=== PATIENT | female | born 1960 | race Caucasian/White ===

== ENCOUNTER 2018-10-13 18:16 | Emergency (ER) | payer MEDICAID ==
--- NOTE | 2018-10-13 18:28 | EDM.PDOC ---
ED HPI GENERAL MEDICAL PROBLEM - General Stated Complaint: COUGH FOR 3 WKS Time Seen by Provider: 10/13/18 18:28 Source of Information: Reports: Patient History Limitations: Reports: No Limitations - History of Present Illness INITIAL COMMENTS - FREE TEXT/NARRATIVE: 58-year-old female who reports onset of cough about 3 weeks ago and it has been persisting all this time and seems to be worsening over the past week. She has had production of white clear phlegm. She also has bilateral chest soreness that is worse with cough and deep breathing. She rates that soreness is a 7/10 in there are sharp spikes to the pain. Over the past 2 days she has had cough to the point of emesis and she states that she has not been taking her medications because of this. She has been able to drink and even eat some but she coughs and then she has emesis of her stomach contents. The emesis has been nonbilious. She does feel somewhat short of breath. And any activity or movement seems to make the cough worse. She has had no fevers. She does have a history of asthma and she has been using her inhaler with some some effect but over the past few days it has not really been helping that much. No syncope or presyncope. She does feel fatigued as she feels that she has not been sleeping very well. She has some swelling in her right leg but that has been rather long- standing. Is a chronic foot drop in her left leg that she reports is due to a stroke. There are no other associated signs or symptoms. There are no other modifying factors. 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: Other Medication(s) (Albuterol inhaler) chest and rib Pain Score (Numeric/FACES): 6 - Related Data Allergies Allergy/AdvReac Type Severity Reaction Status Date / Time Sulfa (Sulfonamide Allergy Cannot Verified 10/13/18 19:11 Antibiotics) Remember Home Meds: Home Meds Estrogens, Conjugated [Premarin] 1.25 mg PO BID 09/24/13 [History] Ezetimibe/Simvastatin [Vytorin 10-40 mg Tablet] 1 tab PO DAILY 09/24/13 [History ] Insulin Aspart [NovoLOG] 32 units SQ TID 09/24/13 [History] Insulin Detemir [Levemir Flexpen] 30 units SQ BEDTIME 09/24/13 [History] Levothyroxine [Synthroid] 50 mcg PO DAILY 09/24/13 [History] Losartan [Cozaar] 100 mg PO DAILY 09/24/13 [History] Sertraline [Zoloft] 100 mg PO BID 09/24/13 [History] Pregabalin [Lyrica] 225 mg PO BID 10/13/18 [History] Past Medical History Cardiovascular History: Reports: High Cholesterol, Hypertension Respiratory History: Reports: Asthma Genitourinary History: Reports: Renal Calculus Neurological History: Reports: CVA (With left foot drop) Endocrine/Metabolic History: Reports: Diabetes, Type II, Obesity/BMI 30+ - Past Surgical History GI Surgical History: Reports: Cholecystectomy Female Surgical History: Reports: Hysterectomy, Nephrectomy (Right) Social & Family History - Tobacco Use Smoking Status *Q: Former Smoker (Quit smoking in 2011.) - Alcohol Use Alcohol Use History: No - Living Situation & Occupation Living situation: Reports: Occupation: Unemployed (She is her 's primary caregiver) ED ROS GENERAL - Review of Systems Review Of Systems: See Below Constitutional: Reports: Fatigue. Denies: Fever, Chills HEENT: Reports: Other (Chronic allergy type symptoms) Respiratory: Reports: Shortness of Breath, Cough Cardiovascular: Reports: Chest Pain GI/Abdominal: Reports: Vomiting (Posttussive emesis) : Reports: No Symptoms Musculoskeletal: Reports: Other (Chronic swelling in right lower extremity) Skin: Reports: No Symptoms Neurological: Reports: No Symptoms Hematologic/Lymphatic: Reports: No Symptoms Immunologic: Reports: No Symptoms ED EXAM, GENERAL - Physical Exam Exam: See Below Exam Limited By: No Limitations General Appearance: Alert, WD/WN, Mild Distress (Secondary to continual cough) Eye Exam: Bilateral Eye: EOMI, Normal Inspection, PERRL Ears: Normal External Exam, Hearing Grossly Normal Ear Exam: Bilateral Ear: Auricle Normal Nose: No Blood, Nasal Drainage, Clear Rhinorrhea Throat/Mouth: Normal Inspection, Normal Oropharynx, Normal Voice, No Airway Compromise Head: Atraumatic, Normocephalic Neck: Normal Inspection, Supple, Non-Tender, Full Range of Motion Respiratory/Chest: No Respiratory Distress, Lungs Clear, Normal Breath Sounds, No Accessory Muscle Use, Other (Chest somewhat tender to palpation bilaterally along the lateral aspects) Cardiovascular: Normal Peripheral Pulses, Regular Rate, Rhythm, No Murmur Peripheral Pulses: 2+: Radial (L), Radial (R), Dorsalis Pedis (L), Dorsalis Pedis (R) GI/Abdominal: Normal Bowel Sounds, Soft, Non-Tender, No Mass, Other (Protuberant ) Back Exam: Normal Inspection, Full Range of Motion Extremities: Normal Capillary Refill, Other (Edema in right lower leg, foot and ankle compared to the left.) Neurological: Alert, Oriented, CN II-XII Intact, Normal Cognition, No Motor/ Sensory Deficits Skin Exam: Warm, Dry, Intact, Normal Color, No Rash EKG INTERPRETATION EKG Date: 10/13/18 Time: 18:50 Rhythm: NSR Rate (Beats/Min): 79 [place]: LAD-Left [place] Deviation (Borderline) P-Wave: Present QRS: Normal ST-T: Other (Nonspecific ST-T changes) QT: Prolonged (Borderline prolonged QTC) Comparison: No Change (No change from EKG performed on 09/24/2013.) Course - Vital Signs Last Recorded V/S: Last Vital Signs Temp 36.8 C 10/13/18 18:16 Pulse 94 10/13/18 18:16 Resp 20 10/13/18 18:16 BP 180/93 H 10/13/18 18:16 Pulse Ox 97 10/13/18 18:16 - Orders/Labs/Meds Orders: Active Orders 24 hr Category Date Time Status EKG Documentation Completion [RC] ASDIRECTED Care 10/13/18 18:44 Active RT Aerosol Therapy [RC] ASDIRECTED Care 10/13/18 18:39 Active Chest 2V [CR] Stat Exams 10/13/18 18:38 Taken EKG 12 Lead [EK] Routine Ther 10/13/18 18:44 Ordered Labs: Laboratory Tests 10/13/18 10/13/18 10/13/18 Range/Units 18:55 18:55 18:55 WBC 9.1 (4.5-12.0) X10-3/uL RBC 4.14 (3.23-5.20) x10(6)uL Hgb 10.9 L (11.5-15.5) g/dL Hct 32.9 (30.0-51.3) % MCV 79.5 L (80-96) fL MCH 26.3 L (27.7-33.6) pg MCHC 33.1 (32.2-35.4) g/dL RDW 14.1 (11.5-15.5) % Plt Count 273 (125-369) X10(3)uL MPV 9.1 (7.4-10.4) fL Neut % (Auto) 67.8 (46-82) % Lymph % (Auto) 23.6 (13-37) % [place] % (Auto) 4.4 (4-12) % Eos % (Auto) 4 (1.0-5.0) % Baso % (Auto) 1 (0-2) % Neut # (Auto) 6.2 (1.6-8.3) # Lymph # (Auto) 2.1 (0.6-5.0) # [place] # (Auto) 0.4 (0.0-1.3) # Eos # (Auto) 0.3 (0.0-0.8) # Baso # (Auto) 0.0 (0.0-0.2) # D-Dimer, Quantitative (0.0-0.59) mg/LFEU Sodium 138 (135-145) mmol/L Potassium 4.1 (3.5-5.3) mmol/L Chloride 104 (100-110) mmol/L Carbon Dioxide 25 (21-32) mmol/L BUN 17 (7-18) mg/dL Creatinine 1.3 H (0.55-1.02) mg/dL Est Cr Clr Drug Dosing 47.00 mL/min Estimated GFR (MDRD) 42 L (>60) BUN/Creatinine Ratio 13.1 (9-20) Glucose 190 H (80-116) mg/dL Calcium 8.9 (8.6-10.2) mg/dL Troponin I < 0.017 L (<0.017-0.056) ng/mL NT-Pro-B Natriuret Pep 623 H (<=125) pg/mL 10/13/18 Range/Units 18:55 WBC (4.5-12.0) X10-3/uL RBC (3.23-5.20) x10(6)uL Hgb (11.5-15.5) g/dL Hct (30.0-51.3) % MCV (80-96) fL MCH (27.7-33.6) pg MCHC (32.2-35.4) g/dL RDW (11.5-15.5) % Plt Count (125-369) X10(3)uL MPV (7.4-10.4) fL Neut % (Auto) (46-82) % Lymph % (Auto) (13-37) % [place] % (Auto) (4-12) % Eos % (Auto) (1.0-5.0) % Baso % (Auto) (0-2) % Neut # (Auto) (1.6-8.3) # Lymph # (Auto) (0.6-5.0) # [place] # (Auto) (0.0-1.3) # Eos # (Auto) (0.0-0.8) # Baso # (Auto) (0.0-0.2) # D-Dimer, Quantitative 1.11 H (0.0-0.59) mg/LFEU Sodium (135-145) mmol/L Potassium (3.5-5.3) mmol/L Chloride (100-110) mmol/L Carbon Dioxide (21-32) mmol/L BUN (7-18) mg/dL Creatinine (0.55-1.02) mg/dL Est Cr Clr Drug Dosing mL/min Estimated GFR (MDRD) (>60) BUN/Creatinine Ratio (9-20) Glucose (80-116) mg/dL Calcium (8.6-10.2) mg/dL Troponin I (<0.017-0.056) ng/mL NT-Pro-B Natriuret Pep (<=125) pg/mL Meds: Medications Discontinued Medications Generic Name Dose Route Start Last Admin Trade Name Freq PRN Reason Stop Dose Admin Albuterol 2.5 mg 10/13/18 18:38 10/13/18 18:55 Proventil Neb Soln NEB 10/13/18 18:39 2.5 mg ONETIME ONE Administration Albuterol/Ipratropium 3 ml 10/13/18 18:38 10/13/18 18:55 Duoneb 3.0-0.5 Mg/3 Ml NEB 10/13/18 18:39 3 ml ONETIME ONE Administration Prednisone 60 mg 10/13/18 18:38 10/13/18 18:56 Prednisone PO 10/13/18 18:39 60 mg ONETIME ONE Administration - Re-Assessments/Exams Free Text/Narrative Re-Assessment/Exam: 10/13/18 19:30: Care to Dr. Rock. Departure - Departure Time of Disposition: 19:30 Disposition: Still A Patient 30 Condition: Fair Clinical Impression: Cough, Shortness of breath - Discharge Information Referrals: Veto Mata MD [Primary Care Provider] - - My Orders Last 24 Hours: My Active Orders 10/13/18 18:38 Chest 2V [CR] Stat 10/13/18 18:39 RT Aerosol Therapy [RC] ASDIRECTED 10/13/18 18:44 EKG Documentation Completion [RC] ASDIRECTED EKG 12 Lead [EK] Routine - Assessment/Plan Last 24 Hours: My Active Orders 10/13/18 18:38 Chest 2V [CR] Stat 10/13/18 18:39 RT Aerosol Therapy [RC] ASDIRECTED 10/13/18 18:44 EKG Documentation Completion [RC] ASDIRECTED EKG 12 Lead [EK] Routine
[2018-10-13] MEDS ORDERED: Albuterol 0.083% 2.5 MG/3 ML Neb Soln NEB ONE (18:38)
[2018-10-13] MEDS ORDERED: predniSONE 20 MG Tab PO ONE (18:38)
[2018-10-13] MEDS ORDERED: Albuterol/Ipratropium 3.0-0.5 MG/3 ML Neb Soln NEB ONE (18:38)
[2018-10-13] MEDS ORDERED: Iopamidol 755 MG/ML 150 ML Bottle IV ONE (19:52)
[2018-10-13] MEDS ORDERED: Iopamidol 755 Mg/ML 100 ML Bottle IV ONE (20:16)
[2018-10-13] MEDS ORDERED: Furosemide 20 MG Tab PO ONE (21:23)
--- NOTE | 2018-10-15 12:54 | CR ---
INDICATION: Cough times three weeks. CHEST: PA and lateral views of the chest, 10/13/18, were compared with and revealed little interval change with pulmonary markings slightly heavy, compatible with mild pulmonary fibrosis, as previously. No consolidating pneumonia or effusion was identified. The left ventricular contour is somewhat prominent, suggesting mild LVE. The aorta is tortuous. Bony structures appear to be intact. Evidence of exogenous obesity is noted, as previously. IMPRESSION: 1. No definite acute process - mild pulmonary fibrosis. No definite consolidating pneumonia. With the areas of slightly heavy markings, it remains difficult to entirely exclude minimal patchy bronchopneumonia. 2. Probable ASHD. 3. Exogenous obesity. MTDD
--- NOTE | 2018-10-16 07:36 | ER ---
DATE SEEN: 10/13/2018 ADDENDUM: I saw Melinda Rodrigues, [id number], as a followup after Dr. Bingham had seen her in the ER. He had ordered a number of tests, and the D-dimer came back positive and a CT of the chest was ordered as a result. She has had a complaint of shortness of breath and cough for about 3 weeks. The cough is productive of clear sputum. She has also had some soreness in the chest area that is sharp. PAST MEDICAL HISTORY: She endorsed a history of a stroke and type 2 diabetes. ALLERGIES: Sulfa drugs. PHYSICAL EXAMINATION: VITAL SIGNS: Initial blood pressure 180/93, pulse 94, and temperature 98.3. ENT: Negative. NECK: Supple. CARDIOVASCULAR: No murmurs. EXTREMITIES: No edema. LUNGS: Rales. LABORATORY DATA: CBC was normal. Creatinine 1.3. Troponin was negative. BNP is 623. CT of the chest was negative for PE, but positive for pulmonary edema. IMPRESSION: Mild congestive heart failure exacerbation. TREATMENT: 20 mg of Lasix x1 dose and discharged home on 20 mg daily and follow up with PCP next week, Dr. Mata. Return to the ED with any worsening symptoms. /[id number] ALEJANDRO/DARLENE
== END 2018-10-13 21:40 | disposition home or self-care (01) ==
LOC: FB.ED 18:16
DX: I11.0 Hypertensive heart disease with heart failure (principal); I50.9 Heart failure, unspecified; J45.909 Unspecified asthma, uncomplicated; E78.00 Pure hypercholesterolemia, unspecified; E11.9 Type 2 diabetes mellitus without complications; Z79.899 Other long term (current) drug therapy; Z86.73 Personal history of transient ischemic attack (TIA), and cerebral infarction without residual deficits; Z88.2 Allergy status to sulfonamides; Z79.4 Long term (current) use of insulin; Z87.891 Personal history of nicotine dependence
CPT/HCPCS: 36415; 71046; 71275; 80048; 83880; 84484; 85025; 85379; 93005; 94640; 99284; A9270; Q9967; J7620-GY

== ENCOUNTER 2019-01-13 11:23 | Emergency (ER) | payer MEDICAID ==
[2019-01-13] MEDS ORDERED: Pregabalin 100 MG Cap PO ONE (11:24)
[2019-01-13] MEDS ORDERED: Pregabalin 25 MG Cap PO ONE (11:24)
--- NOTE | 2019-01-13 11:41 | EDM.PDOC ---
ED HPI GENERAL MEDICAL PROBLEM - General Stated Complaint: LEFT FOOT HURTS Time Seen by Provider: 01/13/19 11:25 Source of Information: Reports: Patient History Limitations: Reports: No Limitations - History of Present Illness INITIAL COMMENTS - FREE TEXT/NARRATIVE: pt is here basically asking for refil on her lyrica, tells me she has Hx of chronic pain for years and neuropathy at her feet , has been out of her Lyrica since and cant get an earlier refill from pharmacy and has been able to sleep because of pain, pt decribe nurning sensation at her feet particularly on left foot , pt denies any recent injures , or any associated swelling, fever chill, etc or any other medical concerns. - Related Data Allergies Allergy/AdvReac Type Severity Reaction Status Date / Time Sulfa (Sulfonamide Allergy Cannot Verified 10/13/18 19:11 Antibiotics) Remember Home Meds: Home Meds Estrogens, Conjugated [Premarin] 1.25 mg PO BID 09/24/13 [History] Ezetimibe/Simvastatin [Vytorin 10-40 mg Tablet] 1 tab PO DAILY 09/24/13 [History ] Insulin Aspart [NovoLOG] 32 units SQ TID 09/24/13 [History] Insulin Detemir [Levemir Flexpen] 30 units SQ BEDTIME 09/24/13 [History] Levothyroxine [Synthroid] 50 mcg PO DAILY 09/24/13 [History] Losartan [Cozaar] 100 mg PO DAILY 09/24/13 [History] Sertraline [Zoloft] 100 mg PO BID 09/24/13 [History] Furosemide [Lasix] 20 mg PO ONETIME #30 tab 10/13/18 [Rx] Pregabalin [Lyrica] 225 mg PO BID 10/13/18 [History] Past Medical History Cardiovascular History: Reports: High Cholesterol, Hypertension Other Cardiovascular History: stroke in 2013 Respiratory History: Reports: Asthma Genitourinary History: Reports: Renal Calculus Neurological History: Reports: CVA (With left foot drop) Endocrine/Metabolic History: Reports: Diabetes, Type II, Obesity/BMI 30+ - Past Surgical History GI Surgical History: Reports: Cholecystectomy Female Surgical History: Reports: Hysterectomy, Nephrectomy (Right) Social & Family History - Living Situation & Occupation Living situation: Reports: Occupation: Unemployed (She is her 's primary caregiver) ED ROS GENERAL - Review of Systems Review Of Systems: See Below Constitutional: Reports: No Symptoms Respiratory: Reports: No Symptoms Cardiovascular: Reports: No Symptoms GI/Abdominal: Reports: No Symptoms Musculoskeletal: Reports: No Symptoms Skin: Reports: No Symptoms ED EXAM, GENERAL - Physical Exam Exam: See Below Exam Limited By: No Limitations General Appearance: Alert, No Apparent Distress Eye Exam: Bilateral Eye: Normal Inspection Respiratory/Chest: No Respiratory Distress, Lungs Clear Cardiovascular: Normal Peripheral Pulses, Regular Rate, Rhythm, No Edema Extremities: Normal Inspection, Normal Range of Motion, Non-Tender Neurological: Alert, CN II-XII Intact, No Motor/Sensory Deficits Course - Vital Signs Text/Narrative:: pt has chronic pain at lower extremities secondary to neuropathy , she was given 4 tablets on lyrica to cover her over the weekend , pt was advised to contact her PCP early this week to discuss ongoing mng of chronic pain and future refills on her medications. Departure - Departure Time of Disposition: 11:42 Disposition: Home, Self-Care 01 Clinical Impression: Neuropathy - Discharge Information Referrals: Veto Mata MD [Primary Care Provider] -
[2019-01-13] MEDS ORDERED: Pregabalin 25 MG Cap ONE ×3 (11:47→11:58)
[2019-01-13] MEDS ORDERED: Pregabalin 100 MG Cap ONE ×2 (11:56→11:59)
[2019-01-13] MEDS ORDERED: Pregabalin 25 MG Cap PO SCH (21:00)
== END 2019-01-13 12:09 | disposition home or self-care (01) ==
LOC: FB.ED 11:23
DX: E11.40 Type 2 diabetes mellitus with diabetic neuropathy, unspecified (principal); I10 Essential (primary) hypertension; E78.00 Pure hypercholesterolemia, unspecified; J45.909 Unspecified asthma, uncomplicated; E66.9 Obesity, unspecified; I69.398 Other sequelae of cerebral infarction; M21.371 Foot drop, right foot; Z79.4 Long term (current) use of insulin; Z79.899 Other long term (current) drug therapy; Z88.2 Allergy status to sulfonamides
CPT/HCPCS: 99283; A9270

== ENCOUNTER 2019-10-09 18:41 | Emergency (ER) | payer MEDICAID ==
--- NOTE | 2019-10-09 21:01 | EDM.PDOC ---
ED HPI GENERAL MEDICAL PROBLEM - General Chief Complaint: Lower Extremity Injury/Pain Time Seen by Provider: 10/09/19 18:50 Source of Information: Reports: Patient History Limitations: Reports: No Limitations - History of Present Illness INITIAL COMMENTS - FREE TEXT/NARRATIVE: Patient presented to the ED because she fell in her bathroom 3 days ago and now c/o headache,,Left hip pain, and facial pain. There is no LOC after the fall. Left Hip Pain Score (Numeric/FACES): 8 - Related Data Allergies Allergy/AdvReac Type Severity Reaction Status Date / Time Sulfa (Sulfonamide Allergy Cannot Verified 01/13/19 11:40 Antibiotics) Remember Home Meds: Home Meds Estrogens, Conjugated [Premarin] 1.25 mg PO BID 09/24/13 [History] Ezetimibe/Simvastatin [Vytorin 10-40 mg Tablet] 1 tab PO DAILY 09/24/13 [History] Insulin Aspart [NovoLOG] 32 units SQ TID 09/24/13 [History] Insulin Detemir [Levemir Flexpen] 30 units SQ BEDTIME 09/24/13 [History] Levothyroxine [Synthroid] 50 mcg PO DAILY 09/24/13 [History] Losartan [Cozaar] 100 mg PO DAILY 09/24/13 [History] Sertraline [Zoloft] 100 mg PO BID 09/24/13 [History] Furosemide [Lasix] 20 mg PO ONETIME #30 tab 10/13/18 [Rx] Pregabalin [Lyrica] 225 mg PO BID 10/13/18 [History] Cyclobenzaprine [Flexeril] 10 mg PO Q8H PRN #15 tab 10/09/19 [Rx] traMADol [Ultram] 100 mg PO Q8H PRN #15 tab 10/09/19 [Rx] Past Medical History Cardiovascular History: Reports: High Cholesterol, Hypertension Other Cardiovascular History: stroke in 2013 Respiratory History: Reports: Asthma Genitourinary History: Reports: Renal Calculus Neurological History: Reports: CVA Endocrine/Metabolic History: Reports: Diabetes, Type II, Obesity/BMI 30+ - Past Surgical History GI Surgical History: Reports: Cholecystectomy Female Surgical History: Reports: Hysterectomy, Nephrectomy Social & Family History - Tobacco Use Smoking Status *Q: Unknown Ever Smoked - Living Situation & Occupation Living situation: Reports: Occupation: Unemployed (She is her 's primary caregiver) Review of Systems - Review of Systems Review Of Systems: See Below Constitutional: Reports: No Symptoms Ears: Reports: No Symptoms Nose: Reports: No Symptoms Mouth/Throat: Reports: No Symptoms Respiratory: Reports: No Symptoms Cardiovascular: Reports: No Symptoms GI/Abdominal: Reports: No Symptoms Genitourinary: Reports: No Symptoms Musculoskeletal: Reports: No Symptoms Skin: Reports: No Symptoms ED EXAM, GENERAL - Physical Exam Exam: See Below Exam Limited By: No Limitations General Appearance: Alert, No Apparent Distress Ears: Normal External Exam, Normal [place] Nose: Normal Inspection, Normal Mucosa Throat/Mouth: Normal Inspection, Normal Lips Head: Atraumatic, Normocephalic Neck: Normal Inspection, Supple, Non-Tender Respiratory/Chest: No Respiratory Distress, Lungs Clear, Normal Breath Sounds Cardiovascular: Normal Peripheral Pulses, Regular Rate, Rhythm, No Edema, No Gallop GI/Abdominal: Normal Bowel Sounds, Soft, Non-Tender, No Organomegaly Back Exam: Normal Inspection, Full Range of Motion Extremities: Normal Inspection, Normal Range of Motion, Other (tenderness left hip) Neurological: Alert, Oriented, CN II-XII Intact, Normal Cognition Course - Vital Signs Text/Narrative:: Labs/Head CT, xray left pelvis was discussed with patient Tramadol 100 mg wand tylenol 1000 mg po x1 Flexeril 10 mg po x1 Last Recorded V/S: Last Vital Signs Temp 36.6 C 10/09/19 21:07 Pulse 71 10/09/19 21:07 Resp 16 10/09/19 21:07 BP 177/81 H 10/09/19 21:07 Pulse Ox 99 10/09/19 21:07 - Orders/Labs/Meds Orders: Active Orders 24 hr Category Date Time Status Chest 1V Frontal [CR] Stat Exams 10/09/19 18:58 Taken Head wo Cont [CT] Stat Exams 10/09/19 18:58 Taken Hip Min 2V or 3V w Pelvis Rt [CR] Stat Exams 10/09/19 18:58 Taken Nasal Bone Min 3V [CR] Stat Exams 10/09/19 18:58 Taken Labs: Laboratory Tests 10/09/19 10/09/19 10/09/19 Range/Units 19:15 19:15 19:15 WBC 8.3 (4.5-12.0) X10-3/uL RBC 4.09 (3.23-5.20) x10(6)uL Hgb 10.6 L (11.5-15.5) g/dL Hct 33.8 (30.0-51.3) % MCV 82.5 (80-96) fL MCH 26.0 L (27.7-33.6) pg MCHC 31.5 L (32.2-35.4) g/dL RDW 14.1 (11.5-15.5) % Plt Count 251 (125-369) X10(3)uL MPV 9.0 (7.4-10.4) fL Neut % (Auto) 60.5 (46-82) % Lymph % (Auto) 28.7 (13-37) % [place] % (Auto) 5.9 (4-12) % Eos % (Auto) 4 (1.0-5.0) % Baso % (Auto) 1 (0-2) % Neut # (Auto) 5.0 (1.6-8.3) # Lymph # (Auto) 2.4 (0.6-5.0) # [place] # (Auto) 0.5 (0.0-1.3) # Eos # (Auto) 0.3 (0.0-0.8) # Baso # (Auto) 0.1 (0.0-0.2) # Sodium 138 (135-145) mmol/L Potassium 3.9 (3.5-5.3) mmol/L Chloride 104 (100-110) mmol/L Carbon Dioxide 27 (21-32) mmol/L BUN 20 H (7-18) mg/dL Creatinine 1.3 H (0.55-1.02) mg/dL Est Cr Clr Drug Dosing TNP Estimated GFR (MDRD) 42 L (>60) BUN/Creatinine Ratio 15.4 (9-20) Glucose 191 H (80-116) mg/dL Calcium 8.7 (8.6-10.2) mg/dL Total Bilirubin 0.4 (0.1-1.3) mg/dL AST 15 (5-25) IU/L ALT 13 (12-36) U/L Alkaline Phosphatase 126 H (56-112) IU/L Creatine Kinase 139 (60-160) IU/L Troponin I 4.6 (4.0-60.3) pg/mL Total Protein 7.5 (6.0-8.0) g/dL Albumin 2.8 L (3.2-4.6) g/dL Globulin 4.7 g/dL Albumin/Globulin Ratio 0.6 Meds: Medications Discontinued Medications Generic Name Dose Route Start Last Admin Trade Name Freq PRN Reason Stop Dose Admin Acetaminophen 1,000 mg 10/09/19 21:06 10/09/19 21:13 Tylenol Extra Strength PO 10/09/19 21:07 1,000 mg ONETIME ONE Administration Cyclobenzaprine HCl 10 mg 10/09/19 21:06 10/09/19 21:13 Flexeril PO 10/09/19 21:07 10 mg ONETIME ONE Administration Tramadol HCl 100 mg 10/09/19 21:06 10/09/19 21:13 Ultram PO 10/09/19 21:07 100 mg ONETIME ONE Administration Departure - Departure Time of Disposition: 21:00 Disposition: Home, Self-Care 01 Condition: Good Clinical Impression: Musculoskeletal pain, Contusion - Discharge Information Prescriptions: Cyclobenzaprine [Flexeril] 10 mg PO Q8H PRN #15 tab PRN Reason: Spasms traMADol [Ultram] 100 mg PO Q8H PRN #15 tab PRN Reason: Pain Instructions: Muscle Strain, [id number], Musculoskeletal Pain Referrals: PCP,None [Primary Care Provider] - Forms: ED Department Discharge Additional Instructions: Please read discharge instructions on muscle strain, contusion Apply ice Take flexeril 10 mg every 8 hours as needed for muscle spasm Tramadol 100 mg with tylenol 1000 mg every 8 hours as needed for pain Follow up as needed Sepsis Event Note (ED) - Evaluation Sepsis Screening Result: No Definite Risk - My Orders Last 24 Hours: My Active Orders 10/09/19 18:58 Chest 1V Frontal [CR] Stat Head wo Cont [CT] Stat Hip Min 2V or 3V w Pelvis Rt [CR] Stat Nasal Bone Min 3V [CR] Stat - Assessment/Plan Last 24 Hours: My Active Orders 10/09/19 18:58 Chest 1V Frontal [CR] Stat Head wo Cont [CT] Stat Hip Min 2V or 3V w Pelvis Rt [CR] Stat Nasal Bone Min 3V [CR] Stat
[2019-10-09] MEDS ORDERED: Acetaminophen 500 MG Tab PO ONE (21:06)
[2019-10-09] MEDS ORDERED: Cyclobenzaprine 10 MG Tab PO ONE (21:06)
[2019-10-09] MEDS ORDERED: traMADol 50 MG Tab PO ONE (21:06)
--- NOTE | 2019-10-10 12:44 | CR ---
INDICATION: Cough x1 week. CHEST, 1 VIEW: PA view of the chest was obtained 10/09/2019 and compared with 10/13/2018. Apparel with metallic densities noted overlying the chest. Heart did not appear enlarged. The aorta is tortuous. A definite active infiltrate or effusion was not identified. Evidence of exogenous obesity is noted. IMPRESSION: No acute process - findings as noted above. MTDD
--- NOTE | 2019-10-10 12:48 | CR ---
INDICATION: Fall. RIGHT HIP WITH PELVIS: AP view of the pelvis with 2 AP views of the right hip and a lateral view of the right hip were compared with CT of the pelvis dated 09/24/13. An acute fracture, dislocation or other acute bone or joint abnormality was not identified. Sacroiliac joints appear to be overall intact with some minimal hypertrophic degenerative changes. Hip joints appear normal with normal joint space without evidence of fracture or dislocation. There are some phleboliths in the pelvis. IMPRESSION: No acute fracture or dislocation. MTDD
--- NOTE | 2019-10-10 12:49 | CR ---
INDICATION: Fall, epistaxis. NASAL BONES: Frontal and lateral views of the nasal bones revealed no evidence of an acute fracture or other definite bony abnormality. Paranasal sinuses appear to be fairly well aerated. IMPRESSION: No fracture site identified. MTDD
== END 2019-10-09 21:23 | disposition home or self-care (01) ==
LOC: FB.ED 18:41
DX: S70.02XA Contusion of left hip, initial encounter (principal); S00.83XA Contusion of other part of head, initial encounter; I10 Essential (primary) hypertension; R51 Headache; J45.909 Unspecified asthma, uncomplicated; E11.9 Type 2 diabetes mellitus without complications; E66.9 Obesity, unspecified; Z88.2 Allergy status to sulfonamides; Z79.4 Long term (current) use of insulin; Z79.899 Other long term (current) drug therapy; Z86.73 Personal history of transient ischemic attack (TIA), and cerebral infarction without residual deficits; W19.XXXA Unspecified fall, initial encounter
CPT/HCPCS: 36415; 70160; 70450; 71045; 73502; 80053; 82550; 84484; 85025; 99284; A9270

== ENCOUNTER 2020-10-31 16:53 | Emergency (ER) | payer MEDICAID ==
[2020-10-31] MEDS ORDERED: Ketorolac 30 MG/ML SDV IM ONE (17:32)
--- NOTE | 2020-10-31 17:38 | EDM.PDOC ---
ED HPI GENERAL MEDICAL PROBLEM - General Chief Complaint: General Stated Complaint: fall Time Seen by Provider: 10/31/20 17:20 Source of Information: Reports: Patient History Limitations: Reports: No Limitations - History of Present Illness INITIAL COMMENTS - FREE TEXT/NARRATIVE: c/o fall walks with cane, has had CVA and a drop foot on L fell on curb walking into her apartment yesterday, not feeling ill, says she sometimes has trouble controlling her L foot and loses her balance awake during night d/t pain at ribs under R breast, localized also small abrasion of R knee, some soreness with wt bearing has had swelling RLE after fall Treatments [employer]: Reports: Acetaminophen Right Pain Score (Numeric/FACES): 9 - Related Data Allergies Allergy/AdvReac Type Severity Reaction Status Date / Time Sulfa (Sulfonamide Allergy Cannot Verified 01/13/19 11:40 Antibiotics) Remember Home Meds: Home Meds Estrogens, Conjugated [Premarin] 1.25 mg PO BID 09/24/13 [History] Ezetimibe/Simvastatin [Vytorin 10-40 mg Tablet] 1 tab PO DAILY 09/24/13 [ History] Insulin Aspart [NovoLOG] 32 units SQ TID 09/24/13 [History] Insulin Detemir [Levemir Flexpen] 30 units SQ BEDTIME 09/24/13 [History] Levothyroxine [Synthroid] 50 mcg PO DAILY 09/24/13 [History] Losartan [Cozaar] 100 mg PO DAILY 09/24/13 [History] Sertraline [Zoloft] 100 mg PO BID 09/24/13 [History] Furosemide [Lasix] 20 mg PO ONETIME #30 tab 10/13/18 [Rx] Pregabalin [Lyrica] 225 mg PO BID 10/13/18 [History] Cyclobenzaprine [Flexeril] 10 mg PO Q8H PRN #15 tab 10/09/19 [Rx] traMADol [Ultram] 100 mg PO Q8H PRN #15 tab 10/09/19 [Rx] traMADol HCl [Tramadol HCl] 100 mg PO Q6H PRN #12 tablet 10/31/20 [Rx] Past Medical History Cardiovascular History: Reports: High Cholesterol, Hypertension Other Cardiovascular History: stroke in 2013 Respiratory History: Reports: Asthma Genitourinary History: Reports: Renal Calculus Neurological History: Reports: CVA Endocrine/Metabolic History: Reports: Diabetes, Type II, Obesity/BMI 30+ - Past Surgical History GI Surgical History: Reports: Cholecystectomy Female Surgical History: Reports: Hysterectomy, Nephrectomy Social & Family History - Family History Family Medical History: No Pertinent Family History - Tobacco Use Tobacco Use Status *Q: Never Tobacco User - Caffeine Use Caffeine Use: Reports: Coffee - Recreational Drug Use Recreational Drug Use: No - Living Situation & Occupation Living situation: Reports: Occupation: Unemployed (She is her 's primary caregiver) ED ROS GENERAL - Review of Systems Review Of Systems: See Below Constitutional: Reports: No Symptoms HEENT: Reports: No Symptoms Respiratory: Reports: No Symptoms Cardiovascular: Reports: Other (rib pain) Endocrine: Reports: No Symptoms GI/Abdominal: Reports: No Symptoms : Reports: No Symptoms Musculoskeletal: Reports: No Symptoms Skin: Reports: No Symptoms Neurological: Reports: No Symptoms Psychiatric: Reports: No Symptoms Hematologic/Lymphatic: Reports: No Symptoms Immunologic: Reports: No Symptoms ED EXAM, GENERAL - Physical Exam Exam: See Below Exam Limited By: No Limitations General Appearance: Alert, WD/WN, No Apparent Distress Ears: Hearing Grossly Normal Nose: Normal Inspection Throat/Mouth: Normal Inspection, Normal Voice, No Airway Compromise Head: Atraumatic, Normocephalic Neck: Normal Inspection, Supple, Non-Tender, Full Range of Motion Respiratory/Chest: No Respiratory Distress, Lungs Clear, Normal Breath Sounds, Other (R rib tender localized MCL under R breast, nontender lateral and poste rior, nontender at R costochondral margin, no abrasion/ecchymosis/swell of skin at site of tenderness) Cardiovascular: Regular Rate, Rhythm, No Murmur GI/Abdominal: Soft, Non-Tender Extremities: Other (2+ edema of RLE which pt reports as knee, no cords/Homans, superficial abrasion of R knee of 2 x 2 cm above and below joint line anteriorly, no point tender) Course - Vital Signs Last Recorded V/S: Last Vital Signs Temp 36.3 C 10/31/20 17:03 Pulse 69 10/31/20 17:03 Resp 18 10/31/20 17:03 BP 187/106 H 10/31/20 17:03 Pulse Ox 99 10/31/20 17:03 - Orders/Labs/Meds Orders: Active Orders 24 hr Category Date Time Status Ribs 3V wo Chest Rt [CR] Stat Exams 10/31/20 17:31 Ordered Ketorolac [Toradol] Med 10/31/20 17:32 Once 30 mg IM ONETIME ONE - Re-Assessments/Exams Free Text/Narrative Re-Assessment/Exam: 10/31/20 18:26 XR R ribs neg per prelim ED read XR R knee shows spurring, advanced DJD of patella, mod DJD of tib-fib, no definite fx tx plan discussed, pt agrees Departure - Departure Time of Disposition: 18:18 Disposition: Home, Self-Care 01 Condition: Good Clinical Impression: Contusion of rib on right side, Contusion of right knee, Osteoarthritis of right patellofemoral joint, Osteoarthritis of right knee - Discharge Information *PRESCRIPTION DRUG MONITORING PROGRAM REVIEWED*: Not Applicable *COPY OF PRESCRIPTION DRUG MONITORING REPORT IN PATIENT ELIS: Not Applicable Prescriptions: traMADol HCl [Tramadol HCl] 100 mg PO Q6H PRN #12 tablet PRN Reason: Pain Instructions: Rib Contusion, Osteoarthritis Referrals: Veto Mata MD [Primary Care Provider] - Additional Instructions: For pain, continue acetaminophen 500 mg 2 tabs 4 times a day for 5 days, longer if needed. For pain, continue pregabalin as prescribed. For pain, take tramadol 100 mg 1 tab every 6 hours as needed. No alcohol. For pain, use ice for 10 minutes every 2 hours as needed. See your doctor in 2-3 days to recheck your blood pressure and for further evaluation of your injuries. Sepsis Event Note (ED) - Evaluation Sepsis Screening Result: No Definite Risk - Focused Exam Vital Signs: Vital Signs Temp Pulse Resp BP Pulse Ox 10/31/20 17:03 36.3 C 69 18 187/106 H 99 - My Orders Last 24 Hours: My Active Orders 10/31/20 17:31 Ribs 3V wo Chest Rt [CR] Stat 10/31/20 17:32 Ketorolac [Toradol] 30 mg IM ONETIME ONE - Assessment/Plan Last 24 Hours: My Active Orders 10/31/20 17:31 Ribs 3V wo Chest Rt [CR] Stat 10/31/20 17:32 Ketorolac [Toradol] 30 mg IM ONETIME ONE
[2020-10-31] MEDS ORDERED: traMADol 50 MG Tab PO ONE (18:21)
--- NOTE | 2020-11-02 12:08 | CR ---
INDICATION: Fall, pain anteriorly. RIGHT KNEE: AP lateral and patellar sunrise views of the right knee were obtained 10/31/20 - no comparisons. Hypertrophic degenerative changes are noted at the intercondylar notch and spines and laterally off the femur and tibia, as well as at the patellofemoral joint. At the patellofemoral joint, there is narrowing of the lateral patellofemoral joint space with sclerosis and subchondral cystic change, as well as hypertrophic spurring. There does appear to be some mild narrowing of the medial femorotibial joint space. An acute fracture or dislocation was not identified. IMPRESSION: 1. No acute fracture or dislocation. 2. Osteoarthritis. MTDD
--- NOTE | 2020-11-02 12:39 | CR ---
INDICATION: Fell [address] Pain right ribs. on the breast. RIGHT RIBS: Two PA views of the chest were obtained with three views additionally of the right ribs 10/31/20 and compared with PA chest from 10/09/19. The heart remains normal in size and shape. The aorta is tortuous. There are some heavy markings at the left lung base, mostly interstitial and to a lesser extent on the right, likely fibrotic in nature, but perhaps progressive compared with the previous examination. Some linear atelectatic change may also be present, especially on the left. However, no gross consolidating pneumonia, contusion, effusion or pneumothorax was identified. Three views of the right ribs revealed no displaced rib fracture site or other definite bony abnormality. IMPRESSION: 1. No definite acute process. If symptoms persist - if occult fracture site is suspected clinically, reexamination in 10 to 14 days with more advanced imaging may be helpful. 2. Exogenous obesity. 3. Suggestion of mild progression of pulmonary fibrosis of mild degree with possible linear atelectasis at the left lower lung field. MTDD
== END 2020-10-31 18:42 | disposition home or self-care (01) ==
LOC: FB.ED 16:53
DX: S80.01XA Contusion of right knee, initial encounter (principal); S20.211A Contusion of right front wall of thorax, initial encounter; M17.11 Unilateral primary osteoarthritis, right knee; E78.00 Pure hypercholesterolemia, unspecified; I10 Essential (primary) hypertension; E11.9 Type 2 diabetes mellitus without complications; E66.9 Obesity, unspecified; Z68.30 Body mass index [BMI] 30.0-30.9, adult; Z88.2 Allergy status to sulfonamides; Z86.73 Personal history of transient ischemic attack (TIA), and cerebral infarction without residual deficits; Z79.4 Long term (current) use of insulin; Z79.899 Other long term (current) drug therapy; W18.39XA Other fall on same level, initial encounter
CPT/HCPCS: 71101; 73562; 96372; 99283; A9270; J1885

== ENCOUNTER 2021-10-26 13:21 | Emergency (ER) | payer MEDICAID ==
[2021-10-26] MEDS ORDERED: Sodium Chloride 0.9% 10 ML Syringe FLUSH PRN (13:59)
[2021-10-26] MEDS ORDERED: Pantoprazole 40 MG Vial IVPUSH STA (14:01)
[2021-10-26] MEDS ORDERED: Morphine 2 MG/ML SYRINGE IVPUSH ONE (14:12)
[2021-10-26] MEDS ORDERED: Prochlorperazine 10 MG/2 ML SDV IVPUSH ONE (14:13)
[2021-10-26 14:29] LABS: ESTIMATED GFR 43 mL/min (>60)
[2021-10-26] MEDS ORDERED: Midazolam 1 MG/ML 2 ML SDV IVPUSH STA (14:38)
[2021-10-26] MEDS ORDERED: Sodium Chloride 0.9% 1,000 ML IV SCH (15:45)
[2021-10-26] MEDS: Midazolam 1 MG/ML 2 ML SDV IVPUSH ONE ×2 (15:56→19:03)
[2021-10-26] MEDS ORDERED: Iopamidol 755 Mg/ML 100 ML Bottle IV ONE (16:03)
[2021-10-26] MEDS ORDERED: Iopamidol 755 MG/ML 150 ML Bottle IV ONE (16:10)
== END 2021-10-26 18:51 | disposition home or self-care (01) ==
LOC: FB.ED 13:21
DX: K29.70 Gastritis, unspecified, without bleeding (principal); K92.1 Melena; E78.00 Pure hypercholesterolemia, unspecified; I10 Essential (primary) hypertension; E11.9 Type 2 diabetes mellitus without complications; E66.9 Obesity, unspecified; Z68.27 Body mass index [BMI] 27.0-27.9, adult; Z86.73 Personal history of transient ischemic attack (TIA), and cerebral infarction without residual deficits; Z88.2 Allergy status to sulfonamides; Z79.4 Long term (current) use of insulin; Z79.899 Other long term (current) drug therapy
CPT/HCPCS: 36415; 71045; 74177; 80053; 82150; 83605; 83690; 85025; 86140; 96361; 96374; 96375; 99284; C9113; J0780; J2270; J7030; Q9967; J2250

== ENCOUNTER 2022-02-18 16:34 | Inpatient (IN) | payer MEDICAID ==
[2022-02-18 17:28] LABS: ESTIMATED GFR 34 mL/min (>60)
[2022-02-18] MEDS ORDERED: Insulin Regular, Human 100 Units/ML 3 ML Vial IV ONE (17:50)
[2022-02-18] MEDS ORDERED: Calcium Gluconate 10% 1 GM/10 ML SDV IVPUSH ONE (17:50)
[2022-02-18] MEDS ORDERED: 50% Dextrose in Water 50 ML Syringe IVPUSH PRN ×2 (17:50→21:53)
[2022-02-18] MEDS ORDERED: Glucagon,Human Recombinant 1 MG Vial IM PRN ×2 (17:50→21:53)
[2022-02-18] MEDS ORDERED: Sodium Bicarbonate 8.4% 50 MEQ/50 ML Syringe IVPUSH ONE (17:50)
[2022-02-18] MEDS ORDERED: Sodium Chloride 0.9% 1,000 ML IV SCH (18:00)
[2022-02-18] MEDS ORDERED: Albuterol 0.083% 2.5 MG/3 ML Neb Soln NEB ONE (18:46)
[2022-02-18 19:42] LABS: ESTIMATED GFR 39 mL/min (>60)
[2022-02-18] MEDS ORDERED: Sodium Polystyrene Sulfonate 15 GM/60 ML Susp 60 ML Bot PO ONE (19:59)
[2022-02-18] MEDS: Enoxaparin 40 MG/0.4 ML Syringe SUBCUT SCH (22:37)
[2022-02-18 23:02] LABS: CORONAVIRUS COVID-19 NAA NEGATIVE (NEGATIVE)
[2022-02-18] MEDS ORDERED: MIRTAZAPINE 15 MG PO ONE (23:15)
[2022-02-18] MEDS ORDERED: LOSARTAN 100 MG PO ONE (23:15)
[2022-02-18] MEDS ORDERED: PREGABALIN 75 MG PO ONE (23:15)
[2022-02-18] MEDS ORDERED: Simvastatin 40 MG Tab***OWN MED PO ONE (23:15)
[2022-02-18] MEDS ORDERED: VENLAFAXINE 150 MG PO ONE (23:15)
[2022-02-19] MEDS: traMADol 50 MG Tab PO PRN ×2 (04:47→21:41)
[2022-02-19] MEDS: Levothyroxine 75 MCG Tab***OWN MED PO SCH (05:37)
[2022-02-19 06:25] LABS: ESTIMATED GFR 46 mL/min (>60)
[2022-02-19] MEDS ORDERED: Sodium Polystyrene Sulfonate 15 GM/60 ML Susp 60 ML Bot PO ONE ×3 (06:47→09:00)
[2022-02-19] MEDS ORDERED: Calcium Gluconate 10% 1 GM/10 ML SDV IVPUSH ONE (06:49)
[2022-02-19] MEDS ORDERED: SPIRONOLACTONE 25 MG PO SCH (08:00)
[2022-02-19] MEDS: ESTROGENS CONJUGATED 1.25 MG PO SCH (08:59)
[2022-02-19] MEDS: FUROSEMIDE 20 MG PO SCH (08:59)
[2022-02-19] MEDS: Insulin Lispro 100 Unit/ML 3 ML KwikPen SUBCUT SCH ×3 (09:01→18:08)
[2022-02-19] MEDS: PREGABALIN 75 MG PO SCH ×2 (09:04→21:26)
[2022-02-19] MEDS: ACETAMINOPHEN 500 MG PO SCH ×3 (09:05→21:27)
[2022-02-19] MEDS: CHOLECALCIFEROL 25 MCG PO SCH (09:06)
[2022-02-19] MEDS: EZETIMIBE 10 MG PO SCH (09:07)
[2022-02-19] MEDS ORDERED: Dextrose 5% in Water 1,000 ML IV SCH (09:15)
[2022-02-19] MEDS: Hydrocortisone 2.5% Crm 30 GM Tube TOP SCH ×2 (12:17→21:00)
[2022-02-19] MEDS: Bacitracin Oint 28.35 GM Tube TOP SCH ×2 (13:56→21:19)
[2022-02-19] MEDS: Sodium Polystyrene Sulfonate 15 GM/60 ML Susp 60 ML Bot PO SCH ×2 (15:09→20:55)
[2022-02-19] MEDS ORDERED: LOSARTAN 100 MG PO SCH (21:00)
[2022-02-19] MEDS ORDERED: Simvastatin 40 MG Tab***OWN MED PO SCH (21:00)
[2022-02-19] MEDS: Insulin Glargine,Human Rec. Analog 100 Units/ML 3 ML Pen SUBCUT SCH (21:22)
[2022-02-19] MEDS: VENLAFAXINE 150 MG PO SCH (21:26)
[2022-02-19] MEDS: MIRTAZAPINE 15 MG PO SCH (21:27)
[2022-02-20] MEDS: Enoxaparin 40 MG/0.4 ML Syringe SUBCUT SCH ×2 (00:34→21:23)
[2022-02-20] MEDS: Levothyroxine 75 MCG Tab***OWN MED PO SCH (06:24)
[2022-02-20 06:51] LABS: ESTIMATED GFR 46 mL/min (>60)
[2022-02-20] MEDS ORDERED: SPIRONOLACTONE 25 MG PO SCH (08:00)
[2022-02-20] MEDS: ESTROGENS CONJUGATED 1.25 MG PO SCH (08:49)
[2022-02-20] MEDS: FUROSEMIDE 20 MG PO SCH (08:50)
[2022-02-20] MEDS: Insulin Lispro 100 Unit/ML 3 ML KwikPen SUBCUT SCH ×3 (08:50→18:33)
[2022-02-20] MEDS: Hydrocortisone 2.5% Crm 30 GM Tube TOP SCH ×2 (08:51→21:25)
[2022-02-20] MEDS: Bacitracin Oint 28.35 GM Tube TOP SCH ×3 (08:51→21:24)
[2022-02-20] MEDS: PREGABALIN 75 MG PO SCH ×2 (08:52→21:30)
[2022-02-20] MEDS: ACETAMINOPHEN 500 MG PO SCH ×3 (08:52→21:31)
[2022-02-20] MEDS: EZETIMIBE 10 MG PO SCH (08:54)
[2022-02-20] MEDS: CHOLECALCIFEROL 25 MCG PO SCH (08:54)
[2022-02-20] MEDS ORDERED: Furosemide 20 MG Tab PO ONE (09:16)
[2022-02-20] MEDS ORDERED: amLODIPine 2.5 MG Tab PO SCH (09:30)
[2022-02-20] MEDS: traMADol 50 MG Tab PO PRN (10:44)
[2022-02-20] MEDS ORDERED: Furosemide 40 MG/4 ML VIAL IVPUSH ONE (14:55)
[2022-02-20] MEDS: Sodium Polystyrene Sulfonate 15 GM/60 ML Susp 60 ML Bot PO SCH ×2 (17:08→21:34)
[2022-02-20] MEDS ORDERED: Simvastatin 20 MG Tab PO SCH (21:00)
[2022-02-20] MEDS ORDERED: Simvastatin 40 MG Tab***OWN MED PO SCH (21:00)
[2022-02-20] MEDS: Insulin Glargine,Human Rec. Analog 100 Units/ML 3 ML Pen SUBCUT SCH (21:17)
[2022-02-20] MEDS: VENLAFAXINE 150 MG PO SCH (21:29)
[2022-02-20] MEDS: MIRTAZAPINE 15 MG PO SCH (21:30)
[2022-02-21] MEDS: Sodium Polystyrene Sulfonate 15 GM/60 ML Susp 60 ML Bot PO SCH ×2 (04:00→09:00)
[2022-02-21] MEDS: Levothyroxine 75 MCG Tab***OWN MED PO SCH (05:23)
[2022-02-21 06:34] LABS: ESTIMATED GFR 46 mL/min (>60)
[2022-02-21] MEDS: Insulin Lispro 100 Unit/ML 3 ML KwikPen SUBCUT SCH ×3 (08:15→17:49)
[2022-02-21] MEDS: Furosemide 20 MG Tab PO SCH (08:57)
[2022-02-21] MEDS: Ezetimibe 10 MG Tab PO SCH (08:57)
[2022-02-21] MEDS: Cholecalciferol (Vitamin D3) 25 MCG Tab PO SCH (08:58)
[2022-02-21] MEDS: Acetaminophen 500 MG Tab PO SCH ×3 (08:59→21:17)
[2022-02-21] MEDS ORDERED: amLODIPine 5 MG Tab PO SCH (09:00)
[2022-02-21] MEDS: Hydrocortisone 2.5% Crm 30 GM Tube TOP SCH ×2 (09:02→21:18)
[2022-02-21] MEDS: Bacitracin Oint 28.35 GM Tube TOP SCH ×3 (09:03→21:17)
[2022-02-21] MEDS: Pregabalin 75 MG Cap PO SCH ×2 (09:06→21:17)
[2022-02-21] MEDS: Losartan 50 MG Tab PO SCH (09:58)
[2022-02-21] MEDS ORDERED: Insulin Glargine,Human Rec. Analog 100 Units/ML 3 ML Pen SUBCUT SCH (21:00)
[2022-02-21] MEDS ORDERED: Simvastatin 20 MG Tab PO SCH (21:00)
[2022-02-21] MEDS: Venlafaxine 150 MG Cap.ER PO SCH (21:16)
[2022-02-21] MEDS: Mirtazapine 15 MG Tab PO SCH (21:16)
[2022-02-21] MEDS: Enoxaparin 40 MG/0.4 ML Syringe SUBCUT SCH (21:19)
[2022-02-22] MEDS: traMADol 50 MG Tab PO PRN (00:35)
[2022-02-22 06:49] LABS: ESTIMATED GFR 57 mL/min (>60)
[2022-02-22] MEDS: Insulin Lispro 100 Unit/ML 3 ML KwikPen SUBCUT SCH ×3 (08:26→18:08)
[2022-02-22] MEDS: Furosemide 20 MG Tab PO SCH (08:28)
[2022-02-22] MEDS: Bacitracin Oint 28.35 GM Tube TOP SCH ×3 (08:30→21:08)
[2022-02-22] MEDS: Losartan 50 MG Tab PO SCH (08:31)
[2022-02-22] MEDS: Hydrocortisone 2.5% Crm 30 GM Tube TOP SCH ×2 (08:31→21:12)
[2022-02-22] MEDS: Cholecalciferol (Vitamin D3) 25 MCG Tab PO SCH (08:32)
[2022-02-22] MEDS: Acetaminophen 500 MG Tab PO SCH ×3 (08:34→21:09)
[2022-02-22] MEDS: Ezetimibe 10 MG Tab PO SCH (08:36)
[2022-02-22] MEDS: Pregabalin 75 MG Cap PO SCH ×2 (08:46→21:17)
[2022-02-22] MEDS ORDERED: Simvastatin 40 MG Tab PO SCH (21:00)
[2022-02-22] MEDS ORDERED: Insulin Glargine,Human Rec. Analog 100 Units/ML 3 ML Pen SUBCUT SCH (21:00)
[2022-02-22] MEDS: Mirtazapine 15 MG Tab PO SCH (21:11)
[2022-02-22] MEDS: Venlafaxine 150 MG Cap.ER PO SCH (21:13)
[2022-02-22] MEDS: Enoxaparin 40 MG/0.4 ML Syringe SUBCUT SCH (21:18)
[2022-02-23 06:59] LABS: ESTIMATED GFR 46 mL/min (>60)
[2022-02-23] MEDS: Insulin Lispro 100 Unit/ML 3 ML KwikPen SUBCUT SCH (08:23)
[2022-02-23] MEDS: Furosemide 20 MG Tab PO SCH (08:25)
[2022-02-23] MEDS: Bacitracin Oint 28.35 GM Tube TOP SCH (08:32)
[2022-02-23] MEDS: Losartan 50 MG Tab PO SCH (08:33)
[2022-02-23] MEDS: Pregabalin 75 MG Cap PO SCH (08:34)
[2022-02-23] MEDS: Hydrocortisone 2.5% Crm 30 GM Tube TOP SCH (08:34)
[2022-02-23] MEDS: Acetaminophen 500 MG Tab PO SCH (08:34)
[2022-02-23] MEDS: Ezetimibe 10 MG Tab PO SCH (08:36)
[2022-02-23] MEDS: Cholecalciferol (Vitamin D3) 25 MCG Tab PO SCH (08:36)
[2022-02-23] MEDS ORDERED: Insulin Glargine,Human Rec. Analog 100 Units/ML 3 ML Pen SUBCUT ONE (11:04)
[2022-02-23] MEDS ORDERED: Insulin Lispro 100 Unit/ML 3 ML KwikPen SUBCUT ONE (11:04)
[2022-02-23] MEDS ORDERED: Insulin Glargine,Human Rec. Analog 100 Units/ML 3 ML Pen SUBCUT SCH (21:00)
== END 2022-02-23 11:05 | disposition home health service (06) | DRG 565 ==
LOC: FB.ED 16:34 → FB.MS 20:30 → OBSVTOIN 02-20 09:23
PROVIDERS: ADMIT Student in an Organized Health Care Education/Training Program; ATTEND Family Medicine
DX: T79.6XXA Traumatic ischemia of muscle, initial encounter (principal); E87.1 Hypo-osmolality and hyponatremia; N17.9 Acute kidney failure, unspecified; Z51.5 Encounter for palliative care; E86.0 Dehydration; E87.5 Hyperkalemia; I10 Essential (primary) hypertension; E11.9 Type 2 diabetes mellitus without complications; F17.210 Nicotine dependence, cigarettes, uncomplicated; E11.42 Type 2 diabetes mellitus with diabetic polyneuropathy; R29.6 Repeated falls; S09.90XA Unspecified injury of head, initial encounter; Z20.822 Contact with and (suspected) exposure to COVID-19; E78.00 Pure hypercholesterolemia, unspecified; W19.XXXA Unspecified fall, initial encounter; E66.9 Obesity, unspecified; Z90.49 Acquired absence of other specified parts of digestive tract; Z90.710 Acquired absence of both cervix and uterus; Z79.4 Long term (current) use of insulin; Z86.73 Personal history of transient ischemic attack (TIA), and cerebral infarction without residual deficits; Z79.890 Hormone replacement therapy; Z79.899 Other long term (current) drug therapy; Z88.8 Allergy status to other drugs, medicaments and biological substances; Z88.2 Allergy status to sulfonamides; Z87.442 Personal history of urinary calculi; Z98.890 Other specified postprocedural states; Z68.39 Body mass index [BMI] 39.0-39.9, adult
CPT/HCPCS: 0240U; 36415; 70450; 71045; 72100; 72220; 73030-RT; 80048; 80053; 80069; 82550; 82947; 83880; 84132; 84484; 85025; 85610; 85730; 93005; 93010; 94640; 96361; 96372; 96374; 96375; 96376; 97161-GP; 97165-GO; 99222; 99232; 99238; 99285; 99285-25; A9270-GY; G0378; J0610; J1650; J1815; J1815-GY; J7030; U0002

== ENCOUNTER 2022-04-07 08:13 | Day surgery (SDC) | payer MEDICAID ==
[2022-04-07] MEDS ORDERED: Propofol 200 MG/20 ML SDV IV ONE (08:14)
[2022-04-07] MEDS ORDERED: Lidocaine 2% 5 ML SDV IV ONE (08:14)
[2022-04-07] MEDS ORDERED: Lactated Ringers 1,000 ML IV SCH (09:00)
[2022-04-07] MEDS ORDERED: Sodium Chloride 0.9% 10 ML Syringe FLUSH PRN (09:00)
== END 2022-04-07 12:28 | disposition home or self-care (01) ==
LOC: FB.SDS 08:13
PROVIDERS: ATTEND Surgery
DX: Z12.11 Encounter for screening for malignant neoplasm of colon (principal); K63.89 Other specified diseases of intestine; Q43.8 Other specified congenital malformations of intestine; J45.909 Unspecified asthma, uncomplicated; F32.A Depression, unspecified; E11.9 Type 2 diabetes mellitus without complications; E07.9 Disorder of thyroid, unspecified; I10 Essential (primary) hypertension; E66.01 Morbid (severe) obesity due to excess calories; Z87.891 Personal history of nicotine dependence; Z79.899 Other long term (current) drug therapy; Z90.49 Acquired absence of other specified parts of digestive tract; Z88.1 Allergy status to other antibiotic agents; Z88.2 Allergy status to sulfonamides; Z79.890 Hormone replacement therapy
CPT/HCPCS: 00812; 82947; J2704; J7120

== ENCOUNTER 2022-06-16 17:55 | Inpatient (IN) | payer MEDICAID ==
[2022-06-16] MEDS ORDERED: Ondansetron 4 MG Tab.DIS PO STA (18:26)
[2022-06-16] MEDS ORDERED: Acetaminophen 500 MG Tab PO ONE (18:26)
[2022-06-16] MEDS ORDERED: traMADol 50 MG Tab PO ONE (18:26)
[2022-06-16 19:02] LABS: BASOPHILS ABSOLUTE AUTO 0.1 x10-3/uL (0.0-0.1); BASOPHILS PERCENT AUTO 0.7 % (0.2-1.5); BLOOD UREA NITROGEN,BUN 40 mg/dL (7-18); BUN/CREATININE RATIO 22.2 (9-20); CALCIUM 8.8 mg/dL (8.6-10.2); CARBON DIOXIDE,CO2 24 mmol/L (21-32); CHLORIDE,CL 106 mmol/L (100-110); CREATININE 1.8 mg/dL (0.55-1.02); EOSINOPHILS ABSOLUTE AUTO 0.1 x10-3/uL (0.0-0.8); EOSINOPHILS PERCENT AUTO 1.4 % (0.6-8.1); EST CRCL DRUG DOSING (CG) 36.92 mL/min; ESTIMATED GFR 31 mL/min (>60); GLUCOSE RANDOM 188 mg/dL (80-116); HEMATOCRIT 28.9 % (34.2-48.2); HEMOGLOBIN 9.7 g/dL (11.4-15.5); LYMPHOCYTES ABSOLUTE AUTO 1.8 x10-3/uL (1.0-4.4); LYMPHOCYTES PERCENT AUTO 21.2 % (18.4-52.1); MEAN CORPUSCULAR HEMOGLOBIN 28.8 pg (23.9-33.9); MEAN CORPUSCULAR HGB CONC 33.7 g/dL (31.9-34.8); MEAN CORPUSCULAR VOLUME 85.5 fL (76.7-100.5); MONOCYTES ABSOLUTE AUTO 0.5 x10-3/uL (0.3-1.0); MONOCYTES PERCENT AUTO 5.8 % (4.4-15.7); NEUTROPHILS PERCENT AUTO 70.9 % (30.8-76.2); PLATELET COUNT,PLT 233 x10(3)uL (151-488); POTASSIUM,K 3.9 mmol/L (3.5-5.3); RED BLOOD CELL COUNT 3.38 x10(6)uL (3.60-5.20); RED CELL DISTRIBUTION WIDTH 13.3 % (12.3-16.5); SODIUM,NA 141 mmol/L (135-145); WHITE BLOOD CELL COUNT,WBC 8.5 x10-3/uL (3.0-10.3)
[2022-06-16 19:08] LABS: INR 0.96 (1.00-1.24); PROTHROMBIN TIME 9.9 sec (9.0-11.1); PTT,PARTIAL THROMBOPLSTIN TIME 26.4 SECONDS (24.4-33.2)
[2022-06-16 19:18] LABS: A/G RATIO 0.5; ALANINE AMINOTRANSFERASE,ALT 26 U/L (12-36); ALBUMIN 2.3 g/dL (3.2-4.6); ALKALINE PHOSPHATASE 108 IU/L (56-112); ASPARTATE AMNIOTRANSFERASE,AST 26 IU/L (5-25); BILIRUBIN TOTAL 0.2 mg/dL (0.1-1.3); PROTEIN TOTAL,TP 6.7 g/dL (6.0-8.0)
[2022-06-16 19:22] LABS: CREATINE KINASE,CK 348 IU/L (60-160)
[2022-06-16] MEDS ORDERED: Acetaminophen 325 MG Tab PO PRN (20:32)
[2022-06-16] MEDS ORDERED: oxyCODONE 5 MG Tab PO PRN (20:32)
[2022-06-16] MEDS ORDERED: 50% Dextrose in Water 50 ML Syringe IVPUSH PRN (20:35)
[2022-06-16] MEDS ORDERED: Glucagon,Human Recombinant 1 MG Vial IM PRN (20:35)
[2022-06-16] MEDS: Enoxaparin 30 MG/0.3 ML Syringe SUBCUT SCH (21:23)
[2022-06-16] MEDS: Sodium Chloride 0.9% 1,000 ML IV SCH (21:26)
[2022-06-17 06:46] LABS: BASOPHILS ABSOLUTE AUTO 0.1 x10-3/uL (0.0-0.1); BASOPHILS PERCENT AUTO 1.1 % (0.2-1.5); EOSINOPHILS ABSOLUTE AUTO 0.3 x10-3/uL (0.0-0.8); EOSINOPHILS PERCENT AUTO 4.3 % (0.6-8.1); HEMATOCRIT 29.9 % (34.2-48.2); HEMOGLOBIN 9.7 g/dL (11.4-15.5); LYMPHOCYTES ABSOLUTE AUTO 2.1 x10-3/uL (1.0-4.4); LYMPHOCYTES PERCENT AUTO 32.3 % (18.4-52.1); MEAN CORPUSCULAR HEMOGLOBIN 28.2 pg (23.9-33.9); MEAN CORPUSCULAR HGB CONC 32.4 g/dL (31.9-34.8); MEAN CORPUSCULAR VOLUME 87.1 fL (76.7-100.5); MEAN PLATELET VOLUME 8.7 fL (7.1-12.4); MONOCYTES ABSOLUTE AUTO 0.5 x10-3/uL (0.3-1.0); MONOCYTES PERCENT AUTO 7.1 % (4.4-15.7); NEUTROPHILS ABSOLUTE AUTO 3.5 x10-3/uL (1.5-6.3); NEUTROPHILS PERCENT AUTO 55.2 % (30.8-76.2); PLATELET COUNT,PLT 210 x10(3)uL (151-488); RED BLOOD CELL COUNT 3.43 x10(6)uL (3.60-5.20); RED CELL DISTRIBUTION WIDTH 13.3 % (12.3-16.5); WHITE BLOOD CELL COUNT,WBC 6.4 x10-3/uL (3.0-10.3)
[2022-06-17 06:59] LABS: A/G RATIO 0.5; ALANINE AMINOTRANSFERASE,ALT 35 U/L (12-36); ALBUMIN 2.1 g/dL (3.2-4.6); ALKALINE PHOSPHATASE 115 IU/L (56-112); ASPARTATE AMNIOTRANSFERASE,AST 47 IU/L (5-25); BILIRUBIN TOTAL 0.3 mg/dL (0.1-1.3); BLOOD UREA NITROGEN,BUN 35 mg/dL (7-18); CALCIUM 8.4 mg/dL (8.6-10.2); CARBON DIOXIDE,CO2 25 mmol/L (21-32); CHLORIDE,CL 109 mmol/L (100-110); CREATININE 1.4 mg/dL (0.55-1.02); EST CRCL DRUG DOSING (CG) 47.46 mL/min; ESTIMATED GFR 42 mL/min (>60); GLUCOSE RANDOM 144 mg/dL (80-116); POTASSIUM,K 4.1 mmol/L (3.5-5.3); PROTEIN TOTAL,TP 6.3 g/dL (6.0-8.0); SODIUM,NA 140 mmol/L (135-145)
[2022-06-17] MEDS: Sodium Chloride 0.9% 1,000 ML IV SCH ×2 (07:51→17:55)
[2022-06-17] MEDS: Insulin Lispro 100 Unit/ML 3 ML KwikPen SUBCUT SCH ×3 (08:09→17:52)
[2022-06-17] MEDS ORDERED: Carboxymethylcellulose Sodium 0.5% Ophth Soln 15 ML Bottle EYEBOTH PRN (08:21)
[2022-06-17] MEDS ORDERED: Acetaminophen 325 MG Tab PO SCH (08:30)
[2022-06-17] MEDS ORDERED: Albuterol 8 GM Inhaler INH PRN ×3 (08:36→10:29)
[2022-06-17] MEDS: Ezetimibe 10 MG Tab PO SCH (09:07)
[2022-06-17] MEDS: Losartan 50 MG Tab PO SCH (09:08)
[2022-06-17] MEDS: Acetaminophen 500 MG Tab PO SCH ×3 (09:08→20:05)
[2022-06-17] MEDS: Levothyroxine 75 MCG Tab PO SCH (09:08)
[2022-06-17] MEDS: Metoprolol Succinate 25 MG Tab.ER PO SCH (09:08)
[2022-06-17] MEDS: Loratadine 10 MG Tab PO SCH (10:58)
[2022-06-17] MEDS ORDERED: Albuterol 90 MCG/6.7 GM Inhaler INH ONE (19:51)
[2022-06-17] MEDS: Albuterol 90 MCG/6.7 GM Inhaler INH PRN (20:01)
[2022-06-17] MEDS: Enoxaparin 30 MG/0.3 ML Syringe SUBCUT SCH (20:03)
[2022-06-17] MEDS: Prazosin 1 MG Cap PO SCH (20:03)
[2022-06-17] MEDS: Venlafaxine 150 MG Cap.ER PO SCH (20:04)
[2022-06-17] MEDS: Pregabalin 75 MG Cap PO SCH (20:07)
[2022-06-17] MEDS ORDERED: Mirtazapine 15 MG Tab PO SCH ×2 (21:00)
[2022-06-18] MEDS: Sodium Chloride 0.9% 1,000 ML IV SCH (03:40)
[2022-06-18] MEDS: Levothyroxine 75 MCG Tab PO SCH (05:41)
[2022-06-18] MEDS: Acetaminophen 500 MG Tab PO SCH ×4 (06:17→21:24)
[2022-06-18 06:40] LABS: BASOPHILS ABSOLUTE AUTO 0.1 x10-3/uL (0.0-0.1); EOSINOPHILS ABSOLUTE AUTO 0.3 x10-3/uL (0.0-0.8); EOSINOPHILS PERCENT AUTO 4.8 % (0.6-8.1); HEMATOCRIT 30.8 % (34.2-48.2); LYMPHOCYTES ABSOLUTE AUTO 2.2 x10-3/uL (1.0-4.4); MEAN CORPUSCULAR HEMOGLOBIN 28.4 pg (23.9-33.9); MEAN CORPUSCULAR HGB CONC 32.5 g/dL (31.9-34.8); MEAN CORPUSCULAR VOLUME 87.5 fL (76.7-100.5); MEAN PLATELET VOLUME 8.9 fL (7.1-12.4); MONOCYTES ABSOLUTE AUTO 0.4 x10-3/uL (0.3-1.0); MONOCYTES PERCENT AUTO 5.9 % (4.4-15.7); NEUTROPHILS ABSOLUTE AUTO 3.2 x10-3/uL (1.5-6.3); NEUTROPHILS PERCENT AUTO 52.3 % (30.8-76.2); PLATELET COUNT,PLT 219 x10(3)uL (151-488); RED BLOOD CELL COUNT 3.52 x10(6)uL (3.60-5.20); RED CELL DISTRIBUTION WIDTH 13.1 % (12.3-16.5); WHITE BLOOD CELL COUNT,WBC 6.2 x10-3/uL (3.0-10.3)
[2022-06-18 06:51] LABS: A/G RATIO 0.5; ALANINE AMINOTRANSFERASE,ALT 26 U/L (12-36); ALBUMIN 2.1 g/dL (3.2-4.6); ALKALINE PHOSPHATASE 107 IU/L (56-112); ASPARTATE AMNIOTRANSFERASE,AST 24 IU/L (5-25); BILIRUBIN TOTAL 0.2 mg/dL (0.1-1.3); BLOOD UREA NITROGEN,BUN 25 mg/dL (7-18); BUN/CREATININE RATIO 22.7 (9-20); CARBON DIOXIDE,CO2 26 mmol/L (21-32); CHLORIDE,CL 108 mmol/L (100-110); CREATINE KINASE,CK 198 IU/L (60-160); CREATININE 1.1 mg/dL (0.55-1.02); EST CRCL DRUG DOSING (CG) 60.41 mL/min; ESTIMATED GFR 56 mL/min (>60); GLUCOSE RANDOM 121 mg/dL (80-116); POTASSIUM,K 4.6 mmol/L (3.5-5.3); PROTEIN TOTAL,TP 6.4 g/dL (6.0-8.0); SODIUM,NA 141 mmol/L (135-145)
[2022-06-18] MEDS: Insulin Lispro 100 Unit/ML 3 ML KwikPen SUBCUT SCH ×3 (08:24→18:30)
[2022-06-18] MEDS: Ezetimibe 10 MG Tab PO SCH (08:25)
[2022-06-18] MEDS: Loratadine 10 MG Tab PO SCH (08:25)
[2022-06-18] MEDS: Losartan 50 MG Tab PO SCH (08:25)
[2022-06-18] MEDS: Metoprolol Succinate 25 MG Tab.ER PO SCH (08:25)
[2022-06-18] MEDS ORDERED: Sodium Chloride 0.9% 10 ML Syringe FLUSH PRN (08:46)
[2022-06-18] MEDS ORDERED: Insulin Lispro 100 Unit/ML 3 ML KwikPen SUBCUT ONE (11:42)
[2022-06-18] MEDS: Albuterol 90 MCG/6.7 GM Inhaler INH PRN ×2 (16:39→21:43)
[2022-06-18] MEDS: Enoxaparin 30 MG/0.3 ML Syringe SUBCUT SCH (21:22)
[2022-06-18] MEDS: Venlafaxine 150 MG Cap.ER PO SCH (21:23)
[2022-06-18] MEDS: Mirtazapine 15 MG Tab PO SCH (21:27)
[2022-06-18] MEDS: Prazosin 1 MG Cap PO SCH (21:28)
[2022-06-18] MEDS: Pregabalin 75 MG Cap PO SCH (21:33)
[2022-06-19] MEDS: Albuterol 90 MCG/6.7 GM Inhaler INH PRN ×2 (06:00→21:34)
[2022-06-19] MEDS: Levothyroxine 75 MCG Tab PO SCH (06:00)
[2022-06-19 07:34] LABS: BLOOD UREA NITROGEN,BUN 22 mg/dL (7-18); BUN/CREATININE RATIO 18.3 (9-20); CALCIUM 8.2 mg/dL (8.6-10.2); CARBON DIOXIDE,CO2 25 mmol/L (21-32); CHLORIDE,CL 108 mmol/L (100-110); CREATINE KINASE,CK 220 IU/L (60-160); CREATININE 1.2 mg/dL (0.55-1.02); EST CRCL DRUG DOSING (CG) 55.37 mL/min; ESTIMATED GFR 51 mL/min (>60); GLUCOSE RANDOM 128 mg/dL (80-116); POTASSIUM,K 4.2 mmol/L (3.5-5.3); SODIUM,NA 140 mmol/L (135-145)
[2022-06-19] MEDS: Insulin Lispro 100 Unit/ML 3 ML KwikPen SUBCUT SCH ×3 (08:27→18:04)
[2022-06-19] MEDS: Metoprolol Succinate 25 MG Tab.ER PO SCH (08:28)
[2022-06-19] MEDS: Ezetimibe 10 MG Tab PO SCH (08:28)
[2022-06-19] MEDS: Losartan 50 MG Tab PO SCH (08:28)
[2022-06-19] MEDS: Acetaminophen 500 MG Tab PO SCH ×3 (08:28→21:32)
[2022-06-19] MEDS: Loratadine 10 MG Tab PO SCH (08:29)
[2022-06-19] MEDS: Furosemide 20 MG Tab PO SCH (08:35)
[2022-06-19] MEDS: Lactated Ringers 1,000 ML IV SCH ×2 (09:12→22:55)
[2022-06-19] MEDS: Enoxaparin 30 MG/0.3 ML Syringe SUBCUT SCH (21:19)
[2022-06-19] MEDS: Venlafaxine 150 MG Cap.ER PO SCH (21:20)
[2022-06-19] MEDS: Pregabalin 75 MG Cap PO SCH (21:31)
[2022-06-19] MEDS: Mirtazapine 15 MG Tab PO SCH (21:31)
[2022-06-19] MEDS: Prazosin 1 MG Cap PO SCH (21:33)
[2022-06-19] MEDS ORDERED: traMADol 50 MG Tab PO PRN (23:04)
[2022-06-20] MEDS: Levothyroxine 75 MCG Tab PO SCH (05:58)
[2022-06-20 07:09] LABS: BLOOD UREA NITROGEN,BUN 22 mg/dL (7-18); BUN/CREATININE RATIO 18.3 (9-20); CALCIUM 8.6 mg/dL (8.6-10.2); CARBON DIOXIDE,CO2 26 mmol/L (21-32); CHLORIDE,CL 106 mmol/L (100-110); CREATINE KINASE,CK 262 IU/L (60-160); CREATININE 1.2 mg/dL (0.55-1.02); EST CRCL DRUG DOSING (CG) 55.37 mL/min; ESTIMATED GFR 51 mL/min (>60); GLUCOSE RANDOM 115 mg/dL (80-116); POTASSIUM,K 4.3 mmol/L (3.5-5.3); SODIUM,NA 139 mmol/L (135-145)
[2022-06-20] MEDS: Insulin Lispro 100 Unit/ML 3 ML KwikPen SUBCUT SCH ×3 (09:03→17:19)
[2022-06-20] MEDS: Ezetimibe 10 MG Tab PO SCH (09:07)
[2022-06-20] MEDS: Acetaminophen 500 MG Tab PO SCH ×3 (09:07→20:43)
[2022-06-20] MEDS: Loratadine 10 MG Tab PO SCH (09:08)
[2022-06-20] MEDS: Furosemide 20 MG Tab PO SCH (09:09)
[2022-06-20] MEDS: Losartan 50 MG Tab PO SCH (09:09)
[2022-06-20] MEDS: Metoprolol Succinate 25 MG Tab.ER PO SCH (09:09)
[2022-06-20] MEDS: Sodium Chloride 0.9% 1,000 ML IV SCH ×2 (09:48→19:49)
[2022-06-20] MEDS: Enoxaparin 30 MG/0.3 ML Syringe SUBCUT SCH (20:17)
[2022-06-20] MEDS: Formoterol/Mometasone 100-5 MCG 8.8 GM Inhaler IH SCH (20:18)
[2022-06-20] MEDS: Venlafaxine 150 MG Cap.ER PO SCH (20:20)
[2022-06-20] MEDS: Pregabalin 75 MG Cap PO SCH (20:28)
[2022-06-20] MEDS: Prazosin 1 MG Cap PO SCH (20:41)
[2022-06-20] MEDS: QUEtiapine 25 MG Tab PO SCH (20:42)
[2022-06-21] MEDS: Sodium Chloride 0.9% 1,000 ML IV SCH ×2 (05:53→16:07)
[2022-06-21 06:26] LABS: BLOOD UREA NITROGEN,BUN 22 mg/dL (7-18); CARBON DIOXIDE,CO2 25 mmol/L (21-32); CHLORIDE,CL 109 mmol/L (100-110); CREATINE KINASE,CK 183 IU/L (60-160); CREATININE 1.1 mg/dL (0.55-1.02); EST CRCL DRUG DOSING (CG) 60.41 mL/min; ESTIMATED GFR 56 mL/min (>60); GLUCOSE RANDOM 121 mg/dL (80-116); POTASSIUM,K 4.2 mmol/L (3.5-5.3); SODIUM,NA 140 mmol/L (135-145)
[2022-06-21] MEDS: Levothyroxine 75 MCG Tab PO SCH (06:28)
[2022-06-21] MEDS: Pantoprazole 20 MG Tab, Delayed Release PO SCH (06:28)
[2022-06-21] MEDS: Formoterol/Mometasone 100-5 MCG 8.8 GM Inhaler IH SCH ×2 (06:29→20:06)
[2022-06-21] MEDS: Insulin Lispro 100 Unit/ML 3 ML KwikPen SUBCUT SCH ×3 (09:01→17:13)
[2022-06-21] MEDS: Acetaminophen 500 MG Tab PO SCH ×3 (09:01→20:08)
[2022-06-21] MEDS: Metoprolol Succinate 25 MG Tab.ER PO SCH (09:02)
[2022-06-21] MEDS: Ezetimibe 10 MG Tab PO SCH (09:02)
[2022-06-21] MEDS: Losartan 50 MG Tab PO SCH (09:02)
[2022-06-21] MEDS: Loratadine 10 MG Tab PO SCH (09:02)
[2022-06-21] MEDS: Furosemide 20 MG Tab PO SCH (09:03)
[2022-06-21] MEDS ORDERED: Menthol 10%/Methyl Salicylate 30% 85 GM Tube TOP PRN (09:46)
[2022-06-21] MEDS: Enoxaparin 30 MG/0.3 ML Syringe SUBCUT SCH (20:04)
[2022-06-21] MEDS: Venlafaxine 150 MG Cap.ER PO SCH (20:06)
[2022-06-21] MEDS: Prazosin 1 MG Cap PO SCH (20:07)
[2022-06-21] MEDS: Pregabalin 75 MG Cap PO SCH (20:52)
[2022-06-21] MEDS: QUEtiapine 25 MG Tab PO SCH (20:52)
[2022-06-22] MEDS: Sodium Chloride 0.9% 1,000 ML IV SCH (02:08)
[2022-06-22] MEDS: Pantoprazole 20 MG Tab, Delayed Release PO SCH (06:24)
[2022-06-22] MEDS: Levothyroxine 75 MCG Tab PO SCH (06:24)
[2022-06-22 06:57] LABS: BLOOD UREA NITROGEN,BUN 19 mg/dL (7-18); BUN/CREATININE RATIO 15.8 (9-20); CALCIUM 8.1 mg/dL (8.6-10.2); CARBON DIOXIDE,CO2 24 mmol/L (21-32); CHLORIDE,CL 110 mmol/L (100-110); CREATINE KINASE,CK 155 IU/L (60-160); CREATININE 1.2 mg/dL (0.55-1.02); EST CRCL DRUG DOSING (CG) 55.37 mL/min; ESTIMATED GFR 51 mL/min (>60); GLUCOSE RANDOM 115 mg/dL (80-116); SODIUM,NA 141 mmol/L (135-145)
[2022-06-22] MEDS: Insulin Lispro 100 Unit/ML 3 ML KwikPen SUBCUT SCH ×3 (08:11→17:45)
[2022-06-22] MEDS: Furosemide 20 MG Tab PO SCH (08:12)
[2022-06-22] MEDS: Ezetimibe 10 MG Tab PO SCH (08:12)
[2022-06-22] MEDS: Acetaminophen 500 MG Tab PO SCH ×3 (08:12→20:44)
[2022-06-22] MEDS: Loratadine 10 MG Tab PO SCH (08:13)
[2022-06-22] MEDS: Metoprolol Succinate 25 MG Tab.ER PO SCH (08:16)
[2022-06-22] MEDS: Losartan 50 MG Tab PO SCH (08:16)
[2022-06-22] MEDS: Menthol 10%/Methyl Salicylate 30% 85 GM Tube TOP SCH ×2 (09:30→20:41)
[2022-06-22] MEDS: Formoterol/Mometasone 100-5 MCG 8.8 GM Inhaler IH SCH ×2 (09:30→20:42)
[2022-06-22] MEDS: Prazosin 1 MG Cap PO SCH (20:42)
[2022-06-22] MEDS: Pregabalin 75 MG Cap PO SCH (20:42)
[2022-06-22] MEDS: Enoxaparin 30 MG/0.3 ML Syringe SUBCUT SCH (20:42)
[2022-06-22] MEDS: Venlafaxine 150 MG Cap.ER PO SCH (20:43)
[2022-06-22] MEDS: QUEtiapine 25 MG Tab PO SCH (20:44)
[2022-06-23] MEDS: Levothyroxine 75 MCG Tab PO SCH (05:39)
[2022-06-23] MEDS: Pantoprazole 20 MG Tab, Delayed Release PO SCH (05:39)
[2022-06-23] MEDS: Formoterol/Mometasone 100-5 MCG 8.8 GM Inhaler IH SCH ×2 (07:07→21:08)
[2022-06-23] MEDS: Insulin Lispro 100 Unit/ML 3 ML KwikPen SUBCUT SCH ×3 (08:14→17:53)
[2022-06-23] MEDS: Metoprolol Succinate 25 MG Tab.ER PO SCH (08:15)
[2022-06-23] MEDS: Losartan 50 MG Tab PO SCH (08:15)
[2022-06-23] MEDS: Acetaminophen 500 MG Tab PO SCH ×3 (08:16→21:07)
[2022-06-23] MEDS: Furosemide 20 MG Tab PO SCH ×2 (08:16→13:47)
[2022-06-23] MEDS: Loratadine 10 MG Tab PO SCH (08:17)
[2022-06-23] MEDS: Menthol 10%/Methyl Salicylate 30% 85 GM Tube TOP SCH ×2 (08:17→21:09)
[2022-06-23] MEDS: Ezetimibe 10 MG Tab PO SCH (08:18)
[2022-06-23] MEDS: Albuterol 90 MCG/6.7 GM Inhaler INH PRN (13:49)
[2022-06-23] MEDS: QUEtiapine 25 MG Tab PO SCH (21:08)
[2022-06-23] MEDS: Enoxaparin 30 MG/0.3 ML Syringe SUBCUT SCH (21:08)
[2022-06-23] MEDS: Venlafaxine 150 MG Cap.ER PO SCH (21:08)
[2022-06-23] MEDS: Pregabalin 75 MG Cap PO SCH (21:08)
[2022-06-23] MEDS: Prazosin 1 MG Cap PO SCH (21:08)
[2022-06-24] MEDS: Levothyroxine 75 MCG Tab PO SCH (05:15)
[2022-06-24] MEDS: Pantoprazole 20 MG Tab, Delayed Release PO SCH (05:16)
[2022-06-24] MEDS: Formoterol/Mometasone 100-5 MCG 8.8 GM Inhaler IH SCH ×2 (06:48→21:33)
[2022-06-24] MEDS: Loratadine 10 MG Tab PO SCH (08:34)
[2022-06-24] MEDS: Furosemide 20 MG Tab PO SCH ×2 (08:34→14:31)
[2022-06-24] MEDS: Metoprolol Succinate 25 MG Tab.ER PO SCH (08:34)
[2022-06-24] MEDS: Menthol 10%/Methyl Salicylate 30% 85 GM Tube TOP SCH ×2 (08:35→21:40)
[2022-06-24] MEDS: Acetaminophen 500 MG Tab PO SCH ×3 (08:35→21:41)
[2022-06-24] MEDS: Losartan 50 MG Tab PO SCH (08:36)
[2022-06-24] MEDS: Ezetimibe 10 MG Tab PO SCH (08:36)
[2022-06-24] MEDS: Insulin Lispro 100 Unit/ML 3 ML KwikPen SUBCUT SCH ×3 (08:37→17:47)
[2022-06-24] MEDS: Enoxaparin 30 MG/0.3 ML Syringe SUBCUT SCH (21:33)
[2022-06-24] MEDS: QUEtiapine 25 MG Tab PO SCH (21:36)
[2022-06-24] MEDS: Venlafaxine 150 MG Cap.ER PO SCH (21:36)
[2022-06-24] MEDS: Prazosin 1 MG Cap PO SCH (21:37)
[2022-06-24] MEDS: Pregabalin 75 MG Cap PO SCH (21:50)
[2022-06-25] MEDS: Formoterol/Mometasone 100-5 MCG 8.8 GM Inhaler IH SCH ×2 (06:12→20:55)
[2022-06-25] MEDS: Pantoprazole 20 MG Tab, Delayed Release PO SCH (06:12)
[2022-06-25] MEDS: Levothyroxine 75 MCG Tab PO SCH (06:12)
[2022-06-25] MEDS: Insulin Lispro 100 Unit/ML 3 ML KwikPen SUBCUT SCH ×3 (08:05→18:01)
[2022-06-25] MEDS: Furosemide 20 MG Tab PO SCH ×2 (08:40→13:57)
[2022-06-25] MEDS: Losartan 50 MG Tab PO SCH (08:40)
[2022-06-25] MEDS: Loratadine 10 MG Tab PO SCH (08:40)
[2022-06-25] MEDS: Acetaminophen 500 MG Tab PO SCH ×3 (08:41→21:01)
[2022-06-25] MEDS: Menthol 10%/Methyl Salicylate 30% 85 GM Tube TOP SCH ×2 (08:41→20:56)
[2022-06-25] MEDS: Metoprolol Succinate 25 MG Tab.ER PO SCH (08:41)
[2022-06-25] MEDS: Ezetimibe 10 MG Tab PO SCH (08:42)
[2022-06-25 10:05] LABS: BLOOD UREA NITROGEN,BUN 19 mg/dL (7-18); BUN/CREATININE RATIO 13.6 (9-20); CALCIUM 8.4 mg/dL (8.6-10.2); CARBON DIOXIDE,CO2 24 mmol/L (21-32); CHLORIDE,CL 107 mmol/L (100-110); CREATININE 1.4 mg/dL (0.55-1.02); EST CRCL DRUG DOSING (CG) 47.46 mL/min; ESTIMATED GFR 42 mL/min (>60); GLUCOSE RANDOM 240 mg/dL (80-116); MAGNESIUM 1.5 mg/dL (1.8-2.5); POTASSIUM,K 4.2 mmol/L (3.5-5.3); SODIUM,NA 139 mmol/L (135-145)
[2022-06-25] MEDS: Magnesium Chloride 64 MG Tab.ER PO SCH ×2 (11:07→21:22)
[2022-06-25] MEDS: Enoxaparin 30 MG/0.3 ML Syringe SUBCUT SCH (20:55)
[2022-06-25] MEDS: Venlafaxine 150 MG Cap.ER PO SCH (20:56)
[2022-06-25] MEDS: Prazosin 1 MG Cap PO SCH (21:00)
[2022-06-25] MEDS: QUEtiapine 25 MG Tab PO SCH (21:01)
[2022-06-25] MEDS: Pregabalin 75 MG Cap PO SCH (21:22)
[2022-06-26] MEDS: Levothyroxine 75 MCG Tab PO SCH (05:40)
[2022-06-26] MEDS: Pantoprazole 20 MG Tab, Delayed Release PO SCH (05:41)
[2022-06-26] MEDS: Formoterol/Mometasone 100-5 MCG 8.8 GM Inhaler IH SCH ×2 (06:05→20:47)
[2022-06-26] MEDS: Furosemide 20 MG Tab PO SCH ×2 (08:17→13:50)
[2022-06-26] MEDS: Losartan 50 MG Tab PO SCH (08:18)
[2022-06-26] MEDS: Menthol 10%/Methyl Salicylate 30% 85 GM Tube TOP SCH ×2 (08:18→20:39)
[2022-06-26] MEDS: Insulin Lispro 100 Unit/ML 3 ML KwikPen SUBCUT SCH ×3 (08:18→18:00)
[2022-06-26] MEDS: Loratadine 10 MG Tab PO SCH (08:18)
[2022-06-26] MEDS: Metoprolol Succinate 25 MG Tab.ER PO SCH (08:19)
[2022-06-26] MEDS: Ezetimibe 10 MG Tab PO SCH (08:20)
[2022-06-26] MEDS: Acetaminophen 500 MG Tab PO SCH ×3 (08:20→20:45)
[2022-06-26] MEDS: Magnesium Chloride 64 MG Tab.ER PO SCH ×2 (08:25→20:57)
[2022-06-26] MEDS: Enoxaparin 30 MG/0.3 ML Syringe SUBCUT SCH (20:38)
[2022-06-26] MEDS: Prazosin 1 MG Cap PO SCH (20:39)
[2022-06-26] MEDS: Venlafaxine 150 MG Cap.ER PO SCH (20:43)
[2022-06-26] MEDS: Pregabalin 75 MG Cap PO SCH (20:57)
[2022-06-27] MEDS: Pantoprazole 20 MG Tab, Delayed Release PO SCH (05:57)
[2022-06-27] MEDS: Levothyroxine 75 MCG Tab PO SCH (05:57)
[2022-06-27] MEDS: Formoterol/Mometasone 100-5 MCG 8.8 GM Inhaler IH SCH ×2 (06:03→20:44)
[2022-06-27] MEDS: Insulin Lispro 100 Unit/ML 3 ML KwikPen SUBCUT SCH ×3 (08:49→17:57)
[2022-06-27] MEDS: Furosemide 20 MG Tab PO SCH ×2 (08:51→13:28)
[2022-06-27] MEDS: Loratadine 10 MG Tab PO SCH (08:51)
[2022-06-27] MEDS: Losartan 50 MG Tab PO SCH (08:51)
[2022-06-27] MEDS: Acetaminophen 500 MG Tab PO SCH ×3 (08:52→20:45)
[2022-06-27] MEDS: Ezetimibe 10 MG Tab PO SCH (08:52)
[2022-06-27] MEDS: Menthol 10%/Methyl Salicylate 30% 85 GM Tube TOP SCH ×2 (08:52→20:45)
[2022-06-27] MEDS: Metoprolol Succinate 25 MG Tab.ER PO SCH (08:53)
[2022-06-27] MEDS: Venlafaxine 150 MG Cap.ER PO SCH (20:44)
[2022-06-27] MEDS: Prazosin 1 MG Cap PO SCH (20:44)
[2022-06-27] MEDS: Enoxaparin 30 MG/0.3 ML Syringe SUBCUT SCH (20:44)
[2022-06-27] MEDS: Magnesium Chloride 64 MG Tab.ER PO SCH (20:44)
[2022-06-27] MEDS: Pregabalin 75 MG Cap PO SCH (20:48)
[2022-06-28] MEDS: Levothyroxine 75 MCG Tab PO SCH (05:39)
[2022-06-28] MEDS: Pantoprazole 20 MG Tab, Delayed Release PO SCH (05:39)
[2022-06-28] MEDS: Formoterol/Mometasone 100-5 MCG 8.8 GM Inhaler IH SCH ×2 (06:35→21:06)
[2022-06-28] MEDS: Insulin Lispro 100 Unit/ML 3 ML KwikPen SUBCUT SCH ×3 (08:22→17:49)
[2022-06-28] MEDS: Furosemide 20 MG Tab PO SCH ×2 (08:23→14:51)
[2022-06-28] MEDS: Acetaminophen 500 MG Tab PO SCH ×3 (08:24→21:05)
[2022-06-28] MEDS: Metoprolol Succinate 25 MG Tab.ER PO SCH (08:24)
[2022-06-28] MEDS: Loratadine 10 MG Tab PO SCH (08:24)
[2022-06-28] MEDS: Ezetimibe 10 MG Tab PO SCH (08:24)
[2022-06-28] MEDS: Menthol 10%/Methyl Salicylate 30% 85 GM Tube TOP SCH ×2 (08:26→21:06)
[2022-06-28] MEDS: Losartan 50 MG Tab PO SCH (08:27)
[2022-06-28] MEDS: Magnesium Chloride 64 MG Tab.ER PO SCH (21:05)
[2022-06-28] MEDS: Enoxaparin 30 MG/0.3 ML Syringe SUBCUT SCH (21:05)
[2022-06-28] MEDS: Pregabalin 75 MG Cap PO SCH (21:06)
[2022-06-28] MEDS: Prazosin 1 MG Cap PO SCH (21:06)
[2022-06-29] MEDS: hydrOXYzine HCl 25 MG Tab PO PRN (00:22)
[2022-06-29] MEDS: Pantoprazole 20 MG Tab, Delayed Release PO SCH (06:46)
[2022-06-29] MEDS: Levothyroxine 75 MCG Tab PO SCH (06:46)
[2022-06-29] MEDS: Formoterol/Mometasone 100-5 MCG 8.8 GM Inhaler IH SCH ×2 (06:46→21:48)
[2022-06-29] MEDS: Metoprolol Succinate 25 MG Tab.ER PO SCH (08:09)
[2022-06-29] MEDS: Furosemide 20 MG Tab PO SCH ×2 (08:09→13:14)
[2022-06-29] MEDS: Loratadine 10 MG Tab PO SCH (08:09)
[2022-06-29] MEDS: Menthol 10%/Methyl Salicylate 30% 85 GM Tube TOP SCH ×2 (08:10→21:48)
[2022-06-29] MEDS: Acetaminophen 500 MG Tab PO SCH ×3 (08:10→21:53)
[2022-06-29] MEDS: Losartan 100 MG Tab PO SCH (08:10)
[2022-06-29] MEDS: Insulin Lispro 100 Unit/ML 3 ML KwikPen SUBCUT SCH ×3 (08:11→17:10)
[2022-06-29] MEDS: Ezetimibe 10 MG Tab PO SCH (08:11)
[2022-06-29] MEDS: Venlafaxine 150 MG Cap.ER PO SCH (08:11)
[2022-06-29] MEDS: Enoxaparin 30 MG/0.3 ML Syringe SUBCUT SCH (20:53)
[2022-06-29] MEDS: Magnesium Chloride 64 MG Tab.ER PO SCH (21:49)
[2022-06-29] MEDS: Prazosin 1 MG Cap PO SCH (21:51)
[2022-06-29] MEDS: QUEtiapine 25 MG Tab PO SCH (21:52)
[2022-06-29] MEDS: Pregabalin 75 MG Cap PO SCH (21:58)
[2022-06-30] MEDS: Pantoprazole 20 MG Tab, Delayed Release PO SCH (06:42)
[2022-06-30] MEDS: Levothyroxine 75 MCG Tab PO SCH (06:42)
[2022-06-30] MEDS: Formoterol/Mometasone 100-5 MCG 8.8 GM Inhaler IH SCH ×2 (06:43→21:03)
[2022-06-30] MEDS: Furosemide 20 MG Tab PO SCH ×2 (09:16→14:40)
[2022-06-30] MEDS: Insulin Lispro 100 Unit/ML 3 ML KwikPen SUBCUT SCH ×3 (09:16→17:01)
[2022-06-30] MEDS: Menthol 10%/Methyl Salicylate 30% 85 GM Tube TOP SCH ×2 (09:17→21:08)
[2022-06-30] MEDS: Loratadine 10 MG Tab PO SCH (09:18)
[2022-06-30] MEDS: Venlafaxine 150 MG Cap.ER PO SCH (09:19)
[2022-06-30] MEDS: Acetaminophen 500 MG Tab PO SCH ×3 (09:19→21:04)
[2022-06-30] MEDS: Metoprolol Succinate 25 MG Tab.ER PO SCH (09:20)
[2022-06-30] MEDS: Losartan 100 MG Tab PO SCH (09:21)
[2022-06-30] MEDS: Ezetimibe 10 MG Tab PO SCH (09:22)
[2022-06-30] MEDS: Magnesium Chloride 64 MG Tab.ER PO SCH (21:03)
[2022-06-30] MEDS: QUEtiapine 25 MG Tab PO SCH (21:03)
[2022-06-30] MEDS: Prazosin 1 MG Cap PO SCH (21:03)
[2022-06-30] MEDS: Pregabalin 75 MG Cap PO SCH (21:11)
[2022-06-30] MEDS: Enoxaparin 30 MG/0.3 ML Syringe SUBCUT SCH (21:12)
[2022-07-01] MEDS: Pantoprazole 20 MG Tab, Delayed Release PO SCH (06:14)
[2022-07-01] MEDS: Levothyroxine 75 MCG Tab PO SCH (06:14)
[2022-07-01] MEDS: Formoterol/Mometasone 100-5 MCG 8.8 GM Inhaler IH SCH ×2 (06:15→21:13)
[2022-07-01] MEDS: Furosemide 20 MG Tab PO SCH ×2 (08:19→13:24)
[2022-07-01] MEDS: Acetaminophen 500 MG Tab PO SCH ×3 (08:19→21:17)
[2022-07-01] MEDS: Insulin Lispro 100 Unit/ML 3 ML KwikPen SUBCUT SCH ×3 (08:19→17:27)
[2022-07-01] MEDS: Metoprolol Succinate 25 MG Tab.ER PO SCH (08:20)
[2022-07-01] MEDS: Menthol 10%/Methyl Salicylate 30% 85 GM Tube TOP SCH ×2 (08:20→22:16)
[2022-07-01] MEDS: Losartan 100 MG Tab PO SCH (08:21)
[2022-07-01] MEDS: Venlafaxine 150 MG Cap.ER PO SCH (08:21)
[2022-07-01] MEDS: Loratadine 10 MG Tab PO SCH (08:21)
[2022-07-01] MEDS: Ezetimibe 10 MG Tab PO SCH (08:21)
[2022-07-01] MEDS: Enoxaparin 30 MG/0.3 ML Syringe SUBCUT SCH (21:13)
[2022-07-01] MEDS: Pregabalin 75 MG Cap PO SCH (21:15)
[2022-07-01] MEDS: Magnesium Chloride 64 MG Tab.ER PO SCH (21:15)
[2022-07-01] MEDS: Prazosin 1 MG Cap PO SCH (21:16)
[2022-07-01] MEDS: QUEtiapine 25 MG Tab PO SCH (21:17)
[2022-07-02] MEDS: Pantoprazole 20 MG Tab, Delayed Release PO SCH (05:53)
[2022-07-02] MEDS: Levothyroxine 75 MCG Tab PO SCH (05:53)
[2022-07-02] MEDS: Formoterol/Mometasone 100-5 MCG 8.8 GM Inhaler IH SCH ×2 (05:59→20:51)
[2022-07-02] MEDS: Insulin Lispro 100 Unit/ML 3 ML KwikPen SUBCUT SCH ×3 (07:33→18:04)
[2022-07-02] MEDS: Furosemide 20 MG Tab PO SCH ×2 (07:35→14:16)
[2022-07-02] MEDS: Venlafaxine 150 MG Cap.ER PO SCH (09:28)
[2022-07-02] MEDS: Metoprolol Succinate 25 MG Tab.ER PO SCH (09:28)
[2022-07-02] MEDS: Menthol 10%/Methyl Salicylate 30% 85 GM Tube TOP SCH ×2 (09:30→20:51)
[2022-07-02] MEDS: Acetaminophen 500 MG Tab PO SCH ×3 (09:32→20:53)
[2022-07-02] MEDS: Losartan 100 MG Tab PO SCH (09:32)
[2022-07-02] MEDS: Loratadine 10 MG Tab PO SCH (09:32)
[2022-07-02] MEDS: Ezetimibe 10 MG Tab PO SCH (09:32)
[2022-07-02] MEDS: Enoxaparin 30 MG/0.3 ML Syringe SUBCUT SCH (20:51)
[2022-07-02] MEDS: Prazosin 1 MG Cap PO SCH (20:51)
[2022-07-02] MEDS: Pregabalin 75 MG Cap PO SCH (20:51)
[2022-07-02] MEDS: QUEtiapine 25 MG Tab PO SCH (20:52)
[2022-07-02] MEDS: Magnesium Chloride 64 MG Tab.ER PO SCH (20:52)
[2022-07-03] MEDS: Levothyroxine 75 MCG Tab PO SCH (05:02)
[2022-07-03] MEDS: Pantoprazole 20 MG Tab, Delayed Release PO SCH (05:03)
[2022-07-03] MEDS: Formoterol/Mometasone 100-5 MCG 8.8 GM Inhaler IH SCH ×2 (06:16→20:43)
[2022-07-03] MEDS: Insulin Lispro 100 Unit/ML 3 ML KwikPen SUBCUT SCH ×3 (07:36→17:58)
[2022-07-03] MEDS: Furosemide 20 MG Tab PO SCH ×2 (07:37→13:37)
[2022-07-03] MEDS: Loratadine 10 MG Tab PO SCH (08:04)
[2022-07-03] MEDS: Losartan 100 MG Tab PO SCH (08:05)
[2022-07-03] MEDS: Menthol 10%/Methyl Salicylate 30% 85 GM Tube TOP SCH ×2 (08:05→20:43)
[2022-07-03] MEDS: Metoprolol Succinate 25 MG Tab.ER PO SCH (08:05)
[2022-07-03] MEDS: Venlafaxine 150 MG Cap.ER PO SCH (08:05)
[2022-07-03] MEDS: Acetaminophen 500 MG Tab PO SCH ×3 (08:06→20:45)
[2022-07-03] MEDS: Ezetimibe 10 MG Tab PO SCH (08:06)
[2022-07-03] MEDS ORDERED: Metoprolol Succinate 50 MG Tab.ER PO SCH (09:15)
[2022-07-03] MEDS ORDERED: Metoprolol Succinate 25 MG Tab.ER PO ONE (09:30)
[2022-07-03] MEDS: Prazosin 1 MG Cap PO SCH (20:43)
[2022-07-03] MEDS: Enoxaparin 30 MG/0.3 ML Syringe SUBCUT SCH (20:43)
[2022-07-03] MEDS: QUEtiapine 25 MG Tab PO SCH (20:44)
[2022-07-03] MEDS: Magnesium Chloride 64 MG Tab.ER PO SCH (20:45)
[2022-07-03] MEDS: Pregabalin 75 MG Cap PO SCH (20:51)
[2022-07-04] MEDS: Pantoprazole 20 MG Tab, Delayed Release PO SCH (05:47)
[2022-07-04] MEDS: Levothyroxine 75 MCG Tab PO SCH (05:47)
[2022-07-04] MEDS: Formoterol/Mometasone 100-5 MCG 8.8 GM Inhaler IH SCH ×2 (05:59→20:11)
[2022-07-04] MEDS: Insulin Lispro 100 Unit/ML 3 ML KwikPen SUBCUT SCH ×3 (07:46→17:37)
[2022-07-04] MEDS: Losartan 100 MG Tab PO SCH (08:33)
[2022-07-04] MEDS: Acetaminophen 500 MG Tab PO SCH ×3 (08:34→20:18)
[2022-07-04] MEDS: Metoprolol Succinate 50 MG Tab.ER PO SCH (08:34)
[2022-07-04] MEDS: Ezetimibe 10 MG Tab PO SCH (08:35)
[2022-07-04] MEDS: Menthol 10%/Methyl Salicylate 30% 85 GM Tube TOP SCH ×2 (08:36→20:12)
[2022-07-04] MEDS: Venlafaxine 150 MG Cap.ER PO SCH (08:36)
[2022-07-04] MEDS: Furosemide 20 MG Tab PO SCH ×2 (08:36→13:29)
[2022-07-04] MEDS: Loratadine 10 MG Tab PO SCH (08:36)
[2022-07-04] MEDS: Enoxaparin 30 MG/0.3 ML Syringe SUBCUT SCH (20:12)
[2022-07-04] MEDS: Magnesium Chloride 64 MG Tab.ER PO SCH (20:13)
[2022-07-04] MEDS: Prazosin 1 MG Cap PO SCH (20:13)
[2022-07-04] MEDS: QUEtiapine 25 MG Tab PO SCH (20:18)
[2022-07-04] MEDS: Pregabalin 75 MG Cap PO SCH (20:29)
[2022-07-05] MEDS: Levothyroxine 75 MCG Tab PO SCH (06:04)
[2022-07-05] MEDS: Pantoprazole 20 MG Tab, Delayed Release PO SCH (06:05)
[2022-07-05] MEDS: Formoterol/Mometasone 100-5 MCG 8.8 GM Inhaler IH SCH ×2 (06:05→20:07)
[2022-07-05] MEDS: Insulin Lispro 100 Unit/ML 3 ML KwikPen SUBCUT SCH ×3 (07:29→18:03)
[2022-07-05] MEDS: Furosemide 20 MG Tab PO SCH ×2 (07:51→14:51)
[2022-07-05] MEDS: Losartan 100 MG Tab PO SCH (08:56)
[2022-07-05] MEDS: Loratadine 10 MG Tab PO SCH (08:56)
[2022-07-05] MEDS: Venlafaxine 150 MG Cap.ER PO SCH (08:57)
[2022-07-05] MEDS: Menthol 10%/Methyl Salicylate 30% 85 GM Tube TOP SCH ×2 (08:57→20:07)
[2022-07-05] MEDS: Acetaminophen 500 MG Tab PO SCH ×3 (08:58→20:11)
[2022-07-05] MEDS: Ezetimibe 10 MG Tab PO SCH (08:58)
[2022-07-05] MEDS: Metoprolol Succinate 50 MG Tab.ER PO SCH (10:34)
[2022-07-05] MEDS: Enoxaparin 30 MG/0.3 ML Syringe SUBCUT SCH (20:05)
[2022-07-05] MEDS: QUEtiapine 25 MG Tab PO SCH (20:11)
[2022-07-05] MEDS: Prazosin 1 MG Cap PO SCH (20:11)
[2022-07-05] MEDS: Magnesium Chloride 64 MG Tab.ER PO SCH (20:14)
[2022-07-05] MEDS: Pregabalin 75 MG Cap PO SCH (20:19)
[2022-07-05] MEDS: hydrOXYzine HCl 25 MG Tab PO PRN (20:19)
[2022-07-06] MEDS: Pantoprazole 20 MG Tab, Delayed Release PO SCH (06:17)
[2022-07-06] MEDS: Levothyroxine 75 MCG Tab PO SCH (06:17)
[2022-07-06] MEDS: Formoterol/Mometasone 100-5 MCG 8.8 GM Inhaler IH SCH ×2 (06:18→22:07)
[2022-07-06] MEDS: Insulin Lispro 100 Unit/ML 3 ML KwikPen SUBCUT SCH ×3 (07:47→17:01)
[2022-07-06] MEDS: Furosemide 20 MG Tab PO SCH ×2 (07:48→14:09)
[2022-07-06] MEDS: Menthol 10%/Methyl Salicylate 30% 85 GM Tube TOP SCH ×2 (09:08→22:08)
[2022-07-06] MEDS: Losartan 100 MG Tab PO SCH (09:08)
[2022-07-06] MEDS: Loratadine 10 MG Tab PO SCH (09:08)
[2022-07-06] MEDS: Venlafaxine 150 MG Cap.ER PO SCH (09:08)
[2022-07-06] MEDS: Ezetimibe 10 MG Tab PO SCH (09:09)
[2022-07-06] MEDS: Metoprolol Succinate 50 MG Tab.ER PO SCH (09:09)
[2022-07-06] MEDS: Acetaminophen 500 MG Tab PO SCH ×3 (09:09→22:10)
[2022-07-06] MEDS: Enoxaparin 30 MG/0.3 ML Syringe SUBCUT SCH (22:07)
[2022-07-06] MEDS: Magnesium Chloride 64 MG Tab.ER PO SCH (22:09)
[2022-07-06] MEDS: Prazosin 1 MG Cap PO SCH (22:09)
[2022-07-06] MEDS: QUEtiapine 25 MG Tab PO SCH (22:10)
[2022-07-06] MEDS: Pregabalin 75 MG Cap PO SCH (22:16)
[2022-07-07] MEDS: Formoterol/Mometasone 100-5 MCG 8.8 GM Inhaler IH SCH ×2 (06:04→20:50)
[2022-07-07] MEDS: Levothyroxine 75 MCG Tab PO SCH (06:04)
[2022-07-07] MEDS: Pantoprazole 20 MG Tab, Delayed Release PO SCH (06:04)
[2022-07-07] MEDS: Insulin Lispro 100 Unit/ML 3 ML KwikPen SUBCUT SCH ×3 (09:17→17:45)
[2022-07-07] MEDS: Losartan 100 MG Tab PO SCH (09:20)
[2022-07-07] MEDS: Furosemide 20 MG Tab PO SCH ×2 (09:20→14:13)
[2022-07-07] MEDS: Loratadine 10 MG Tab PO SCH (09:20)
[2022-07-07] MEDS: Venlafaxine 150 MG Cap.ER PO SCH (09:21)
[2022-07-07] MEDS: Menthol 10%/Methyl Salicylate 30% 85 GM Tube TOP SCH ×2 (09:21→20:50)
[2022-07-07] MEDS: Acetaminophen 500 MG Tab PO SCH ×3 (09:21→20:51)
[2022-07-07] MEDS: Metoprolol Succinate 50 MG Tab.ER PO SCH (09:21)
[2022-07-07] MEDS: Ezetimibe 10 MG Tab PO SCH (09:22)
[2022-07-07] MEDS: Enoxaparin 30 MG/0.3 ML Syringe SUBCUT SCH (20:50)
[2022-07-07] MEDS: Magnesium Chloride 64 MG Tab.ER PO SCH (20:50)
[2022-07-07] MEDS: QUEtiapine 25 MG Tab PO SCH (20:51)
[2022-07-07] MEDS: Prazosin 1 MG Cap PO SCH (20:51)
[2022-07-07] MEDS: Pregabalin 75 MG Cap PO SCH (20:53)
[2022-07-08] MEDS: Levothyroxine 75 MCG Tab PO SCH (06:19)
[2022-07-08] MEDS: Pantoprazole 20 MG Tab, Delayed Release PO SCH (06:19)
[2022-07-08] MEDS: Formoterol/Mometasone 100-5 MCG 8.8 GM Inhaler IH SCH ×2 (06:19→21:07)
[2022-07-08] MEDS: Insulin Lispro 100 Unit/ML 3 ML KwikPen SUBCUT SCH ×3 (07:56→17:13)
[2022-07-08] MEDS: Ezetimibe 10 MG Tab PO SCH (08:05)
[2022-07-08] MEDS: Loratadine 10 MG Tab PO SCH (08:05)
[2022-07-08] MEDS: Furosemide 20 MG Tab PO SCH ×2 (08:05→14:39)
[2022-07-08] MEDS: Acetaminophen 500 MG Tab PO SCH ×4 (08:06→21:10)
[2022-07-08] MEDS: Losartan 100 MG Tab PO SCH (08:06)
[2022-07-08] MEDS: Venlafaxine 150 MG Cap.ER PO SCH (08:06)
[2022-07-08] MEDS: Metoprolol Succinate 50 MG Tab.ER PO SCH (08:06)
[2022-07-08] MEDS: Menthol 10%/Methyl Salicylate 30% 85 GM Tube TOP SCH ×2 (08:09→21:07)
[2022-07-08] MEDS: Pregabalin 75 MG Cap PO SCH (21:06)
[2022-07-08] MEDS: Enoxaparin 30 MG/0.3 ML Syringe SUBCUT SCH (21:06)
[2022-07-08] MEDS: Magnesium Chloride 64 MG Tab.ER PO SCH (21:09)
[2022-07-08] MEDS: Prazosin 1 MG Cap PO SCH (21:09)
[2022-07-08] MEDS: QUEtiapine 25 MG Tab PO SCH (21:09)
[2022-07-09] MEDS: Formoterol/Mometasone 100-5 MCG 8.8 GM Inhaler IH SCH ×2 (06:05→20:46)
[2022-07-09] MEDS: Levothyroxine 75 MCG Tab PO SCH (06:06)
[2022-07-09] MEDS: Pantoprazole 20 MG Tab, Delayed Release PO SCH (06:06)
[2022-07-09] MEDS: Insulin Lispro 100 Unit/ML 3 ML KwikPen SUBCUT SCH ×3 (07:13→17:23)
[2022-07-09] MEDS: Furosemide 20 MG Tab PO SCH ×2 (07:15→13:34)
[2022-07-09] MEDS: Losartan 100 MG Tab PO SCH (08:25)
[2022-07-09] MEDS: Loratadine 10 MG Tab PO SCH (08:25)
[2022-07-09] MEDS: Ezetimibe 10 MG Tab PO SCH (08:27)
[2022-07-09] MEDS: Menthol 10%/Methyl Salicylate 30% 85 GM Tube TOP SCH ×2 (08:27→20:46)
[2022-07-09] MEDS: Acetaminophen 500 MG Tab PO SCH ×3 (08:27→20:48)
[2022-07-09] MEDS: Venlafaxine 150 MG Cap.ER PO SCH (08:27)
[2022-07-09] MEDS: Metoprolol Succinate 50 MG Tab.ER PO SCH (08:29)
[2022-07-09] MEDS: amLODIPine 5 MG Tab PO SCH (10:28)
[2022-07-09] MEDS: Enoxaparin 30 MG/0.3 ML Syringe SUBCUT SCH (20:45)
[2022-07-09] MEDS: Magnesium Chloride 64 MG Tab.ER PO SCH (20:47)
[2022-07-09] MEDS: Pregabalin 75 MG Cap PO SCH (20:47)
[2022-07-09] MEDS: Prazosin 1 MG Cap PO SCH (20:47)
[2022-07-09] MEDS: QUEtiapine 25 MG Tab PO SCH (20:48)
[2022-07-10] MEDS: Levothyroxine 75 MCG Tab PO SCH (06:08)
[2022-07-10] MEDS: Pantoprazole 20 MG Tab, Delayed Release PO SCH (06:09)
[2022-07-10] MEDS: Formoterol/Mometasone 100-5 MCG 8.8 GM Inhaler IH SCH ×2 (06:10→20:55)
[2022-07-10] MEDS: Insulin Lispro 100 Unit/ML 3 ML KwikPen SUBCUT SCH ×3 (08:14→17:00)
[2022-07-10] MEDS: Furosemide 20 MG Tab PO SCH ×2 (08:23→13:56)
[2022-07-10] MEDS: Loratadine 10 MG Tab PO SCH (08:24)
[2022-07-10] MEDS: Losartan 100 MG Tab PO SCH (08:24)
[2022-07-10] MEDS: Venlafaxine 150 MG Cap.ER PO SCH (08:25)
[2022-07-10] MEDS: Metoprolol Succinate 50 MG Tab.ER PO SCH (08:25)
[2022-07-10] MEDS: Acetaminophen 500 MG Tab PO SCH ×3 (08:26→20:57)
[2022-07-10] MEDS: Ezetimibe 10 MG Tab PO SCH (08:27)
[2022-07-10] MEDS: Menthol 10%/Methyl Salicylate 30% 85 GM Tube TOP SCH ×2 (08:28→20:55)
[2022-07-10] MEDS: amLODIPine 5 MG Tab PO SCH (10:57)
[2022-07-10] MEDS: metFORMIN 500 MG Tab.ER PO SCH (10:57)
[2022-07-10] MEDS: Enoxaparin 30 MG/0.3 ML Syringe SUBCUT SCH (20:54)
[2022-07-10] MEDS: Prazosin 1 MG Cap PO SCH (20:56)
[2022-07-10] MEDS: Pregabalin 75 MG Cap PO SCH (20:56)
[2022-07-10] MEDS: Magnesium Chloride 64 MG Tab.ER PO SCH (20:56)
[2022-07-10] MEDS: QUEtiapine 25 MG Tab PO SCH (20:57)
[2022-07-11] MEDS: Levothyroxine 75 MCG Tab PO SCH (05:24)
[2022-07-11] MEDS: Pantoprazole 20 MG Tab, Delayed Release PO SCH (05:24)
[2022-07-11] MEDS: Formoterol/Mometasone 100-5 MCG 8.8 GM Inhaler IH SCH ×2 (06:12→20:36)
[2022-07-11] MEDS: Insulin Lispro 100 Unit/ML 3 ML KwikPen SUBCUT SCH ×3 (07:59→17:35)
[2022-07-11] MEDS: Loratadine 10 MG Tab PO SCH (08:18)
[2022-07-11] MEDS: Furosemide 20 MG Tab PO SCH ×2 (08:18→14:22)
[2022-07-11] MEDS: Losartan 100 MG Tab PO SCH (08:18)
[2022-07-11] MEDS: Metoprolol Succinate 50 MG Tab.ER PO SCH (08:19)
[2022-07-11] MEDS: Venlafaxine 150 MG Cap.ER PO SCH (08:19)
[2022-07-11] MEDS: Acetaminophen 500 MG Tab PO SCH ×3 (08:20→20:39)
[2022-07-11] MEDS: Ezetimibe 10 MG Tab PO SCH (08:21)
[2022-07-11] MEDS: Menthol 10%/Methyl Salicylate 30% 85 GM Tube TOP SCH ×2 (08:22→20:36)
[2022-07-11] MEDS: metFORMIN 500 MG Tab.ER PO SCH (09:24)
[2022-07-11] MEDS: amLODIPine 5 MG Tab PO SCH (09:24)
[2022-07-11 09:31] LABS: BLOOD UREA NITROGEN,BUN 43 mg/dL (7-18); BUN/CREATININE RATIO 22.6 (9-20); CALCIUM 8.3 mg/dL (8.6-10.2); CARBON DIOXIDE,CO2 23 mmol/L (21-32); CHLORIDE,CL 101 mmol/L (100-110); CREATININE 1.9 mg/dL (0.55-1.02); EST CRCL DRUG DOSING (CG) 33.87 mL/min; ESTIMATED GFR 29 mL/min (>60); GLUCOSE RANDOM 266 mg/dL (80-116); MAGNESIUM 1.8 mg/dL (1.8-2.5); POTASSIUM,K 4.3 mmol/L (3.5-5.3); SODIUM,NA 133 mmol/L (135-145)
[2022-07-11] MEDS: Enoxaparin 30 MG/0.3 ML Syringe SUBCUT SCH (20:36)
[2022-07-11] MEDS: Magnesium Chloride 64 MG Tab.ER PO SCH (20:37)
[2022-07-11] MEDS: Pregabalin 75 MG Cap PO SCH (20:37)
[2022-07-11] MEDS: Prazosin 1 MG Cap PO SCH (20:38)
[2022-07-11] MEDS: QUEtiapine 25 MG Tab PO SCH (20:38)
[2022-07-11] MEDS: Dicyclomine 10 MG Cap PO PRN (21:26)
[2022-07-12] MEDS: Pantoprazole 20 MG Tab, Delayed Release PO SCH (06:24)
[2022-07-12] MEDS: Formoterol/Mometasone 100-5 MCG 8.8 GM Inhaler IH SCH ×2 (06:24→21:12)
[2022-07-12] MEDS: Levothyroxine 75 MCG Tab PO SCH (06:24)
[2022-07-12] MEDS: Furosemide 20 MG Tab PO SCH ×2 (08:50→13:00)
[2022-07-12] MEDS: Loratadine 10 MG Tab PO SCH (08:50)
[2022-07-12] MEDS: Insulin Lispro 100 Unit/ML 3 ML KwikPen SUBCUT SCH ×3 (08:50→17:14)
[2022-07-12] MEDS: Acetaminophen 500 MG Tab PO SCH ×3 (08:51→21:11)
[2022-07-12] MEDS: Ezetimibe 10 MG Tab PO SCH (08:51)
[2022-07-12] MEDS: Menthol 10%/Methyl Salicylate 30% 85 GM Tube TOP SCH ×2 (08:52→21:12)
[2022-07-12] MEDS: amLODIPine 5 MG Tab PO SCH (08:52)
[2022-07-12] MEDS: Metoprolol Succinate 50 MG Tab.ER PO SCH (08:52)
[2022-07-12] MEDS: Venlafaxine 150 MG Cap.ER PO SCH (08:53)
[2022-07-12] MEDS: Losartan 100 MG Tab PO SCH (08:53)
[2022-07-12] MEDS: metFORMIN 500 MG Tab.ER PO SCH (08:54)
[2022-07-12] MEDS ORDERED: Loperamide 2 MG Cap PO PRN (11:04)
[2022-07-12] MEDS: Magnesium Chloride 64 MG Tab.ER PO SCH (21:11)
[2022-07-12] MEDS: QUEtiapine 25 MG Tab PO SCH (21:11)
[2022-07-12] MEDS: Pregabalin 75 MG Cap PO SCH (21:11)
[2022-07-12] MEDS: Prazosin 1 MG Cap PO SCH (21:12)
[2022-07-13] MEDS: Levothyroxine 75 MCG Tab PO SCH (06:28)
[2022-07-13] MEDS: Pantoprazole 20 MG Tab, Delayed Release PO SCH (06:28)
[2022-07-13] MEDS: Formoterol/Mometasone 100-5 MCG 8.8 GM Inhaler IH SCH ×2 (08:14→20:21)
[2022-07-13] MEDS: Ezetimibe 10 MG Tab PO SCH (08:15)
[2022-07-13] MEDS: Loratadine 10 MG Tab PO SCH (08:15)
[2022-07-13] MEDS: Furosemide 20 MG Tab PO SCH ×2 (08:15→14:00)
[2022-07-13] MEDS: Insulin Lispro 100 Unit/ML 3 ML KwikPen SUBCUT SCH ×3 (08:15→17:33)
[2022-07-13] MEDS: Menthol 10%/Methyl Salicylate 30% 85 GM Tube TOP SCH ×2 (08:16→20:21)
[2022-07-13] MEDS: Losartan 100 MG Tab PO SCH (08:16)
[2022-07-13] MEDS: amLODIPine 5 MG Tab PO SCH (08:16)
[2022-07-13] MEDS: Venlafaxine 150 MG Cap.ER PO SCH (08:16)
[2022-07-13] MEDS: Metoprolol Succinate 50 MG Tab.ER PO SCH (08:17)
[2022-07-13] MEDS: Acetaminophen 500 MG Tab PO SCH ×3 (08:17→20:22)
[2022-07-13] MEDS: Pregabalin 75 MG Cap PO SCH (20:21)
[2022-07-13] MEDS: QUEtiapine 25 MG Tab PO SCH (20:21)
[2022-07-13] MEDS: Magnesium Chloride 64 MG Tab.ER PO SCH (20:22)
[2022-07-13] MEDS: Prazosin 1 MG Cap PO SCH (20:22)
[2022-07-14] MEDS: Levothyroxine 75 MCG Tab PO SCH (06:20)
[2022-07-14] MEDS: Pantoprazole 20 MG Tab, Delayed Release PO SCH (06:20)
[2022-07-14] MEDS: Formoterol/Mometasone 100-5 MCG 8.8 GM Inhaler IH SCH ×2 (06:36→20:41)
[2022-07-14 06:52] LABS: BLOOD UREA NITROGEN,BUN 39 mg/dL (7-18); BUN/CREATININE RATIO 21.7 (9-20); CALCIUM 8.9 mg/dL (8.6-10.2); CARBON DIOXIDE,CO2 25 mmol/L (21-32); CHLORIDE,CL 103 mmol/L (100-110); CREATININE 1.8 mg/dL (0.55-1.02); EST CRCL DRUG DOSING (CG) 35.75 mL/min; ESTIMATED GFR 31 mL/min (>60); GLUCOSE RANDOM 154 mg/dL (80-116); POTASSIUM,K 4.6 mmol/L (3.5-5.3); SODIUM,NA 137 mmol/L (135-145)
[2022-07-14] MEDS: Insulin Lispro 100 Unit/ML 3 ML KwikPen SUBCUT SCH ×3 (08:13→17:43)
[2022-07-14] MEDS: Furosemide 20 MG Tab PO SCH ×2 (08:14→14:20)
[2022-07-14] MEDS: Loratadine 10 MG Tab PO SCH (08:14)
[2022-07-14] MEDS: Acetaminophen 500 MG Tab PO SCH ×3 (08:15→20:44)
[2022-07-14] MEDS: Metoprolol Succinate 50 MG Tab.ER PO SCH (08:15)
[2022-07-14] MEDS: Venlafaxine 150 MG Cap.ER PO SCH (08:15)
[2022-07-14] MEDS: Losartan 100 MG Tab PO SCH (08:16)
[2022-07-14] MEDS: amLODIPine 5 MG Tab PO SCH (08:16)
[2022-07-14] MEDS: Menthol 10%/Methyl Salicylate 30% 85 GM Tube TOP SCH ×2 (08:16→20:42)
[2022-07-14] MEDS: Ezetimibe 10 MG Tab PO SCH (08:17)
[2022-07-14] MEDS: Pregabalin 75 MG Cap PO SCH (20:43)
[2022-07-14] MEDS: Magnesium Chloride 64 MG Tab.ER PO SCH (20:43)
[2022-07-14] MEDS: Prazosin 1 MG Cap PO SCH (20:43)
[2022-07-14] MEDS: QUEtiapine 25 MG Tab PO SCH (20:44)
[2022-07-15] MEDS: Pantoprazole 20 MG Tab, Delayed Release PO SCH (06:14)
[2022-07-15] MEDS: Formoterol/Mometasone 100-5 MCG 8.8 GM Inhaler IH SCH ×2 (06:14→21:29)
[2022-07-15] MEDS: Levothyroxine 75 MCG Tab PO SCH (06:14)
[2022-07-15] MEDS: Insulin Lispro 100 Unit/ML 3 ML KwikPen SUBCUT SCH ×3 (08:09→17:42)
[2022-07-15] MEDS: Acetaminophen 500 MG Tab PO SCH ×3 (08:10→21:32)
[2022-07-15] MEDS: Venlafaxine 150 MG Cap.ER PO SCH (08:10)
[2022-07-15] MEDS: Furosemide 20 MG Tab PO SCH ×2 (08:10→13:53)
[2022-07-15] MEDS: Losartan 100 MG Tab PO SCH (08:11)
[2022-07-15] MEDS: Metoprolol Succinate 50 MG Tab.ER PO SCH (08:11)
[2022-07-15] MEDS: amLODIPine 5 MG Tab PO SCH (08:11)
[2022-07-15] MEDS: Menthol 10%/Methyl Salicylate 30% 85 GM Tube TOP SCH ×2 (08:12→21:30)
[2022-07-15] MEDS: Ezetimibe 10 MG Tab PO SCH (08:12)
[2022-07-15] MEDS: Loratadine 10 MG Tab PO SCH (08:12)
[2022-07-15] MEDS: Magnesium Chloride 64 MG Tab.ER PO SCH (21:30)
[2022-07-15] MEDS: Pregabalin 75 MG Cap PO SCH (21:30)
[2022-07-15] MEDS: Prazosin 1 MG Cap PO SCH (21:31)
[2022-07-15] MEDS: QUEtiapine 25 MG Tab PO SCH (21:32)
[2022-07-16] MEDS: Pantoprazole 20 MG Tab, Delayed Release PO SCH (07:07)
[2022-07-16] MEDS: Levothyroxine 75 MCG Tab PO SCH (07:07)
[2022-07-16] MEDS: Formoterol/Mometasone 100-5 MCG 8.8 GM Inhaler IH SCH ×2 (07:07→21:50)
[2022-07-16] MEDS: Acetaminophen 500 MG Tab PO SCH ×3 (07:59→21:53)
[2022-07-16] MEDS: Insulin Lispro 100 Unit/ML 3 ML KwikPen SUBCUT SCH ×3 (07:59→17:52)
[2022-07-16] MEDS: Furosemide 20 MG Tab PO SCH (08:00)
[2022-07-16] MEDS: amLODIPine 5 MG Tab PO SCH (08:00)
[2022-07-16] MEDS: Metoprolol Succinate 50 MG Tab.ER PO SCH (08:00)
[2022-07-16] MEDS: Venlafaxine 150 MG Cap.ER PO SCH (08:00)
[2022-07-16] MEDS: Losartan 100 MG Tab PO SCH (08:00)
[2022-07-16] MEDS: Loratadine 10 MG Tab PO SCH (08:01)
[2022-07-16] MEDS: Menthol 10%/Methyl Salicylate 30% 85 GM Tube TOP SCH ×2 (08:01→21:50)
[2022-07-16] MEDS: Ezetimibe 10 MG Tab PO SCH (08:01)
[2022-07-16] MEDS: Magnesium Chloride 64 MG Tab.ER PO SCH (21:51)
[2022-07-16] MEDS: Pregabalin 75 MG Cap PO SCH (21:51)
[2022-07-16] MEDS: QUEtiapine 25 MG Tab PO SCH (21:52)
[2022-07-16] MEDS: Prazosin 1 MG Cap PO SCH (21:52)
[2022-07-17] MEDS: Levothyroxine 75 MCG Tab PO SCH (05:53)
[2022-07-17] MEDS: Pantoprazole 20 MG Tab, Delayed Release PO SCH (05:53)
[2022-07-17] MEDS: Formoterol/Mometasone 100-5 MCG 8.8 GM Inhaler IH SCH ×2 (06:03→21:13)
[2022-07-17 06:49] LABS: BLOOD UREA NITROGEN,BUN 38 mg/dL (7-18); BUN/CREATININE RATIO 23.8 (9-20); CALCIUM 8.6 mg/dL (8.6-10.2); CARBON DIOXIDE,CO2 26 mmol/L (21-32); CHLORIDE,CL 106 mmol/L (100-110); CREATININE 1.6 mg/dL (0.55-1.02); EST CRCL DRUG DOSING (CG) 40.22 mL/min; ESTIMATED GFR 36 mL/min (>60); GLUCOSE RANDOM 144 mg/dL (80-116); POTASSIUM,K 4.7 mmol/L (3.5-5.3); SODIUM,NA 138 mmol/L (135-145)
[2022-07-17] MEDS: Ezetimibe 10 MG Tab PO SCH (08:47)
[2022-07-17] MEDS: Furosemide 20 MG Tab PO SCH (08:47)
[2022-07-17] MEDS: Insulin Lispro 100 Unit/ML 3 ML KwikPen SUBCUT SCH ×3 (08:47→17:39)
[2022-07-17] MEDS: Losartan 100 MG Tab PO SCH (08:47)
[2022-07-17] MEDS: Metoprolol Succinate 50 MG Tab.ER PO SCH (08:47)
[2022-07-17] MEDS: Loratadine 10 MG Tab PO SCH (08:47)
[2022-07-17] MEDS: Acetaminophen 500 MG Tab PO SCH ×3 (08:48→21:15)
[2022-07-17] MEDS: amLODIPine 5 MG Tab PO SCH (08:48)
[2022-07-17] MEDS: Menthol 10%/Methyl Salicylate 30% 85 GM Tube TOP SCH ×2 (08:48→21:13)
[2022-07-17] MEDS: Venlafaxine 150 MG Cap.ER PO SCH (08:48)
[2022-07-17] MEDS: Magnesium Chloride 64 MG Tab.ER PO SCH (21:14)
[2022-07-17] MEDS: Pregabalin 75 MG Cap PO SCH (21:14)
[2022-07-17] MEDS: QUEtiapine 25 MG Tab PO SCH (21:14)
[2022-07-17] MEDS: Prazosin 1 MG Cap PO SCH (21:14)
[2022-07-18] MEDS: Pantoprazole 20 MG Tab, Delayed Release PO SCH (05:40)
[2022-07-18] MEDS: Levothyroxine 75 MCG Tab PO SCH (05:40)
[2022-07-18] MEDS: Formoterol/Mometasone 100-5 MCG 8.8 GM Inhaler IH SCH ×2 (06:00→21:25)
[2022-07-18] MEDS: Insulin Lispro 100 Unit/ML 3 ML KwikPen SUBCUT SCH ×3 (08:50→17:41)
[2022-07-18] MEDS: Ezetimibe 10 MG Tab PO SCH (08:51)
[2022-07-18] MEDS: Loratadine 10 MG Tab PO SCH (08:51)
[2022-07-18] MEDS: Acetaminophen 500 MG Tab PO SCH ×3 (08:51→21:24)
[2022-07-18] MEDS: Losartan 100 MG Tab PO SCH (08:52)
[2022-07-18] MEDS: amLODIPine 5 MG Tab PO SCH (08:52)
[2022-07-18] MEDS: Furosemide 20 MG Tab PO SCH (08:53)
[2022-07-18] MEDS: Menthol 10%/Methyl Salicylate 30% 85 GM Tube TOP SCH ×2 (08:53→21:25)
[2022-07-18] MEDS: Metoprolol Succinate 50 MG Tab.ER PO SCH (08:54)
[2022-07-18] MEDS: Venlafaxine 150 MG Cap.ER PO SCH (08:54)
[2022-07-18] MEDS: Magnesium Chloride 64 MG Tab.ER PO SCH (21:23)
[2022-07-18] MEDS: Prazosin 1 MG Cap PO SCH (21:23)
[2022-07-18] MEDS: Pregabalin 75 MG Cap PO SCH (21:24)
[2022-07-18] MEDS: QUEtiapine 25 MG Tab PO SCH (21:25)
[2022-07-19] MEDS: Levothyroxine 75 MCG Tab PO SCH (06:06)
[2022-07-19] MEDS: Formoterol/Mometasone 100-5 MCG 8.8 GM Inhaler IH SCH ×2 (06:06→21:23)
[2022-07-19] MEDS: Pantoprazole 20 MG Tab, Delayed Release PO SCH (06:06)
[2022-07-19] MEDS: Insulin Lispro 100 Unit/ML 3 ML KwikPen SUBCUT SCH ×3 (08:21→17:16)
[2022-07-19] MEDS: Loratadine 10 MG Tab PO SCH (08:22)
[2022-07-19] MEDS: Ezetimibe 10 MG Tab PO SCH (08:22)
[2022-07-19] MEDS: amLODIPine 5 MG Tab PO SCH (08:23)
[2022-07-19] MEDS: Losartan 100 MG Tab PO SCH (08:23)
[2022-07-19] MEDS: Venlafaxine 150 MG Cap.ER PO SCH (08:23)
[2022-07-19] MEDS: Metoprolol Succinate 50 MG Tab.ER PO SCH (08:24)
[2022-07-19] MEDS: Furosemide 20 MG Tab PO SCH (08:24)
[2022-07-19] MEDS: Menthol 10%/Methyl Salicylate 30% 85 GM Tube TOP SCH ×2 (08:26→21:24)
[2022-07-19] MEDS: Acetaminophen 500 MG Tab PO SCH ×3 (08:34→21:23)
[2022-07-19] MEDS: Magnesium Chloride 64 MG Tab.ER PO SCH (21:23)
[2022-07-19] MEDS: Pregabalin 75 MG Cap PO SCH (21:23)
[2022-07-19] MEDS: QUEtiapine 25 MG Tab PO SCH (21:23)
[2022-07-19] MEDS: Prazosin 1 MG Cap PO SCH (21:26)
[2022-07-20 06:46] LABS: BLOOD UREA NITROGEN,BUN 30 mg/dL (7-18); BUN/CREATININE RATIO 23.1 (9-20); CALCIUM 8.7 mg/dL (8.6-10.2); CARBON DIOXIDE,CO2 25 mmol/L (21-32); CHLORIDE,CL 106 mmol/L (100-110); CREATININE 1.3 mg/dL (0.55-1.02); EST CRCL DRUG DOSING (CG) 49.51 mL/min; ESTIMATED GFR 46 mL/min (>60); GLUCOSE RANDOM 149 mg/dL (80-116); POTASSIUM,K 4.5 mmol/L (3.5-5.3); SODIUM,NA 137 mmol/L (135-145)
[2022-07-20] MEDS: Levothyroxine 75 MCG Tab PO SCH (07:46)
[2022-07-20] MEDS: Pantoprazole 20 MG Tab, Delayed Release PO SCH (07:46)
[2022-07-20] MEDS: Formoterol/Mometasone 100-5 MCG 8.8 GM Inhaler IH SCH ×2 (07:46→21:38)
[2022-07-20] MEDS: Insulin Lispro 100 Unit/ML 3 ML KwikPen SUBCUT SCH ×3 (07:47→17:51)
[2022-07-20] MEDS: Loratadine 10 MG Tab PO SCH (08:41)
[2022-07-20] MEDS: Losartan 100 MG Tab PO SCH (08:41)
[2022-07-20] MEDS: Furosemide 20 MG Tab PO SCH (08:42)
[2022-07-20] MEDS: amLODIPine 5 MG Tab PO SCH (08:42)
[2022-07-20] MEDS: Venlafaxine 150 MG Cap.ER PO SCH (08:42)
[2022-07-20] MEDS: Menthol 10%/Methyl Salicylate 30% 85 GM Tube TOP SCH ×2 (08:42→21:39)
[2022-07-20] MEDS: Ezetimibe 10 MG Tab PO SCH (08:43)
[2022-07-20] MEDS: Metoprolol Succinate 50 MG Tab.ER PO SCH (08:43)
[2022-07-20] MEDS: Acetaminophen 500 MG Tab PO SCH ×3 (08:43→21:41)
[2022-07-20] MEDS: Magnesium Chloride 64 MG Tab.ER PO SCH (21:39)
[2022-07-20] MEDS: Pregabalin 75 MG Cap PO SCH (21:39)
[2022-07-20] MEDS: Prazosin 1 MG Cap PO SCH (21:40)
[2022-07-20] MEDS: QUEtiapine 25 MG Tab PO SCH (21:41)
[2022-07-21] MEDS: Formoterol/Mometasone 100-5 MCG 8.8 GM Inhaler IH SCH ×2 (06:29→21:56)
[2022-07-21] MEDS: Pantoprazole 20 MG Tab, Delayed Release PO SCH (06:29)
[2022-07-21] MEDS: Levothyroxine 75 MCG Tab PO SCH (06:29)
[2022-07-21] MEDS: Insulin Lispro 100 Unit/ML 3 ML KwikPen SUBCUT SCH ×3 (07:43→17:45)
[2022-07-21] MEDS: Furosemide 20 MG Tab PO SCH (08:52)
[2022-07-21] MEDS: amLODIPine 5 MG Tab PO SCH (08:53)
[2022-07-21] MEDS: Venlafaxine 150 MG Cap.ER PO SCH (08:53)
[2022-07-21] MEDS: Losartan 100 MG Tab PO SCH (08:53)
[2022-07-21] MEDS: Acetaminophen 500 MG Tab PO SCH ×3 (08:53→21:58)
[2022-07-21] MEDS: Menthol 10%/Methyl Salicylate 30% 85 GM Tube TOP SCH ×2 (08:54→21:56)
[2022-07-21] MEDS: Metoprolol Succinate 50 MG Tab.ER PO SCH (08:54)
[2022-07-21] MEDS: Loratadine 10 MG Tab PO SCH (08:54)
[2022-07-21] MEDS: Ezetimibe 10 MG Tab PO SCH (08:54)
[2022-07-21] MEDS ORDERED: Insulin Lispro 100 Unit/ML 3 ML KwikPen SUBCUT ONE (11:30)
[2022-07-21] MEDS: Pregabalin 75 MG Cap PO SCH (21:56)
[2022-07-21] MEDS: Magnesium Chloride 64 MG Tab.ER PO SCH (21:57)
[2022-07-21] MEDS: Prazosin 1 MG Cap PO SCH (21:57)
[2022-07-21] MEDS: QUEtiapine 25 MG Tab PO SCH (21:58)
[2022-07-22] MEDS: Levothyroxine 75 MCG Tab PO SCH (05:35)
[2022-07-22] MEDS: Pantoprazole 20 MG Tab, Delayed Release PO SCH (05:35)
[2022-07-22] MEDS: Formoterol/Mometasone 100-5 MCG 8.8 GM Inhaler IH SCH ×2 (06:13→21:16)
[2022-07-22] MEDS: Insulin Lispro 100 Unit/ML 3 ML KwikPen SUBCUT SCH ×3 (08:46→17:50)
[2022-07-22] MEDS: Ezetimibe 10 MG Tab PO SCH (08:47)
[2022-07-22] MEDS: Venlafaxine 150 MG Cap.ER PO SCH (08:47)
[2022-07-22] MEDS: Loratadine 10 MG Tab PO SCH (08:47)
[2022-07-22] MEDS: Furosemide 20 MG Tab PO SCH (08:47)
[2022-07-22] MEDS: Metoprolol Succinate 50 MG Tab.ER PO SCH (08:49)
[2022-07-22] MEDS: Acetaminophen 500 MG Tab PO SCH ×3 (08:49→21:19)
[2022-07-22] MEDS: amLODIPine 5 MG Tab PO SCH (08:49)
[2022-07-22] MEDS: Losartan 100 MG Tab PO SCH (08:49)
[2022-07-22] MEDS: Menthol 10%/Methyl Salicylate 30% 85 GM Tube TOP SCH ×2 (08:50→21:16)
[2022-07-22] MEDS: Pregabalin 75 MG Cap PO SCH (21:17)
[2022-07-22] MEDS: Magnesium Chloride 64 MG Tab.ER PO SCH (21:17)
[2022-07-22] MEDS: Prazosin 1 MG Cap PO SCH (21:18)
[2022-07-22] MEDS: hydrOXYzine HCl 25 MG Tab PO PRN (22:36)
[2022-07-23] MEDS: Levothyroxine 75 MCG Tab PO SCH (05:55)
[2022-07-23] MEDS: Pantoprazole 20 MG Tab, Delayed Release PO SCH (05:55)
[2022-07-23] MEDS: Formoterol/Mometasone 100-5 MCG 8.8 GM Inhaler IH SCH ×2 (06:04→21:02)
[2022-07-23] MEDS: Insulin Lispro 100 Unit/ML 3 ML KwikPen SUBCUT SCH ×3 (08:45→17:45)
[2022-07-23] MEDS: Venlafaxine 150 MG Cap.ER PO SCH (08:47)
[2022-07-23] MEDS: Loratadine 10 MG Tab PO SCH (08:47)
[2022-07-23] MEDS: Losartan 100 MG Tab PO SCH (08:47)
[2022-07-23] MEDS: Menthol 10%/Methyl Salicylate 30% 85 GM Tube TOP SCH ×2 (08:48→21:03)
[2022-07-23] MEDS: Furosemide 20 MG Tab PO SCH (08:48)
[2022-07-23] MEDS: Metoprolol Succinate 50 MG Tab.ER PO SCH (08:49)
[2022-07-23] MEDS: amLODIPine 5 MG Tab PO SCH (08:49)
[2022-07-23] MEDS: QUEtiapine 25 MG Tab PO SCH (08:49)
[2022-07-23] MEDS: Acetaminophen 500 MG Tab PO SCH ×3 (08:50→21:05)
[2022-07-23] MEDS: Ezetimibe 10 MG Tab PO SCH (08:50)
[2022-07-23] MEDS: Pregabalin 75 MG Cap PO SCH (21:03)
[2022-07-23] MEDS: Prazosin 1 MG Cap PO SCH (21:04)
[2022-07-23] MEDS: Magnesium Chloride 64 MG Tab.ER PO SCH (21:04)
[2022-07-23] MEDS: hydrOXYzine HCl 25 MG Tab PO PRN (22:30)
[2022-07-24] MEDS: Pantoprazole 20 MG Tab, Delayed Release PO SCH (06:06)
[2022-07-24] MEDS: Levothyroxine 75 MCG Tab PO SCH (06:06)
[2022-07-24] MEDS: Formoterol/Mometasone 100-5 MCG 8.8 GM Inhaler IH SCH ×2 (06:06→21:19)
[2022-07-24 07:19] LABS: BLOOD UREA NITROGEN,BUN 36 mg/dL (7-18); CALCIUM 8.8 mg/dL (8.6-10.2); CARBON DIOXIDE,CO2 25 mmol/L (21-32); CHLORIDE,CL 103 mmol/L (100-110); CREATININE 1.8 mg/dL (0.55-1.02); EST CRCL DRUG DOSING (CG) 35.75 mL/min; ESTIMATED GFR 31 mL/min (>60); GLUCOSE RANDOM 128 mg/dL (80-116); POTASSIUM,K 4.5 mmol/L (3.5-5.3); SODIUM,NA 135 mmol/L (135-145)
[2022-07-24] MEDS: Insulin Lispro 100 Unit/ML 3 ML KwikPen SUBCUT SCH ×3 (07:55→17:38)
[2022-07-24] MEDS: Ezetimibe 10 MG Tab PO SCH (08:39)
[2022-07-24] MEDS: Acetaminophen 500 MG Tab PO SCH ×3 (08:39→21:14)
[2022-07-24] MEDS: Metoprolol Succinate 50 MG Tab.ER PO SCH (08:40)
[2022-07-24] MEDS: Furosemide 20 MG Tab PO SCH (08:40)
[2022-07-24] MEDS: QUEtiapine 25 MG Tab PO SCH (08:40)
[2022-07-24] MEDS: Venlafaxine 150 MG Cap.ER PO SCH (08:41)
[2022-07-24] MEDS: Losartan 100 MG Tab PO SCH (08:41)
[2022-07-24] MEDS: Loratadine 10 MG Tab PO SCH (08:41)
[2022-07-24] MEDS: Menthol 10%/Methyl Salicylate 30% 85 GM Tube TOP SCH ×2 (08:44→21:13)
[2022-07-24] MEDS: amLODIPine 5 MG Tab PO SCH (08:44)
[2022-07-24] MEDS: Pregabalin 75 MG Cap PO SCH (21:14)
[2022-07-24] MEDS: Prazosin 1 MG Cap PO SCH (21:17)
[2022-07-24] MEDS: Magnesium Chloride 64 MG Tab.ER PO SCH (21:17)
[2022-07-24] MEDS: hydrOXYzine HCl 25 MG Tab PO PRN (21:20)
[2022-07-25] MEDS: Pantoprazole 20 MG Tab, Delayed Release PO SCH (05:34)
[2022-07-25] MEDS: Levothyroxine 75 MCG Tab PO SCH (05:34)
[2022-07-25] MEDS: Insulin Lispro 100 Unit/ML 3 ML KwikPen SUBCUT SCH ×3 (07:57→17:55)
[2022-07-25] MEDS: Formoterol/Mometasone 100-5 MCG 8.8 GM Inhaler IH SCH ×2 (08:29→20:47)
[2022-07-25] MEDS: Losartan 100 MG Tab PO SCH (08:30)
[2022-07-25] MEDS: Menthol 10%/Methyl Salicylate 30% 85 GM Tube TOP SCH ×2 (08:30→20:47)
[2022-07-25] MEDS: Venlafaxine 150 MG Cap.ER PO SCH (08:30)
[2022-07-25] MEDS: Loratadine 10 MG Tab PO SCH (08:30)
[2022-07-25] MEDS: Furosemide 20 MG Tab PO SCH (08:31)
[2022-07-25] MEDS: Metoprolol Succinate 50 MG Tab.ER PO SCH (08:31)
[2022-07-25] MEDS: amLODIPine 5 MG Tab PO SCH (08:31)
[2022-07-25] MEDS: QUEtiapine 25 MG Tab PO SCH (08:31)
[2022-07-25] MEDS: Acetaminophen 500 MG Tab PO SCH ×3 (08:31→20:49)
[2022-07-25] MEDS: Ezetimibe 10 MG Tab PO SCH (08:32)
[2022-07-25] MEDS: Magnesium Chloride 64 MG Tab.ER PO SCH (20:47)
[2022-07-25] MEDS: Pregabalin 75 MG Cap PO SCH (20:47)
[2022-07-25] MEDS: Prazosin 1 MG Cap PO SCH (20:48)
[2022-07-25] MEDS: hydrOXYzine HCl 25 MG Tab PO PRN (22:52)
[2022-07-26] MEDS: Pantoprazole 20 MG Tab, Delayed Release PO SCH (05:51)
[2022-07-26] MEDS: Levothyroxine 75 MCG Tab PO SCH (05:51)
[2022-07-26] MEDS: Formoterol/Mometasone 100-5 MCG 8.8 GM Inhaler IH SCH ×2 (06:02→20:13)
[2022-07-26] MEDS: Insulin Lispro 100 Unit/ML 3 ML KwikPen SUBCUT SCH ×3 (08:21→18:15)
[2022-07-26] MEDS: Venlafaxine 150 MG Cap.ER PO SCH (08:24)
[2022-07-26] MEDS: Menthol 10%/Methyl Salicylate 30% 85 GM Tube TOP SCH ×2 (08:24→20:16)
[2022-07-26] MEDS: Losartan 100 MG Tab PO SCH (08:25)
[2022-07-26] MEDS: Dicyclomine 10 MG Cap PO PRN (08:26)
[2022-07-26] MEDS: Acetaminophen 500 MG Tab PO SCH ×3 (08:26→20:14)
[2022-07-26] MEDS: Furosemide 20 MG Tab PO SCH (08:27)
[2022-07-26] MEDS: Ezetimibe 10 MG Tab PO SCH (08:27)
[2022-07-26] MEDS: Metoprolol Succinate 50 MG Tab.ER PO SCH (08:27)
[2022-07-26] MEDS: amLODIPine 5 MG Tab PO SCH (08:28)
[2022-07-26] MEDS: Loratadine 10 MG Tab PO SCH (08:28)
[2022-07-26] MEDS: QUEtiapine 25 MG Tab PO SCH (10:24)
[2022-07-26] MEDS: Prazosin 1 MG Cap PO SCH (20:13)
[2022-07-26] MEDS: Magnesium Chloride 64 MG Tab.ER PO SCH (20:14)
[2022-07-26] MEDS: QUEtiapine 100 MG Tab PO SCH (21:06)
[2022-07-26] MEDS: Melatonin 3 MG Tab PO SCH (21:06)
[2022-07-26] MEDS: Pregabalin 75 MG Cap PO SCH (21:06)
[2022-07-27] MEDS: Pantoprazole 20 MG Tab, Delayed Release PO SCH (06:14)
[2022-07-27] MEDS: Formoterol/Mometasone 100-5 MCG 8.8 GM Inhaler IH SCH ×2 (06:14→20:19)
[2022-07-27] MEDS: Levothyroxine 75 MCG Tab PO SCH (06:14)
[2022-07-27 06:31] LABS: BLOOD UREA NITROGEN,BUN 33 mg/dL (7-18); BUN/CREATININE RATIO 19.4 (9-20); CALCIUM 8.3 mg/dL (8.6-10.2); CARBON DIOXIDE,CO2 24 mmol/L (21-32); CHLORIDE,CL 103 mmol/L (100-110); CREATININE 1.7 mg/dL (0.55-1.02); EST CRCL DRUG DOSING (CG) 37.86 mL/min; ESTIMATED GFR 33 mL/min (>60); GLUCOSE RANDOM 151 mg/dL (80-116); MAGNESIUM 2.1 mg/dL (1.8-2.5); POTASSIUM,K 5.2 mmol/L (3.5-5.3); SODIUM,NA 133 mmol/L (135-145)
[2022-07-27] MEDS: Insulin Lispro 100 Unit/ML 3 ML KwikPen SUBCUT SCH ×3 (07:36→18:03)
[2022-07-27] MEDS: Furosemide 20 MG Tab PO SCH (08:06)
[2022-07-27] MEDS: Metoprolol Succinate 50 MG Tab.ER PO SCH (08:07)
[2022-07-27] MEDS: amLODIPine 5 MG Tab PO SCH (08:07)
[2022-07-27] MEDS: Losartan 100 MG Tab PO SCH (08:07)
[2022-07-27] MEDS: Venlafaxine 150 MG Cap.ER PO SCH (08:08)
[2022-07-27] MEDS: Loratadine 10 MG Tab PO SCH (08:08)
[2022-07-27] MEDS: Ezetimibe 10 MG Tab PO SCH (08:08)
[2022-07-27] MEDS: Acetaminophen 500 MG Tab PO SCH ×3 (08:09→20:20)
[2022-07-27] MEDS: Menthol 10%/Methyl Salicylate 30% 85 GM Tube TOP SCH ×2 (08:09→20:19)
[2022-07-27] MEDS: Magnesium Chloride 64 MG Tab.ER PO SCH (20:21)
[2022-07-27] MEDS: Pregabalin 75 MG Cap PO SCH (21:16)
[2022-07-27] MEDS: Melatonin 3 MG Tab PO SCH (21:16)
[2022-07-27] MEDS: QUEtiapine 100 MG Tab PO SCH (21:16)
[2022-07-27] MEDS: Prazosin 1 MG Cap PO SCH (21:17)
[2022-07-28] MEDS: Pantoprazole 20 MG Tab, Delayed Release PO SCH (05:35)
[2022-07-28] MEDS: Levothyroxine 75 MCG Tab PO SCH (05:35)
[2022-07-28] MEDS: Formoterol/Mometasone 100-5 MCG 8.8 GM Inhaler IH SCH ×2 (07:24→21:05)
[2022-07-28] MEDS: Insulin Lispro 100 Unit/ML 3 ML KwikPen SUBCUT SCH ×3 (08:55→17:52)
[2022-07-28] MEDS: Loratadine 10 MG Tab PO SCH (08:57)
[2022-07-28] MEDS: Ezetimibe 10 MG Tab PO SCH (08:57)
[2022-07-28] MEDS: Acetaminophen 500 MG Tab PO SCH ×3 (08:57→21:06)
[2022-07-28] MEDS: Venlafaxine 150 MG Cap.ER PO SCH (08:58)
[2022-07-28] MEDS: amLODIPine 5 MG Tab PO SCH (09:05)
[2022-07-28] MEDS: Losartan 100 MG Tab PO SCH (09:06)
[2022-07-28] MEDS: Furosemide 20 MG Tab PO SCH (09:06)
[2022-07-28] MEDS: Metoprolol Succinate 50 MG Tab.ER PO SCH (09:07)
[2022-07-28] MEDS: Menthol 10%/Methyl Salicylate 30% 85 GM Tube TOP SCH ×2 (09:07→21:05)
[2022-07-28] MEDS: Pregabalin 75 MG Cap PO SCH (21:05)
[2022-07-28] MEDS: Magnesium Chloride 64 MG Tab.ER PO SCH (21:06)
[2022-07-28] MEDS: Prazosin 1 MG Cap PO SCH (21:07)
[2022-07-28] MEDS: Melatonin 3 MG Tab PO SCH (21:07)
[2022-07-28] MEDS: QUEtiapine 100 MG Tab PO SCH (21:08)
[2022-07-29] MEDS: Levothyroxine 75 MCG Tab PO SCH (06:31)
[2022-07-29] MEDS: Pantoprazole 20 MG Tab, Delayed Release PO SCH (06:31)
[2022-07-29] MEDS: Formoterol/Mometasone 100-5 MCG 8.8 GM Inhaler IH SCH ×2 (06:32→21:23)
[2022-07-29] MEDS: Insulin Lispro 100 Unit/ML 3 ML KwikPen SUBCUT SCH ×3 (08:21→18:01)
[2022-07-29] MEDS: Loratadine 10 MG Tab PO SCH (08:22)
[2022-07-29] MEDS: Losartan 100 MG Tab PO SCH (08:23)
[2022-07-29] MEDS: Venlafaxine 150 MG Cap.ER PO SCH (08:24)
[2022-07-29] MEDS: Menthol 10%/Methyl Salicylate 30% 85 GM Tube TOP SCH ×2 (08:24→21:23)
[2022-07-29] MEDS: amLODIPine 5 MG Tab PO SCH (08:25)
[2022-07-29] MEDS: Furosemide 20 MG Tab PO SCH (08:25)
[2022-07-29] MEDS: Metoprolol Succinate 50 MG Tab.ER PO SCH (08:26)
[2022-07-29] MEDS: Acetaminophen 500 MG Tab PO SCH ×3 (08:27→21:23)
[2022-07-29] MEDS: Ezetimibe 10 MG Tab PO SCH (08:28)
[2022-07-29] MEDS: QUEtiapine 100 MG Tab PO SCH (21:23)
[2022-07-29] MEDS: Pregabalin 75 MG Cap PO SCH (21:23)
[2022-07-29] MEDS: Prazosin 1 MG Cap PO SCH (21:24)
[2022-07-29] MEDS: Magnesium Chloride 64 MG Tab.ER PO SCH (21:24)
[2022-07-29] MEDS: Melatonin 3 MG Tab PO SCH (21:25)
[2022-07-30] MEDS: Pantoprazole 20 MG Tab, Delayed Release PO SCH (05:41)
[2022-07-30] MEDS: Levothyroxine 75 MCG Tab PO SCH (05:41)
[2022-07-30] MEDS: Formoterol/Mometasone 100-5 MCG 8.8 GM Inhaler IH SCH ×2 (06:00→20:18)
[2022-07-30] MEDS: Insulin Lispro 100 Unit/ML 3 ML KwikPen SUBCUT SCH ×3 (08:03→17:49)
[2022-07-30] MEDS: Ezetimibe 10 MG Tab PO SCH (08:59)
[2022-07-30] MEDS: Acetaminophen 500 MG Tab PO SCH ×3 (09:00→20:17)
[2022-07-30] MEDS: amLODIPine 5 MG Tab PO SCH (09:01)
[2022-07-30] MEDS: Metoprolol Succinate 50 MG Tab.ER PO SCH (09:01)
[2022-07-30] MEDS: Venlafaxine 150 MG Cap.ER PO SCH (09:02)
[2022-07-30] MEDS: Furosemide 20 MG Tab PO SCH (09:02)
[2022-07-30] MEDS: Losartan 100 MG Tab PO SCH (09:03)
[2022-07-30] MEDS: Loratadine 10 MG Tab PO SCH (09:03)
[2022-07-30] MEDS: Menthol 10%/Methyl Salicylate 30% 85 GM Tube TOP SCH ×2 (09:05→20:19)
[2022-07-30] MEDS: Magnesium Chloride 64 MG Tab.ER PO SCH (20:18)
[2022-07-30] MEDS: Pregabalin 75 MG Cap PO SCH (20:18)
[2022-07-30] MEDS: Melatonin 3 MG Tab PO SCH (20:18)
[2022-07-30] MEDS: Prazosin 1 MG Cap PO SCH (20:18)
[2022-07-30] MEDS: QUEtiapine 100 MG Tab PO SCH (20:18)
[2022-07-31] MEDS: Levothyroxine 75 MCG Tab PO SCH (05:52)
[2022-07-31] MEDS: Pantoprazole 20 MG Tab, Delayed Release PO SCH (05:52)
[2022-07-31] MEDS: Formoterol/Mometasone 100-5 MCG 8.8 GM Inhaler IH SCH ×2 (06:03→20:50)
[2022-07-31] MEDS: Insulin Lispro 100 Unit/ML 3 ML KwikPen SUBCUT SCH ×3 (08:00→18:29)
[2022-07-31] MEDS: Loratadine 10 MG Tab PO SCH (08:52)
[2022-07-31] MEDS: Venlafaxine 150 MG Cap.ER PO SCH (08:52)
[2022-07-31] MEDS: Losartan 100 MG Tab PO SCH (08:52)
[2022-07-31] MEDS: Menthol 10%/Methyl Salicylate 30% 85 GM Tube TOP SCH ×2 (08:53→20:50)
[2022-07-31] MEDS: amLODIPine 5 MG Tab PO SCH (08:53)
[2022-07-31] MEDS: Furosemide 20 MG Tab PO SCH (08:53)
[2022-07-31] MEDS: Acetaminophen 500 MG Tab PO SCH ×3 (08:54→20:49)
[2022-07-31] MEDS: Metoprolol Succinate 50 MG Tab.ER PO SCH (08:54)
[2022-07-31] MEDS: Ezetimibe 10 MG Tab PO SCH (08:54)
[2022-07-31] MEDS: QUEtiapine 100 MG Tab PO SCH (20:49)
[2022-07-31] MEDS: Pregabalin 75 MG Cap PO SCH (20:49)
[2022-07-31] MEDS: Melatonin 3 MG Tab PO SCH (20:49)
[2022-07-31] MEDS: Prazosin 1 MG Cap PO SCH (20:49)
[2022-07-31] MEDS: Magnesium Chloride 64 MG Tab.ER PO SCH (20:49)
[2022-08-01] MEDS: Pantoprazole 20 MG Tab, Delayed Release PO SCH (06:25)
[2022-08-01] MEDS: Levothyroxine 75 MCG Tab PO SCH (06:25)
[2022-08-01] MEDS: Formoterol/Mometasone 100-5 MCG 8.8 GM Inhaler IH SCH ×2 (06:25→20:45)
[2022-08-01] MEDS: Insulin Lispro 100 Unit/ML 3 ML KwikPen SUBCUT SCH ×3 (08:09→18:27)
[2022-08-01] MEDS: Losartan 100 MG Tab PO SCH (08:17)
[2022-08-01] MEDS: Metoprolol Succinate 50 MG Tab.ER PO SCH (08:20)
[2022-08-01] MEDS: Ezetimibe 10 MG Tab PO SCH (08:20)
[2022-08-01] MEDS: Venlafaxine 150 MG Cap.ER PO SCH (08:20)
[2022-08-01] MEDS: Loratadine 10 MG Tab PO SCH (08:20)
[2022-08-01] MEDS: amLODIPine 5 MG Tab PO SCH (08:20)
[2022-08-01] MEDS: Furosemide 20 MG Tab PO SCH (08:21)
[2022-08-01] MEDS: Menthol 10%/Methyl Salicylate 30% 85 GM Tube TOP SCH ×2 (08:21→20:45)
[2022-08-01] MEDS: Acetaminophen 500 MG Tab PO SCH ×3 (08:21→20:47)
[2022-08-01] MEDS: Melatonin 3 MG Tab PO SCH (20:45)
[2022-08-01] MEDS: Magnesium Chloride 64 MG Tab.ER PO SCH (20:45)
[2022-08-01] MEDS: Pregabalin 75 MG Cap PO SCH (20:45)
[2022-08-01] MEDS: Prazosin 1 MG Cap PO SCH (20:46)
[2022-08-01] MEDS: QUEtiapine 100 MG Tab PO SCH (20:46)
[2022-08-02] MEDS: Levothyroxine 75 MCG Tab PO SCH (06:06)
[2022-08-02] MEDS: Pantoprazole 20 MG Tab, Delayed Release PO SCH (06:06)
[2022-08-02] MEDS: Formoterol/Mometasone 100-5 MCG 8.8 GM Inhaler IH SCH ×2 (06:07→20:07)
[2022-08-02] MEDS: Insulin Lispro 100 Unit/ML 3 ML KwikPen SUBCUT SCH ×3 (08:08→17:35)
[2022-08-02] MEDS: Metoprolol Succinate 50 MG Tab.ER PO SCH (08:09)
[2022-08-02] MEDS: Ezetimibe 10 MG Tab PO SCH (08:09)
[2022-08-02] MEDS: Losartan 100 MG Tab PO SCH (08:09)
[2022-08-02] MEDS: Furosemide 20 MG Tab PO SCH (08:09)
[2022-08-02] MEDS: Loratadine 10 MG Tab PO SCH (08:09)
[2022-08-02] MEDS: Venlafaxine 150 MG Cap.ER PO SCH (08:09)
[2022-08-02] MEDS: Menthol 10%/Methyl Salicylate 30% 85 GM Tube TOP SCH ×2 (08:10→20:08)
[2022-08-02] MEDS: amLODIPine 5 MG Tab PO SCH (08:10)
[2022-08-02] MEDS: Acetaminophen 500 MG Tab PO SCH ×3 (08:10→20:11)
[2022-08-02] MEDS: Magnesium Chloride 64 MG Tab.ER PO SCH (20:10)
[2022-08-02] MEDS: Melatonin 3 MG Tab PO SCH (20:10)
[2022-08-02] MEDS: Prazosin 1 MG Cap PO SCH (20:10)
[2022-08-02] MEDS: QUEtiapine 100 MG Tab PO SCH (20:11)
[2022-08-02] MEDS: Pregabalin 75 MG Cap PO SCH (20:18)
[2022-08-03] MEDS: Formoterol/Mometasone 100-5 MCG 8.8 GM Inhaler IH SCH ×2 (06:19→20:22)
[2022-08-03] MEDS: Levothyroxine 75 MCG Tab PO SCH (06:19)
[2022-08-03] MEDS: Pantoprazole 20 MG Tab, Delayed Release PO SCH (06:19)
[2022-08-03] MEDS: Metoprolol Succinate 50 MG Tab.ER PO SCH (08:25)
[2022-08-03] MEDS: Furosemide 20 MG Tab PO SCH (08:25)
[2022-08-03] MEDS: Loratadine 10 MG Tab PO SCH (08:25)
[2022-08-03] MEDS: Ezetimibe 10 MG Tab PO SCH (08:25)
[2022-08-03] MEDS: Venlafaxine 150 MG Cap.ER PO SCH (08:26)
[2022-08-03] MEDS: Acetaminophen 500 MG Tab PO SCH ×3 (08:26→20:24)
[2022-08-03] MEDS: Losartan 100 MG Tab PO SCH (08:26)
[2022-08-03] MEDS: amLODIPine 5 MG Tab PO SCH (08:26)
[2022-08-03] MEDS: Menthol 10%/Methyl Salicylate 30% 85 GM Tube TOP SCH ×2 (08:28→20:25)
[2022-08-03] MEDS: Insulin Lispro 100 Unit/ML 3 ML KwikPen SUBCUT SCH ×3 (08:38→17:14)
[2022-08-03] MEDS: Prazosin 1 MG Cap PO SCH (20:22)
[2022-08-03] MEDS: Magnesium Chloride 64 MG Tab.ER PO SCH (20:24)
[2022-08-03] MEDS: QUEtiapine 100 MG Tab PO SCH (20:25)
[2022-08-03] MEDS: Melatonin 3 MG Tab PO SCH (20:26)
[2022-08-03] MEDS: Pregabalin 75 MG Cap PO SCH (20:26)
[2022-08-04] MEDS ORDERED: Acetaminophen 325 MG Tab PO ONE (04:06)
[2022-08-04] MEDS: Levothyroxine 75 MCG Tab PO SCH (06:19)
[2022-08-04] MEDS: Pantoprazole 20 MG Tab, Delayed Release PO SCH (06:19)
[2022-08-04] MEDS: Formoterol/Mometasone 100-5 MCG 8.8 GM Inhaler IH SCH ×2 (06:21→20:00)
[2022-08-04] MEDS: Insulin Lispro 100 Unit/ML 3 ML KwikPen SUBCUT SCH (07:57)
[2022-08-04] MEDS: Loratadine 10 MG Tab PO SCH (09:12)
[2022-08-04] MEDS: Acetaminophen 500 MG Tab PO SCH ×3 (09:12→20:00)
[2022-08-04] MEDS: Ezetimibe 10 MG Tab PO SCH (09:13)
[2022-08-04] MEDS: Furosemide 20 MG Tab PO SCH (09:14)
[2022-08-04] MEDS: Menthol 10%/Methyl Salicylate 30% 85 GM Tube TOP SCH ×2 (09:14→20:03)
[2022-08-04] MEDS: amLODIPine 5 MG Tab PO SCH (09:15)
[2022-08-04] MEDS: Metoprolol Succinate 50 MG Tab.ER PO SCH (09:15)
[2022-08-04] MEDS: Venlafaxine 150 MG Cap.ER PO SCH (09:15)
[2022-08-04] MEDS: Losartan 100 MG Tab PO SCH (09:15)
[2022-08-04] MEDS: Diclofenac Sodium 1% Gel 100 GM Tube TOP PRN (14:19)
[2022-08-04] MEDS: Prazosin 1 MG Cap PO SCH (20:01)
[2022-08-04] MEDS: Magnesium Chloride 64 MG Tab.ER PO SCH (20:01)
[2022-08-04] MEDS: QUEtiapine 100 MG Tab PO SCH (20:01)
[2022-08-04] MEDS: Melatonin 3 MG Tab PO SCH (20:02)
[2022-08-04] MEDS: Pregabalin 75 MG Cap PO SCH (21:02)
[2022-08-05] MEDS: Pantoprazole 20 MG Tab, Delayed Release PO SCH (05:42)
[2022-08-05] MEDS: Levothyroxine 75 MCG Tab PO SCH (05:42)
[2022-08-05] MEDS: Formoterol/Mometasone 100-5 MCG 8.8 GM Inhaler IH SCH ×2 (07:21→21:48)
[2022-08-05] MEDS: Losartan 100 MG Tab PO SCH (09:01)
[2022-08-05] MEDS: Menthol 10%/Methyl Salicylate 30% 85 GM Tube TOP SCH ×2 (09:01→21:44)
[2022-08-05] MEDS: Venlafaxine 150 MG Cap.ER PO SCH (09:01)
[2022-08-05] MEDS: Furosemide 20 MG Tab PO SCH (09:02)
[2022-08-05] MEDS: Metoprolol Succinate 50 MG Tab.ER PO SCH (09:02)
[2022-08-05] MEDS: amLODIPine 5 MG Tab PO SCH (09:02)
[2022-08-05] MEDS: Acetaminophen 500 MG Tab PO SCH ×3 (09:02→21:45)
[2022-08-05] MEDS: Ezetimibe 10 MG Tab PO SCH (09:03)
[2022-08-05] MEDS: Loratadine 10 MG Tab PO SCH (09:03)
[2022-08-05] MEDS: Diclofenac Sodium 1% Gel 100 GM Tube TOP PRN (10:14)
[2022-08-05] MEDS: Pregabalin 75 MG Cap PO SCH (21:41)
[2022-08-05] MEDS: Magnesium Chloride 64 MG Tab.ER PO SCH (21:44)
[2022-08-05] MEDS: Prazosin 1 MG Cap PO SCH (21:44)
[2022-08-05] MEDS: Melatonin 3 MG Tab PO SCH (21:44)
[2022-08-05] MEDS: QUEtiapine 100 MG Tab PO SCH (21:47)
[2022-08-06] MEDS: Pantoprazole 20 MG Tab, Delayed Release PO SCH (06:16)
[2022-08-06] MEDS: Levothyroxine 75 MCG Tab PO SCH (06:16)
[2022-08-06] MEDS: Formoterol/Mometasone 100-5 MCG 8.8 GM Inhaler IH SCH ×2 (06:38→20:15)
[2022-08-06] MEDS: Diclofenac Sodium 1% Gel 100 GM Tube TOP PRN (09:47)
[2022-08-06] MEDS: Ezetimibe 10 MG Tab PO SCH (09:50)
[2022-08-06] MEDS: Acetaminophen 500 MG Tab PO SCH ×3 (09:50→20:17)
[2022-08-06] MEDS: Losartan 100 MG Tab PO SCH (09:51)
[2022-08-06] MEDS: Venlafaxine 150 MG Cap.ER PO SCH (09:52)
[2022-08-06] MEDS: Furosemide 20 MG Tab PO SCH (09:52)
[2022-08-06] MEDS: amLODIPine 5 MG Tab PO SCH (09:53)
[2022-08-06] MEDS: Loratadine 10 MG Tab PO SCH (09:53)
[2022-08-06] MEDS: Menthol 10%/Methyl Salicylate 30% 85 GM Tube TOP SCH ×2 (09:54→20:15)
[2022-08-06] MEDS: Metoprolol Succinate 50 MG Tab.ER PO SCH (09:59)
[2022-08-06] MEDS: Pregabalin 75 MG Cap PO SCH (20:16)
[2022-08-06] MEDS: Prazosin 1 MG Cap PO SCH (20:16)
[2022-08-06] MEDS: Melatonin 3 MG Tab PO SCH (20:16)
[2022-08-06] MEDS: Magnesium Chloride 64 MG Tab.ER PO SCH (20:16)
[2022-08-06] MEDS: QUEtiapine 100 MG Tab PO SCH (20:17)
[2022-08-07] MEDS: Pantoprazole 20 MG Tab, Delayed Release PO SCH (05:47)
[2022-08-07] MEDS: Levothyroxine 75 MCG Tab PO SCH (05:47)
[2022-08-07] MEDS: Formoterol/Mometasone 100-5 MCG 8.8 GM Inhaler IH SCH ×2 (06:02→20:25)
[2022-08-07] MEDS: Menthol 10%/Methyl Salicylate 30% 85 GM Tube TOP SCH ×2 (09:19→20:26)
[2022-08-07] MEDS: Diclofenac Sodium 1% Gel 100 GM Tube TOP PRN (09:21)
[2022-08-07] MEDS: Acetaminophen 500 MG Tab PO SCH ×3 (09:23→20:30)
[2022-08-07] MEDS: Ezetimibe 10 MG Tab PO SCH (09:23)
[2022-08-07] MEDS: Venlafaxine 150 MG Cap.ER PO SCH (09:25)
[2022-08-07] MEDS: Losartan 100 MG Tab PO SCH (09:25)
[2022-08-07] MEDS: Loratadine 10 MG Tab PO SCH (09:26)
[2022-08-07] MEDS: amLODIPine 5 MG Tab PO SCH (09:26)
[2022-08-07] MEDS: Furosemide 20 MG Tab PO SCH (09:27)
[2022-08-07] MEDS: Metoprolol Succinate 50 MG Tab.ER PO SCH (09:28)
[2022-08-07] MEDS: Pregabalin 75 MG Cap PO SCH (20:26)
[2022-08-07] MEDS: Melatonin 3 MG Tab PO SCH (20:26)
[2022-08-07] MEDS: Magnesium Chloride 64 MG Tab.ER PO SCH (20:26)
[2022-08-07] MEDS: Prazosin 1 MG Cap PO SCH (20:27)
[2022-08-07] MEDS: QUEtiapine 100 MG Tab PO SCH (20:30)
[2022-08-08] MEDS: Levothyroxine 75 MCG Tab PO SCH (06:47)
[2022-08-08] MEDS: Pantoprazole 20 MG Tab, Delayed Release PO SCH (06:47)
[2022-08-08] MEDS: Formoterol/Mometasone 100-5 MCG 8.8 GM Inhaler IH SCH ×2 (06:48→20:51)
[2022-08-08] MEDS: Furosemide 20 MG Tab PO SCH (08:47)
[2022-08-08] MEDS: Metoprolol Succinate 50 MG Tab.ER PO SCH (08:47)
[2022-08-08] MEDS: amLODIPine 5 MG Tab PO SCH (08:48)
[2022-08-08] MEDS: Loratadine 10 MG Tab PO SCH (08:48)
[2022-08-08] MEDS: Acetaminophen 500 MG Tab PO SCH ×3 (08:49→20:53)
[2022-08-08] MEDS: Ezetimibe 10 MG Tab PO SCH (08:49)
[2022-08-08] MEDS: Losartan 100 MG Tab PO SCH (08:49)
[2022-08-08] MEDS: Venlafaxine 150 MG Cap.ER PO SCH (08:49)
[2022-08-08] MEDS: Menthol 10%/Methyl Salicylate 30% 85 GM Tube TOP SCH ×2 (08:56→20:52)
[2022-08-08] MEDS: Diclofenac Sodium 1% Gel 100 GM Tube TOP PRN (08:56)
[2022-08-08] MEDS: Melatonin 3 MG Tab PO SCH (20:52)
[2022-08-08] MEDS: Pregabalin 75 MG Cap PO SCH (20:52)
[2022-08-08] MEDS: Magnesium Chloride 64 MG Tab.ER PO SCH (20:52)
[2022-08-08] MEDS: Prazosin 1 MG Cap PO SCH (20:52)
[2022-08-08] MEDS: QUEtiapine 100 MG Tab PO SCH (20:53)
[2022-08-09] MEDS: Formoterol/Mometasone 100-5 MCG 8.8 GM Inhaler IH SCH ×2 (06:34→20:08)
[2022-08-09] MEDS: Levothyroxine 75 MCG Tab PO SCH (06:34)
[2022-08-09] MEDS: Pantoprazole 20 MG Tab, Delayed Release PO SCH (06:34)
[2022-08-09] MEDS: Metoprolol Succinate 50 MG Tab.ER PO SCH (08:33)
[2022-08-09] MEDS: amLODIPine 5 MG Tab PO SCH (08:33)
[2022-08-09] MEDS: Losartan 100 MG Tab PO SCH (08:33)
[2022-08-09] MEDS: Loratadine 10 MG Tab PO SCH (08:33)
[2022-08-09] MEDS: Acetaminophen 500 MG Tab PO SCH ×3 (08:33→20:10)
[2022-08-09] MEDS: Ezetimibe 10 MG Tab PO SCH (08:34)
[2022-08-09] MEDS: Venlafaxine 150 MG Cap.ER PO SCH (08:34)
[2022-08-09] MEDS: Furosemide 20 MG Tab PO SCH (08:34)
[2022-08-09] MEDS: Menthol 10%/Methyl Salicylate 30% 85 GM Tube TOP SCH ×2 (08:34→20:08)
[2022-08-09] MEDS: Diclofenac Sodium 1% Gel 100 GM Tube TOP PRN (11:40)
[2022-08-09] MEDS: Melatonin 3 MG Tab PO SCH (20:09)
[2022-08-09] MEDS: Magnesium Chloride 64 MG Tab.ER PO SCH (20:09)
[2022-08-09] MEDS: Prazosin 1 MG Cap PO SCH (20:09)
[2022-08-09] MEDS: Pregabalin 75 MG Cap PO SCH (20:09)
[2022-08-09] MEDS: QUEtiapine 100 MG Tab PO SCH (20:10)
[2022-08-10] MEDS: Pantoprazole 20 MG Tab, Delayed Release PO SCH (06:21)
[2022-08-10] MEDS: Levothyroxine 75 MCG Tab PO SCH (06:21)
[2022-08-10] MEDS: Formoterol/Mometasone 100-5 MCG 8.8 GM Inhaler IH SCH ×2 (06:22→21:09)
[2022-08-10] MEDS: Loratadine 10 MG Tab PO SCH (08:37)
[2022-08-10] MEDS: Losartan 100 MG Tab PO SCH (08:38)
[2022-08-10] MEDS: Menthol 10%/Methyl Salicylate 30% 85 GM Tube TOP SCH ×2 (08:39→21:10)
[2022-08-10] MEDS: Furosemide 20 MG Tab PO SCH (08:40)
[2022-08-10] MEDS: Venlafaxine 150 MG Cap.ER PO SCH (08:40)
[2022-08-10] MEDS: amLODIPine 5 MG Tab PO SCH (08:41)
[2022-08-10] MEDS: Ezetimibe 10 MG Tab PO SCH (08:41)
[2022-08-10] MEDS: Acetaminophen 500 MG Tab PO SCH ×3 (08:42→21:15)
[2022-08-10] MEDS: Metoprolol Succinate 50 MG Tab.ER PO SCH (08:43)
[2022-08-10] MEDS: Diclofenac Sodium 1% Gel 100 GM Tube TOP PRN (14:19)
[2022-08-10] MEDS: Magnesium Chloride 64 MG Tab.ER PO SCH (21:13)
[2022-08-10] MEDS: Melatonin 3 MG Tab PO SCH (21:13)
[2022-08-10] MEDS: Prazosin 1 MG Cap PO SCH (21:14)
[2022-08-10] MEDS: QUEtiapine 100 MG Tab PO SCH (21:15)
[2022-08-10] MEDS: Pregabalin 75 MG Cap PO SCH (21:17)
[2022-08-11] MEDS: Levothyroxine 75 MCG Tab PO SCH (08:16)
[2022-08-11] MEDS: Acetaminophen 500 MG Tab PO SCH ×3 (08:16→21:11)
[2022-08-11] MEDS: Pantoprazole 20 MG Tab, Delayed Release PO SCH (08:16)
[2022-08-11] MEDS: Metoprolol Succinate 50 MG Tab.ER PO SCH (08:17)
[2022-08-11] MEDS: amLODIPine 5 MG Tab PO SCH (08:17)
[2022-08-11] MEDS: Formoterol/Mometasone 100-5 MCG 8.8 GM Inhaler IH SCH ×2 (08:17→21:11)
[2022-08-11] MEDS: Venlafaxine 150 MG Cap.ER PO SCH (08:17)
[2022-08-11] MEDS: Furosemide 20 MG Tab PO SCH (08:17)
[2022-08-11] MEDS: Ezetimibe 10 MG Tab PO SCH (08:17)
[2022-08-11] MEDS: Loratadine 10 MG Tab PO SCH (08:17)
[2022-08-11] MEDS: Losartan 100 MG Tab PO SCH (08:17)
[2022-08-11] MEDS: Menthol 10%/Methyl Salicylate 30% 85 GM Tube TOP SCH ×2 (08:18→21:11)
[2022-08-11] MEDS: QUEtiapine 100 MG Tab PO SCH (21:12)
[2022-08-11] MEDS: Prazosin 1 MG Cap PO SCH (21:12)
[2022-08-11] MEDS: Pregabalin 75 MG Cap PO SCH (21:12)
[2022-08-11] MEDS: Magnesium Chloride 64 MG Tab.ER PO SCH (21:12)
[2022-08-11] MEDS: Melatonin 3 MG Tab PO SCH (21:12)
[2022-08-12] MEDS: Pantoprazole 20 MG Tab, Delayed Release PO SCH (06:27)
[2022-08-12] MEDS: Levothyroxine 75 MCG Tab PO SCH (06:27)
[2022-08-12] MEDS: Formoterol/Mometasone 100-5 MCG 8.8 GM Inhaler IH SCH ×2 (06:27→20:16)
[2022-08-12] MEDS: Loratadine 10 MG Tab PO SCH (08:45)
[2022-08-12] MEDS: Venlafaxine 150 MG Cap.ER PO SCH (08:46)
[2022-08-12] MEDS: Losartan 100 MG Tab PO SCH (08:46)
[2022-08-12] MEDS: Menthol 10%/Methyl Salicylate 30% 85 GM Tube TOP SCH ×2 (08:46→20:17)
[2022-08-12] MEDS: Ezetimibe 10 MG Tab PO SCH (08:47)
[2022-08-12] MEDS: amLODIPine 5 MG Tab PO SCH (08:47)
[2022-08-12] MEDS: Acetaminophen 500 MG Tab PO SCH ×3 (08:47→20:17)
[2022-08-12] MEDS: Metoprolol Succinate 50 MG Tab.ER PO SCH (08:47)
[2022-08-12] MEDS: Furosemide 20 MG Tab PO SCH (08:47)
[2022-08-12] MEDS: Prazosin 1 MG Cap PO SCH (20:16)
[2022-08-12] MEDS: Pregabalin 75 MG Cap PO SCH (20:16)
[2022-08-12] MEDS: Magnesium Chloride 64 MG Tab.ER PO SCH (20:17)
[2022-08-12] MEDS: QUEtiapine 100 MG Tab PO SCH (20:18)
[2022-08-12] MEDS: Melatonin 3 MG Tab PO SCH (20:19)
[2022-08-13] MEDS: Levothyroxine 75 MCG Tab PO SCH (05:58)
[2022-08-13] MEDS: Pantoprazole 20 MG Tab, Delayed Release PO SCH (05:58)
[2022-08-13] MEDS: Formoterol/Mometasone 100-5 MCG 8.8 GM Inhaler IH SCH ×2 (05:59→21:11)
[2022-08-13] MEDS: Menthol 10%/Methyl Salicylate 30% 85 GM Tube TOP SCH ×2 (08:18→21:05)
[2022-08-13] MEDS: Ezetimibe 10 MG Tab PO SCH (08:19)
[2022-08-13] MEDS: amLODIPine 5 MG Tab PO SCH (08:19)
[2022-08-13] MEDS: Acetaminophen 500 MG Tab PO SCH ×3 (08:20→21:04)
[2022-08-13] MEDS: Metoprolol Succinate 50 MG Tab.ER PO SCH (08:20)
[2022-08-13] MEDS: Losartan 100 MG Tab PO SCH (08:20)
[2022-08-13] MEDS: Loratadine 10 MG Tab PO SCH (08:20)
[2022-08-13] MEDS: Furosemide 20 MG Tab PO SCH (08:21)
[2022-08-13] MEDS: Venlafaxine 150 MG Cap.ER PO SCH (08:21)
[2022-08-13] MEDS: Magnesium Chloride 64 MG Tab.ER PO SCH (21:05)
[2022-08-13] MEDS: Pregabalin 75 MG Cap PO SCH (21:05)
[2022-08-13] MEDS: Melatonin 3 MG Tab PO SCH (21:06)
[2022-08-13] MEDS: QUEtiapine 100 MG Tab PO SCH (21:06)
[2022-08-13] MEDS: Prazosin 1 MG Cap PO SCH (21:09)
[2022-08-14] MEDS: Pantoprazole 20 MG Tab, Delayed Release PO SCH (06:04)
[2022-08-14] MEDS: Levothyroxine 75 MCG Tab PO SCH (06:04)
[2022-08-14] MEDS: Formoterol/Mometasone 100-5 MCG 8.8 GM Inhaler IH SCH ×2 (06:04→20:08)
[2022-08-14] MEDS: Loratadine 10 MG Tab PO SCH (08:24)
[2022-08-14] MEDS: Ezetimibe 10 MG Tab PO SCH (08:24)
[2022-08-14] MEDS: Menthol 10%/Methyl Salicylate 30% 85 GM Tube TOP SCH ×2 (08:24→20:09)
[2022-08-14] MEDS: Losartan 100 MG Tab PO SCH (08:24)
[2022-08-14] MEDS: Furosemide 20 MG Tab PO SCH (08:25)
[2022-08-14] MEDS: amLODIPine 5 MG Tab PO SCH (08:25)
[2022-08-14] MEDS: Acetaminophen 500 MG Tab PO SCH ×3 (08:26→20:08)
[2022-08-14] MEDS: Venlafaxine 150 MG Cap.ER PO SCH (08:26)
[2022-08-14] MEDS: Metoprolol Succinate 50 MG Tab.ER PO SCH (08:26)
[2022-08-14] MEDS: Magnesium Chloride 64 MG Tab.ER PO SCH (20:08)
[2022-08-14] MEDS: Pregabalin 75 MG Cap PO SCH (20:08)
[2022-08-14] MEDS: Prazosin 1 MG Cap PO SCH (20:08)
[2022-08-14] MEDS: Melatonin 3 MG Tab PO SCH (20:09)
[2022-08-14] MEDS: QUEtiapine 100 MG Tab PO SCH (20:09)
[2022-08-15] MEDS: Pantoprazole 20 MG Tab, Delayed Release PO SCH (06:18)
[2022-08-15] MEDS: Formoterol/Mometasone 100-5 MCG 8.8 GM Inhaler IH SCH ×2 (06:18→20:52)
[2022-08-15] MEDS: Levothyroxine 75 MCG Tab PO SCH (06:18)
[2022-08-15] MEDS: Metoprolol Succinate 50 MG Tab.ER PO SCH (08:56)
[2022-08-15] MEDS: amLODIPine 5 MG Tab PO SCH (08:57)
[2022-08-15] MEDS: Ezetimibe 10 MG Tab PO SCH (08:57)
[2022-08-15] MEDS: Venlafaxine 150 MG Cap.ER PO SCH (08:57)
[2022-08-15] MEDS: Acetaminophen 500 MG Tab PO SCH ×3 (08:57→20:52)
[2022-08-15] MEDS: Loratadine 10 MG Tab PO SCH (08:58)
[2022-08-15] MEDS: Losartan 100 MG Tab PO SCH (08:58)
[2022-08-15] MEDS: Furosemide 20 MG Tab PO SCH (08:58)
[2022-08-15] MEDS: Menthol 10%/Methyl Salicylate 30% 85 GM Tube TOP SCH ×2 (08:59→20:52)
[2022-08-15] MEDS: Magnesium Chloride 64 MG Tab.ER PO SCH (20:53)
[2022-08-15] MEDS: Melatonin 3 MG Tab PO SCH (20:54)
[2022-08-15] MEDS: QUEtiapine 100 MG Tab PO SCH (20:54)
[2022-08-15] MEDS: Prazosin 1 MG Cap PO SCH (20:55)
[2022-08-15] MEDS: Pregabalin 75 MG Cap PO SCH (21:01)
[2022-08-16] MEDS: Levothyroxine 75 MCG Tab PO SCH (05:58)
[2022-08-16] MEDS: Pantoprazole 20 MG Tab, Delayed Release PO SCH (05:58)
[2022-08-16] MEDS: Formoterol/Mometasone 100-5 MCG 8.8 GM Inhaler IH SCH ×2 (05:59→20:56)
[2022-08-16] MEDS: Acetaminophen 500 MG Tab PO SCH ×3 (08:41→20:57)
[2022-08-16] MEDS: Loratadine 10 MG Tab PO SCH (08:41)
[2022-08-16] MEDS: Losartan 100 MG Tab PO SCH (08:41)
[2022-08-16] MEDS: Furosemide 20 MG Tab PO SCH (08:42)
[2022-08-16] MEDS: Venlafaxine 150 MG Cap.ER PO SCH (08:42)
[2022-08-16] MEDS: Ezetimibe 10 MG Tab PO SCH (08:42)
[2022-08-16] MEDS: amLODIPine 5 MG Tab PO SCH (08:43)
[2022-08-16] MEDS: Metoprolol Succinate 50 MG Tab.ER PO SCH (08:43)
[2022-08-16] MEDS: Menthol 10%/Methyl Salicylate 30% 85 GM Tube TOP SCH ×2 (08:44→20:58)
[2022-08-16] MEDS: Magnesium Chloride 64 MG Tab.ER PO SCH (20:57)
[2022-08-16] MEDS: QUEtiapine 100 MG Tab PO SCH (20:57)
[2022-08-16] MEDS: Prazosin 1 MG Cap PO SCH (20:57)
[2022-08-16] MEDS: Melatonin 3 MG Tab PO SCH (20:57)
[2022-08-16] MEDS: Pregabalin 75 MG Cap PO SCH (20:57)
[2022-08-17] MEDS: Levothyroxine 75 MCG Tab PO SCH (06:28)
[2022-08-17] MEDS: Formoterol/Mometasone 100-5 MCG 8.8 GM Inhaler IH SCH ×2 (06:28→20:54)
[2022-08-17] MEDS: Pantoprazole 20 MG Tab, Delayed Release PO SCH (06:28)
[2022-08-17] MEDS: Loratadine 10 MG Tab PO SCH (08:30)
[2022-08-17] MEDS: Furosemide 20 MG Tab PO SCH (08:32)
[2022-08-17] MEDS: Venlafaxine 150 MG Cap.ER PO SCH (08:32)
[2022-08-17] MEDS: Ezetimibe 10 MG Tab PO SCH (08:33)
[2022-08-17] MEDS: Acetaminophen 500 MG Tab PO SCH ×3 (08:34→20:56)
[2022-08-17] MEDS: Losartan 100 MG Tab PO SCH (08:41)
[2022-08-17] MEDS: amLODIPine 5 MG Tab PO SCH (08:41)
[2022-08-17] MEDS: Metoprolol Succinate 50 MG Tab.ER PO SCH (08:42)
[2022-08-17] MEDS: Menthol 10%/Methyl Salicylate 30% 85 GM Tube TOP SCH ×2 (08:43→20:54)
[2022-08-17] MEDS: QUEtiapine 100 MG Tab PO SCH (20:54)
[2022-08-17] MEDS: Pregabalin 75 MG Cap PO SCH (20:54)
[2022-08-17] MEDS: Melatonin 3 MG Tab PO SCH (20:54)
[2022-08-17] MEDS: Magnesium Chloride 64 MG Tab.ER PO SCH (20:54)
[2022-08-17] MEDS: Prazosin 1 MG Cap PO SCH (21:08)
[2022-08-18] MEDS: Levothyroxine 75 MCG Tab PO SCH (05:23)
[2022-08-18] MEDS: Pantoprazole 20 MG Tab, Delayed Release PO SCH (05:23)
[2022-08-18] MEDS: Formoterol/Mometasone 100-5 MCG 8.8 GM Inhaler IH SCH ×2 (06:11→20:09)
[2022-08-18] MEDS: Diclofenac Sodium 1% Gel 100 GM Tube TOP PRN (08:18)
[2022-08-18] MEDS: Menthol 10%/Methyl Salicylate 30% 85 GM Tube TOP SCH ×2 (08:18→20:09)
[2022-08-18] MEDS: Acetaminophen 500 MG Tab PO SCH ×3 (08:19→20:12)
[2022-08-18] MEDS: Furosemide 20 MG Tab PO SCH (08:20)
[2022-08-18] MEDS: Venlafaxine 150 MG Cap.ER PO SCH (08:20)
[2022-08-18] MEDS: amLODIPine 5 MG Tab PO SCH (08:20)
[2022-08-18] MEDS: Loratadine 10 MG Tab PO SCH (08:21)
[2022-08-18] MEDS: Ezetimibe 10 MG Tab PO SCH (08:21)
[2022-08-18] MEDS: Losartan 100 MG Tab PO SCH (08:23)
[2022-08-18] MEDS: Metoprolol Succinate 50 MG Tab.ER PO SCH (08:24)
[2022-08-18] MEDS: Magnesium Chloride 64 MG Tab.ER PO SCH (20:10)
[2022-08-18] MEDS: Pregabalin 75 MG Cap PO SCH (20:10)
[2022-08-18] MEDS: Melatonin 3 MG Tab PO SCH (20:11)
[2022-08-18] MEDS: Prazosin 1 MG Cap PO SCH (20:11)
[2022-08-18] MEDS: QUEtiapine 100 MG Tab PO SCH (20:11)
[2022-08-19] MEDS: Pantoprazole 20 MG Tab, Delayed Release PO SCH (07:06)
[2022-08-19] MEDS: Levothyroxine 75 MCG Tab PO SCH (07:07)
[2022-08-19] MEDS: Formoterol/Mometasone 100-5 MCG 8.8 GM Inhaler IH SCH ×2 (07:07→21:01)
[2022-08-19] MEDS: Venlafaxine 150 MG Cap.ER PO SCH (08:48)
[2022-08-19] MEDS: Losartan 100 MG Tab PO SCH (08:48)
[2022-08-19] MEDS: Loratadine 10 MG Tab PO SCH (08:48)
[2022-08-19] MEDS: Menthol 10%/Methyl Salicylate 30% 85 GM Tube TOP SCH ×2 (08:49→21:01)
[2022-08-19] MEDS: Furosemide 20 MG Tab PO SCH (08:49)
[2022-08-19] MEDS: amLODIPine 5 MG Tab PO SCH (08:49)
[2022-08-19] MEDS: Acetaminophen 500 MG Tab PO SCH ×3 (08:50→21:08)
[2022-08-19] MEDS: Metoprolol Succinate 50 MG Tab.ER PO SCH (08:50)
[2022-08-19] MEDS: Ezetimibe 10 MG Tab PO SCH (08:51)
[2022-08-19] MEDS: Pregabalin 75 MG Cap PO SCH (21:01)
[2022-08-19] MEDS: QUEtiapine 100 MG Tab PO SCH (21:02)
[2022-08-19] MEDS: Prazosin 1 MG Cap PO SCH (21:02)
[2022-08-19] MEDS: Magnesium Chloride 64 MG Tab.ER PO SCH (21:02)
[2022-08-19] MEDS: Melatonin 3 MG Tab PO SCH (21:14)
[2022-08-20] MEDS: Levothyroxine 75 MCG Tab PO SCH (05:10)
[2022-08-20] MEDS: Pantoprazole 20 MG Tab, Delayed Release PO SCH (05:10)
[2022-08-20] MEDS: Formoterol/Mometasone 100-5 MCG 8.8 GM Inhaler IH SCH ×2 (06:04→21:11)
[2022-08-20] MEDS: Acetaminophen 500 MG Tab PO SCH ×3 (09:19→21:07)
[2022-08-20] MEDS: Ezetimibe 10 MG Tab PO SCH (09:22)
[2022-08-20] MEDS: Losartan 100 MG Tab PO SCH (09:22)
[2022-08-20] MEDS: Venlafaxine 150 MG Cap.ER PO SCH (09:22)
[2022-08-20] MEDS: amLODIPine 5 MG Tab PO SCH (09:22)
[2022-08-20] MEDS: Furosemide 20 MG Tab PO SCH (09:22)
[2022-08-20] MEDS: Loratadine 10 MG Tab PO SCH (09:23)
[2022-08-20] MEDS: Menthol 10%/Methyl Salicylate 30% 85 GM Tube TOP SCH ×2 (09:24→21:02)
[2022-08-20] MEDS: Metoprolol Succinate 50 MG Tab.ER PO SCH (09:28)
[2022-08-20] MEDS: Pregabalin 75 MG Cap PO SCH (21:02)
[2022-08-20] MEDS: Prazosin 1 MG Cap PO SCH (21:09)
[2022-08-20] MEDS: QUEtiapine 100 MG Tab PO SCH (21:09)
[2022-08-20] MEDS: Magnesium Chloride 64 MG Tab.ER PO SCH (21:10)
[2022-08-20] MEDS: Melatonin 3 MG Tab PO SCH (21:10)
[2022-08-21] MEDS: Pantoprazole 20 MG Tab, Delayed Release PO SCH (06:23)
[2022-08-21] MEDS: Levothyroxine 75 MCG Tab PO SCH (06:24)
[2022-08-21] MEDS: Formoterol/Mometasone 100-5 MCG 8.8 GM Inhaler IH SCH ×2 (06:24→20:05)
[2022-08-21] MEDS: Acetaminophen 500 MG Tab PO SCH ×3 (09:24→20:06)
[2022-08-21] MEDS: Losartan 100 MG Tab PO SCH (09:25)
[2022-08-21] MEDS: Venlafaxine 150 MG Cap.ER PO SCH (09:26)
[2022-08-21] MEDS: amLODIPine 5 MG Tab PO SCH (09:26)
[2022-08-21] MEDS: Ezetimibe 10 MG Tab PO SCH (09:30)
[2022-08-21] MEDS: Loratadine 10 MG Tab PO SCH (09:31)
[2022-08-21] MEDS: Furosemide 20 MG Tab PO SCH (09:32)
[2022-08-21] MEDS: Metoprolol Succinate 50 MG Tab.ER PO SCH (09:34)
[2022-08-21] MEDS: Menthol 10%/Methyl Salicylate 30% 85 GM Tube TOP SCH ×2 (09:35→20:04)
[2022-08-21] MEDS: Pregabalin 75 MG Cap PO SCH (20:04)
[2022-08-21] MEDS: Prazosin 1 MG Cap PO SCH (20:08)
[2022-08-21] MEDS: Magnesium Chloride 64 MG Tab.ER PO SCH (20:08)
[2022-08-21] MEDS: Melatonin 3 MG Tab PO SCH (20:08)
[2022-08-21] MEDS: QUEtiapine 100 MG Tab PO SCH (20:09)
[2022-08-22] MEDS: Pantoprazole 20 MG Tab, Delayed Release PO SCH (06:35)
[2022-08-22] MEDS: Levothyroxine 75 MCG Tab PO SCH (06:35)
[2022-08-22] MEDS: Formoterol/Mometasone 100-5 MCG 8.8 GM Inhaler IH SCH ×2 (06:36→21:13)
[2022-08-22] MEDS: Menthol 10%/Methyl Salicylate 30% 85 GM Tube TOP SCH ×2 (09:52→21:14)
[2022-08-22] MEDS: amLODIPine 5 MG Tab PO SCH (09:56)
[2022-08-22] MEDS: Ezetimibe 10 MG Tab PO SCH (09:56)
[2022-08-22] MEDS: Acetaminophen 500 MG Tab PO SCH ×3 (09:57→21:21)
[2022-08-22] MEDS: Metoprolol Succinate 50 MG Tab.ER PO SCH (09:57)
[2022-08-22] MEDS: Loratadine 10 MG Tab PO SCH (09:58)
[2022-08-22] MEDS: Venlafaxine 150 MG Cap.ER PO SCH (09:58)
[2022-08-22] MEDS: Furosemide 20 MG Tab PO SCH (09:58)
[2022-08-22] MEDS: Losartan 100 MG Tab PO SCH (09:58)
[2022-08-22] MEDS: Magnesium Chloride 64 MG Tab.ER PO SCH (21:15)
[2022-08-22] MEDS: Prazosin 1 MG Cap PO SCH (21:17)
[2022-08-22] MEDS: QUEtiapine 100 MG Tab PO SCH (21:21)
[2022-08-22] MEDS: Melatonin 3 MG Tab PO SCH (21:22)
[2022-08-22] MEDS: Pregabalin 75 MG Cap PO SCH (21:28)
[2022-08-23] MEDS: Levothyroxine 75 MCG Tab PO SCH (06:22)
[2022-08-23] MEDS: Pantoprazole 20 MG Tab, Delayed Release PO SCH (06:22)
[2022-08-23] MEDS: Formoterol/Mometasone 100-5 MCG 8.8 GM Inhaler IH SCH ×2 (06:31→21:11)
[2022-08-23] MEDS: Loratadine 10 MG Tab PO SCH (09:51)
[2022-08-23] MEDS: Losartan 100 MG Tab PO SCH (09:52)
[2022-08-23] MEDS: Menthol 10%/Methyl Salicylate 30% 85 GM Tube TOP SCH ×2 (09:52→21:11)
[2022-08-23] MEDS: Venlafaxine 150 MG Cap.ER PO SCH (09:52)
[2022-08-23] MEDS: amLODIPine 5 MG Tab PO SCH (09:54)
[2022-08-23] MEDS: Furosemide 20 MG Tab PO SCH (09:54)
[2022-08-23] MEDS: Acetaminophen 500 MG Tab PO SCH ×3 (09:55→21:11)
[2022-08-23] MEDS: Metoprolol Succinate 50 MG Tab.ER PO SCH (09:55)
[2022-08-23] MEDS: Ezetimibe 10 MG Tab PO SCH (09:56)
[2022-08-23] MEDS: Pregabalin 75 MG Cap PO SCH (21:11)
[2022-08-23] MEDS: QUEtiapine 100 MG Tab PO SCH (21:12)
[2022-08-23] MEDS: Magnesium Chloride 64 MG Tab.ER PO SCH (21:12)
[2022-08-23] MEDS: Prazosin 1 MG Cap PO SCH (21:12)
[2022-08-23] MEDS: Melatonin 3 MG Tab PO SCH (21:13)
[2022-08-24] MEDS: Levothyroxine 75 MCG Tab PO SCH (05:10)
[2022-08-24] MEDS: Pantoprazole 20 MG Tab, Delayed Release PO SCH (05:10)
[2022-08-24] MEDS: Formoterol/Mometasone 100-5 MCG 8.8 GM Inhaler IH SCH ×2 (06:04→20:14)
[2022-08-24] MEDS: Menthol 10%/Methyl Salicylate 30% 85 GM Tube TOP SCH ×2 (08:17→20:15)
[2022-08-24] MEDS: Acetaminophen 500 MG Tab PO SCH ×3 (08:19→20:14)
[2022-08-24] MEDS: Ezetimibe 10 MG Tab PO SCH (08:20)
[2022-08-24] MEDS: amLODIPine 5 MG Tab PO SCH (08:20)
[2022-08-24] MEDS: Loratadine 10 MG Tab PO SCH (08:20)
[2022-08-24] MEDS: Venlafaxine 150 MG Cap.ER PO SCH (08:20)
[2022-08-24] MEDS: Losartan 100 MG Tab PO SCH (08:20)
[2022-08-24] MEDS: Furosemide 20 MG Tab PO SCH (08:20)
[2022-08-24] MEDS: Metoprolol Succinate 50 MG Tab.ER PO SCH (13:18)
[2022-08-24] MEDS: Diclofenac Sodium 1% Gel 100 GM Tube TOP PRN (13:18)
[2022-08-24] MEDS: Prazosin 1 MG Cap PO SCH (20:13)
[2022-08-24] MEDS: Pregabalin 75 MG Cap PO SCH (20:14)
[2022-08-24] MEDS: QUEtiapine 100 MG Tab PO SCH (20:14)
[2022-08-24] MEDS: Melatonin 3 MG Tab PO SCH (20:14)
[2022-08-24] MEDS: Magnesium Chloride 64 MG Tab.ER PO SCH (20:14)
[2022-08-25] MEDS: Formoterol/Mometasone 100-5 MCG 8.8 GM Inhaler IH SCH ×2 (06:18→20:28)
[2022-08-25] MEDS: Levothyroxine 75 MCG Tab PO SCH (06:18)
[2022-08-25] MEDS: Pantoprazole 20 MG Tab, Delayed Release PO SCH (06:18)
[2022-08-25] MEDS: Menthol 10%/Methyl Salicylate 30% 85 GM Tube TOP SCH ×2 (08:17→20:28)
[2022-08-25] MEDS: Acetaminophen 500 MG Tab PO SCH ×3 (08:18→20:29)
[2022-08-25] MEDS: Venlafaxine 150 MG Cap.ER PO SCH (08:19)
[2022-08-25] MEDS: Ezetimibe 10 MG Tab PO SCH (08:19)
[2022-08-25] MEDS: amLODIPine 5 MG Tab PO SCH (08:20)
[2022-08-25] MEDS: Metoprolol Succinate 50 MG Tab.ER PO SCH (08:21)
[2022-08-25] MEDS: Furosemide 20 MG Tab PO SCH (08:22)
[2022-08-25] MEDS: Loratadine 10 MG Tab PO SCH (08:22)
[2022-08-25] MEDS: Losartan 100 MG Tab PO SCH (08:23)
[2022-08-25] MEDS: Pregabalin 75 MG Cap PO SCH (20:28)
[2022-08-25] MEDS: Magnesium Chloride 64 MG Tab.ER PO SCH (20:28)
[2022-08-25] MEDS: Melatonin 3 MG Tab PO SCH (20:29)
[2022-08-25] MEDS: Prazosin 1 MG Cap PO SCH (20:29)
[2022-08-25] MEDS: QUEtiapine 100 MG Tab PO SCH (20:29)
[2022-08-26] MEDS: Pantoprazole 20 MG Tab, Delayed Release PO SCH (06:17)
[2022-08-26] MEDS: Levothyroxine 75 MCG Tab PO SCH (06:17)
[2022-08-26] MEDS: Formoterol/Mometasone 100-5 MCG 8.8 GM Inhaler IH SCH ×2 (06:17→20:10)
[2022-08-26] MEDS: Menthol 10%/Methyl Salicylate 30% 85 GM Tube TOP SCH ×2 (08:07→20:10)
[2022-08-26] MEDS: Acetaminophen 500 MG Tab PO SCH ×3 (08:08→20:12)
[2022-08-26] MEDS: Ezetimibe 10 MG Tab PO SCH (08:09)
[2022-08-26] MEDS: Furosemide 20 MG Tab PO SCH (08:09)
[2022-08-26] MEDS: Metoprolol Succinate 50 MG Tab.ER PO SCH (08:10)
[2022-08-26] MEDS: Losartan 100 MG Tab PO SCH (08:11)
[2022-08-26] MEDS: Venlafaxine 150 MG Cap.ER PO SCH (08:12)
[2022-08-26] MEDS: amLODIPine 5 MG Tab PO SCH (08:13)
[2022-08-26] MEDS: Loratadine 10 MG Tab PO SCH (08:13)
[2022-08-26] MEDS: Pregabalin 75 MG Cap PO SCH (20:10)
[2022-08-26] MEDS: Melatonin 3 MG Tab PO SCH (20:11)
[2022-08-26] MEDS: Magnesium Chloride 64 MG Tab.ER PO SCH (20:11)
[2022-08-26] MEDS: Prazosin 1 MG Cap PO SCH (20:11)
[2022-08-26] MEDS: QUEtiapine 100 MG Tab PO SCH (20:12)
[2022-08-27] MEDS: Levothyroxine 75 MCG Tab PO SCH (06:14)
[2022-08-27] MEDS: Pantoprazole 20 MG Tab, Delayed Release PO SCH (06:14)
[2022-08-27] MEDS: Formoterol/Mometasone 100-5 MCG 8.8 GM Inhaler IH SCH ×2 (06:15→20:17)
[2022-08-27] MEDS: Acetaminophen 500 MG Tab PO SCH ×3 (08:33→20:18)
[2022-08-27] MEDS: Ezetimibe 10 MG Tab PO SCH (08:33)
[2022-08-27] MEDS: Metoprolol Succinate 50 MG Tab.ER PO SCH (08:34)
[2022-08-27] MEDS: amLODIPine 5 MG Tab PO SCH (08:38)
[2022-08-27] MEDS: Furosemide 20 MG Tab PO SCH (08:39)
[2022-08-27] MEDS: Menthol 10%/Methyl Salicylate 30% 85 GM Tube TOP SCH ×2 (08:39→20:17)
[2022-08-27] MEDS: Venlafaxine 150 MG Cap.ER PO SCH (08:40)
[2022-08-27] MEDS: Losartan 100 MG Tab PO SCH (08:41)
[2022-08-27] MEDS: Loratadine 10 MG Tab PO SCH (08:41)
[2022-08-27] MEDS: Pregabalin 75 MG Cap PO SCH (20:17)
[2022-08-27] MEDS: Magnesium Chloride 64 MG Tab.ER PO SCH (20:17)
[2022-08-27] MEDS: Melatonin 3 MG Tab PO SCH (20:17)
[2022-08-27] MEDS: Prazosin 1 MG Cap PO SCH (20:17)
[2022-08-27] MEDS: QUEtiapine 100 MG Tab PO SCH (20:18)
[2022-08-28] MEDS: Formoterol/Mometasone 100-5 MCG 8.8 GM Inhaler IH SCH ×2 (06:07→20:03)
[2022-08-28] MEDS: Pantoprazole 20 MG Tab, Delayed Release PO SCH (06:07)
[2022-08-28] MEDS: Levothyroxine 75 MCG Tab PO SCH (06:07)
[2022-08-28] MEDS: Ezetimibe 10 MG Tab PO SCH (08:41)
[2022-08-28] MEDS: Acetaminophen 500 MG Tab PO SCH ×3 (08:41→20:05)
[2022-08-28] MEDS: Venlafaxine 150 MG Cap.ER PO SCH (08:42)
[2022-08-28] MEDS: Losartan 100 MG Tab PO SCH (08:42)
[2022-08-28] MEDS: Loratadine 10 MG Tab PO SCH (08:42)
[2022-08-28] MEDS: Metoprolol Succinate 50 MG Tab.ER PO SCH (08:43)
[2022-08-28] MEDS: amLODIPine 5 MG Tab PO SCH (08:43)
[2022-08-28] MEDS: Menthol 10%/Methyl Salicylate 30% 85 GM Tube TOP SCH ×2 (08:43→20:04)
[2022-08-28] MEDS: Furosemide 20 MG Tab PO SCH (08:43)
[2022-08-28] MEDS: Prazosin 1 MG Cap PO SCH (20:04)
[2022-08-28] MEDS: Pregabalin 75 MG Cap PO SCH (20:04)
[2022-08-28] MEDS: Melatonin 3 MG Tab PO SCH (20:04)
[2022-08-28] MEDS: Magnesium Chloride 64 MG Tab.ER PO SCH (20:04)
[2022-08-28] MEDS: QUEtiapine 100 MG Tab PO SCH (20:05)
[2022-08-29] MEDS: Pantoprazole 20 MG Tab, Delayed Release PO SCH (06:10)
[2022-08-29] MEDS: Formoterol/Mometasone 100-5 MCG 8.8 GM Inhaler IH SCH ×2 (06:10→20:30)
[2022-08-29] MEDS: Levothyroxine 75 MCG Tab PO SCH (06:11)
[2022-08-29] MEDS: Loratadine 10 MG Tab PO SCH (08:37)
[2022-08-29] MEDS: Menthol 10%/Methyl Salicylate 30% 85 GM Tube TOP SCH ×2 (08:38→20:29)
[2022-08-29] MEDS: Venlafaxine 150 MG Cap.ER PO SCH (08:38)
[2022-08-29] MEDS: Losartan 100 MG Tab PO SCH (08:38)
[2022-08-29] MEDS: Furosemide 20 MG Tab PO SCH (08:39)
[2022-08-29] MEDS: amLODIPine 5 MG Tab PO SCH (08:39)
[2022-08-29] MEDS: Metoprolol Succinate 50 MG Tab.ER PO SCH (08:39)
[2022-08-29] MEDS: Ezetimibe 10 MG Tab PO SCH (08:40)
[2022-08-29] MEDS: Acetaminophen 500 MG Tab PO SCH ×3 (09:02→20:30)
[2022-08-29] MEDS: QUEtiapine 100 MG Tab PO SCH (20:32)
[2022-08-29] MEDS: Melatonin 3 MG Tab PO SCH (20:32)
[2022-08-29] MEDS: Magnesium Chloride 64 MG Tab.ER PO SCH (20:33)
[2022-08-29] MEDS: Prazosin 1 MG Cap PO SCH (20:33)
[2022-08-29] MEDS: Pregabalin 75 MG Cap PO SCH (20:39)
[2022-08-30] MEDS: Levothyroxine 75 MCG Tab PO SCH (06:25)
[2022-08-30] MEDS: Formoterol/Mometasone 100-5 MCG 8.8 GM Inhaler IH SCH ×2 (06:26→20:59)
[2022-08-30] MEDS: Pantoprazole 20 MG Tab, Delayed Release PO SCH (06:26)
[2022-08-30] MEDS: Acetaminophen 500 MG Tab PO SCH ×3 (08:01→21:00)
[2022-08-30] MEDS: amLODIPine 5 MG Tab PO SCH (08:01)
[2022-08-30] MEDS: Ezetimibe 10 MG Tab PO SCH (08:02)
[2022-08-30] MEDS: Loratadine 10 MG Tab PO SCH (08:02)
[2022-08-30] MEDS: Furosemide 20 MG Tab PO SCH (08:02)
[2022-08-30] MEDS: Losartan 100 MG Tab PO SCH (08:03)
[2022-08-30] MEDS: Metoprolol Succinate 50 MG Tab.ER PO SCH (08:03)
[2022-08-30] MEDS: Venlafaxine 150 MG Cap.ER PO SCH (08:05)
[2022-08-30] MEDS: Menthol 10%/Methyl Salicylate 30% 85 GM Tube TOP SCH ×2 (08:05→20:59)
[2022-08-30] MEDS: Melatonin 3 MG Tab PO SCH (21:00)
[2022-08-30] MEDS: Pregabalin 75 MG Cap PO SCH (21:00)
[2022-08-30] MEDS: Magnesium Chloride 64 MG Tab.ER PO SCH (21:00)
[2022-08-30] MEDS: Prazosin 1 MG Cap PO SCH (21:01)
[2022-08-30] MEDS: QUEtiapine 100 MG Tab PO SCH (21:02)
[2022-08-31] MEDS: Pantoprazole 20 MG Tab, Delayed Release PO SCH (05:30)
[2022-08-31] MEDS: Levothyroxine 75 MCG Tab PO SCH (05:30)
[2022-08-31] MEDS: Formoterol/Mometasone 100-5 MCG 8.8 GM Inhaler IH SCH ×2 (06:22→20:15)
[2022-08-31] MEDS: Loratadine 10 MG Tab PO SCH (08:20)
[2022-08-31] MEDS: Losartan 100 MG Tab PO SCH (08:20)
[2022-08-31] MEDS: Furosemide 20 MG Tab PO SCH (08:21)
[2022-08-31] MEDS: Venlafaxine 150 MG Cap.ER PO SCH (08:21)
[2022-08-31] MEDS: amLODIPine 5 MG Tab PO SCH (08:21)
[2022-08-31] MEDS: Metoprolol Succinate 50 MG Tab.ER PO SCH (08:21)
[2022-08-31] MEDS: Acetaminophen 500 MG Tab PO SCH ×3 (08:22→20:20)
[2022-08-31] MEDS: Ezetimibe 10 MG Tab PO SCH (08:22)
[2022-08-31] MEDS: Menthol 10%/Methyl Salicylate 30% 85 GM Tube TOP SCH ×2 (08:23→20:22)
[2022-08-31] MEDS: Pregabalin 75 MG Cap PO SCH (20:18)
[2022-08-31] MEDS: Magnesium Chloride 64 MG Tab.ER PO SCH (20:19)
[2022-08-31] MEDS: Prazosin 1 MG Cap PO SCH (20:19)
[2022-08-31] MEDS: QUEtiapine 100 MG Tab PO SCH (20:19)
[2022-08-31] MEDS: Melatonin 3 MG Tab PO SCH (20:19)
[2022-09-01] MEDS: Levothyroxine 75 MCG Tab PO SCH (06:38)
[2022-09-01] MEDS: Pantoprazole 20 MG Tab, Delayed Release PO SCH (06:39)
[2022-09-01] MEDS: Formoterol/Mometasone 100-5 MCG 8.8 GM Inhaler IH SCH ×2 (06:39→20:14)
[2022-09-01] MEDS: Furosemide 20 MG Tab PO SCH (08:06)
[2022-09-01] MEDS: Venlafaxine 150 MG Cap.ER PO SCH (08:08)
[2022-09-01] MEDS: Acetaminophen 500 MG Tab PO SCH ×3 (08:08→20:16)
[2022-09-01] MEDS: Ezetimibe 10 MG Tab PO SCH (08:08)
[2022-09-01] MEDS: Loratadine 10 MG Tab PO SCH (08:10)
[2022-09-01] MEDS: amLODIPine 5 MG Tab PO SCH (08:13)
[2022-09-01] MEDS: Losartan 100 MG Tab PO SCH (08:14)
[2022-09-01] MEDS: Metoprolol Succinate 50 MG Tab.ER PO SCH (08:14)
[2022-09-01] MEDS: Menthol 10%/Methyl Salicylate 30% 85 GM Tube TOP SCH ×2 (10:01→20:15)
[2022-09-01] MEDS: Pregabalin 75 MG Cap PO SCH (20:15)
[2022-09-01] MEDS: Magnesium Chloride 64 MG Tab.ER PO SCH (20:15)
[2022-09-01] MEDS: Melatonin 3 MG Tab PO SCH (20:15)
[2022-09-01] MEDS: Prazosin 1 MG Cap PO SCH (20:16)
[2022-09-01] MEDS: QUEtiapine 100 MG Tab PO SCH (20:16)
[2022-09-02] MEDS: Formoterol/Mometasone 100-5 MCG 8.8 GM Inhaler IH SCH ×2 (06:15→20:16)
[2022-09-02] MEDS: Pantoprazole 20 MG Tab, Delayed Release PO SCH (06:15)
[2022-09-02] MEDS: Levothyroxine 75 MCG Tab PO SCH (06:15)
[2022-09-02] MEDS: amLODIPine 5 MG Tab PO SCH (08:20)
[2022-09-02] MEDS: Venlafaxine 150 MG Cap.ER PO SCH (08:20)
[2022-09-02] MEDS: Ezetimibe 10 MG Tab PO SCH (08:20)
[2022-09-02] MEDS: Furosemide 20 MG Tab PO SCH (08:20)
[2022-09-02] MEDS: Loratadine 10 MG Tab PO SCH (08:20)
[2022-09-02] MEDS: Metoprolol Succinate 50 MG Tab.ER PO SCH (08:20)
[2022-09-02] MEDS: Acetaminophen 500 MG Tab PO SCH ×3 (08:20→20:22)
[2022-09-02] MEDS: Menthol 10%/Methyl Salicylate 30% 85 GM Tube TOP SCH ×2 (08:21→20:17)
[2022-09-02] MEDS: Losartan 100 MG Tab PO SCH (08:22)
[2022-09-02] MEDS: Pregabalin 75 MG Cap PO SCH (20:17)
[2022-09-02] MEDS: Magnesium Chloride 64 MG Tab.ER PO SCH (20:18)
[2022-09-02] MEDS: Melatonin 3 MG Tab PO SCH (20:19)
[2022-09-02] MEDS: Prazosin 1 MG Cap PO SCH (20:19)
[2022-09-02] MEDS: QUEtiapine 100 MG Tab PO SCH (20:22)
[2022-09-03] MEDS: Pantoprazole 20 MG Tab, Delayed Release PO SCH (06:20)
[2022-09-03] MEDS: Formoterol/Mometasone 100-5 MCG 8.8 GM Inhaler IH SCH ×2 (06:20→20:31)
[2022-09-03] MEDS: Levothyroxine 75 MCG Tab PO SCH (06:20)
[2022-09-03] MEDS: Ezetimibe 10 MG Tab PO SCH (08:03)
[2022-09-03] MEDS: Loratadine 10 MG Tab PO SCH (08:03)
[2022-09-03] MEDS: Losartan 100 MG Tab PO SCH (08:04)
[2022-09-03] MEDS: Acetaminophen 500 MG Tab PO SCH ×3 (08:04→20:34)
[2022-09-03] MEDS: amLODIPine 5 MG Tab PO SCH (08:04)
[2022-09-03] MEDS: Metoprolol Succinate 50 MG Tab.ER PO SCH (08:04)
[2022-09-03] MEDS: Furosemide 20 MG Tab PO SCH (08:04)
[2022-09-03] MEDS: Venlafaxine 150 MG Cap.ER PO SCH (08:04)
[2022-09-03] MEDS: Menthol 10%/Methyl Salicylate 30% 85 GM Tube TOP SCH ×2 (08:05→20:31)
[2022-09-03] MEDS: Pregabalin 75 MG Cap PO SCH (20:32)
[2022-09-03] MEDS: Magnesium Chloride 64 MG Tab.ER PO SCH (20:32)
[2022-09-03] MEDS: Melatonin 3 MG Tab PO SCH (20:33)
[2022-09-03] MEDS: QUEtiapine 100 MG Tab PO SCH (20:33)
[2022-09-03] MEDS: Prazosin 1 MG Cap PO SCH (20:33)
[2022-09-04] MEDS: Formoterol/Mometasone 100-5 MCG 8.8 GM Inhaler IH SCH ×2 (06:11→20:19)
[2022-09-04] MEDS: Levothyroxine 75 MCG Tab PO SCH (06:11)
[2022-09-04] MEDS: Pantoprazole 20 MG Tab, Delayed Release PO SCH (06:11)
[2022-09-04] MEDS: Loratadine 10 MG Tab PO SCH (08:08)
[2022-09-04] MEDS: Metoprolol Succinate 50 MG Tab.ER PO SCH (08:08)
[2022-09-04] MEDS: Venlafaxine 150 MG Cap.ER PO SCH (08:08)
[2022-09-04] MEDS: Losartan 100 MG Tab PO SCH (08:08)
[2022-09-04] MEDS: Furosemide 20 MG Tab PO SCH (08:08)
[2022-09-04] MEDS: Acetaminophen 500 MG Tab PO SCH ×3 (08:08→20:18)
[2022-09-04] MEDS: Ezetimibe 10 MG Tab PO SCH (08:08)
[2022-09-04] MEDS: amLODIPine 5 MG Tab PO SCH (08:08)
[2022-09-04] MEDS: Menthol 10%/Methyl Salicylate 30% 85 GM Tube TOP SCH ×2 (08:09→20:20)
[2022-09-04] MEDS: QUEtiapine 100 MG Tab PO SCH (20:18)
[2022-09-04] MEDS: Melatonin 3 MG Tab PO SCH (20:18)
[2022-09-04] MEDS: Magnesium Chloride 64 MG Tab.ER PO SCH (20:18)
[2022-09-04] MEDS: Pregabalin 75 MG Cap PO SCH (20:24)
[2022-09-04] MEDS: Prazosin 1 MG Cap PO SCH (20:26)
[2022-09-05] MEDS: Pantoprazole 20 MG Tab, Delayed Release PO SCH (06:40)
[2022-09-05] MEDS: Formoterol/Mometasone 100-5 MCG 8.8 GM Inhaler IH SCH ×2 (06:40→20:22)
[2022-09-05] MEDS: Levothyroxine 75 MCG Tab PO SCH (06:40)
[2022-09-05] MEDS: Metoprolol Succinate 50 MG Tab.ER PO SCH (09:21)
[2022-09-05] MEDS: Ezetimibe 10 MG Tab PO SCH (09:22)
[2022-09-05] MEDS: Acetaminophen 500 MG Tab PO SCH ×3 (09:22→20:23)
[2022-09-05] MEDS: Losartan 100 MG Tab PO SCH (09:23)
[2022-09-05] MEDS: Venlafaxine 150 MG Cap.ER PO SCH (09:23)
[2022-09-05] MEDS: Furosemide 20 MG Tab PO SCH (09:23)
[2022-09-05] MEDS: amLODIPine 5 MG Tab PO SCH (09:23)
[2022-09-05] MEDS: Loratadine 10 MG Tab PO SCH (09:24)
[2022-09-05] MEDS: Menthol 10%/Methyl Salicylate 30% 85 GM Tube TOP SCH ×2 (09:24→20:24)
[2022-09-05] MEDS: Melatonin 3 MG Tab PO SCH (20:22)
[2022-09-05] MEDS: QUEtiapine 100 MG Tab PO SCH (20:22)
[2022-09-05] MEDS: Magnesium Chloride 64 MG Tab.ER PO SCH (20:22)
[2022-09-05] MEDS: Prazosin 1 MG Cap PO SCH (20:24)
[2022-09-05] MEDS: Pregabalin 75 MG Cap PO SCH (20:28)
[2022-09-06] MEDS: Levothyroxine 75 MCG Tab PO SCH (05:35)
[2022-09-06] MEDS: Pantoprazole 20 MG Tab, Delayed Release PO SCH (05:35)
[2022-09-06] MEDS: Formoterol/Mometasone 100-5 MCG 8.8 GM Inhaler IH SCH ×2 (07:13→20:20)
[2022-09-06] MEDS: Acetaminophen 500 MG Tab PO SCH ×3 (08:04→20:19)
[2022-09-06] MEDS: Venlafaxine 150 MG Cap.ER PO SCH (08:05)
[2022-09-06] MEDS: amLODIPine 5 MG Tab PO SCH (08:06)
[2022-09-06] MEDS: Ezetimibe 10 MG Tab PO SCH (08:06)
[2022-09-06] MEDS: Metoprolol Succinate 50 MG Tab.ER PO SCH (08:06)
[2022-09-06] MEDS: Furosemide 20 MG Tab PO SCH (08:07)
[2022-09-06] MEDS: Losartan 100 MG Tab PO SCH (08:07)
[2022-09-06] MEDS: Loratadine 10 MG Tab PO SCH (08:08)
[2022-09-06] MEDS: Albuterol 90 MCG/6.7 GM Inhaler INH PRN (08:09)
[2022-09-06] MEDS: Diclofenac Sodium 1% Gel 100 GM Tube TOP PRN (08:10)
[2022-09-06] MEDS: Menthol 10%/Methyl Salicylate 30% 85 GM Tube TOP SCH ×2 (08:12→20:21)
[2022-09-06 09:30] LABS: BASOPHILS ABSOLUTE AUTO 0.1 x10-3/uL (0.0-0.1); BASOPHILS PERCENT AUTO 0.9 % (0.2-1.5); EOSINOPHILS ABSOLUTE AUTO 0.3 x10-3/uL (0.0-0.8); EOSINOPHILS PERCENT AUTO 3.7 % (0.6-8.1); HEMATOCRIT 28.9 % (34.2-48.2); HEMOGLOBIN 9.8 g/dL (11.4-15.5); LYMPHOCYTES ABSOLUTE AUTO 2.6 x10-3/uL (1.0-4.4); LYMPHOCYTES PERCENT AUTO 28.4 % (18.4-52.1); MEAN CORPUSCULAR HEMOGLOBIN 29.7 pg (23.9-33.9); MEAN CORPUSCULAR HGB CONC 33.8 g/dL (31.9-34.8); MEAN PLATELET VOLUME 9.1 fL (7.1-12.4); MONOCYTES ABSOLUTE AUTO 0.5 x10-3/uL (0.3-1.0); MONOCYTES PERCENT AUTO 5.6 % (4.4-15.7); NEUTROPHILS ABSOLUTE AUTO 5.6 x10-3/uL (1.5-6.3); NEUTROPHILS PERCENT AUTO 61.4 % (30.8-76.2); PLATELET COUNT,PLT 230 x10(3)uL (151-488); RED BLOOD CELL COUNT 3.29 x10(6)uL (3.60-5.20); RED CELL DISTRIBUTION WIDTH 13.9 % (12.3-16.5); WHITE BLOOD CELL COUNT,WBC 9.1 x10-3/uL (3.0-10.3)
[2022-09-06 09:37] LABS: A/G RATIO 0.5; ALANINE AMINOTRANSFERASE,ALT 30 U/L (12-36); ALBUMIN 2.3 g/dL (3.2-4.6); ALKALINE PHOSPHATASE 139 IU/L (56-112); ASPARTATE AMNIOTRANSFERASE,AST 24 IU/L (5-25); BILIRUBIN TOTAL 0.2 mg/dL (0.1-1.3); BLOOD UREA NITROGEN,BUN 41 mg/dL (7-18); BUN/CREATININE RATIO 24.1 (9-20); CALCIUM 8.1 mg/dL (8.6-10.2); CARBON DIOXIDE,CO2 25 mmol/L (21-32); CHLORIDE,CL 102 mmol/L (100-110); CREATININE 1.7 mg/dL (0.55-1.02); EST CRCL DRUG DOSING (CG) 37.86 mL/min; ESTIMATED GFR 33 mL/min (>60); GLUCOSE RANDOM 157 mg/dL (80-116); POTASSIUM,K 4.6 mmol/L (3.5-5.3); PROTEIN TOTAL,TP 6.8 g/dL (6.0-8.0); SODIUM,NA 136 mmol/L (135-145)
[2022-09-06 09:43] LABS: HEMOGLOBIN A1C 7.2 % (<5.7)
[2022-09-06] MEDS: Aluminum Hydroxide/Magnesium Hydroxide Susp 30 ML Cup PO PRN (17:26)
[2022-09-06] MEDS: Prazosin 1 MG Cap PO SCH (20:20)
[2022-09-06] MEDS: Melatonin 3 MG Tab PO SCH (20:20)
[2022-09-06] MEDS: QUEtiapine 100 MG Tab PO SCH (20:20)
[2022-09-06] MEDS: Pregabalin 75 MG Cap PO SCH (20:20)
[2022-09-06] MEDS: Magnesium Chloride 64 MG Tab.ER PO SCH (20:20)
[2022-09-07] MEDS: Pantoprazole 20 MG Tab, Delayed Release PO SCH (06:15)
[2022-09-07] MEDS: Formoterol/Mometasone 100-5 MCG 8.8 GM Inhaler IH SCH ×2 (06:15→20:16)
[2022-09-07] MEDS: Levothyroxine 75 MCG Tab PO SCH (06:15)
[2022-09-07] MEDS: Menthol 10%/Methyl Salicylate 30% 85 GM Tube TOP SCH ×2 (08:35→20:17)
[2022-09-07] MEDS: Losartan 100 MG Tab PO SCH (08:36)
[2022-09-07] MEDS: Ezetimibe 10 MG Tab PO SCH (08:36)
[2022-09-07] MEDS: Acetaminophen 500 MG Tab PO SCH ×3 (08:36→20:15)
[2022-09-07] MEDS: Furosemide 20 MG Tab PO SCH (08:36)
[2022-09-07] MEDS: Metoprolol Succinate 50 MG Tab.ER PO SCH (08:36)
[2022-09-07] MEDS: Loratadine 10 MG Tab PO SCH (08:37)
[2022-09-07] MEDS: amLODIPine 5 MG Tab PO SCH (08:37)
[2022-09-07] MEDS: Venlafaxine 150 MG Cap.ER PO SCH (08:38)
[2022-09-07] MEDS: Pregabalin 75 MG Cap PO SCH (20:15)
[2022-09-07] MEDS: Magnesium Chloride 64 MG Tab.ER PO SCH (20:15)
[2022-09-07] MEDS: Melatonin 3 MG Tab PO SCH (20:16)
[2022-09-07] MEDS: QUEtiapine 100 MG Tab PO SCH (20:16)
[2022-09-07] MEDS: Prazosin 1 MG Cap PO SCH (20:19)
[2022-09-08] MEDS: Levothyroxine 75 MCG Tab PO SCH (05:22)
[2022-09-08] MEDS: Pantoprazole 20 MG Tab, Delayed Release PO SCH (05:22)
[2022-09-08] MEDS: Formoterol/Mometasone 100-5 MCG 8.8 GM Inhaler IH SCH ×2 (06:25→20:57)
[2022-09-08] MEDS: Losartan 100 MG Tab PO SCH (07:59)
[2022-09-08] MEDS: Metoprolol Succinate 50 MG Tab.ER PO SCH (07:59)
[2022-09-08] MEDS: Loratadine 10 MG Tab PO SCH (07:59)
[2022-09-08] MEDS: amLODIPine 5 MG Tab PO SCH (07:59)
[2022-09-08] MEDS: Venlafaxine 150 MG Cap.ER PO SCH (08:00)
[2022-09-08] MEDS: Acetaminophen 500 MG Tab PO SCH ×3 (08:00→20:58)
[2022-09-08] MEDS: Furosemide 20 MG Tab PO SCH (08:00)
[2022-09-08] MEDS: Ezetimibe 10 MG Tab PO SCH (08:00)
[2022-09-08] MEDS: Menthol 10%/Methyl Salicylate 30% 85 GM Tube TOP SCH ×2 (08:00→20:57)
[2022-09-08] MEDS: Melatonin 3 MG Tab PO SCH (20:58)
[2022-09-08] MEDS: Pregabalin 75 MG Cap PO SCH (20:58)
[2022-09-08] MEDS: Magnesium Chloride 64 MG Tab.ER PO SCH (20:58)
[2022-09-08] MEDS: Prazosin 1 MG Cap PO SCH (20:58)
[2022-09-08] MEDS: QUEtiapine 100 MG Tab PO SCH (20:58)
[2022-09-09] MEDS: Pantoprazole 20 MG Tab, Delayed Release PO SCH (05:41)
[2022-09-09] MEDS: Levothyroxine 75 MCG Tab PO SCH (05:41)
[2022-09-09] MEDS: Formoterol/Mometasone 100-5 MCG 8.8 GM Inhaler IH SCH ×2 (06:01→20:32)
[2022-09-09] MEDS: Loratadine 10 MG Tab PO SCH (09:11)
[2022-09-09] MEDS: Losartan 100 MG Tab PO SCH (09:11)
[2022-09-09] MEDS: Ezetimibe 10 MG Tab PO SCH (09:12)
[2022-09-09] MEDS: Menthol 10%/Methyl Salicylate 30% 85 GM Tube TOP SCH ×2 (09:12→20:31)
[2022-09-09] MEDS: Venlafaxine 150 MG Cap.ER PO SCH (09:12)
[2022-09-09] MEDS: Furosemide 20 MG Tab PO SCH (09:13)
[2022-09-09] MEDS: Acetaminophen 500 MG Tab PO SCH ×3 (09:13→20:31)
[2022-09-09] MEDS: Metoprolol Succinate 50 MG Tab.ER PO SCH (09:13)
[2022-09-09] MEDS: amLODIPine 5 MG Tab PO SCH (09:13)
[2022-09-09] MEDS: Prazosin 1 MG Cap PO SCH (20:31)
[2022-09-09] MEDS: Pregabalin 75 MG Cap PO SCH (20:31)
[2022-09-09] MEDS: Melatonin 3 MG Tab PO SCH (20:31)
[2022-09-09] MEDS: Magnesium Chloride 64 MG Tab.ER PO SCH (20:31)
[2022-09-09] MEDS: QUEtiapine 100 MG Tab PO SCH (20:31)
[2022-09-10] MEDS: Formoterol/Mometasone 100-5 MCG 8.8 GM Inhaler IH SCH ×2 (06:29→20:32)
[2022-09-10] MEDS: Levothyroxine 75 MCG Tab PO SCH (06:29)
[2022-09-10] MEDS: Pantoprazole 20 MG Tab, Delayed Release PO SCH (06:29)
[2022-09-10] MEDS: Losartan 100 MG Tab PO SCH (08:30)
[2022-09-10] MEDS: Loratadine 10 MG Tab PO SCH (08:30)
[2022-09-10] MEDS: Menthol 10%/Methyl Salicylate 30% 85 GM Tube TOP SCH ×2 (08:31→20:32)
[2022-09-10] MEDS: Venlafaxine 150 MG Cap.ER PO SCH (08:31)
[2022-09-10] MEDS: amLODIPine 5 MG Tab PO SCH (08:33)
[2022-09-10] MEDS: Furosemide 20 MG Tab PO SCH (08:33)
[2022-09-10] MEDS: Metoprolol Succinate 50 MG Tab.ER PO SCH (08:34)
[2022-09-10] MEDS: Acetaminophen 500 MG Tab PO SCH ×3 (08:35→20:33)
[2022-09-10] MEDS: Ezetimibe 10 MG Tab PO SCH (08:35)
[2022-09-10] MEDS: QUEtiapine 100 MG Tab PO SCH (20:32)
[2022-09-10] MEDS: Magnesium Chloride 64 MG Tab.ER PO SCH (20:32)
[2022-09-10] MEDS: Melatonin 3 MG Tab PO SCH (20:32)
[2022-09-10] MEDS: Pregabalin 75 MG Cap PO SCH (20:32)
[2022-09-10] MEDS: Prazosin 1 MG Cap PO SCH (20:33)
[2022-09-11] MEDS: Formoterol/Mometasone 100-5 MCG 8.8 GM Inhaler IH SCH ×2 (06:25→20:10)
[2022-09-11] MEDS: Pantoprazole 20 MG Tab, Delayed Release PO SCH (06:25)
[2022-09-11] MEDS: Levothyroxine 75 MCG Tab PO SCH (06:25)
[2022-09-11] MEDS: Loratadine 10 MG Tab PO SCH (08:31)
[2022-09-11] MEDS: Venlafaxine 150 MG Cap.ER PO SCH (08:31)
[2022-09-11] MEDS: Menthol 10%/Methyl Salicylate 30% 85 GM Tube TOP SCH ×2 (08:31→20:10)
[2022-09-11] MEDS: Losartan 100 MG Tab PO SCH (08:31)
[2022-09-11] MEDS: amLODIPine 5 MG Tab PO SCH (08:32)
[2022-09-11] MEDS: Furosemide 20 MG Tab PO SCH (08:32)
[2022-09-11] MEDS: Acetaminophen 500 MG Tab PO SCH ×3 (08:33→20:10)
[2022-09-11] MEDS: Metoprolol Succinate 50 MG Tab.ER PO SCH (08:34)
[2022-09-11] MEDS: Ezetimibe 10 MG Tab PO SCH (08:34)
[2022-09-11] MEDS: Prazosin 1 MG Cap PO SCH (20:09)
[2022-09-11] MEDS: Pregabalin 75 MG Cap PO SCH (20:10)
[2022-09-11] MEDS: Melatonin 3 MG Tab PO SCH (20:10)
[2022-09-11] MEDS: QUEtiapine 100 MG Tab PO SCH (20:10)
[2022-09-11] MEDS: Magnesium Chloride 64 MG Tab.ER PO SCH (20:10)
[2022-09-12] MEDS: Formoterol/Mometasone 100-5 MCG 8.8 GM Inhaler IH SCH ×2 (06:10→20:10)
[2022-09-12] MEDS: Levothyroxine 75 MCG Tab PO SCH (06:11)
[2022-09-12] MEDS: Pantoprazole 20 MG Tab, Delayed Release PO SCH (06:11)
[2022-09-12] MEDS: Menthol 10%/Methyl Salicylate 30% 85 GM Tube TOP SCH ×2 (08:11→20:11)
[2022-09-12] MEDS: Metoprolol Succinate 50 MG Tab.ER PO SCH (08:12)
[2022-09-12] MEDS: Venlafaxine 150 MG Cap.ER PO SCH (08:12)
[2022-09-12] MEDS: Furosemide 20 MG Tab PO SCH (08:13)
[2022-09-12] MEDS: Acetaminophen 500 MG Tab PO SCH ×3 (08:13→20:12)
[2022-09-12] MEDS: Loratadine 10 MG Tab PO SCH (08:13)
[2022-09-12] MEDS: Losartan 100 MG Tab PO SCH (08:13)
[2022-09-12] MEDS: Ezetimibe 10 MG Tab PO SCH (08:13)
[2022-09-12] MEDS: amLODIPine 10 MG Tab PO SCH (08:19)
[2022-09-12] MEDS: Pregabalin 75 MG Cap PO SCH (20:11)
[2022-09-12] MEDS: Magnesium Chloride 64 MG Tab.ER PO SCH (20:11)
[2022-09-12] MEDS: Melatonin 3 MG Tab PO SCH (20:11)
[2022-09-12] MEDS: QUEtiapine 100 MG Tab PO SCH (20:12)
[2022-09-12] MEDS: Prazosin 1 MG Cap PO SCH (20:21)
[2022-09-13] MEDS: Levothyroxine 75 MCG Tab PO SCH (05:44)
[2022-09-13] MEDS: Pantoprazole 20 MG Tab, Delayed Release PO SCH (05:44)
[2022-09-13] MEDS: Formoterol/Mometasone 100-5 MCG 8.8 GM Inhaler IH SCH ×2 (06:21→20:24)
[2022-09-13] MEDS: Ezetimibe 10 MG Tab PO SCH (08:23)
[2022-09-13] MEDS: Menthol 10%/Methyl Salicylate 30% 85 GM Tube TOP SCH ×2 (08:25→20:32)
[2022-09-13] MEDS: Acetaminophen 500 MG Tab PO SCH ×3 (08:26→20:24)
[2022-09-13] MEDS: Loratadine 10 MG Tab PO SCH (08:26)
[2022-09-13] MEDS: amLODIPine 10 MG Tab PO SCH (08:27)
[2022-09-13] MEDS: Losartan 100 MG Tab PO SCH (08:28)
[2022-09-13] MEDS: Furosemide 20 MG Tab PO SCH (08:28)
[2022-09-13] MEDS: Venlafaxine 150 MG Cap.ER PO SCH (08:29)
[2022-09-13] MEDS: Metoprolol Succinate 50 MG Tab.ER PO SCH (08:29)
[2022-09-13 10:28] LABS: BILIRUBIN,URINE NEGATIVE (NEGATIVE); GLUCOSE,URINE NORMAL (NORMAL); KETONES,URINE NEGATIVE (NEGATIVE); LEUKOCYTE ESTERASE,URINE SMALL (NEGATIVE); NITRITE,URINE NEGATIVE (NEGATIVE); OCCULT BLOOD,URINE NEGATIVE (NEGATIVE); PROTEIN,URINE 100 mg/dL (NEGATIVE); UROBILINOGEN,URINE NORMAL (NEGATIVE)
[2022-09-13 10:29] LABS: APPEARANCE,URINE SLIGHTLY CLOUDY (CLEAR); COLOR,URINE YELLOW (YELLOW); RBC,URINE 0-5 (0-5)
[2022-09-13 10:30] LABS: BACTERIA,URINE MANY (NS); SQUAMOUS EPITHELIAL CELLS,UR FEW (NS,R,O); WBC,URINE 20-30 (0-5)
[2022-09-13] MEDS: Nitrofurantoin Monohydrate/Macrocrystalline 100 MG Cap PO SCH ×2 (15:55→20:25)
[2022-09-13] MEDS: Magnesium Chloride 64 MG Tab.ER PO SCH (20:24)
[2022-09-13] MEDS: Prazosin 1 MG Cap PO SCH (20:25)
[2022-09-13] MEDS: Melatonin 3 MG Tab PO SCH (20:25)
[2022-09-13] MEDS: QUEtiapine 100 MG Tab PO SCH (20:32)
[2022-09-13] MEDS: Pregabalin 75 MG Cap PO SCH (20:32)
[2022-09-14] MEDS: Pantoprazole 20 MG Tab, Delayed Release PO SCH (06:02)
[2022-09-14] MEDS: Levothyroxine 75 MCG Tab PO SCH (06:02)
[2022-09-14] MEDS: Formoterol/Mometasone 100-5 MCG 8.8 GM Inhaler IH SCH ×2 (06:03→20:25)
[2022-09-14] MEDS: Nitrofurantoin Monohydrate/Macrocrystalline 100 MG Cap PO SCH ×2 (08:09→20:26)
[2022-09-14] MEDS: Loratadine 10 MG Tab PO SCH (08:09)
[2022-09-14] MEDS: Ezetimibe 10 MG Tab PO SCH (08:10)
[2022-09-14] MEDS: Venlafaxine 150 MG Cap.ER PO SCH (08:10)
[2022-09-14] MEDS: amLODIPine 10 MG Tab PO SCH (08:10)
[2022-09-14] MEDS: Losartan 100 MG Tab PO SCH (08:18)
[2022-09-14] MEDS: Acetaminophen 500 MG Tab PO SCH ×3 (08:19→20:28)
[2022-09-14] MEDS: Furosemide 20 MG Tab PO SCH (08:19)
[2022-09-14] MEDS: Metoprolol Succinate 50 MG Tab.ER PO SCH (08:19)
[2022-09-14] MEDS: Menthol 10%/Methyl Salicylate 30% 85 GM Tube TOP SCH ×2 (08:20→20:25)
[2022-09-14] MEDS: Pregabalin 75 MG Cap PO SCH (20:26)
[2022-09-14] MEDS: Prazosin 1 MG Cap PO SCH (20:27)
[2022-09-14] MEDS: Magnesium Chloride 64 MG Tab.ER PO SCH (20:27)
[2022-09-14] MEDS: Melatonin 3 MG Tab PO SCH (20:27)
[2022-09-14] MEDS: QUEtiapine 100 MG Tab PO SCH (20:28)
[2022-09-15] MEDS: Pantoprazole 20 MG Tab, Delayed Release PO SCH (06:03)
[2022-09-15] MEDS: Levothyroxine 75 MCG Tab PO SCH (06:03)
[2022-09-15] MEDS: Formoterol/Mometasone 100-5 MCG 8.8 GM Inhaler IH SCH ×2 (06:03→20:01)
[2022-09-15] MEDS: Acetaminophen 500 MG Tab PO SCH ×3 (10:09→20:03)
[2022-09-15] MEDS: Losartan 100 MG Tab PO SCH (10:09)
[2022-09-15] MEDS: amLODIPine 10 MG Tab PO SCH (10:09)
[2022-09-15] MEDS: Furosemide 20 MG Tab PO SCH (10:10)
[2022-09-15] MEDS: Metoprolol Succinate 50 MG Tab.ER PO SCH (10:10)
[2022-09-15] MEDS: Venlafaxine 150 MG Cap.ER PO SCH (10:10)
[2022-09-15] MEDS: Nitrofurantoin Monohydrate/Macrocrystalline 100 MG Cap PO SCH ×2 (10:10→20:02)
[2022-09-15] MEDS: Ezetimibe 10 MG Tab PO SCH (10:11)
[2022-09-15] MEDS: Loratadine 10 MG Tab PO SCH (10:11)
[2022-09-15] MEDS: Menthol 10%/Methyl Salicylate 30% 85 GM Tube TOP SCH ×2 (10:11→20:01)
[2022-09-15] MEDS: Pregabalin 75 MG Cap PO SCH (20:02)
[2022-09-15] MEDS: Melatonin 3 MG Tab PO SCH (20:02)
[2022-09-15] MEDS: Magnesium Chloride 64 MG Tab.ER PO SCH (20:02)
[2022-09-15] MEDS: Prazosin 1 MG Cap PO SCH (20:02)
[2022-09-15] MEDS: QUEtiapine 100 MG Tab PO SCH (20:03)
[2022-09-16] MEDS: Pantoprazole 20 MG Tab, Delayed Release PO SCH (05:54)
[2022-09-16] MEDS: Levothyroxine 75 MCG Tab PO SCH (05:54)
[2022-09-16] MEDS: Formoterol/Mometasone 100-5 MCG 8.8 GM Inhaler IH SCH ×2 (05:59→20:57)
[2022-09-16] MEDS: Loratadine 10 MG Tab PO SCH (09:03)
[2022-09-16] MEDS: Venlafaxine 150 MG Cap.ER PO SCH (09:04)
[2022-09-16] MEDS: Losartan 100 MG Tab PO SCH (09:04)
[2022-09-16] MEDS: Menthol 10%/Methyl Salicylate 30% 85 GM Tube TOP SCH ×2 (09:04→20:57)
[2022-09-16] MEDS: Nitrofurantoin Monohydrate/Macrocrystalline 100 MG Cap PO SCH ×2 (09:04→20:58)
[2022-09-16] MEDS: Furosemide 20 MG Tab PO SCH (09:04)
[2022-09-16] MEDS: amLODIPine 10 MG Tab PO SCH (09:05)
[2022-09-16] MEDS: Acetaminophen 500 MG Tab PO SCH ×3 (09:05→20:58)
[2022-09-16] MEDS: Metoprolol Succinate 50 MG Tab.ER PO SCH (09:05)
[2022-09-16] MEDS: Ezetimibe 10 MG Tab PO SCH (09:05)
[2022-09-16] MEDS: Pregabalin 75 MG Cap PO SCH (20:57)
[2022-09-16] MEDS: Magnesium Chloride 64 MG Tab.ER PO SCH (20:58)
[2022-09-16] MEDS: Melatonin 3 MG Tab PO SCH (20:58)
[2022-09-16] MEDS: QUEtiapine 100 MG Tab PO SCH (20:58)
[2022-09-16] MEDS: Prazosin 1 MG Cap PO SCH (21:02)
[2022-09-17] MEDS: Levothyroxine 75 MCG Tab PO SCH (06:19)
[2022-09-17] MEDS: Formoterol/Mometasone 100-5 MCG 8.8 GM Inhaler IH SCH ×2 (06:19→21:49)
[2022-09-17] MEDS: Pantoprazole 20 MG Tab, Delayed Release PO SCH (06:19)
[2022-09-17] MEDS: amLODIPine 10 MG Tab PO SCH (09:49)
[2022-09-17] MEDS: Nitrofurantoin Monohydrate/Macrocrystalline 100 MG Cap PO SCH ×2 (09:50→21:50)
[2022-09-17] MEDS: Losartan 100 MG Tab PO SCH (09:50)
[2022-09-17] MEDS: Acetaminophen 500 MG Tab PO SCH ×3 (09:50→21:51)
[2022-09-17] MEDS: Ezetimibe 10 MG Tab PO SCH (09:50)
[2022-09-17] MEDS: Metoprolol Succinate 50 MG Tab.ER PO SCH (09:50)
[2022-09-17] MEDS: Loratadine 10 MG Tab PO SCH (09:50)
[2022-09-17] MEDS: Venlafaxine 150 MG Cap.ER PO SCH (09:50)
[2022-09-17] MEDS: Furosemide 20 MG Tab PO SCH (09:50)
[2022-09-17] MEDS: Menthol 10%/Methyl Salicylate 30% 85 GM Tube TOP SCH ×2 (10:12→21:49)
[2022-09-17] MEDS: Pregabalin 75 MG Cap PO SCH (21:50)
[2022-09-17] MEDS: Magnesium Chloride 64 MG Tab.ER PO SCH (21:51)
[2022-09-17] MEDS: Melatonin 3 MG Tab PO SCH (21:51)
[2022-09-17] MEDS: QUEtiapine 100 MG Tab PO SCH (21:51)
[2022-09-17] MEDS: Prazosin 1 MG Cap PO SCH (21:52)
[2022-09-18] MEDS: Pantoprazole 20 MG Tab, Delayed Release PO SCH (05:22)
[2022-09-18] MEDS: Levothyroxine 75 MCG Tab PO SCH (05:22)
[2022-09-18] MEDS: Formoterol/Mometasone 100-5 MCG 8.8 GM Inhaler IH SCH ×2 (06:59→21:30)
[2022-09-18] MEDS: Menthol 10%/Methyl Salicylate 30% 85 GM Tube TOP SCH ×2 (08:16→21:31)
[2022-09-18] MEDS: Ezetimibe 10 MG Tab PO SCH (08:19)
[2022-09-18] MEDS: Furosemide 20 MG Tab PO SCH (08:20)
[2022-09-18] MEDS: Venlafaxine 150 MG Cap.ER PO SCH (08:20)
[2022-09-18] MEDS: Loratadine 10 MG Tab PO SCH (08:21)
[2022-09-18] MEDS: Acetaminophen 500 MG Tab PO SCH ×3 (08:21→21:33)
[2022-09-18] MEDS: Metoprolol Succinate 50 MG Tab.ER PO SCH (08:22)
[2022-09-18] MEDS: Losartan 100 MG Tab PO SCH (08:22)
[2022-09-18] MEDS: amLODIPine 10 MG Tab PO SCH (08:22)
[2022-09-18] MEDS: Prazosin 1 MG Cap PO SCH (21:31)
[2022-09-18] MEDS: Pregabalin 75 MG Cap PO SCH (21:31)
[2022-09-18] MEDS: Melatonin 3 MG Tab PO SCH (21:31)
[2022-09-18] MEDS: Magnesium Chloride 64 MG Tab.ER PO SCH (21:31)
[2022-09-18] MEDS: QUEtiapine 100 MG Tab PO SCH (21:32)
[2022-09-19] MEDS: Levothyroxine 75 MCG Tab PO SCH (06:39)
[2022-09-19] MEDS: Formoterol/Mometasone 100-5 MCG 8.8 GM Inhaler IH SCH ×2 (06:41→21:23)
[2022-09-19] MEDS: Pantoprazole 20 MG Tab, Delayed Release PO SCH (06:42)
[2022-09-19] MEDS: Ezetimibe 10 MG Tab PO SCH (09:57)
[2022-09-19] MEDS: amLODIPine 10 MG Tab PO SCH (09:58)
[2022-09-19] MEDS: Furosemide 20 MG Tab PO SCH (09:58)
[2022-09-19] MEDS: Metoprolol Succinate 50 MG Tab.ER PO SCH (09:58)
[2022-09-19] MEDS: Loratadine 10 MG Tab PO SCH (09:58)
[2022-09-19] MEDS: Venlafaxine 150 MG Cap.ER PO SCH (09:59)
[2022-09-19] MEDS: Losartan 100 MG Tab PO SCH (09:59)
[2022-09-19] MEDS: Acetaminophen 500 MG Tab PO SCH ×3 (09:59→21:24)
[2022-09-19] MEDS: Menthol 10%/Methyl Salicylate 30% 85 GM Tube TOP SCH ×2 (10:11→21:23)
[2022-09-19] MEDS: Melatonin 3 MG Tab PO SCH (21:24)
[2022-09-19] MEDS: Magnesium Chloride 64 MG Tab.ER PO SCH (21:24)
[2022-09-19] MEDS: Pregabalin 75 MG Cap PO SCH (21:24)
[2022-09-19] MEDS: QUEtiapine 100 MG Tab PO SCH (21:24)
[2022-09-19] MEDS: Prazosin 1 MG Cap PO SCH (21:25)
[2022-09-20] MEDS: Levothyroxine 75 MCG Tab PO SCH (05:53)
[2022-09-20] MEDS: Pantoprazole 20 MG Tab, Delayed Release PO SCH (05:54)
[2022-09-20] MEDS: Formoterol/Mometasone 100-5 MCG 8.8 GM Inhaler IH SCH ×2 (06:06→20:41)
[2022-09-20 06:29] LABS: BLOOD UREA NITROGEN,BUN 42 mg/dL (7-18); BUN/CREATININE RATIO 26.3 (9-20); CARBON DIOXIDE,CO2 24 mmol/L (21-32); CHLORIDE,CL 107 mmol/L (100-110); CREATININE 1.6 mg/dL (0.55-1.02); EST CRCL DRUG DOSING (CG) 40.22 mL/min; ESTIMATED GFR 36 mL/min (>60); GLUCOSE RANDOM 105 mg/dL (80-116); SODIUM,NA 138 mmol/L (135-145)
[2022-09-20] MEDS: Menthol 10%/Methyl Salicylate 30% 85 GM Tube TOP SCH ×2 (09:03→20:41)
[2022-09-20] MEDS: Acetaminophen 500 MG Tab PO SCH ×3 (09:04→20:39)
[2022-09-20] MEDS: Loratadine 10 MG Tab PO SCH (09:05)
[2022-09-20] MEDS: Ezetimibe 10 MG Tab PO SCH (09:05)
[2022-09-20] MEDS: Metoprolol Succinate 50 MG Tab.ER PO SCH (09:06)
[2022-09-20] MEDS: Losartan 100 MG Tab PO SCH (09:07)
[2022-09-20] MEDS: amLODIPine 10 MG Tab PO SCH (09:08)
[2022-09-20] MEDS: Furosemide 20 MG Tab PO SCH (09:08)
[2022-09-20] MEDS: Venlafaxine 150 MG Cap.ER PO SCH (09:09)
[2022-09-20] MEDS: Magnesium Chloride 64 MG Tab.ER PO SCH (20:38)
[2022-09-20] MEDS: QUEtiapine 100 MG Tab PO SCH (20:38)
[2022-09-20] MEDS: Pregabalin 75 MG Cap PO SCH (20:39)
[2022-09-20] MEDS: Melatonin 3 MG Tab PO SCH (20:39)
[2022-09-20] MEDS: Prazosin 1 MG Cap PO SCH (20:41)
[2022-09-21] MEDS: Formoterol/Mometasone 100-5 MCG 8.8 GM Inhaler IH SCH ×2 (06:51→21:20)
[2022-09-21] MEDS: Levothyroxine 75 MCG Tab PO SCH (06:51)
[2022-09-21] MEDS: Pantoprazole 20 MG Tab, Delayed Release PO SCH (06:52)
[2022-09-21] MEDS: Menthol 10%/Methyl Salicylate 30% 85 GM Tube TOP SCH ×2 (08:41→21:20)
[2022-09-21] MEDS: Acetaminophen 500 MG Tab PO SCH ×3 (08:42→21:18)
[2022-09-21] MEDS: amLODIPine 10 MG Tab PO SCH (08:43)
[2022-09-21] MEDS: Ezetimibe 10 MG Tab PO SCH (08:43)
[2022-09-21] MEDS: Metoprolol Succinate 50 MG Tab.ER PO SCH (08:44)
[2022-09-21] MEDS: Losartan 100 MG Tab PO SCH (08:44)
[2022-09-21] MEDS: Loratadine 10 MG Tab PO SCH (08:44)
[2022-09-21] MEDS: Venlafaxine 150 MG Cap.ER PO SCH (08:44)
[2022-09-21] MEDS: Melatonin 3 MG Tab PO SCH (21:19)
[2022-09-21] MEDS: QUEtiapine 100 MG Tab PO SCH (21:19)
[2022-09-21] MEDS: Prazosin 1 MG Cap PO SCH (21:20)
[2022-09-21] MEDS: Magnesium Chloride 64 MG Tab.ER PO SCH (21:20)
[2022-09-21] MEDS: Pregabalin 75 MG Cap PO SCH (21:27)
[2022-09-22] MEDS: Levothyroxine 75 MCG Tab PO SCH (05:48)
[2022-09-22] MEDS: Pantoprazole 20 MG Tab, Delayed Release PO SCH (05:48)
[2022-09-22] MEDS: Formoterol/Mometasone 100-5 MCG 8.8 GM Inhaler IH SCH ×2 (06:46→20:37)
[2022-09-22] MEDS: Ezetimibe 10 MG Tab PO SCH (08:47)
[2022-09-22] MEDS: Acetaminophen 500 MG Tab PO SCH ×3 (08:47→20:38)
[2022-09-22] MEDS: Menthol 10%/Methyl Salicylate 30% 85 GM Tube TOP SCH ×2 (08:47→20:38)
[2022-09-22] MEDS: Venlafaxine 150 MG Cap.ER PO SCH (08:48)
[2022-09-22] MEDS: amLODIPine 10 MG Tab PO SCH (08:49)
[2022-09-22] MEDS: Losartan 100 MG Tab PO SCH (08:51)
[2022-09-22] MEDS: Metoprolol Succinate 50 MG Tab.ER PO SCH (08:51)
[2022-09-22] MEDS: Albuterol 90 MCG/6.7 GM Inhaler INH PRN (08:51)
[2022-09-22] MEDS: Loratadine 10 MG Tab PO SCH (08:52)
[2022-09-22] MEDS: Prazosin 1 MG Cap PO SCH (20:38)
[2022-09-22] MEDS: QUEtiapine 100 MG Tab PO SCH (20:38)
[2022-09-22] MEDS: Melatonin 3 MG Tab PO SCH (20:38)
[2022-09-22] MEDS: Magnesium Chloride 64 MG Tab.ER PO SCH (20:38)
[2022-09-22] MEDS: Pregabalin 75 MG Cap PO SCH (20:44)
[2022-09-23] MEDS: Pantoprazole 20 MG Tab, Delayed Release PO SCH (06:11)
[2022-09-23] MEDS: Levothyroxine 75 MCG Tab PO SCH (06:11)
[2022-09-23] MEDS: Formoterol/Mometasone 100-5 MCG 8.8 GM Inhaler IH SCH ×2 (06:11→20:57)
[2022-09-23] MEDS: Venlafaxine 150 MG Cap.ER PO SCH (08:34)
[2022-09-23] MEDS: Loratadine 10 MG Tab PO SCH (08:35)
[2022-09-23] MEDS: Acetaminophen 500 MG Tab PO SCH ×3 (08:35→20:58)
[2022-09-23] MEDS: amLODIPine 10 MG Tab PO SCH (08:37)
[2022-09-23] MEDS: Losartan 100 MG Tab PO SCH (08:37)
[2022-09-23] MEDS: Metoprolol Succinate 50 MG Tab.ER PO SCH (08:38)
[2022-09-23] MEDS: Menthol 10%/Methyl Salicylate 30% 85 GM Tube TOP SCH ×2 (08:40→20:57)
[2022-09-23] MEDS: Ezetimibe 10 MG Tab PO SCH (09:09)
[2022-09-23] MEDS: Magnesium Chloride 64 MG Tab.ER PO SCH (20:58)
[2022-09-23] MEDS: Melatonin 3 MG Tab PO SCH (20:58)
[2022-09-23] MEDS: QUEtiapine 100 MG Tab PO SCH (20:58)
[2022-09-23] MEDS: Pregabalin 75 MG Cap PO SCH (20:58)
[2022-09-23] MEDS: Prazosin 1 MG Cap PO SCH (21:00)
[2022-09-24] MEDS: Pantoprazole 20 MG Tab, Delayed Release PO SCH (05:41)
[2022-09-24] MEDS: Levothyroxine 75 MCG Tab PO SCH (05:41)
[2022-09-24] MEDS: Formoterol/Mometasone 100-5 MCG 8.8 GM Inhaler IH SCH ×2 (07:08→20:46)
[2022-09-24] MEDS: amLODIPine 10 MG Tab PO SCH (08:10)
[2022-09-24] MEDS: Losartan 100 MG Tab PO SCH (08:10)
[2022-09-24] MEDS: Acetaminophen 500 MG Tab PO SCH ×3 (08:10→20:49)
[2022-09-24] MEDS: Loratadine 10 MG Tab PO SCH (08:10)
[2022-09-24] MEDS: Venlafaxine 150 MG Cap.ER PO SCH (08:10)
[2022-09-24] MEDS: Menthol 10%/Methyl Salicylate 30% 85 GM Tube TOP SCH ×2 (08:11→20:46)
[2022-09-24] MEDS: Ezetimibe 10 MG Tab PO SCH (08:11)
[2022-09-24] MEDS: Metoprolol Succinate 50 MG Tab.ER PO SCH (08:14)
[2022-09-24] MEDS: Magnesium Chloride 64 MG Tab.ER PO SCH (20:48)
[2022-09-24] MEDS: Melatonin 3 MG Tab PO SCH (20:48)
[2022-09-24] MEDS: Prazosin 1 MG Cap PO SCH (20:49)
[2022-09-24] MEDS: QUEtiapine 100 MG Tab PO SCH (20:49)
[2022-09-24] MEDS: Pregabalin 75 MG Cap PO SCH (20:51)
[2022-09-25] MEDS: Levothyroxine 75 MCG Tab PO SCH (06:14)
[2022-09-25] MEDS: Formoterol/Mometasone 100-5 MCG 8.8 GM Inhaler IH SCH ×2 (06:15→20:32)
[2022-09-25] MEDS: Pantoprazole 20 MG Tab, Delayed Release PO SCH (06:16)
[2022-09-25] MEDS: Ezetimibe 10 MG Tab PO SCH (08:04)
[2022-09-25] MEDS: Metoprolol Succinate 50 MG Tab.ER PO SCH (08:04)
[2022-09-25] MEDS: amLODIPine 10 MG Tab PO SCH (08:04)
[2022-09-25] MEDS: Loratadine 10 MG Tab PO SCH (08:04)
[2022-09-25] MEDS: Losartan 100 MG Tab PO SCH (08:04)
[2022-09-25] MEDS: Venlafaxine 150 MG Cap.ER PO SCH (08:04)
[2022-09-25] MEDS: Menthol 10%/Methyl Salicylate 30% 85 GM Tube TOP SCH ×2 (08:05→20:32)
[2022-09-25] MEDS: Acetaminophen 500 MG Tab PO SCH ×3 (08:05→20:32)
[2022-09-25] MEDS: Magnesium Chloride 64 MG Tab.ER PO SCH (20:32)
[2022-09-25] MEDS: Pregabalin 75 MG Cap PO SCH (20:32)
[2022-09-25] MEDS: Melatonin 3 MG Tab PO SCH (20:32)
[2022-09-25] MEDS: Prazosin 1 MG Cap PO SCH (20:33)
[2022-09-25] MEDS: QUEtiapine 100 MG Tab PO SCH (20:33)
[2022-09-26] MEDS: Pantoprazole 20 MG Tab, Delayed Release PO SCH (06:23)
[2022-09-26] MEDS: Levothyroxine 75 MCG Tab PO SCH (06:24)
[2022-09-26] MEDS: Formoterol/Mometasone 100-5 MCG 8.8 GM Inhaler IH SCH ×2 (06:24→21:20)
[2022-09-26] MEDS: Loratadine 10 MG Tab PO SCH (08:04)
[2022-09-26] MEDS: Losartan 100 MG Tab PO SCH (08:04)
[2022-09-26] MEDS: Metoprolol Succinate 50 MG Tab.ER PO SCH (08:05)
[2022-09-26] MEDS: amLODIPine 10 MG Tab PO SCH (08:05)
[2022-09-26] MEDS: Ezetimibe 10 MG Tab PO SCH (08:05)
[2022-09-26] MEDS: Acetaminophen 500 MG Tab PO SCH ×3 (08:06→21:24)
[2022-09-26] MEDS: Venlafaxine 150 MG Cap.ER PO SCH (08:07)
[2022-09-26] MEDS: Diclofenac Sodium 1% Gel 100 GM Tube TOP PRN (10:23)
[2022-09-26] MEDS: Menthol 10%/Methyl Salicylate 30% 85 GM Tube TOP SCH ×2 (10:24→21:23)
[2022-09-26] MEDS: Pregabalin 75 MG Cap PO SCH (21:23)
[2022-09-26] MEDS: Magnesium Chloride 64 MG Tab.ER PO SCH (21:24)
[2022-09-26] MEDS: Melatonin 3 MG Tab PO SCH (21:24)
[2022-09-26] MEDS: QUEtiapine 100 MG Tab PO SCH (21:24)
[2022-09-26] MEDS: Prazosin 1 MG Cap PO SCH (21:29)
[2022-09-27] MEDS: Pantoprazole 20 MG Tab, Delayed Release PO SCH (06:54)
[2022-09-27] MEDS: Levothyroxine 75 MCG Tab PO SCH (06:54)
[2022-09-27] MEDS: Formoterol/Mometasone 100-5 MCG 8.8 GM Inhaler IH SCH ×2 (06:55→20:08)
[2022-09-27] MEDS: Menthol 10%/Methyl Salicylate 30% 85 GM Tube TOP SCH ×2 (08:56→20:09)
[2022-09-27] MEDS: Loratadine 10 MG Tab PO SCH (08:56)
[2022-09-27] MEDS: Diclofenac Sodium 1% Gel 100 GM Tube TOP PRN (08:57)
[2022-09-27] MEDS: Ezetimibe 10 MG Tab PO SCH (08:58)
[2022-09-27] MEDS: amLODIPine 10 MG Tab PO SCH (08:58)
[2022-09-27] MEDS: Venlafaxine 150 MG Cap.ER PO SCH (08:59)
[2022-09-27] MEDS: Losartan 100 MG Tab PO SCH (08:59)
[2022-09-27] MEDS: Metoprolol Succinate 50 MG Tab.ER PO SCH (08:59)
[2022-09-27] MEDS: Acetaminophen 500 MG Tab PO SCH ×3 (08:59→20:10)
[2022-09-27 13:03] LABS: A/G RATIO 0.6; ALANINE AMINOTRANSFERASE,ALT 28 U/L (12-36); ALBUMIN 2.2 g/dL (3.2-4.6); ALKALINE PHOSPHATASE 128 IU/L (56-112); ASPARTATE AMNIOTRANSFERASE,AST 22 IU/L (5-25); BILIRUBIN TOTAL 0.2 mg/dL (0.1-1.3); BLOOD UREA NITROGEN,BUN 35 mg/dL (7-18); BUN/CREATININE RATIO 23.3 (9-20); CALCIUM 8.2 mg/dL (8.6-10.2); CARBON DIOXIDE,CO2 25 mmol/L (21-32); CHLORIDE,CL 108 mmol/L (100-110); CREATININE 1.5 mg/dL (0.55-1.02); EST CRCL DRUG DOSING (CG) 42.91 mL/min; ESTIMATED GFR 39 mL/min (>60); GLUCOSE RANDOM 119 mg/dL (80-116); PROTEIN TOTAL,TP 6.2 g/dL (6.0-8.0); SODIUM,NA 137 mmol/L (135-145)
[2022-09-27] MEDS: Magnesium Chloride 64 MG Tab.ER PO SCH (20:09)
[2022-09-27] MEDS: Prazosin 1 MG Cap PO SCH (20:09)
[2022-09-27] MEDS: Melatonin 3 MG Tab PO SCH (20:09)
[2022-09-27] MEDS: Pregabalin 75 MG Cap PO SCH (20:09)
[2022-09-27] MEDS: QUEtiapine 100 MG Tab PO SCH (20:10)
[2022-09-28] MEDS: Pantoprazole 20 MG Tab, Delayed Release PO SCH (06:02)
[2022-09-28] MEDS: Formoterol/Mometasone 100-5 MCG 8.8 GM Inhaler IH SCH ×2 (06:02→20:36)
[2022-09-28] MEDS: Levothyroxine 75 MCG Tab PO SCH (06:03)
[2022-09-28] MEDS: Venlafaxine 150 MG Cap.ER PO SCH (09:59)
[2022-09-28] MEDS: Losartan 100 MG Tab PO SCH (09:59)
[2022-09-28] MEDS: Ezetimibe 10 MG Tab PO SCH (09:59)
[2022-09-28] MEDS: Acetaminophen 500 MG Tab PO SCH ×3 (10:00→20:38)
[2022-09-28] MEDS: Loratadine 10 MG Tab PO SCH (10:00)
[2022-09-28] MEDS: Metoprolol Succinate 50 MG Tab.ER PO SCH (10:00)
[2022-09-28] MEDS: amLODIPine 10 MG Tab PO SCH (10:00)
[2022-09-28] MEDS: Menthol 10%/Methyl Salicylate 30% 85 GM Tube TOP SCH ×2 (10:01→20:35)
[2022-09-28] MEDS: Prazosin 1 MG Cap PO SCH (20:37)
[2022-09-28] MEDS: Pregabalin 75 MG Cap PO SCH (20:37)
[2022-09-28] MEDS: Melatonin 3 MG Tab PO SCH (20:37)
[2022-09-28] MEDS: Magnesium Chloride 64 MG Tab.ER PO SCH (20:37)
[2022-09-28] MEDS: QUEtiapine 100 MG Tab PO SCH (20:38)
[2022-09-29] MEDS: Levothyroxine 75 MCG Tab PO SCH (06:09)
[2022-09-29] MEDS: Pantoprazole 20 MG Tab, Delayed Release PO SCH (06:09)
[2022-09-29] MEDS: Formoterol/Mometasone 100-5 MCG 8.8 GM Inhaler IH SCH ×2 (06:10→20:24)
[2022-09-29] MEDS: Menthol 10%/Methyl Salicylate 30% 85 GM Tube TOP SCH ×2 (08:38→20:24)
[2022-09-29] MEDS: Metoprolol Succinate 50 MG Tab.ER PO SCH (08:39)
[2022-09-29] MEDS: amLODIPine 10 MG Tab PO SCH (08:39)
[2022-09-29] MEDS: Ezetimibe 10 MG Tab PO SCH (08:39)
[2022-09-29] MEDS: Venlafaxine 150 MG Cap.ER PO SCH (08:39)
[2022-09-29] MEDS: Losartan 100 MG Tab PO SCH (08:39)
[2022-09-29] MEDS: Loratadine 10 MG Tab PO SCH (08:39)
[2022-09-29] MEDS: Acetaminophen 500 MG Tab PO SCH ×3 (08:39→20:23)
[2022-09-29] MEDS: Pregabalin 75 MG Cap PO SCH (20:24)
[2022-09-29] MEDS: Prazosin 1 MG Cap PO SCH (20:25)
[2022-09-29] MEDS: Melatonin 3 MG Tab PO SCH (20:26)
[2022-09-29] MEDS: QUEtiapine 100 MG Tab PO SCH (20:26)
[2022-09-30] MEDS: Pantoprazole 20 MG Tab, Delayed Release PO SCH (06:40)
[2022-09-30] MEDS: Levothyroxine 75 MCG Tab PO SCH (06:40)
[2022-09-30] MEDS: Formoterol/Mometasone 100-5 MCG 8.8 GM Inhaler IH SCH ×2 (06:40→20:13)
[2022-09-30] MEDS: Acetaminophen 500 MG Tab PO SCH ×3 (08:25→20:12)
[2022-09-30] MEDS: Losartan 100 MG Tab PO SCH (08:26)
[2022-09-30] MEDS: Loratadine 10 MG Tab PO SCH (08:26)
[2022-09-30] MEDS: Venlafaxine 150 MG Cap.ER PO SCH (08:26)
[2022-09-30] MEDS: Menthol 10%/Methyl Salicylate 30% 85 GM Tube TOP SCH ×2 (08:26→20:11)
[2022-09-30] MEDS: amLODIPine 10 MG Tab PO SCH (08:27)
[2022-09-30] MEDS: Metoprolol Succinate 50 MG Tab.ER PO SCH (08:27)
[2022-09-30] MEDS: Ezetimibe 10 MG Tab PO SCH (08:28)
[2022-09-30] MEDS: Prazosin 1 MG Cap PO SCH (20:12)
[2022-09-30] MEDS: Pregabalin 75 MG Cap PO SCH (20:12)
[2022-09-30] MEDS: QUEtiapine 100 MG Tab PO SCH (20:12)
[2022-09-30] MEDS: Melatonin 3 MG Tab PO SCH (20:12)
[2022-10-01] MEDS: Formoterol/Mometasone 100-5 MCG 8.8 GM Inhaler IH SCH ×2 (06:29→20:26)
[2022-10-01] MEDS: Levothyroxine 75 MCG Tab PO SCH (06:29)
[2022-10-01] MEDS: Pantoprazole 20 MG Tab, Delayed Release PO SCH (06:29)
[2022-10-01] MEDS: Acetaminophen 500 MG Tab PO SCH ×3 (08:07→20:27)
[2022-10-01] MEDS: Loratadine 10 MG Tab PO SCH (08:07)
[2022-10-01] MEDS: Ezetimibe 10 MG Tab PO SCH (08:07)
[2022-10-01] MEDS: Venlafaxine 150 MG Cap.ER PO SCH (08:07)
[2022-10-01] MEDS: Losartan 100 MG Tab PO SCH (08:08)
[2022-10-01] MEDS: amLODIPine 10 MG Tab PO SCH (08:09)
[2022-10-01] MEDS: Menthol 10%/Methyl Salicylate 30% 85 GM Tube TOP SCH ×2 (08:09→20:26)
[2022-10-01] MEDS: Metoprolol Succinate 50 MG Tab.ER PO SCH (08:10)
[2022-10-01] MEDS: Melatonin 3 MG Tab PO SCH (20:26)
[2022-10-01] MEDS: QUEtiapine 100 MG Tab PO SCH (20:26)
[2022-10-01] MEDS: Pregabalin 75 MG Cap PO SCH (20:26)
[2022-10-01] MEDS: Prazosin 1 MG Cap PO SCH (20:27)
[2022-10-02] MEDS: Formoterol/Mometasone 100-5 MCG 8.8 GM Inhaler IH SCH ×2 (06:17→20:07)
[2022-10-02] MEDS: Levothyroxine 75 MCG Tab PO SCH (06:17)
[2022-10-02] MEDS: Pantoprazole 20 MG Tab, Delayed Release PO SCH (06:17)
[2022-10-02] MEDS: Acetaminophen 500 MG Tab PO SCH ×3 (08:24→20:08)
[2022-10-02] MEDS: Ezetimibe 10 MG Tab PO SCH (08:25)
[2022-10-02] MEDS: Losartan 100 MG Tab PO SCH (08:25)
[2022-10-02] MEDS: amLODIPine 10 MG Tab PO SCH (08:26)
[2022-10-02] MEDS: Loratadine 10 MG Tab PO SCH (08:26)
[2022-10-02] MEDS: Metoprolol Succinate 50 MG Tab.ER PO SCH (08:26)
[2022-10-02] MEDS: Venlafaxine 150 MG Cap.ER PO SCH (08:26)
[2022-10-02] MEDS: Menthol 10%/Methyl Salicylate 30% 85 GM Tube TOP SCH ×2 (08:27→20:07)
[2022-10-02] MEDS: Pregabalin 75 MG Cap PO SCH (20:08)
[2022-10-02] MEDS: Melatonin 3 MG Tab PO SCH (20:08)
[2022-10-02] MEDS: QUEtiapine 100 MG Tab PO SCH (20:08)
[2022-10-02] MEDS: Prazosin 1 MG Cap PO SCH (20:09)
[2022-10-03] MEDS: Pantoprazole 20 MG Tab, Delayed Release PO SCH (06:17)
[2022-10-03] MEDS: Levothyroxine 75 MCG Tab PO SCH (06:17)
[2022-10-03] MEDS: Formoterol/Mometasone 100-5 MCG 8.8 GM Inhaler IH SCH ×2 (06:18→20:06)
[2022-10-03] MEDS: Acetaminophen 500 MG Tab PO SCH ×3 (08:38→20:06)
[2022-10-03] MEDS: Loratadine 10 MG Tab PO SCH (08:38)
[2022-10-03] MEDS: Ezetimibe 10 MG Tab PO SCH (08:38)
[2022-10-03] MEDS: Losartan 100 MG Tab PO SCH (08:39)
[2022-10-03] MEDS: Venlafaxine 150 MG Cap.ER PO SCH (08:39)
[2022-10-03] MEDS: amLODIPine 10 MG Tab PO SCH (08:39)
[2022-10-03] MEDS: Metoprolol Succinate 50 MG Tab.ER PO SCH (08:39)
[2022-10-03] MEDS: Menthol 10%/Methyl Salicylate 30% 85 GM Tube TOP SCH ×2 (08:39→20:08)
[2022-10-03] MEDS: Pregabalin 75 MG Cap PO SCH (20:07)
[2022-10-03] MEDS: QUEtiapine 100 MG Tab PO SCH (20:07)
[2022-10-03] MEDS: Prazosin 1 MG Cap PO SCH (20:07)
[2022-10-03] MEDS: Melatonin 3 MG Tab PO SCH (20:07)
[2022-10-04] MEDS: Levothyroxine 75 MCG Tab PO SCH (06:05)
[2022-10-04] MEDS: Formoterol/Mometasone 100-5 MCG 8.8 GM Inhaler IH SCH ×2 (06:06→20:32)
[2022-10-04] MEDS: Pantoprazole 20 MG Tab, Delayed Release PO SCH (06:06)
[2022-10-04] MEDS: Acetaminophen 500 MG Tab PO SCH ×3 (08:31→20:33)
[2022-10-04] MEDS: Ezetimibe 10 MG Tab PO SCH (08:31)
[2022-10-04] MEDS: Venlafaxine 150 MG Cap.ER PO SCH (08:32)
[2022-10-04] MEDS: Menthol 10%/Methyl Salicylate 30% 85 GM Tube TOP SCH ×2 (08:32→20:32)
[2022-10-04] MEDS: Loratadine 10 MG Tab PO SCH (08:33)
[2022-10-04] MEDS: Losartan 100 MG Tab PO SCH (08:33)
[2022-10-04] MEDS: Metoprolol Succinate 50 MG Tab.ER PO SCH (08:34)
[2022-10-04] MEDS: amLODIPine 10 MG Tab PO SCH (08:34)
[2022-10-04] MEDS: Pregabalin 75 MG Cap PO SCH (20:33)
[2022-10-04] MEDS: Melatonin 3 MG Tab PO SCH (20:34)
[2022-10-04] MEDS: Prazosin 1 MG Cap PO SCH (20:34)
[2022-10-04] MEDS: QUEtiapine 100 MG Tab PO SCH (20:34)
[2022-10-05] MEDS: Levothyroxine 75 MCG Tab PO SCH (06:19)
[2022-10-05] MEDS: Formoterol/Mometasone 100-5 MCG 8.8 GM Inhaler IH SCH ×2 (06:19→20:31)
[2022-10-05] MEDS: Pantoprazole 20 MG Tab, Delayed Release PO SCH (06:19)
[2022-10-05] MEDS: Loratadine 10 MG Tab PO SCH (09:13)
[2022-10-05] MEDS: Venlafaxine 150 MG Cap.ER PO SCH (09:14)
[2022-10-05] MEDS: Losartan 100 MG Tab PO SCH (09:14)
[2022-10-05] MEDS: Menthol 10%/Methyl Salicylate 30% 85 GM Tube TOP SCH ×2 (09:15→20:30)
[2022-10-05] MEDS: amLODIPine 10 MG Tab PO SCH (09:15)
[2022-10-05] MEDS: Metoprolol Succinate 50 MG Tab.ER PO SCH (09:15)
[2022-10-05] MEDS: Acetaminophen 500 MG Tab PO SCH ×3 (09:16→20:36)
[2022-10-05] MEDS: Ezetimibe 10 MG Tab PO SCH (09:17)
[2022-10-05] MEDS: Prazosin 1 MG Cap PO SCH (20:32)
[2022-10-05] MEDS: Melatonin 3 MG Tab PO SCH (20:32)
[2022-10-05] MEDS: Pregabalin 75 MG Cap PO SCH (20:32)
[2022-10-05] MEDS: QUEtiapine 100 MG Tab PO SCH (20:36)
[2022-10-06] MEDS: Pantoprazole 20 MG Tab, Delayed Release PO SCH (06:04)
[2022-10-06] MEDS: Formoterol/Mometasone 100-5 MCG 8.8 GM Inhaler IH SCH ×2 (06:04→20:18)
[2022-10-06] MEDS: Levothyroxine 75 MCG Tab PO SCH (06:04)
[2022-10-06] MEDS: Loratadine 10 MG Tab PO SCH (08:34)
[2022-10-06] MEDS: Acetaminophen 500 MG Tab PO SCH ×3 (08:34→20:19)
[2022-10-06] MEDS: Losartan 100 MG Tab PO SCH (08:35)
[2022-10-06] MEDS: Metoprolol Succinate 50 MG Tab.ER PO SCH (08:35)
[2022-10-06] MEDS: amLODIPine 10 MG Tab PO SCH (08:35)
[2022-10-06] MEDS: Venlafaxine 150 MG Cap.ER PO SCH (08:35)
[2022-10-06] MEDS: Ezetimibe 10 MG Tab PO SCH (08:35)
[2022-10-06] MEDS: Menthol 10%/Methyl Salicylate 30% 85 GM Tube TOP SCH ×2 (08:37→20:17)
[2022-10-06] MEDS: Diclofenac Sodium 1% Gel 100 GM Tube TOP PRN (10:20)
[2022-10-06] MEDS: Hydrocortisone Acetate 1% Crm 30 GM Tube TOP PRN (16:25)
[2022-10-06] MEDS: Pregabalin 75 MG Cap PO SCH (20:18)
[2022-10-06] MEDS: Melatonin 3 MG Tab PO SCH (20:18)
[2022-10-06] MEDS: Prazosin 1 MG Cap PO SCH (20:19)
[2022-10-06] MEDS: QUEtiapine 100 MG Tab PO SCH (20:19)
[2022-10-07] MEDS: Levothyroxine 75 MCG Tab PO SCH (06:17)
[2022-10-07] MEDS: Pantoprazole 20 MG Tab, Delayed Release PO SCH (06:17)
[2022-10-07] MEDS: Formoterol/Mometasone 100-5 MCG 8.8 GM Inhaler IH SCH ×2 (06:18→20:10)
[2022-10-07] MEDS: amLODIPine 10 MG Tab PO SCH (09:03)
[2022-10-07] MEDS: Venlafaxine 150 MG Cap.ER PO SCH (09:04)
[2022-10-07] MEDS: Ezetimibe 10 MG Tab PO SCH (09:04)
[2022-10-07] MEDS: Losartan 100 MG Tab PO SCH (09:04)
[2022-10-07] MEDS: Menthol 10%/Methyl Salicylate 30% 85 GM Tube TOP SCH ×2 (09:04→20:10)
[2022-10-07] MEDS: Metoprolol Succinate 50 MG Tab.ER PO SCH (09:05)
[2022-10-07] MEDS: Acetaminophen 500 MG Tab PO SCH ×3 (09:05→20:12)
[2022-10-07] MEDS: Hydrocortisone Acetate 1% Crm 30 GM Tube TOP PRN ×2 (09:06→20:18)
[2022-10-07] MEDS: Loratadine 10 MG Tab PO SCH (09:40)
[2022-10-07] MEDS: Diclofenac Sodium 1% Gel 100 GM Tube TOP PRN (13:41)
[2022-10-07] MEDS: QUEtiapine 100 MG Tab PO SCH (20:11)
[2022-10-07] MEDS: Prazosin 1 MG Cap PO SCH (20:11)
[2022-10-07] MEDS: Pregabalin 75 MG Cap PO SCH (20:11)
[2022-10-07] MEDS: Melatonin 3 MG Tab PO SCH (20:11)
[2022-10-08] MEDS: Levothyroxine 75 MCG Tab PO SCH (06:16)
[2022-10-08] MEDS: Pantoprazole 20 MG Tab, Delayed Release PO SCH (06:16)
[2022-10-08] MEDS: Formoterol/Mometasone 100-5 MCG 8.8 GM Inhaler IH SCH ×2 (06:16→20:28)
[2022-10-08] MEDS: Metoprolol Succinate 50 MG Tab.ER PO SCH (08:33)
[2022-10-08] MEDS: Losartan 100 MG Tab PO SCH (08:34)
[2022-10-08] MEDS: Acetaminophen 500 MG Tab PO SCH ×3 (08:35→20:29)
[2022-10-08] MEDS: amLODIPine 10 MG Tab PO SCH (08:35)
[2022-10-08] MEDS: Venlafaxine 150 MG Cap.ER PO SCH (08:37)
[2022-10-08] MEDS: Loratadine 10 MG Tab PO SCH (08:38)
[2022-10-08] MEDS: Menthol 10%/Methyl Salicylate 30% 85 GM Tube TOP SCH ×2 (08:39→20:28)
[2022-10-08] MEDS: Ezetimibe 10 MG Tab PO SCH (08:41)
[2022-10-08] MEDS: Pregabalin 75 MG Cap PO SCH (20:29)
[2022-10-08] MEDS: QUEtiapine 100 MG Tab PO SCH (20:29)
[2022-10-08] MEDS: Prazosin 1 MG Cap PO SCH (20:30)
[2022-10-08] MEDS: Melatonin 3 MG Tab PO SCH (20:30)
[2022-10-08] MEDS: Hydrocortisone Acetate 1% Crm 30 GM Tube TOP PRN (21:44)
[2022-10-09] MEDS: Levothyroxine 75 MCG Tab PO SCH (06:55)
[2022-10-09] MEDS: Pantoprazole 20 MG Tab, Delayed Release PO SCH (06:55)
[2022-10-09] MEDS: Formoterol/Mometasone 100-5 MCG 8.8 GM Inhaler IH SCH ×2 (06:55→20:46)
[2022-10-09] MEDS: Ezetimibe 10 MG Tab PO SCH (09:10)
[2022-10-09] MEDS: Acetaminophen 500 MG Tab PO SCH ×3 (09:10→20:45)
[2022-10-09] MEDS: Loratadine 10 MG Tab PO SCH (09:11)
[2022-10-09] MEDS: Losartan 100 MG Tab PO SCH (09:11)
[2022-10-09] MEDS: Metoprolol Succinate 50 MG Tab.ER PO SCH (09:11)
[2022-10-09] MEDS: amLODIPine 10 MG Tab PO SCH (09:11)
[2022-10-09] MEDS: Menthol 10%/Methyl Salicylate 30% 85 GM Tube TOP SCH ×2 (09:11→20:43)
[2022-10-09] MEDS: Venlafaxine 150 MG Cap.ER PO SCH (09:11)
[2022-10-09] MEDS: Pregabalin 75 MG Cap PO SCH (20:43)
[2022-10-09] MEDS: QUEtiapine 100 MG Tab PO SCH (20:44)
[2022-10-09] MEDS: Melatonin 3 MG Tab PO SCH (20:44)
[2022-10-09] MEDS: Prazosin 1 MG Cap PO SCH (20:44)
[2022-10-09] MEDS ORDERED: Mirtazapine 15 MG Tab PO SCH (21:00)
[2022-10-09] MEDS ORDERED: PREGABALIN 75 MG PO SCH (21:00)
[2022-10-09] MEDS ORDERED: Venlafaxine 150 MG Cap.ER PO SCH (21:00)
[2022-10-10] MEDS: Formoterol/Mometasone 100-5 MCG 8.8 GM Inhaler IH SCH ×2 (06:05→21:18)
[2022-10-10] MEDS: Levothyroxine 75 MCG Tab PO SCH (06:05)
[2022-10-10] MEDS: Pantoprazole 20 MG Tab, Delayed Release PO SCH (06:05)
[2022-10-10] MEDS: Menthol 10%/Methyl Salicylate 30% 85 GM Tube TOP SCH ×2 (07:59→21:20)
[2022-10-10] MEDS: Ezetimibe 10 MG Tab PO SCH (08:00)
[2022-10-10] MEDS: Losartan 100 MG Tab PO SCH (08:00)
[2022-10-10] MEDS: Acetaminophen 500 MG Tab PO SCH ×3 (08:00→21:22)
[2022-10-10] MEDS: atorvaSTATin 10 MG Tab PO SCH (08:00)
[2022-10-10] MEDS: Loratadine 10 MG Tab PO SCH (08:00)
[2022-10-10] MEDS: amLODIPine 10 MG Tab PO SCH (08:01)
[2022-10-10] MEDS: Metoprolol Succinate 50 MG Tab.ER PO SCH (08:01)
[2022-10-10] MEDS: Venlafaxine 150 MG Cap.ER PO SCH (08:01)
[2022-10-10] MEDS ORDERED: Levothyroxine 75 MCG Tab PO SCH (09:00)
[2022-10-10] MEDS: QUEtiapine 100 MG Tab PO SCH (21:21)
[2022-10-10] MEDS: Melatonin 3 MG Tab PO SCH (21:21)
[2022-10-10] MEDS: Prazosin 1 MG Cap PO SCH (21:21)
[2022-10-10] MEDS: Pregabalin 75 MG Cap PO SCH (21:26)
[2022-10-11] MEDS: Levothyroxine 75 MCG Tab PO SCH (06:10)
[2022-10-11] MEDS: Pantoprazole 20 MG Tab, Delayed Release PO SCH (06:10)
[2022-10-11] MEDS: Formoterol/Mometasone 100-5 MCG 8.8 GM Inhaler IH SCH ×2 (06:12→20:26)
[2022-10-11] MEDS: amLODIPine 10 MG Tab PO SCH (08:34)
[2022-10-11] MEDS: Acetaminophen 500 MG Tab PO SCH ×3 (08:35→20:28)
[2022-10-11] MEDS: Ezetimibe 10 MG Tab PO SCH (08:35)
[2022-10-11] MEDS: Metoprolol Succinate 50 MG Tab.ER PO SCH (08:36)
[2022-10-11] MEDS: Venlafaxine 150 MG Cap.ER PO SCH (08:36)
[2022-10-11] MEDS: Loratadine 10 MG Tab PO SCH (08:36)
[2022-10-11] MEDS: Losartan 100 MG Tab PO SCH (08:36)
[2022-10-11] MEDS: Menthol 10%/Methyl Salicylate 30% 85 GM Tube TOP SCH ×2 (08:37→20:26)
[2022-10-11] MEDS: atorvaSTATin 10 MG Tab PO SCH (08:38)
[2022-10-11] MEDS: Pregabalin 75 MG Cap PO SCH (20:27)
[2022-10-11] MEDS: Melatonin 3 MG Tab PO SCH (20:27)
[2022-10-11] MEDS: QUEtiapine 100 MG Tab PO SCH (20:28)
[2022-10-11] MEDS: Prazosin 1 MG Cap PO SCH (20:28)
[2022-10-11] MEDS: Hydrocortisone Acetate 1% Crm 30 GM Tube TOP PRN (20:31)
[2022-10-12] MEDS: Levothyroxine 75 MCG Tab PO SCH (06:19)
[2022-10-12] MEDS: Pantoprazole 20 MG Tab, Delayed Release PO SCH (06:19)
[2022-10-12] MEDS: Formoterol/Mometasone 100-5 MCG 8.8 GM Inhaler IH SCH ×2 (06:19→21:12)
[2022-10-12] MEDS: Loratadine 10 MG Tab PO SCH (09:19)
[2022-10-12] MEDS: Venlafaxine 150 MG Cap.ER PO SCH (09:21)
[2022-10-12] MEDS: Losartan 100 MG Tab PO SCH (09:21)
[2022-10-12] MEDS: Menthol 10%/Methyl Salicylate 30% 85 GM Tube TOP SCH ×2 (09:21→21:12)
[2022-10-12] MEDS: amLODIPine 10 MG Tab PO SCH (09:22)
[2022-10-12] MEDS: atorvaSTATin 10 MG Tab PO SCH (09:22)
[2022-10-12] MEDS: Metoprolol Succinate 50 MG Tab.ER PO SCH (09:22)
[2022-10-12] MEDS: Acetaminophen 500 MG Tab PO SCH ×3 (09:25→21:13)
[2022-10-12] MEDS: Ezetimibe 10 MG Tab PO SCH (09:27)
[2022-10-12] MEDS: Hydrocortisone Acetate 1% Crm 30 GM Tube TOP PRN ×2 (09:30→21:14)
[2022-10-12] MEDS: Non-Formulary Medication 1 Each (Liraglutide [Victoza] 18 MG/3 ML Pen) SUBCUT SCH ×2 (11:09→12:48)
[2022-10-12] MEDS: Diclofenac Sodium 1% Gel 100 GM Tube TOP PRN (13:55)
[2022-10-12] MEDS: Melatonin 3 MG Tab PO SCH (21:12)
[2022-10-12] MEDS: Prazosin 1 MG Cap PO SCH (21:12)
[2022-10-12] MEDS: Pregabalin 75 MG Cap PO SCH (21:12)
[2022-10-12] MEDS: QUEtiapine 100 MG Tab PO SCH (21:13)
[2022-10-13] MEDS: Formoterol/Mometasone 100-5 MCG 8.8 GM Inhaler IH SCH ×2 (06:06→20:18)
[2022-10-13] MEDS: Pantoprazole 20 MG Tab, Delayed Release PO SCH (06:06)
[2022-10-13] MEDS: Levothyroxine 75 MCG Tab PO SCH (06:06)
[2022-10-13] MEDS: Menthol 10%/Methyl Salicylate 30% 85 GM Tube TOP SCH ×2 (08:26→20:18)
[2022-10-13] MEDS: Losartan 100 MG Tab PO SCH (08:27)
[2022-10-13] MEDS: Venlafaxine 150 MG Cap.ER PO SCH (08:27)
[2022-10-13] MEDS: Loratadine 10 MG Tab PO SCH (08:27)
[2022-10-13] MEDS: Acetaminophen 500 MG Tab PO SCH ×3 (08:28→20:19)
[2022-10-13] MEDS: atorvaSTATin 10 MG Tab PO SCH (08:28)
[2022-10-13] MEDS: amLODIPine 10 MG Tab PO SCH (08:28)
[2022-10-13] MEDS: Metoprolol Succinate 50 MG Tab.ER PO SCH (08:29)
[2022-10-13] MEDS: Ezetimibe 10 MG Tab PO SCH (08:29)
[2022-10-13] MEDS: Hydrocortisone Acetate 1% Crm 30 GM Tube TOP PRN ×2 (13:53→21:59)
[2022-10-13] MEDS: QUEtiapine 100 MG Tab PO SCH (20:19)
[2022-10-13] MEDS: Pregabalin 75 MG Cap PO SCH (20:19)
[2022-10-13] MEDS: Melatonin 3 MG Tab PO SCH (20:19)
[2022-10-13] MEDS: Prazosin 1 MG Cap PO SCH (20:20)
[2022-10-14] MEDS: Levothyroxine 75 MCG Tab PO SCH (06:26)
[2022-10-14] MEDS: Pantoprazole 20 MG Tab, Delayed Release PO SCH (06:26)
[2022-10-14] MEDS: Formoterol/Mometasone 100-5 MCG 8.8 GM Inhaler IH SCH ×2 (06:27→20:43)
[2022-10-14] MEDS: Loratadine 10 MG Tab PO SCH (09:26)
[2022-10-14] MEDS: Losartan 100 MG Tab PO SCH (09:26)
[2022-10-14] MEDS: atorvaSTATin 10 MG Tab PO SCH (09:27)
[2022-10-14] MEDS: Venlafaxine 150 MG Cap.ER PO SCH (09:27)
[2022-10-14] MEDS: Menthol 10%/Methyl Salicylate 30% 85 GM Tube TOP SCH ×2 (09:27→20:43)
[2022-10-14] MEDS: amLODIPine 10 MG Tab PO SCH (09:27)
[2022-10-14] MEDS: Ezetimibe 10 MG Tab PO SCH (09:28)
[2022-10-14] MEDS: Metoprolol Succinate 50 MG Tab.ER PO SCH (09:28)
[2022-10-14] MEDS: Acetaminophen 500 MG Tab PO SCH ×3 (09:28→20:48)
[2022-10-14] MEDS ORDERED: Ondansetron 4 MG Tab.DIS PO PRN (14:04)
[2022-10-14] MEDS ORDERED: Ondansetron 4 MG Tab.DIS PO ONE (14:05)
[2022-10-14] MEDS: Prazosin 1 MG Cap PO SCH (20:44)
[2022-10-14] MEDS: QUEtiapine 100 MG Tab PO SCH (20:44)
[2022-10-14] MEDS: Pregabalin 75 MG Cap PO SCH (20:47)
[2022-10-14] MEDS: Melatonin 3 MG Tab PO SCH (20:48)
[2022-10-15] MEDS: Formoterol/Mometasone 100-5 MCG 8.8 GM Inhaler IH SCH ×3 (05:44→20:22)
[2022-10-15] MEDS: Pantoprazole 20 MG Tab, Delayed Release PO SCH (05:44)
[2022-10-15] MEDS: Levothyroxine 75 MCG Tab PO SCH (05:44)
[2022-10-15] MEDS: Loratadine 10 MG Tab PO SCH (08:12)
[2022-10-15] MEDS: amLODIPine 10 MG Tab PO SCH (08:12)
[2022-10-15] MEDS: Losartan 100 MG Tab PO SCH (08:12)
[2022-10-15] MEDS: Acetaminophen 500 MG Tab PO SCH ×3 (08:12→20:26)
[2022-10-15] MEDS: atorvaSTATin 10 MG Tab PO SCH (08:12)
[2022-10-15] MEDS: Metoprolol Succinate 50 MG Tab.ER PO SCH (08:12)
[2022-10-15] MEDS: Venlafaxine 150 MG Cap.ER PO SCH (08:12)
[2022-10-15] MEDS: Ezetimibe 10 MG Tab PO SCH (08:12)
[2022-10-15] MEDS: Menthol 10%/Methyl Salicylate 30% 85 GM Tube TOP SCH ×2 (08:13→20:23)
[2022-10-15] MEDS: Aluminum Hydroxide/Magnesium Hydroxide Susp 30 ML Cup PO PRN (15:05)
[2022-10-15] MEDS: Prazosin 1 MG Cap PO SCH (20:26)
[2022-10-15] MEDS: QUEtiapine 100 MG Tab PO SCH (20:26)
[2022-10-15] MEDS: Melatonin 3 MG Tab PO SCH (20:26)
[2022-10-15] MEDS: Pregabalin 75 MG Cap PO SCH (20:26)
[2022-10-16] MEDS: Levothyroxine 75 MCG Tab PO SCH (06:00)
[2022-10-16] MEDS: Pantoprazole 20 MG Tab, Delayed Release PO SCH (06:00)
[2022-10-16] MEDS: Formoterol/Mometasone 100-5 MCG 8.8 GM Inhaler IH SCH ×2 (06:00→20:31)
[2022-10-16] MEDS: Ezetimibe 10 MG Tab PO SCH (08:15)
[2022-10-16] MEDS: Acetaminophen 500 MG Tab PO SCH ×3 (08:15→20:31)
[2022-10-16] MEDS: Metoprolol Succinate 50 MG Tab.ER PO SCH (08:16)
[2022-10-16] MEDS: Loratadine 10 MG Tab PO SCH (08:16)
[2022-10-16] MEDS: Losartan 100 MG Tab PO SCH (08:16)
[2022-10-16] MEDS: atorvaSTATin 10 MG Tab PO SCH (08:17)
[2022-10-16] MEDS: Venlafaxine 150 MG Cap.ER PO SCH (08:18)
[2022-10-16] MEDS: amLODIPine 10 MG Tab PO SCH (08:18)
[2022-10-16] MEDS: Menthol 10%/Methyl Salicylate 30% 85 GM Tube TOP SCH ×2 (08:22→20:31)
[2022-10-16] MEDS: Melatonin 3 MG Tab PO SCH (20:31)
[2022-10-16] MEDS: Pregabalin 75 MG Cap PO SCH (20:31)
[2022-10-16] MEDS: QUEtiapine 100 MG Tab PO SCH (20:32)
[2022-10-16] MEDS: Prazosin 1 MG Cap PO SCH (20:32)
[2022-10-17] MEDS: Levothyroxine 75 MCG Tab PO SCH (06:04)
[2022-10-17] MEDS: Pantoprazole 20 MG Tab, Delayed Release PO SCH (06:04)
[2022-10-17] MEDS: Formoterol/Mometasone 100-5 MCG 8.8 GM Inhaler IH SCH ×2 (06:04→20:11)
[2022-10-17] MEDS: amLODIPine 10 MG Tab PO SCH (08:44)
[2022-10-17] MEDS: Acetaminophen 500 MG Tab PO SCH ×3 (08:44→20:12)
[2022-10-17] MEDS: atorvaSTATin 10 MG Tab PO SCH (08:44)
[2022-10-17] MEDS: Ezetimibe 10 MG Tab PO SCH (08:44)
[2022-10-17] MEDS: Loratadine 10 MG Tab PO SCH (08:45)
[2022-10-17] MEDS: Venlafaxine 150 MG Cap.ER PO SCH (08:45)
[2022-10-17] MEDS: Metoprolol Succinate 50 MG Tab.ER PO SCH (08:45)
[2022-10-17] MEDS: Losartan 100 MG Tab PO SCH (08:45)
[2022-10-17] MEDS: Menthol 10%/Methyl Salicylate 30% 85 GM Tube TOP SCH ×2 (08:45→20:10)
[2022-10-17] MEDS: Aluminum Hydroxide/Magnesium Hydroxide Susp 30 ML Cup PO PRN (13:14)
[2022-10-17] MEDS: Pregabalin 75 MG Cap PO SCH (20:12)
[2022-10-17] MEDS: Prazosin 1 MG Cap PO SCH (20:12)
[2022-10-17] MEDS: Melatonin 3 MG Tab PO SCH (20:12)
[2022-10-17] MEDS: QUEtiapine 100 MG Tab PO SCH (20:12)
[2022-10-17] MEDS: Hydrocortisone Acetate 1% Crm 30 GM Tube TOP PRN (20:14)
[2022-10-18] MEDS: Formoterol/Mometasone 100-5 MCG 8.8 GM Inhaler IH SCH ×2 (06:16→20:17)
[2022-10-18] MEDS: Pantoprazole 20 MG Tab, Delayed Release PO SCH (06:16)
[2022-10-18] MEDS: Levothyroxine 75 MCG Tab PO SCH (06:16)
[2022-10-18] MEDS: Loratadine 10 MG Tab PO SCH (08:39)
[2022-10-18] MEDS: Venlafaxine 150 MG Cap.ER PO SCH (08:39)
[2022-10-18] MEDS: Menthol 10%/Methyl Salicylate 30% 85 GM Tube TOP SCH ×2 (08:39→20:17)
[2022-10-18] MEDS: Losartan 100 MG Tab PO SCH (08:39)
[2022-10-18] MEDS: Metoprolol Succinate 50 MG Tab.ER PO SCH (08:40)
[2022-10-18] MEDS: atorvaSTATin 10 MG Tab PO SCH (08:40)
[2022-10-18] MEDS: amLODIPine 10 MG Tab PO SCH (08:40)
[2022-10-18] MEDS: Acetaminophen 500 MG Tab PO SCH ×3 (08:41→20:18)
[2022-10-18] MEDS: Ezetimibe 10 MG Tab PO SCH (08:41)
[2022-10-18] MEDS: Hydrocortisone Acetate 1% Crm 30 GM Tube TOP PRN ×2 (08:43→20:20)
[2022-10-18] MEDS: Diclofenac Sodium 1% Gel 100 GM Tube TOP PRN (08:45)
[2022-10-18] MEDS: Polyethylene Glycol 3350 Powder 17 GM Packet PO PRN (14:51)
[2022-10-18] MEDS: Pregabalin 75 MG Cap PO SCH (20:17)
[2022-10-18] MEDS: Melatonin 3 MG Tab PO SCH (20:18)
[2022-10-18] MEDS: Prazosin 1 MG Cap PO SCH (20:18)
[2022-10-18] MEDS: QUEtiapine 100 MG Tab PO SCH (20:18)
[2022-10-19] MEDS: Formoterol/Mometasone 100-5 MCG 8.8 GM Inhaler IH SCH ×2 (07:05→20:17)
[2022-10-19] MEDS: Pantoprazole 20 MG Tab, Delayed Release PO SCH (07:05)
[2022-10-19] MEDS: Levothyroxine 75 MCG Tab PO SCH (07:05)
[2022-10-19] MEDS: Loratadine 10 MG Tab PO SCH (09:16)
[2022-10-19] MEDS: atorvaSTATin 10 MG Tab PO SCH (09:17)
[2022-10-19] MEDS: Menthol 10%/Methyl Salicylate 30% 85 GM Tube TOP SCH ×2 (09:17→20:16)
[2022-10-19] MEDS: amLODIPine 10 MG Tab PO SCH (09:17)
[2022-10-19] MEDS: Losartan 100 MG Tab PO SCH (09:17)
[2022-10-19] MEDS: Venlafaxine 150 MG Cap.ER PO SCH (09:17)
[2022-10-19] MEDS: Acetaminophen 500 MG Tab PO SCH ×3 (09:18→20:17)
[2022-10-19] MEDS: Metoprolol Succinate 50 MG Tab.ER PO SCH (09:18)
[2022-10-19] MEDS: Ezetimibe 10 MG Tab PO SCH (09:19)
[2022-10-19] MEDS: Prazosin 1 MG Cap PO SCH (20:17)
[2022-10-19] MEDS: Melatonin 3 MG Tab PO SCH (20:17)
[2022-10-19] MEDS: Pregabalin 75 MG Cap PO SCH (20:17)
[2022-10-19] MEDS: QUEtiapine 100 MG Tab PO SCH (20:20)
[2022-10-19] MEDS: Hydrocortisone Acetate 1% Crm 30 GM Tube TOP PRN (20:22)
[2022-10-20] MEDS: Formoterol/Mometasone 100-5 MCG 8.8 GM Inhaler IH SCH ×2 (06:28→20:10)
[2022-10-20] MEDS: Levothyroxine 75 MCG Tab PO SCH (06:28)
[2022-10-20] MEDS: Pantoprazole 20 MG Tab, Delayed Release PO SCH (06:29)
[2022-10-20] MEDS: Losartan 100 MG Tab PO SCH (08:31)
[2022-10-20] MEDS: Venlafaxine 150 MG Cap.ER PO SCH (08:31)
[2022-10-20] MEDS: amLODIPine 10 MG Tab PO SCH (08:31)
[2022-10-20] MEDS: atorvaSTATin 10 MG Tab PO SCH (08:31)
[2022-10-20] MEDS: Loratadine 10 MG Tab PO SCH (08:31)
[2022-10-20] MEDS: Menthol 10%/Methyl Salicylate 30% 85 GM Tube TOP SCH ×2 (08:32→20:10)
[2022-10-20] MEDS: Ezetimibe 10 MG Tab PO SCH (08:33)
[2022-10-20] MEDS: Metoprolol Succinate 50 MG Tab.ER PO SCH (08:33)
[2022-10-20] MEDS: Acetaminophen 500 MG Tab PO SCH ×3 (08:33→20:09)
[2022-10-20] MEDS: QUEtiapine 100 MG Tab PO SCH (20:09)
[2022-10-20] MEDS: Melatonin 3 MG Tab PO SCH (20:09)
[2022-10-20] MEDS: Pregabalin 75 MG Cap PO SCH (20:09)
[2022-10-20] MEDS: Prazosin 1 MG Cap PO SCH (20:10)
[2022-10-21] MEDS: Formoterol/Mometasone 100-5 MCG 8.8 GM Inhaler IH SCH ×2 (06:33→20:29)
[2022-10-21] MEDS: Levothyroxine 75 MCG Tab PO SCH (06:33)
[2022-10-21] MEDS: Pantoprazole 20 MG Tab, Delayed Release PO SCH (06:33)
[2022-10-21] MEDS: Losartan 100 MG Tab PO SCH (08:29)
[2022-10-21] MEDS: Venlafaxine 150 MG Cap.ER PO SCH (08:29)
[2022-10-21] MEDS: Menthol 10%/Methyl Salicylate 30% 85 GM Tube TOP SCH ×2 (08:29→20:30)
[2022-10-21] MEDS: Loratadine 10 MG Tab PO SCH (08:29)
[2022-10-21] MEDS: Metoprolol Succinate 50 MG Tab.ER PO SCH (08:30)
[2022-10-21] MEDS: amLODIPine 10 MG Tab PO SCH (08:30)
[2022-10-21] MEDS: atorvaSTATin 10 MG Tab PO SCH (08:30)
[2022-10-21] MEDS: Acetaminophen 500 MG Tab PO SCH ×3 (08:31→20:30)
[2022-10-21] MEDS: Hydrocortisone Acetate 1% Crm 30 GM Tube TOP PRN (08:31)
[2022-10-21] MEDS: Ezetimibe 10 MG Tab PO SCH (08:31)
[2022-10-21] MEDS: Nicotine 14 MG/24 Hr Patch TRDERM SCH (10:47)
[2022-10-21] MEDS: Aluminum Hydroxide/Magnesium Hydroxide Susp 30 ML Cup PO PRN (12:55)
[2022-10-21] MEDS: Pregabalin 75 MG Cap PO SCH (20:29)
[2022-10-21] MEDS: QUEtiapine 100 MG Tab PO SCH (20:29)
[2022-10-21] MEDS: Melatonin 3 MG Tab PO SCH (20:29)
[2022-10-21] MEDS: Prazosin 1 MG Cap PO SCH (20:30)
[2022-10-22] MEDS: Levothyroxine 75 MCG Tab PO SCH (05:56)
[2022-10-22] MEDS: Pantoprazole 20 MG Tab, Delayed Release PO SCH (05:56)
[2022-10-22] MEDS: Formoterol/Mometasone 100-5 MCG 8.8 GM Inhaler IH SCH ×2 (06:05→20:44)
[2022-10-22] MEDS: Acetaminophen 500 MG Tab PO SCH ×3 (08:47→20:45)
[2022-10-22] MEDS: Loratadine 10 MG Tab PO SCH (08:49)
[2022-10-22] MEDS: Losartan 100 MG Tab PO SCH (08:49)
[2022-10-22] MEDS: Nicotine 14 MG/24 Hr Patch TRDERM SCH (08:52)
[2022-10-22] MEDS: Menthol 10%/Methyl Salicylate 30% 85 GM Tube TOP SCH ×2 (08:53→20:45)
[2022-10-22] MEDS: amLODIPine 10 MG Tab PO SCH (08:54)
[2022-10-22] MEDS: atorvaSTATin 10 MG Tab PO SCH (08:54)
[2022-10-22] MEDS: Ezetimibe 10 MG Tab PO SCH (08:58)
[2022-10-22] MEDS: Metoprolol Succinate 50 MG Tab.ER PO SCH (08:59)
[2022-10-22] MEDS: Venlafaxine 150 MG Cap.ER PO SCH (08:59)
[2022-10-22] MEDS: Aluminum Hydroxide/Magnesium Hydroxide Susp 30 ML Cup PO PRN (11:20)
[2022-10-22] MEDS: QUEtiapine 100 MG Tab PO SCH (20:45)
[2022-10-22] MEDS: Pregabalin 75 MG Cap PO SCH (20:45)
[2022-10-22] MEDS: Melatonin 3 MG Tab PO SCH (20:45)
[2022-10-22] MEDS: Prazosin 1 MG Cap PO SCH (20:46)
[2022-10-23] MEDS: Levothyroxine 75 MCG Tab PO SCH (06:50)
[2022-10-23] MEDS: Formoterol/Mometasone 100-5 MCG 8.8 GM Inhaler IH SCH ×2 (06:50→20:34)
[2022-10-23] MEDS: Pantoprazole 20 MG Tab, Delayed Release PO SCH (06:50)
[2022-10-23] MEDS: Losartan 100 MG Tab PO SCH (09:00)
[2022-10-23] MEDS: Loratadine 10 MG Tab PO SCH (09:00)
[2022-10-23] MEDS: Venlafaxine 150 MG Cap.ER PO SCH (09:01)
[2022-10-23] MEDS: Nicotine 14 MG/24 Hr Patch TRDERM SCH (09:01)
[2022-10-23] MEDS: Menthol 10%/Methyl Salicylate 30% 85 GM Tube TOP SCH ×2 (09:02→20:35)
[2022-10-23] MEDS: amLODIPine 10 MG Tab PO SCH (09:03)
[2022-10-23] MEDS: atorvaSTATin 10 MG Tab PO SCH (09:03)
[2022-10-23] MEDS: Metoprolol Succinate 50 MG Tab.ER PO SCH (09:04)
[2022-10-23] MEDS: Ezetimibe 10 MG Tab PO SCH (09:05)
[2022-10-23] MEDS: Acetaminophen 500 MG Tab PO SCH ×3 (09:05→20:34)
[2022-10-23] MEDS: Aluminum Hydroxide/Magnesium Hydroxide Susp 30 ML Cup PO PRN (17:40)
[2022-10-23] MEDS: QUEtiapine 100 MG Tab PO SCH (20:33)
[2022-10-23] MEDS: Pregabalin 75 MG Cap PO SCH (20:33)
[2022-10-23] MEDS: Melatonin 3 MG Tab PO SCH (20:33)
[2022-10-23] MEDS: Prazosin 1 MG Cap PO SCH (20:33)
[2022-10-23] MEDS: Hydrocortisone Acetate 1% Crm 30 GM Tube TOP PRN (20:35)
[2022-10-24] MEDS: Levothyroxine 75 MCG Tab PO SCH (06:14)
[2022-10-24] MEDS: Pantoprazole 20 MG Tab, Delayed Release PO SCH (06:14)
[2022-10-24] MEDS: Formoterol/Mometasone 100-5 MCG 8.8 GM Inhaler IH SCH ×2 (06:14→20:48)
[2022-10-24] MEDS: Acetaminophen 500 MG Tab PO SCH ×3 (08:43→21:00)
[2022-10-24] MEDS: Loratadine 10 MG Tab PO SCH (08:44)
[2022-10-24] MEDS: Metoprolol Succinate 50 MG Tab.ER PO SCH (08:44)
[2022-10-24] MEDS: Losartan 100 MG Tab PO SCH (08:44)
[2022-10-24] MEDS: Venlafaxine 150 MG Cap.ER PO SCH (08:44)
[2022-10-24] MEDS: Nicotine 14 MG/24 Hr Patch TRDERM SCH (08:45)
[2022-10-24] MEDS: Ezetimibe 10 MG Tab PO SCH (08:47)
[2022-10-24] MEDS: atorvaSTATin 10 MG Tab PO SCH (08:47)
[2022-10-24] MEDS: amLODIPine 10 MG Tab PO SCH (08:47)
[2022-10-24] MEDS: Menthol 10%/Methyl Salicylate 30% 85 GM Tube TOP SCH ×2 (10:20→20:54)
[2022-10-24] MEDS: Melatonin 3 MG Tab PO SCH (20:50)
[2022-10-24] MEDS: QUEtiapine 100 MG Tab PO SCH (20:59)
[2022-10-24] MEDS: Prazosin 1 MG Cap PO SCH (20:59)
[2022-10-24] MEDS: Pregabalin 75 MG Cap PO SCH (21:12)
[2022-10-25] MEDS: Pantoprazole 20 MG Tab, Delayed Release PO SCH (05:14)
[2022-10-25] MEDS: Levothyroxine 75 MCG Tab PO SCH (05:15)
[2022-10-25] MEDS: Formoterol/Mometasone 100-5 MCG 8.8 GM Inhaler IH SCH ×3 (05:15→20:32)
[2022-10-25] MEDS: Losartan 100 MG Tab PO SCH (08:23)
[2022-10-25] MEDS: Acetaminophen 500 MG Tab PO SCH ×3 (08:23→20:32)
[2022-10-25] MEDS: Ezetimibe 10 MG Tab PO SCH (08:24)
[2022-10-25] MEDS: Metoprolol Succinate 50 MG Tab.ER PO SCH (08:24)
[2022-10-25] MEDS: atorvaSTATin 10 MG Tab PO SCH (08:25)
[2022-10-25] MEDS: Venlafaxine 150 MG Cap.ER PO SCH (08:25)
[2022-10-25] MEDS: amLODIPine 10 MG Tab PO SCH (08:25)
[2022-10-25] MEDS: Menthol 10%/Methyl Salicylate 30% 85 GM Tube TOP SCH ×2 (08:26→20:31)
[2022-10-25] MEDS: Nicotine 14 MG/24 Hr Patch TRDERM SCH (08:26)
[2022-10-25] MEDS: Loratadine 10 MG Tab PO SCH (08:26)
[2022-10-25] MEDS: Pregabalin 75 MG Cap PO SCH (20:32)
[2022-10-25] MEDS: Melatonin 3 MG Tab PO SCH (20:32)
[2022-10-25] MEDS: QUEtiapine 100 MG Tab PO SCH (20:32)
[2022-10-25] MEDS: Prazosin 1 MG Cap PO SCH (20:33)
[2022-10-26] MEDS: Formoterol/Mometasone 100-5 MCG 8.8 GM Inhaler IH SCH ×2 (06:05→20:04)
[2022-10-26] MEDS: Levothyroxine 75 MCG Tab PO SCH (06:05)
[2022-10-26] MEDS: Pantoprazole 20 MG Tab, Delayed Release PO SCH (06:05)
[2022-10-26] MEDS: Losartan 100 MG Tab PO SCH (09:25)
[2022-10-26] MEDS: Loratadine 10 MG Tab PO SCH (09:25)
[2022-10-26] MEDS: Venlafaxine 150 MG Cap.ER PO SCH (09:26)
[2022-10-26] MEDS: Nicotine 14 MG/24 Hr Patch TRDERM SCH (09:26)
[2022-10-26] MEDS: Menthol 10%/Methyl Salicylate 30% 85 GM Tube TOP SCH ×2 (09:28→20:04)
[2022-10-26] MEDS: atorvaSTATin 10 MG Tab PO SCH (09:29)
[2022-10-26] MEDS: amLODIPine 10 MG Tab PO SCH (09:30)
[2022-10-26] MEDS: Acetaminophen 500 MG Tab PO SCH ×3 (09:31→20:05)
[2022-10-26] MEDS: Metoprolol Succinate 50 MG Tab.ER PO SCH (09:31)
[2022-10-26] MEDS: Ezetimibe 10 MG Tab PO SCH (09:32)
[2022-10-26] MEDS: Hydrocortisone Acetate 1% Crm 30 GM Tube TOP PRN (14:12)
[2022-10-26] MEDS: Diclofenac Sodium 1% Gel 100 GM Tube TOP PRN (14:13)
[2022-10-26] MEDS: QUEtiapine 100 MG Tab PO SCH (20:05)
[2022-10-26] MEDS: Prazosin 1 MG Cap PO SCH (20:05)
[2022-10-26] MEDS: Melatonin 3 MG Tab PO SCH (20:05)
[2022-10-26] MEDS: Pregabalin 75 MG Cap PO SCH (20:08)
[2022-10-27] MEDS: Pantoprazole 20 MG Tab, Delayed Release PO SCH (05:02)
[2022-10-27] MEDS: Aluminum Hydroxide/Magnesium Hydroxide Susp 30 ML Cup PO PRN (05:02)
[2022-10-27] MEDS: Levothyroxine 75 MCG Tab PO SCH (05:02)
[2022-10-27] MEDS: Formoterol/Mometasone 100-5 MCG 8.8 GM Inhaler IH SCH ×2 (07:16→20:36)
[2022-10-27] MEDS: Menthol 10%/Methyl Salicylate 30% 85 GM Tube TOP SCH ×2 (09:48→20:36)
[2022-10-27] MEDS: Acetaminophen 500 MG Tab PO SCH ×3 (09:49→20:37)
[2022-10-27] MEDS: Ezetimibe 10 MG Tab PO SCH (09:49)
[2022-10-27] MEDS: Losartan 100 MG Tab PO SCH (09:50)
[2022-10-27] MEDS: amLODIPine 10 MG Tab PO SCH (09:50)
[2022-10-27] MEDS: Metoprolol Succinate 50 MG Tab.ER PO SCH (09:50)
[2022-10-27] MEDS: Venlafaxine 150 MG Cap.ER PO SCH (09:50)
[2022-10-27] MEDS: Loratadine 10 MG Tab PO SCH (09:50)
[2022-10-27] MEDS: atorvaSTATin 10 MG Tab PO SCH (09:50)
[2022-10-27] MEDS: Nicotine 14 MG/24 Hr Patch TRDERM SCH (09:51)
[2022-10-27] MEDS: QUEtiapine 100 MG Tab PO SCH (20:37)
[2022-10-27] MEDS: Melatonin 3 MG Tab PO SCH (20:37)
[2022-10-27] MEDS: Prazosin 1 MG Cap PO SCH (20:37)
[2022-10-27] MEDS: Pregabalin 75 MG Cap PO SCH (20:37)
[2022-10-28] MEDS: Pantoprazole 20 MG Tab, Delayed Release PO SCH (06:26)
[2022-10-28] MEDS: Formoterol/Mometasone 100-5 MCG 8.8 GM Inhaler IH SCH ×2 (06:26→20:31)
[2022-10-28] MEDS: Levothyroxine 75 MCG Tab PO SCH (06:26)
[2022-10-28] MEDS: Acetaminophen 500 MG Tab PO SCH ×3 (08:38→20:33)
[2022-10-28] MEDS: Metoprolol Succinate 50 MG Tab.ER PO SCH (08:39)
[2022-10-28] MEDS: amLODIPine 10 MG Tab PO SCH (08:39)
[2022-10-28] MEDS: Losartan 100 MG Tab PO SCH (08:40)
[2022-10-28] MEDS: Hydrocortisone Acetate 1% Crm 30 GM Tube TOP PRN (08:40)
[2022-10-28] MEDS: atorvaSTATin 10 MG Tab PO SCH (08:40)
[2022-10-28] MEDS: Ezetimibe 10 MG Tab PO SCH (08:40)
[2022-10-28] MEDS: Loratadine 10 MG Tab PO SCH (08:40)
[2022-10-28] MEDS: Venlafaxine 150 MG Cap.ER PO SCH (08:40)
[2022-10-28] MEDS: Menthol 10%/Methyl Salicylate 30% 85 GM Tube TOP SCH ×2 (08:41→20:32)
[2022-10-28] MEDS: Nicotine 14 MG/24 Hr Patch TRDERM SCH (08:42)
[2022-10-28] MEDS: Diclofenac Sodium 1% Gel 100 GM Tube TOP PRN (14:23)
[2022-10-28] MEDS: Pregabalin 75 MG Cap PO SCH (20:33)
[2022-10-28] MEDS: Prazosin 1 MG Cap PO SCH (20:38)
[2022-10-28] MEDS: QUEtiapine 100 MG Tab PO SCH (20:39)
[2022-10-28] MEDS: Melatonin 3 MG Tab PO SCH (20:40)
[2022-10-29] MEDS: Pantoprazole 20 MG Tab, Delayed Release PO SCH (05:58)
[2022-10-29] MEDS: Levothyroxine 75 MCG Tab PO SCH (05:59)
[2022-10-29] MEDS: Formoterol/Mometasone 100-5 MCG 8.8 GM Inhaler IH SCH ×2 (06:00→20:22)
[2022-10-29] MEDS: amLODIPine 10 MG Tab PO SCH (08:13)
[2022-10-29] MEDS: Venlafaxine 150 MG Cap.ER PO SCH (08:13)
[2022-10-29] MEDS: Loratadine 10 MG Tab PO SCH (08:14)
[2022-10-29] MEDS: Ezetimibe 10 MG Tab PO SCH (08:14)
[2022-10-29] MEDS: atorvaSTATin 10 MG Tab PO SCH (08:15)
[2022-10-29] MEDS: Metoprolol Succinate 50 MG Tab.ER PO SCH (08:15)
[2022-10-29] MEDS: Losartan 100 MG Tab PO SCH (08:15)
[2022-10-29] MEDS: Hydrocortisone Acetate 1% Crm 30 GM Tube TOP PRN (08:16)
[2022-10-29] MEDS: Menthol 10%/Methyl Salicylate 30% 85 GM Tube TOP SCH ×2 (08:16→20:22)
[2022-10-29] MEDS: Diclofenac Sodium 1% Gel 100 GM Tube TOP PRN (08:17)
[2022-10-29] MEDS: Acetaminophen 500 MG Tab PO SCH ×3 (08:18→20:23)
[2022-10-29] MEDS: Nicotine 14 MG/24 Hr Patch TRDERM SCH (08:21)
[2022-10-29] MEDS: Pregabalin 75 MG Cap PO SCH (20:23)
[2022-10-29] MEDS: Melatonin 3 MG Tab PO SCH (20:26)
[2022-10-29] MEDS: Prazosin 1 MG Cap PO SCH (20:27)
[2022-10-29] MEDS: QUEtiapine 100 MG Tab PO SCH (20:27)
[2022-10-30] MEDS: Formoterol/Mometasone 100-5 MCG 8.8 GM Inhaler IH SCH ×2 (06:09→20:12)
[2022-10-30] MEDS: Pantoprazole 20 MG Tab, Delayed Release PO SCH (06:09)
[2022-10-30] MEDS: Levothyroxine 75 MCG Tab PO SCH (06:09)
[2022-10-30] MEDS: Venlafaxine 150 MG Cap.ER PO SCH (08:22)
[2022-10-30] MEDS: atorvaSTATin 10 MG Tab PO SCH (08:22)
[2022-10-30] MEDS: Metoprolol Succinate 50 MG Tab.ER PO SCH (08:23)
[2022-10-30] MEDS: amLODIPine 10 MG Tab PO SCH (08:23)
[2022-10-30] MEDS: Nicotine 14 MG/24 Hr Patch TRDERM SCH (08:24)
[2022-10-30] MEDS: Losartan 100 MG Tab PO SCH (08:26)
[2022-10-30] MEDS: Ezetimibe 10 MG Tab PO SCH (08:27)
[2022-10-30] MEDS: Acetaminophen 500 MG Tab PO SCH ×3 (08:28→20:14)
[2022-10-30] MEDS: Hydrocortisone Acetate 1% Crm 30 GM Tube TOP PRN (08:29)
[2022-10-30] MEDS: Diclofenac Sodium 1% Gel 100 GM Tube TOP PRN (08:30)
[2022-10-30] MEDS: Menthol 10%/Methyl Salicylate 30% 85 GM Tube TOP SCH ×2 (08:31→20:12)
[2022-10-30] MEDS: Loratadine 10 MG Tab PO SCH (08:40)
[2022-10-30] MEDS: Pregabalin 75 MG Cap PO SCH (20:12)
[2022-10-30] MEDS: Melatonin 3 MG Tab PO SCH (20:13)
[2022-10-30] MEDS: QUEtiapine 100 MG Tab PO SCH (20:13)
[2022-10-30] MEDS: Prazosin 1 MG Cap PO SCH (20:13)
[2022-10-31] MEDS: Levothyroxine 75 MCG Tab PO SCH (06:11)
[2022-10-31] MEDS: Pantoprazole 20 MG Tab, Delayed Release PO SCH (06:11)
[2022-10-31] MEDS: Formoterol/Mometasone 100-5 MCG 8.8 GM Inhaler IH SCH ×2 (06:11→21:33)
[2022-10-31] MEDS: Losartan 100 MG Tab PO SCH (08:01)
[2022-10-31] MEDS: Loratadine 10 MG Tab PO SCH (08:01)
[2022-10-31] MEDS: Venlafaxine 150 MG Cap.ER PO SCH (08:02)
[2022-10-31] MEDS: Nicotine 14 MG/24 Hr Patch TRDERM SCH (08:02)
[2022-10-31] MEDS: Menthol 10%/Methyl Salicylate 30% 85 GM Tube TOP SCH ×2 (08:03→21:33)
[2022-10-31] MEDS: atorvaSTATin 10 MG Tab PO SCH (08:04)
[2022-10-31] MEDS: amLODIPine 10 MG Tab PO SCH (08:04)
[2022-10-31] MEDS: Metoprolol Succinate 50 MG Tab.ER PO SCH (08:05)
[2022-10-31] MEDS: Acetaminophen 500 MG Tab PO SCH ×3 (08:06→21:35)
[2022-10-31] MEDS: Ezetimibe 10 MG Tab PO SCH (08:07)
[2022-10-31] MEDS: Pregabalin 75 MG Cap PO SCH (21:34)
[2022-10-31] MEDS: Melatonin 3 MG Tab PO SCH (21:34)
[2022-10-31] MEDS: QUEtiapine 100 MG Tab PO SCH (21:35)
[2022-10-31] MEDS: Hydrocortisone Acetate 1% Crm 30 GM Tube TOP PRN (21:37)
[2022-10-31] MEDS: Prazosin 1 MG Cap PO SCH (21:38)
[2022-11-01] MEDS: Pantoprazole 20 MG Tab, Delayed Release PO SCH (06:11)
[2022-11-01] MEDS: Formoterol/Mometasone 100-5 MCG 8.8 GM Inhaler IH SCH ×2 (06:11→21:31)
[2022-11-01] MEDS: Levothyroxine 75 MCG Tab PO SCH (06:11)
[2022-11-01] MEDS: Ezetimibe 10 MG Tab PO SCH (08:53)
[2022-11-01] MEDS: Acetaminophen 500 MG Tab PO SCH ×3 (08:53→21:35)
[2022-11-01] MEDS: Metoprolol Succinate 50 MG Tab.ER PO SCH (08:54)
[2022-11-01] MEDS: amLODIPine 10 MG Tab PO SCH (08:54)
[2022-11-01] MEDS: Menthol 10%/Methyl Salicylate 30% 85 GM Tube TOP SCH ×2 (08:54→21:32)
[2022-11-01] MEDS: atorvaSTATin 10 MG Tab PO SCH (08:54)
[2022-11-01] MEDS: Nicotine 14 MG/24 Hr Patch TRDERM SCH (08:55)
[2022-11-01] MEDS: Losartan 100 MG Tab PO SCH (08:56)
[2022-11-01] MEDS: Loratadine 10 MG Tab PO SCH (08:56)
[2022-11-01] MEDS: Venlafaxine 150 MG Cap.ER PO SCH (08:56)
[2022-11-01] MEDS: Hydrocortisone Acetate 1% Crm 30 GM Tube TOP PRN ×2 (09:02→21:37)
[2022-11-01] MEDS: Melatonin 3 MG Tab PO SCH (21:32)
[2022-11-01] MEDS: Prazosin 1 MG Cap PO SCH (21:33)
[2022-11-01] MEDS: QUEtiapine 100 MG Tab PO SCH (21:35)
[2022-11-01] MEDS: Pregabalin 75 MG Cap PO SCH (21:41)
[2022-11-02] MEDS: Levothyroxine 75 MCG Tab PO SCH (06:52)
[2022-11-02] MEDS: Pantoprazole 20 MG Tab, Delayed Release PO SCH (06:52)
[2022-11-02] MEDS: Formoterol/Mometasone 100-5 MCG 8.8 GM Inhaler IH SCH ×2 (06:52→20:21)
[2022-11-02] MEDS: Ezetimibe 10 MG Tab PO SCH (09:02)
[2022-11-02] MEDS: Acetaminophen 500 MG Tab PO SCH ×3 (09:02→20:19)
[2022-11-02] MEDS: Metoprolol Succinate 50 MG Tab.ER PO SCH (09:04)
[2022-11-02] MEDS: Menthol 10%/Methyl Salicylate 30% 85 GM Tube TOP SCH ×2 (09:06→20:20)
[2022-11-02] MEDS: atorvaSTATin 10 MG Tab PO SCH (09:06)
[2022-11-02] MEDS: amLODIPine 10 MG Tab PO SCH (09:06)
[2022-11-02] MEDS: Venlafaxine 150 MG Cap.ER PO SCH (09:07)
[2022-11-02] MEDS: Nicotine 14 MG/24 Hr Patch TRDERM SCH (09:07)
[2022-11-02] MEDS: Losartan 100 MG Tab PO SCH (09:07)
[2022-11-02] MEDS: Loratadine 10 MG Tab PO SCH (09:08)
[2022-11-02] MEDS: Hydrocortisone Acetate 1% Crm 30 GM Tube TOP PRN (09:22)
[2022-11-02] MEDS: Aluminum Hydroxide/Magnesium Hydroxide Susp 30 ML Cup PO PRN (13:09)
[2022-11-02] MEDS: Pregabalin 75 MG Cap PO SCH (20:20)
[2022-11-02] MEDS: Prazosin 1 MG Cap PO SCH (20:20)
[2022-11-02] MEDS: QUEtiapine 100 MG Tab PO SCH (20:21)
[2022-11-02] MEDS: Melatonin 3 MG Tab PO SCH (20:21)
[2022-11-03] MEDS: Levothyroxine 75 MCG Tab PO SCH (06:26)
[2022-11-03] MEDS: Formoterol/Mometasone 100-5 MCG 8.8 GM Inhaler IH SCH ×2 (06:26→20:01)
[2022-11-03] MEDS: Pantoprazole 20 MG Tab, Delayed Release PO SCH (06:26)
[2022-11-03] MEDS: Ezetimibe 10 MG Tab PO SCH (09:14)
[2022-11-03] MEDS: Acetaminophen 500 MG Tab PO SCH ×3 (09:14→20:02)
[2022-11-03] MEDS: Metoprolol Succinate 50 MG Tab.ER PO SCH (09:15)
[2022-11-03] MEDS: amLODIPine 10 MG Tab PO SCH (09:16)
[2022-11-03] MEDS: atorvaSTATin 10 MG Tab PO SCH (09:16)
[2022-11-03] MEDS: Menthol 10%/Methyl Salicylate 30% 85 GM Tube TOP SCH ×2 (09:17→20:01)
[2022-11-03] MEDS: Nicotine 14 MG/24 Hr Patch TRDERM SCH (09:17)
[2022-11-03] MEDS: Losartan 100 MG Tab PO SCH (09:17)
[2022-11-03] MEDS: Venlafaxine 150 MG Cap.ER PO SCH (09:17)
[2022-11-03] MEDS: Loratadine 10 MG Tab PO SCH (09:18)
[2022-11-03] MEDS: Pregabalin 75 MG Cap PO SCH (20:01)
[2022-11-03] MEDS: QUEtiapine 100 MG Tab PO SCH (20:02)
[2022-11-03] MEDS: Melatonin 3 MG Tab PO SCH (20:02)
[2022-11-03] MEDS: Prazosin 1 MG Cap PO SCH (20:03)
[2022-11-03] MEDS: Hydrocortisone Acetate 1% Crm 30 GM Tube TOP PRN (20:03)
[2022-11-04] MEDS: Formoterol/Mometasone 100-5 MCG 8.8 GM Inhaler IH SCH ×2 (06:36→20:07)
[2022-11-04] MEDS: Levothyroxine 75 MCG Tab PO SCH (06:36)
[2022-11-04] MEDS: Pantoprazole 20 MG Tab, Delayed Release PO SCH (06:36)
[2022-11-04] MEDS: Metoprolol Succinate 50 MG Tab.ER PO SCH (08:39)
[2022-11-04] MEDS: Venlafaxine 150 MG Cap.ER PO SCH (08:40)
[2022-11-04] MEDS: Losartan 100 MG Tab PO SCH (08:40)
[2022-11-04] MEDS: Nicotine 14 MG/24 Hr Patch TRDERM SCH (08:40)
[2022-11-04] MEDS: Loratadine 10 MG Tab PO SCH (08:40)
[2022-11-04] MEDS: atorvaSTATin 10 MG Tab PO SCH (08:40)
[2022-11-04] MEDS: amLODIPine 10 MG Tab PO SCH (08:40)
[2022-11-04] MEDS: Menthol 10%/Methyl Salicylate 30% 85 GM Tube TOP SCH ×2 (08:41→20:07)
[2022-11-04] MEDS: Acetaminophen 500 MG Tab PO SCH ×3 (08:42→20:08)
[2022-11-04] MEDS: Ezetimibe 10 MG Tab PO SCH (08:43)
[2022-11-04] MEDS: QUEtiapine 100 MG Tab PO SCH (20:08)
[2022-11-04] MEDS: Prazosin 1 MG Cap PO SCH (20:08)
[2022-11-04] MEDS: Melatonin 3 MG Tab PO SCH (20:09)
[2022-11-04] MEDS: Pregabalin 75 MG Cap PO SCH (20:12)
[2022-11-05] MEDS: Formoterol/Mometasone 100-5 MCG 8.8 GM Inhaler IH SCH ×2 (06:58→20:31)
[2022-11-05] MEDS: Levothyroxine 75 MCG Tab PO SCH (06:59)
[2022-11-05] MEDS: Pantoprazole 20 MG Tab, Delayed Release PO SCH (06:59)
[2022-11-05] MEDS: Losartan 100 MG Tab PO SCH (08:49)
[2022-11-05] MEDS: Loratadine 10 MG Tab PO SCH (08:49)
[2022-11-05] MEDS: Metoprolol Succinate 50 MG Tab.ER PO SCH (08:49)
[2022-11-05] MEDS: Venlafaxine 150 MG Cap.ER PO SCH (08:49)
[2022-11-05] MEDS: Ezetimibe 10 MG Tab PO SCH (08:51)
[2022-11-05] MEDS: Menthol 10%/Methyl Salicylate 30% 85 GM Tube TOP SCH ×2 (08:51→20:31)
[2022-11-05] MEDS: amLODIPine 10 MG Tab PO SCH (08:52)
[2022-11-05] MEDS: Acetaminophen 500 MG Tab PO SCH ×3 (08:52→20:42)
[2022-11-05] MEDS: atorvaSTATin 10 MG Tab PO SCH (08:52)
[2022-11-05] MEDS: Nicotine 7 MG/24 Hr Patch TRDERM SCH (08:53)
[2022-11-05] MEDS: Prazosin 1 MG Cap PO SCH (20:42)
[2022-11-05] MEDS: QUEtiapine 100 MG Tab PO SCH (20:42)
[2022-11-05] MEDS: Pregabalin 75 MG Cap PO SCH (20:42)
[2022-11-05] MEDS: Melatonin 3 MG Tab PO SCH (20:42)
[2022-11-06] MEDS: Pantoprazole 20 MG Tab, Delayed Release PO SCH (06:23)
[2022-11-06] MEDS: Levothyroxine 75 MCG Tab PO SCH (06:23)
[2022-11-06 09:08] LABS: BILIRUBIN,URINE NEGATIVE (NEGATIVE); GLUCOSE,URINE NORMAL (NORMAL); KETONES,URINE NEGATIVE (NEGATIVE); LEUKOCYTE ESTERASE,URINE NEGATIVE (NEGATIVE); NITRITE,URINE NEGATIVE (NEGATIVE); OCCULT BLOOD,URINE TRACE (NEGATIVE); PROTEIN,URINE 500 mg/dL (NEGATIVE); UROBILINOGEN,URINE NORMAL (NEGATIVE)
[2022-11-06 09:12] LABS: APPEARANCE,URINE CLEAR (CLEAR); BACTERIA,URINE FEW (NS); COLOR,URINE YELLOW (YELLOW); RBC,URINE 0-5 (0-5); SQUAMOUS EPITHELIAL CELLS,UR OCCASIONAL (NS,R,O); WBC,URINE 0-5 (0-5)
[2022-11-06] MEDS: Formoterol/Mometasone 100-5 MCG 8.8 GM Inhaler IH SCH ×2 (09:15→20:06)
[2022-11-06] MEDS: Loratadine 10 MG Tab PO SCH (09:16)
[2022-11-06] MEDS: Venlafaxine 150 MG Cap.ER PO SCH (09:17)
[2022-11-06] MEDS: Nicotine 7 MG/24 Hr Patch TRDERM SCH (09:17)
[2022-11-06] MEDS: Menthol 10%/Methyl Salicylate 30% 85 GM Tube TOP SCH ×2 (09:18→20:06)
[2022-11-06] MEDS: atorvaSTATin 10 MG Tab PO SCH (09:20)
[2022-11-06] MEDS: Acetaminophen 500 MG Tab PO SCH ×3 (09:22→20:05)
[2022-11-06] MEDS: amLODIPine 10 MG Tab PO SCH (09:23)
[2022-11-06] MEDS: Losartan 100 MG Tab PO SCH (09:23)
[2022-11-06] MEDS: Metoprolol Succinate 50 MG Tab.ER PO SCH (09:23)
[2022-11-06] MEDS: Ezetimibe 10 MG Tab PO SCH (09:25)
[2022-11-06] MEDS: Aluminum Hydroxide/Magnesium Hydroxide Susp 30 ML Cup PO PRN (14:38)
[2022-11-06] MEDS: Melatonin 3 MG Tab PO SCH (20:05)
[2022-11-06] MEDS: QUEtiapine 100 MG Tab PO SCH (20:05)
[2022-11-06] MEDS: Pregabalin 75 MG Cap PO SCH (20:06)
[2022-11-06] MEDS: Prazosin 1 MG Cap PO SCH (20:06)
[2022-11-07] MEDS: Formoterol/Mometasone 100-5 MCG 8.8 GM Inhaler IH SCH ×2 (06:08→21:48)
[2022-11-07] MEDS: Pantoprazole 20 MG Tab, Delayed Release PO SCH (06:08)
[2022-11-07] MEDS: Levothyroxine 75 MCG Tab PO SCH (06:08)
[2022-11-07] MEDS: Nicotine 7 MG/24 Hr Patch TRDERM SCH (09:02)
[2022-11-07] MEDS: Ezetimibe 10 MG Tab PO SCH (09:03)
[2022-11-07] MEDS: amLODIPine 10 MG Tab PO SCH (09:03)
[2022-11-07] MEDS: Losartan 100 MG Tab PO SCH (09:03)
[2022-11-07] MEDS: Loratadine 10 MG Tab PO SCH (09:04)
[2022-11-07] MEDS: atorvaSTATin 10 MG Tab PO SCH (09:04)
[2022-11-07] MEDS: Metoprolol Succinate 50 MG Tab.ER PO SCH (09:04)
[2022-11-07] MEDS: Venlafaxine 150 MG Cap.ER PO SCH (09:05)
[2022-11-07] MEDS: Acetaminophen 500 MG Tab PO SCH ×3 (09:05→21:49)
[2022-11-07] MEDS: Amoxicillin/Clavulanate K 500-125 MG Tab PO SCH ×3 (09:51→21:53)
[2022-11-07] MEDS: Diclofenac Sodium 1% Gel 100 GM Tube TOP SCH ×4 (09:52→21:49)
[2022-11-07] MEDS: Menthol 10%/Methyl Salicylate 30% 85 GM Tube TOP SCH ×2 (09:53→22:10)
[2022-11-07] MEDS: traMADol 50 MG Tab PO PRN (09:54)
[2022-11-07] MEDS ORDERED: FLU (Flulaval Quad) 2023-24(6MOS UP)/PF 60 MCG/0.5 ML Syringe IM ONE (10:45)
[2022-11-07] MEDS: Melatonin 3 MG Tab PO SCH (21:52)
[2022-11-07] MEDS: Prazosin 1 MG Cap PO SCH (21:53)
[2022-11-07] MEDS: QUEtiapine 100 MG Tab PO SCH (21:57)
[2022-11-07] MEDS: Pregabalin 75 MG Cap PO SCH (22:08)
[2022-11-08] MEDS: Formoterol/Mometasone 100-5 MCG 8.8 GM Inhaler IH SCH ×2 (06:03→21:38)
[2022-11-08] MEDS: Levothyroxine 75 MCG Tab PO SCH (06:03)
[2022-11-08] MEDS: Pantoprazole 20 MG Tab, Delayed Release PO SCH (06:03)
[2022-11-08] MEDS: Nicotine 7 MG/24 Hr Patch TRDERM SCH (09:21)
[2022-11-08] MEDS: atorvaSTATin 10 MG Tab PO SCH (09:22)
[2022-11-08] MEDS: traMADol 50 MG Tab PO PRN (09:22)
[2022-11-08] MEDS: Loratadine 10 MG Tab PO SCH (09:22)
[2022-11-08] MEDS: Ezetimibe 10 MG Tab PO SCH (09:22)
[2022-11-08] MEDS: Venlafaxine 150 MG Cap.ER PO SCH (09:23)
[2022-11-08] MEDS: Acetaminophen 500 MG Tab PO SCH ×3 (09:23→21:40)
[2022-11-08] MEDS: Metoprolol Succinate 50 MG Tab.ER PO SCH (09:25)
[2022-11-08] MEDS: Losartan 100 MG Tab PO SCH (09:25)
[2022-11-08] MEDS: Amoxicillin/Clavulanate K 500-125 MG Tab PO SCH ×3 (09:27→21:38)
[2022-11-08] MEDS: amLODIPine 10 MG Tab PO SCH (09:27)
[2022-11-08] MEDS: Diclofenac Sodium 1% Gel 100 GM Tube TOP SCH ×4 (09:28→21:40)
[2022-11-08] MEDS: Menthol 10%/Methyl Salicylate 30% 85 GM Tube TOP SCH ×2 (09:30→21:39)
[2022-11-08] MEDS: Hydrocortisone Acetate 1% Crm 30 GM Tube TOP PRN (09:31)
[2022-11-08] MEDS: Prazosin 1 MG Cap PO SCH (21:38)
[2022-11-08] MEDS: Melatonin 3 MG Tab PO SCH (21:39)
[2022-11-08] MEDS: QUEtiapine 100 MG Tab PO SCH (21:40)
[2022-11-08] MEDS: Pregabalin 75 MG Cap PO SCH (21:47)
[2022-11-09] MEDS: Levothyroxine 75 MCG Tab PO SCH (06:44)
[2022-11-09] MEDS: Pantoprazole 20 MG Tab, Delayed Release PO SCH (06:44)
[2022-11-09] MEDS: Formoterol/Mometasone 100-5 MCG 8.8 GM Inhaler IH SCH ×2 (06:44→20:27)
[2022-11-09] MEDS: Ezetimibe 10 MG Tab PO SCH (09:20)
[2022-11-09] MEDS: Diclofenac Sodium 1% Gel 100 GM Tube TOP SCH ×4 (09:20→20:28)
[2022-11-09] MEDS: Acetaminophen 500 MG Tab PO SCH ×3 (09:20→20:28)
[2022-11-09] MEDS: Metoprolol Succinate 50 MG Tab.ER PO SCH (09:24)
[2022-11-09] MEDS: atorvaSTATin 10 MG Tab PO SCH (09:25)
[2022-11-09] MEDS: amLODIPine 10 MG Tab PO SCH (09:25)
[2022-11-09] MEDS: Menthol 10%/Methyl Salicylate 30% 85 GM Tube TOP SCH ×2 (09:25→20:28)
[2022-11-09] MEDS: Nicotine 7 MG/24 Hr Patch TRDERM SCH (09:27)
[2022-11-09] MEDS: Hydrochlorothiazide 12.5 MG Cap PO SCH (09:27)
[2022-11-09] MEDS: Venlafaxine 150 MG Cap.ER PO SCH (09:28)
[2022-11-09] MEDS: Losartan 100 MG Tab PO SCH (09:28)
[2022-11-09] MEDS: Loratadine 10 MG Tab PO SCH (09:28)
[2022-11-09] MEDS: Ciprofloxacin 250 MG Tab PO SCH ×2 (09:29→20:30)
[2022-11-09] MEDS: Pregabalin 75 MG Cap PO SCH (20:27)
[2022-11-09] MEDS: Prazosin 1 MG Cap PO SCH (20:27)
[2022-11-09] MEDS: QUEtiapine 100 MG Tab PO SCH (20:29)
[2022-11-09] MEDS: Melatonin 3 MG Tab PO SCH (20:29)
[2022-11-10] MEDS: Levothyroxine 75 MCG Tab PO SCH (06:15)
[2022-11-10] MEDS: Pantoprazole 20 MG Tab, Delayed Release PO SCH (06:15)
[2022-11-10] MEDS: Formoterol/Mometasone 100-5 MCG 8.8 GM Inhaler IH SCH ×2 (06:16→20:18)
[2022-11-10] MEDS: Ciprofloxacin 250 MG Tab PO SCH ×2 (09:01→20:17)
[2022-11-10] MEDS: Ezetimibe 10 MG Tab PO SCH (09:01)
[2022-11-10] MEDS: Hydrochlorothiazide 12.5 MG Cap PO SCH (09:01)
[2022-11-10] MEDS: amLODIPine 10 MG Tab PO SCH (09:02)
[2022-11-10] MEDS: Venlafaxine 150 MG Cap.ER PO SCH (09:02)
[2022-11-10] MEDS: Losartan 100 MG Tab PO SCH (09:02)
[2022-11-10] MEDS: Loratadine 10 MG Tab PO SCH (09:02)
[2022-11-10] MEDS: Metoprolol Succinate 50 MG Tab.ER PO SCH (09:02)
[2022-11-10] MEDS: atorvaSTATin 10 MG Tab PO SCH (09:03)
[2022-11-10] MEDS: Nicotine 7 MG/24 Hr Patch TRDERM SCH (09:04)
[2022-11-10] MEDS: Acetaminophen 500 MG Tab PO SCH ×3 (09:05→20:20)
[2022-11-10] MEDS: Hydrocortisone Acetate 1% Crm 30 GM Tube TOP PRN (11:15)
[2022-11-10] MEDS: Menthol 10%/Methyl Salicylate 30% 85 GM Tube TOP SCH ×2 (11:20→20:18)
[2022-11-10] MEDS: Diclofenac Sodium 1% Gel 100 GM Tube TOP SCH ×4 (11:21→20:22)
[2022-11-10] MEDS: Polyethylene Glycol 3350 Powder 17 GM Packet PO PRN (13:40)
[2022-11-10] MEDS: Aluminum Hydroxide/Magnesium Hydroxide Susp 30 ML Cup PO PRN (13:40)
[2022-11-10] MEDS: Pregabalin 75 MG Cap PO SCH (20:16)
[2022-11-10] MEDS: Prazosin 1 MG Cap PO SCH (20:19)
[2022-11-10] MEDS: Melatonin 3 MG Tab PO SCH (20:19)
[2022-11-10] MEDS: QUEtiapine 100 MG Tab PO SCH (20:20)
[2022-11-11] MEDS: Pantoprazole 20 MG Tab, Delayed Release PO SCH (06:05)
[2022-11-11] MEDS: Levothyroxine 75 MCG Tab PO SCH (06:05)
[2022-11-11] MEDS: Formoterol/Mometasone 100-5 MCG 8.8 GM Inhaler IH SCH ×2 (06:06→20:18)
[2022-11-11] MEDS: Acetaminophen 500 MG Tab PO SCH ×3 (08:11→20:20)
[2022-11-11] MEDS: Ezetimibe 10 MG Tab PO SCH (08:11)
[2022-11-11] MEDS: Diclofenac Sodium 1% Gel 100 GM Tube TOP SCH ×4 (08:11→20:22)
[2022-11-11] MEDS: Metoprolol Succinate 50 MG Tab.ER PO SCH (08:12)
[2022-11-11] MEDS: atorvaSTATin 10 MG Tab PO SCH (08:13)
[2022-11-11] MEDS: Menthol 10%/Methyl Salicylate 30% 85 GM Tube TOP SCH ×2 (08:13→20:18)
[2022-11-11] MEDS: amLODIPine 10 MG Tab PO SCH (08:13)
[2022-11-11] MEDS: Losartan 100 MG Tab PO SCH (08:14)
[2022-11-11] MEDS: Hydrochlorothiazide 12.5 MG Cap PO SCH (08:14)
[2022-11-11] MEDS: Loratadine 10 MG Tab PO SCH (08:14)
[2022-11-11] MEDS: Ciprofloxacin 250 MG Tab PO SCH ×2 (08:14→20:18)
[2022-11-11] MEDS: Venlafaxine 150 MG Cap.ER PO SCH (08:14)
[2022-11-11] MEDS: Nicotine 7 MG/24 Hr Patch TRDERM SCH (08:14)
[2022-11-11] MEDS: Pregabalin 75 MG Cap PO SCH (20:19)
[2022-11-11] MEDS: Prazosin 1 MG Cap PO SCH (20:19)
[2022-11-11] MEDS: Melatonin 3 MG Tab PO SCH (20:19)
[2022-11-11] MEDS: QUEtiapine 100 MG Tab PO SCH (20:20)
[2022-11-12] MEDS: Formoterol/Mometasone 100-5 MCG 8.8 GM Inhaler IH SCH ×2 (06:13→20:23)
[2022-11-12] MEDS: Levothyroxine 75 MCG Tab PO SCH (06:13)
[2022-11-12] MEDS: Pantoprazole 20 MG Tab, Delayed Release PO SCH (06:13)
[2022-11-12] MEDS: Ciprofloxacin 250 MG Tab PO SCH ×2 (08:18→20:23)
[2022-11-12] MEDS: Venlafaxine 150 MG Cap.ER PO SCH (08:18)
[2022-11-12] MEDS: Loratadine 10 MG Tab PO SCH (08:18)
[2022-11-12] MEDS: Losartan 100 MG Tab PO SCH (08:18)
[2022-11-12] MEDS: Menthol 10%/Methyl Salicylate 30% 85 GM Tube TOP SCH ×2 (08:19→20:24)
[2022-11-12] MEDS: Nicotine 7 MG/24 Hr Patch TRDERM SCH (08:19)
[2022-11-12] MEDS: atorvaSTATin 10 MG Tab PO SCH (08:19)
[2022-11-12] MEDS: Hydrochlorothiazide 12.5 MG Cap PO SCH (08:19)
[2022-11-12] MEDS: Metoprolol Succinate 50 MG Tab.ER PO SCH (08:20)
[2022-11-12] MEDS: amLODIPine 10 MG Tab PO SCH (08:20)
[2022-11-12] MEDS: Acetaminophen 500 MG Tab PO SCH ×3 (08:20→20:23)
[2022-11-12] MEDS: Diclofenac Sodium 1% Gel 100 GM Tube TOP SCH ×4 (08:21→20:25)
[2022-11-12] MEDS: Ezetimibe 10 MG Tab PO SCH (08:22)
[2022-11-12] MEDS: Melatonin 3 MG Tab PO SCH (20:23)
[2022-11-12] MEDS: QUEtiapine 100 MG Tab PO SCH (20:23)
[2022-11-12] MEDS: Prazosin 1 MG Cap PO SCH (20:25)
[2022-11-12] MEDS: Pregabalin 75 MG Cap PO SCH (20:26)
[2022-11-13] MEDS: Levothyroxine 75 MCG Tab PO SCH (06:20)
[2022-11-13] MEDS: Pantoprazole 20 MG Tab, Delayed Release PO SCH (06:20)
[2022-11-13] MEDS: Formoterol/Mometasone 100-5 MCG 8.8 GM Inhaler IH SCH ×2 (06:21→20:15)
[2022-11-13] MEDS ORDERED: Calcium Carbonate 500 MG Tab.Chew PO PRN (09:01)
[2022-11-13] MEDS: Metoprolol Succinate 50 MG Tab.ER PO SCH (09:29)
[2022-11-13] MEDS: Acetaminophen 500 MG Tab PO SCH ×3 (09:29→20:17)
[2022-11-13] MEDS: Ezetimibe 10 MG Tab PO SCH (09:29)
[2022-11-13] MEDS: amLODIPine 10 MG Tab PO SCH (09:30)
[2022-11-13] MEDS: Venlafaxine 150 MG Cap.ER PO SCH (09:30)
[2022-11-13] MEDS: Hydrochlorothiazide 12.5 MG Cap PO SCH (09:30)
[2022-11-13] MEDS: Loratadine 10 MG Tab PO SCH (09:30)
[2022-11-13] MEDS: atorvaSTATin 10 MG Tab PO SCH (09:30)
[2022-11-13] MEDS: Losartan 100 MG Tab PO SCH (09:30)
[2022-11-13] MEDS: Menthol 10%/Methyl Salicylate 30% 85 GM Tube TOP SCH ×2 (09:31→20:15)
[2022-11-13] MEDS: Nicotine 7 MG/24 Hr Patch TRDERM SCH (09:31)
[2022-11-13] MEDS: Ciprofloxacin 250 MG Tab PO SCH ×2 (09:31→20:14)
[2022-11-13] MEDS: Diclofenac Sodium 1% Gel 100 GM Tube TOP SCH ×4 (09:32→20:18)
[2022-11-13] MEDS: Albuterol 90 MCG/6.7 GM Inhaler INH PRN (14:03)
[2022-11-13] MEDS: Pregabalin 75 MG Cap PO SCH (20:16)
[2022-11-13] MEDS: Prazosin 1 MG Cap PO SCH (20:16)
[2022-11-13] MEDS: Melatonin 3 MG Tab PO SCH (20:16)
[2022-11-13] MEDS: QUEtiapine 100 MG Tab PO SCH (20:17)
[2022-11-14] MEDS: Levothyroxine 75 MCG Tab PO SCH (06:06)
[2022-11-14] MEDS: Formoterol/Mometasone 100-5 MCG 8.8 GM Inhaler IH SCH ×2 (06:06→20:08)
[2022-11-14] MEDS: Pantoprazole 20 MG Tab, Delayed Release PO SCH (06:06)
[2022-11-14] MEDS: Acetaminophen 500 MG Tab PO SCH ×3 (09:50→20:08)
[2022-11-14] MEDS: Ciprofloxacin 250 MG Tab PO SCH ×2 (09:51→20:07)
[2022-11-14] MEDS: amLODIPine 10 MG Tab PO SCH (09:52)
[2022-11-14] MEDS: atorvaSTATin 10 MG Tab PO SCH (09:52)
[2022-11-14] MEDS: Metoprolol Succinate 50 MG Tab.ER PO SCH (09:52)
[2022-11-14] MEDS: Losartan 100 MG Tab PO SCH (09:52)
[2022-11-14] MEDS: Loratadine 10 MG Tab PO SCH (09:52)
[2022-11-14] MEDS: Venlafaxine 150 MG Cap.ER PO SCH (09:53)
[2022-11-14] MEDS: Hydrochlorothiazide 12.5 MG Cap PO SCH (09:53)
[2022-11-14] MEDS: Ezetimibe 10 MG Tab PO SCH (09:53)
[2022-11-14] MEDS: Nicotine 7 MG/24 Hr Patch TRDERM SCH (09:54)
[2022-11-14] MEDS: Diclofenac Sodium 1% Gel 100 GM Tube TOP SCH ×4 (09:55→20:09)
[2022-11-14] MEDS: Menthol 10%/Methyl Salicylate 30% 85 GM Tube TOP SCH ×2 (09:55→20:08)
[2022-11-14] MEDS: Albuterol 90 MCG/6.7 GM Inhaler INH PRN (13:03)
[2022-11-14] MEDS: QUEtiapine 100 MG Tab PO SCH (20:07)
[2022-11-14] MEDS: Melatonin 3 MG Tab PO SCH (20:07)
[2022-11-14] MEDS: Pregabalin 75 MG Cap PO SCH (20:07)
[2022-11-14] MEDS: Prazosin 1 MG Cap PO SCH (20:08)
[2022-11-15] MEDS: Formoterol/Mometasone 100-5 MCG 8.8 GM Inhaler IH SCH ×2 (06:11→21:33)
[2022-11-15] MEDS: Levothyroxine 75 MCG Tab PO SCH (06:11)
[2022-11-15] MEDS: Pantoprazole 20 MG Tab, Delayed Release PO SCH (06:11)
[2022-11-15] MEDS: Menthol 10%/Methyl Salicylate 30% 85 GM Tube TOP SCH ×2 (10:17→21:34)
[2022-11-15] MEDS: Ezetimibe 10 MG Tab PO SCH (10:17)
[2022-11-15] MEDS: Venlafaxine 150 MG Cap.ER PO SCH (10:17)
[2022-11-15] MEDS: Acetaminophen 500 MG Tab PO SCH ×3 (10:17→21:36)
[2022-11-15] MEDS: Ciprofloxacin 250 MG Tab PO SCH ×2 (10:18→21:33)
[2022-11-15] MEDS: Loratadine 10 MG Tab PO SCH (10:18)
[2022-11-15] MEDS: atorvaSTATin 10 MG Tab PO SCH (10:19)
[2022-11-15] MEDS: Hydrochlorothiazide 12.5 MG Cap PO SCH (10:20)
[2022-11-15] MEDS: Metoprolol Succinate 50 MG Tab.ER PO SCH (10:20)
[2022-11-15] MEDS: Losartan 100 MG Tab PO SCH (10:20)
[2022-11-15] MEDS: Diclofenac Sodium 1% Gel 100 GM Tube TOP SCH ×4 (10:21→21:37)
[2022-11-15] MEDS: amLODIPine 10 MG Tab PO SCH (10:21)
[2022-11-15] MEDS: Nicotine 7 MG/24 Hr Patch TRDERM SCH (10:22)
[2022-11-15] MEDS: Albuterol 90 MCG/6.7 GM Inhaler INH PRN (15:09)
[2022-11-15] MEDS: Prazosin 1 MG Cap PO SCH (21:26)
[2022-11-15] MEDS: QUEtiapine 100 MG Tab PO SCH (21:36)
[2022-11-15] MEDS: Melatonin 3 MG Tab PO SCH (21:36)
[2022-11-15] MEDS: Pregabalin 75 MG Cap PO SCH (21:36)
[2022-11-16] MEDS: Formoterol/Mometasone 100-5 MCG 8.8 GM Inhaler IH SCH ×2 (06:38→21:06)
[2022-11-16] MEDS: Levothyroxine 75 MCG Tab PO SCH (06:39)
[2022-11-16] MEDS: Pantoprazole 20 MG Tab, Delayed Release PO SCH (06:39)
[2022-11-16] MEDS: Venlafaxine 150 MG Cap.ER PO SCH (09:13)
[2022-11-16] MEDS: Loratadine 10 MG Tab PO SCH (09:13)
[2022-11-16] MEDS: Losartan 100 MG Tab PO SCH (09:13)
[2022-11-16] MEDS: Menthol 10%/Methyl Salicylate 30% 85 GM Tube TOP SCH ×2 (09:14→21:07)
[2022-11-16] MEDS: Nicotine 7 MG/24 Hr Patch TRDERM SCH (09:14)
[2022-11-16] MEDS: Hydrochlorothiazide 12.5 MG Cap PO SCH (09:14)
[2022-11-16] MEDS: amLODIPine 10 MG Tab PO SCH (09:15)
[2022-11-16] MEDS: atorvaSTATin 10 MG Tab PO SCH (09:15)
[2022-11-16] MEDS: Acetaminophen 500 MG Tab PO SCH ×3 (09:16→21:10)
[2022-11-16] MEDS: Metoprolol Succinate 50 MG Tab.ER PO SCH (09:16)
[2022-11-16] MEDS: Diclofenac Sodium 1% Gel 100 GM Tube TOP SCH ×4 (09:17→21:07)
[2022-11-16] MEDS: Ezetimibe 10 MG Tab PO SCH (09:18)
[2022-11-16 12:47] LABS: BILIRUBIN,URINE NEGATIVE (NEGATIVE); GLUCOSE,URINE NORMAL (NORMAL); KETONES,URINE NEGATIVE (NEGATIVE); LEUKOCYTE ESTERASE,URINE NEGATIVE (NEGATIVE); NITRITE,URINE NEGATIVE (NEGATIVE); OCCULT BLOOD,URINE NEGATIVE (NEGATIVE); PROTEIN,URINE 500 mg/dL (NEGATIVE); UROBILINOGEN,URINE NORMAL (NEGATIVE)
[2022-11-16 12:52] LABS: APPEARANCE,URINE CLEAR (CLEAR); BACTERIA,URINE OCCASIONAL (NS); COLOR,URINE YELLOW (YELLOW); RBC,URINE 0-5 (0-5); SQUAMOUS EPITHELIAL CELLS,UR FEW (NS,R,O); WBC,URINE 0-5 (0-5)
[2022-11-16] MEDS: Polyethylene Glycol 3350 Powder 17 GM Packet PO PRN (14:29)
[2022-11-16] MEDS: Albuterol 90 MCG/6.7 GM Inhaler INH PRN (15:08)
[2022-11-16] MEDS: Pregabalin 75 MG Cap PO SCH (21:07)
[2022-11-16] MEDS: Prazosin 1 MG Cap PO SCH (21:08)
[2022-11-16] MEDS: QUEtiapine 100 MG Tab PO SCH (21:11)
[2022-11-16] MEDS: Melatonin 3 MG Tab PO SCH (21:11)
[2022-11-17] MEDS: Pantoprazole 20 MG Tab, Delayed Release PO SCH (06:55)
[2022-11-17] MEDS: Levothyroxine 75 MCG Tab PO SCH (06:55)
[2022-11-17] MEDS: Formoterol/Mometasone 100-5 MCG 8.8 GM Inhaler IH SCH ×2 (06:55→20:39)
[2022-11-17] MEDS: Albuterol 90 MCG/6.7 GM Inhaler INH PRN (08:23)
[2022-11-17] MEDS: Menthol 10%/Methyl Salicylate 30% 85 GM Tube TOP SCH ×2 (08:23→20:40)
[2022-11-17] MEDS: Acetaminophen 500 MG Tab PO SCH ×3 (08:24→20:41)
[2022-11-17] MEDS: Diclofenac Sodium 1% Gel 100 GM Tube TOP SCH ×4 (08:24→20:42)
[2022-11-17] MEDS: Ezetimibe 10 MG Tab PO SCH (08:25)
[2022-11-17] MEDS: Loratadine 10 MG Tab PO SCH (08:26)
[2022-11-17] MEDS: Metoprolol Succinate 50 MG Tab.ER PO SCH (08:26)
[2022-11-17] MEDS: Venlafaxine 150 MG Cap.ER PO SCH (08:27)
[2022-11-17] MEDS: Losartan 100 MG Tab PO SCH (08:27)
[2022-11-17] MEDS: atorvaSTATin 10 MG Tab PO SCH (08:27)
[2022-11-17] MEDS: amLODIPine 10 MG Tab PO SCH (08:28)
[2022-11-17] MEDS: Nicotine 7 MG/24 Hr Patch TRDERM SCH (08:28)
[2022-11-17] MEDS: Hydrochlorothiazide 12.5 MG Cap PO SCH (08:29)
[2022-11-17] MEDS: Melatonin 3 MG Tab PO SCH (20:40)
[2022-11-17] MEDS: Prazosin 1 MG Cap PO SCH (20:40)
[2022-11-17] MEDS: Pregabalin 75 MG Cap PO SCH (20:40)
[2022-11-17] MEDS: QUEtiapine 100 MG Tab PO SCH (20:41)
[2022-11-17] MEDS: Hydrocortisone Acetate 1% Crm 30 GM Tube TOP PRN (20:43)
[2022-11-18] MEDS: Formoterol/Mometasone 100-5 MCG 8.8 GM Inhaler IH SCH ×2 (06:14→20:07)
[2022-11-18] MEDS: Pantoprazole 20 MG Tab, Delayed Release PO SCH (06:15)
[2022-11-18] MEDS: Levothyroxine 75 MCG Tab PO SCH (06:15)
[2022-11-18] MEDS: amLODIPine 10 MG Tab PO SCH (09:25)
[2022-11-18] MEDS: Metoprolol Succinate 50 MG Tab.ER PO SCH (09:26)
[2022-11-18] MEDS: Ezetimibe 10 MG Tab PO SCH (09:26)
[2022-11-18] MEDS: Hydrochlorothiazide 12.5 MG Cap PO SCH (09:26)
[2022-11-18] MEDS: atorvaSTATin 10 MG Tab PO SCH (09:26)
[2022-11-18] MEDS: Loratadine 10 MG Tab PO SCH (09:27)
[2022-11-18] MEDS: Acetaminophen 500 MG Tab PO SCH ×3 (09:28→20:08)
[2022-11-18] MEDS: Diclofenac Sodium 1% Gel 100 GM Tube TOP SCH ×4 (09:30→20:09)
[2022-11-18] MEDS: Menthol 10%/Methyl Salicylate 30% 85 GM Tube TOP SCH ×2 (09:30→20:07)
[2022-11-18] MEDS: Venlafaxine 150 MG Cap.ER PO SCH (09:32)
[2022-11-18] MEDS: Losartan 100 MG Tab PO SCH (09:32)
[2022-11-18] MEDS: Nicotine 7 MG/24 Hr Patch TRDERM SCH (09:34)
[2022-11-18] MEDS: Aluminum Hydroxide/Magnesium Hydroxide Susp 30 ML Cup PO PRN (13:40)
[2022-11-18] MEDS: Prazosin 1 MG Cap PO SCH (20:08)
[2022-11-18] MEDS: QUEtiapine 100 MG Tab PO SCH (20:08)
[2022-11-18] MEDS: Melatonin 3 MG Tab PO SCH (20:08)
[2022-11-18] MEDS: Pregabalin 75 MG Cap PO SCH (20:13)
[2022-11-19] MEDS: Pantoprazole 20 MG Tab, Delayed Release PO SCH (05:28)
[2022-11-19] MEDS: Levothyroxine 75 MCG Tab PO SCH (05:28)
[2022-11-19] MEDS: Formoterol/Mometasone 100-5 MCG 8.8 GM Inhaler IH SCH ×2 (06:08→20:17)
[2022-11-19] MEDS: Nicotine 7 MG/24 Hr Patch TRDERM SCH (08:45)
[2022-11-19] MEDS: Menthol 10%/Methyl Salicylate 30% 85 GM Tube TOP SCH ×2 (08:46→20:18)
[2022-11-19] MEDS: Diclofenac Sodium 1% Gel 100 GM Tube TOP SCH ×4 (08:46→20:21)
[2022-11-19] MEDS: Acetaminophen 500 MG Tab PO SCH ×3 (08:47→20:19)
[2022-11-19] MEDS: Metoprolol Succinate 50 MG Tab.ER PO SCH (08:48)
[2022-11-19] MEDS: Venlafaxine 150 MG Cap.ER PO SCH (08:48)
[2022-11-19] MEDS: Hydrochlorothiazide 12.5 MG Cap PO SCH (08:49)
[2022-11-19] MEDS: atorvaSTATin 10 MG Tab PO SCH (08:49)
[2022-11-19] MEDS: amLODIPine 10 MG Tab PO SCH (08:49)
[2022-11-19] MEDS: Losartan 100 MG Tab PO SCH (08:49)
[2022-11-19] MEDS: Loratadine 10 MG Tab PO SCH (08:49)
[2022-11-19] MEDS: Ezetimibe 10 MG Tab PO SCH (08:50)
[2022-11-19] MEDS: Polyethylene Glycol 3350 Powder 17 GM Packet PO PRN (13:48)
[2022-11-19] MEDS: QUEtiapine 100 MG Tab PO SCH (20:19)
[2022-11-19] MEDS: Prazosin 1 MG Cap PO SCH (20:19)
[2022-11-19] MEDS: Melatonin 3 MG Tab PO SCH (20:19)
[2022-11-19] MEDS: Pregabalin 75 MG Cap PO SCH (20:28)
[2022-11-20] MEDS: Formoterol/Mometasone 100-5 MCG 8.8 GM Inhaler IH SCH ×2 (06:19→20:17)
[2022-11-20] MEDS: Levothyroxine 75 MCG Tab PO SCH (06:20)
[2022-11-20] MEDS: Pantoprazole 20 MG Tab, Delayed Release PO SCH (06:23)
[2022-11-20] MEDS: Polyethylene Glycol 3350 Powder 17 GM Packet PO PRN (08:26)
[2022-11-20] MEDS: traMADol 50 MG Tab PO PRN (08:27)
[2022-11-20] MEDS: Aluminum Hydroxide/Magnesium Hydroxide Susp 30 ML Cup PO PRN (08:27)
[2022-11-20] MEDS: Losartan 100 MG Tab PO SCH (08:30)
[2022-11-20] MEDS: Nicotine 7 MG/24 Hr Patch TRDERM SCH (08:31)
[2022-11-20] MEDS: Ezetimibe 10 MG Tab PO SCH (08:35)
[2022-11-20] MEDS: Acetaminophen 500 MG Tab PO SCH ×3 (08:36→20:18)
[2022-11-20] MEDS: Metoprolol Succinate 50 MG Tab.ER PO SCH (08:37)
[2022-11-20] MEDS: Hydrochlorothiazide 12.5 MG Cap PO SCH (08:38)
[2022-11-20] MEDS: Venlafaxine 150 MG Cap.ER PO SCH (08:39)
[2022-11-20] MEDS: Loratadine 10 MG Tab PO SCH (08:39)
[2022-11-20] MEDS: amLODIPine 10 MG Tab PO SCH (08:39)
[2022-11-20] MEDS: Diclofenac Sodium 1% Gel 100 GM Tube TOP SCH ×4 (08:40→20:19)
[2022-11-20] MEDS: Menthol 10%/Methyl Salicylate 30% 85 GM Tube TOP SCH ×2 (08:40→20:17)
[2022-11-20] MEDS: Albuterol 90 MCG/6.7 GM Inhaler INH PRN (10:27)
[2022-11-20] MEDS: atorvaSTATin 10 MG Tab PO SCH (10:43)
[2022-11-20] MEDS: Prazosin 1 MG Cap PO SCH (20:17)
[2022-11-20] MEDS: Melatonin 3 MG Tab PO SCH (20:17)
[2022-11-20] MEDS: Pregabalin 75 MG Cap PO SCH (20:17)
[2022-11-20] MEDS: QUEtiapine 100 MG Tab PO SCH (20:19)
[2022-11-21] MEDS: Pantoprazole 20 MG Tab, Delayed Release PO SCH (06:07)
[2022-11-21] MEDS: Levothyroxine 75 MCG Tab PO SCH (06:07)
[2022-11-21] MEDS: Formoterol/Mometasone 100-5 MCG 8.8 GM Inhaler IH SCH ×2 (06:07→20:44)
[2022-11-21] MEDS: Polyethylene Glycol 3350 Powder 17 GM Packet PO PRN (08:04)
[2022-11-21] MEDS: Aluminum Hydroxide/Magnesium Hydroxide Susp 30 ML Cup PO PRN (08:04)
[2022-11-21] MEDS: Nicotine 7 MG/24 Hr Patch TRDERM SCH (08:05)
[2022-11-21] MEDS: traMADol 50 MG Tab PO PRN (08:06)
[2022-11-21] MEDS: Hydrochlorothiazide 12.5 MG Cap PO SCH (08:07)
[2022-11-21] MEDS: Ezetimibe 10 MG Tab PO SCH (08:07)
[2022-11-21] MEDS: Metoprolol Succinate 50 MG Tab.ER PO SCH (08:07)
[2022-11-21] MEDS: Losartan 100 MG Tab PO SCH (08:08)
[2022-11-21] MEDS: Loratadine 10 MG Tab PO SCH (08:08)
[2022-11-21] MEDS: atorvaSTATin 10 MG Tab PO SCH (08:08)
[2022-11-21] MEDS: Venlafaxine 150 MG Cap.ER PO SCH (08:08)
[2022-11-21] MEDS: amLODIPine 10 MG Tab PO SCH (08:08)
[2022-11-21] MEDS: Acetaminophen 500 MG Tab PO SCH ×3 (08:09→20:46)
[2022-11-21] MEDS: Diclofenac Sodium 1% Gel 100 GM Tube TOP SCH ×4 (09:15→20:46)
[2022-11-21] MEDS: Menthol 10%/Methyl Salicylate 30% 85 GM Tube TOP SCH ×2 (09:15→20:45)
[2022-11-21] MEDS: QUEtiapine 100 MG Tab PO SCH (20:45)
[2022-11-21] MEDS: Melatonin 3 MG Tab PO SCH (20:45)
[2022-11-21] MEDS: Prazosin 1 MG Cap PO SCH (20:45)
[2022-11-21] MEDS: Pregabalin 75 MG Cap PO SCH (20:46)
[2022-11-22] MEDS: Levothyroxine 75 MCG Tab PO SCH (06:04)
[2022-11-22] MEDS: Formoterol/Mometasone 100-5 MCG 8.8 GM Inhaler IH SCH ×2 (06:05→20:24)
[2022-11-22] MEDS: Pantoprazole 20 MG Tab, Delayed Release PO SCH (06:05)
[2022-11-22] MEDS: Acetaminophen 500 MG Tab PO SCH ×3 (09:53→20:26)
[2022-11-22] MEDS: Venlafaxine 150 MG Cap.ER PO SCH (09:54)
[2022-11-22] MEDS: amLODIPine 10 MG Tab PO SCH (09:54)
[2022-11-22] MEDS: Hydrochlorothiazide 12.5 MG Cap PO SCH (09:54)
[2022-11-22] MEDS: Losartan 100 MG Tab PO SCH (09:54)
[2022-11-22] MEDS: Loratadine 10 MG Tab PO SCH (09:54)
[2022-11-22] MEDS: Metoprolol Succinate 50 MG Tab.ER PO SCH (09:54)
[2022-11-22] MEDS: atorvaSTATin 10 MG Tab PO SCH (09:54)
[2022-11-22] MEDS: Nicotine 7 MG/24 Hr Patch TRDERM SCH (09:55)
[2022-11-22] MEDS: Ezetimibe 10 MG Tab PO SCH (09:55)
[2022-11-22] MEDS: Menthol 10%/Methyl Salicylate 30% 85 GM Tube TOP SCH ×2 (09:56→20:24)
[2022-11-22] MEDS: Albuterol 90 MCG/6.7 GM Inhaler INH PRN (11:38)
[2022-11-22] MEDS: Aluminum Hydroxide/Magnesium Hydroxide Susp 30 ML Cup PO PRN (17:18)
[2022-11-22] MEDS: QUEtiapine 100 MG Tab PO SCH (20:25)
[2022-11-22] MEDS: Prazosin 1 MG Cap PO SCH (20:25)
[2022-11-22] MEDS: Melatonin 3 MG Tab PO SCH (20:25)
[2022-11-22] MEDS: Pregabalin 75 MG Cap PO SCH (20:25)
[2022-11-23] MEDS: Levothyroxine 75 MCG Tab PO SCH (06:10)
[2022-11-23] MEDS: Formoterol/Mometasone 100-5 MCG 8.8 GM Inhaler IH SCH ×2 (06:10→20:39)
[2022-11-23] MEDS: Pantoprazole 20 MG Tab, Delayed Release PO SCH (06:10)
[2022-11-23] MEDS: Hydrochlorothiazide 12.5 MG Cap PO SCH (08:59)
[2022-11-23] MEDS: Ezetimibe 10 MG Tab PO SCH (08:59)
[2022-11-23] MEDS: atorvaSTATin 10 MG Tab PO SCH (08:59)
[2022-11-23] MEDS: Venlafaxine 150 MG Cap.ER PO SCH (08:59)
[2022-11-23] MEDS: Acetaminophen 500 MG Tab PO SCH ×3 (08:59→20:41)
[2022-11-23] MEDS: amLODIPine 10 MG Tab PO SCH (08:59)
[2022-11-23] MEDS: Loratadine 10 MG Tab PO SCH (08:59)
[2022-11-23] MEDS: Losartan 100 MG Tab PO SCH (08:59)
[2022-11-23] MEDS: Metoprolol Succinate 50 MG Tab.ER PO SCH (09:00)
[2022-11-23] MEDS: Nicotine 7 MG/24 Hr Patch TRDERM SCH (09:00)
[2022-11-23] MEDS: Menthol 10%/Methyl Salicylate 30% 85 GM Tube TOP SCH ×2 (09:00→20:39)
[2022-11-23] MEDS: Prazosin 1 MG Cap PO SCH (20:40)
[2022-11-23] MEDS: Melatonin 3 MG Tab PO SCH (20:40)
[2022-11-23] MEDS: Pregabalin 75 MG Cap PO SCH (20:40)
[2022-11-23] MEDS: QUEtiapine 100 MG Tab PO SCH (20:41)
[2022-11-24] MEDS: Pantoprazole 20 MG Tab, Delayed Release PO SCH (06:27)
[2022-11-24] MEDS: Levothyroxine 75 MCG Tab PO SCH (06:27)
[2022-11-24] MEDS: Formoterol/Mometasone 100-5 MCG 8.8 GM Inhaler IH SCH ×2 (06:27→20:06)
[2022-11-24] MEDS: Losartan 100 MG Tab PO SCH (08:31)
[2022-11-24] MEDS: Acetaminophen 500 MG Tab PO SCH ×3 (08:33→20:07)
[2022-11-24] MEDS: Metoprolol Succinate 50 MG Tab.ER PO SCH (08:33)
[2022-11-24] MEDS: atorvaSTATin 10 MG Tab PO SCH (08:34)
[2022-11-24] MEDS: amLODIPine 10 MG Tab PO SCH (08:34)
[2022-11-24] MEDS: Menthol 10%/Methyl Salicylate 30% 85 GM Tube TOP SCH ×2 (08:35→20:06)
[2022-11-24] MEDS: Hydrochlorothiazide 12.5 MG Cap PO SCH (08:37)
[2022-11-24] MEDS: Nicotine 7 MG/24 Hr Patch TRDERM SCH (08:37)
[2022-11-24] MEDS: Venlafaxine 150 MG Cap.ER PO SCH (08:37)
[2022-11-24] MEDS: Ezetimibe 10 MG Tab PO SCH (08:40)
[2022-11-24] MEDS: Loratadine 10 MG Tab PO SCH (08:40)
[2022-11-24] MEDS: Polyethylene Glycol 3350 Powder 17 GM Packet PO PRN (13:19)
[2022-11-24] MEDS: Pregabalin 75 MG Cap PO SCH (20:05)
[2022-11-24] MEDS: QUEtiapine 100 MG Tab PO SCH (20:06)
[2022-11-24] MEDS: Prazosin 1 MG Cap PO SCH (20:07)
[2022-11-24] MEDS: Melatonin 3 MG Tab PO SCH (20:07)
[2022-11-25] MEDS: Formoterol/Mometasone 100-5 MCG 8.8 GM Inhaler IH SCH ×2 (06:02→20:12)
[2022-11-25] MEDS: Pantoprazole 20 MG Tab, Delayed Release PO SCH (06:02)
[2022-11-25] MEDS: Levothyroxine 75 MCG Tab PO SCH (06:02)
[2022-11-25] MEDS: Menthol 10%/Methyl Salicylate 30% 85 GM Tube TOP SCH ×2 (09:28→20:12)
[2022-11-25] MEDS: Acetaminophen 500 MG Tab PO SCH ×3 (09:31→20:15)
[2022-11-25] MEDS: Loratadine 10 MG Tab PO SCH (09:32)
[2022-11-25] MEDS: Losartan 100 MG Tab PO SCH (09:33)
[2022-11-25] MEDS: Venlafaxine 150 MG Cap.ER PO SCH (09:33)
[2022-11-25] MEDS: amLODIPine 10 MG Tab PO SCH (09:34)
[2022-11-25] MEDS: Hydrochlorothiazide 12.5 MG Cap PO SCH (09:34)
[2022-11-25] MEDS: atorvaSTATin 10 MG Tab PO SCH (09:35)
[2022-11-25] MEDS: Metoprolol Succinate 50 MG Tab.ER PO SCH (09:35)
[2022-11-25] MEDS: Ezetimibe 10 MG Tab PO SCH (09:36)
[2022-11-25] MEDS: Nicotine 7 MG/24 Hr Patch TRDERM SCH (09:42)
[2022-11-25] MEDS: Prazosin 1 MG Cap PO SCH (20:13)
[2022-11-25] MEDS: Melatonin 3 MG Tab PO SCH (20:13)
[2022-11-25] MEDS: QUEtiapine 100 MG Tab PO SCH (20:15)
[2022-11-25] MEDS: Pregabalin 75 MG Cap PO SCH (20:15)
[2022-11-26] MEDS: Formoterol/Mometasone 100-5 MCG 8.8 GM Inhaler IH SCH ×2 (06:34→20:04)
[2022-11-26] MEDS: Pantoprazole 20 MG Tab, Delayed Release PO SCH (06:34)
[2022-11-26] MEDS: Levothyroxine 75 MCG Tab PO SCH (06:34)
[2022-11-26] MEDS: Menthol 10%/Methyl Salicylate 30% 85 GM Tube TOP SCH ×2 (08:40→20:04)
[2022-11-26] MEDS: Losartan 100 MG Tab PO SCH (08:42)
[2022-11-26] MEDS: amLODIPine 10 MG Tab PO SCH (08:43)
[2022-11-26] MEDS: Acetaminophen 500 MG Tab PO SCH ×3 (08:44→20:05)
[2022-11-26] MEDS: Metoprolol Succinate 50 MG Tab.ER PO SCH (08:45)
[2022-11-26] MEDS: Loratadine 10 MG Tab PO SCH (08:46)
[2022-11-26] MEDS: Venlafaxine 150 MG Cap.ER PO SCH (08:47)
[2022-11-26] MEDS: Ezetimibe 10 MG Tab PO SCH (08:47)
[2022-11-26] MEDS: atorvaSTATin 10 MG Tab PO SCH (08:48)
[2022-11-26] MEDS: Hydrochlorothiazide 12.5 MG Cap PO SCH (08:48)
[2022-11-26] MEDS: Nicotine 7 MG/24 Hr Patch TRDERM SCH (08:55)
[2022-11-26] MEDS: Prazosin 1 MG Cap PO SCH (20:04)
[2022-11-26] MEDS: traMADol 50 MG Tab PO PRN (20:04)
[2022-11-26] MEDS: QUEtiapine 100 MG Tab PO SCH (20:05)
[2022-11-26] MEDS: Melatonin 3 MG Tab PO SCH (20:05)
[2022-11-26] MEDS: Pregabalin 75 MG Cap PO SCH (20:06)
[2022-11-27] MEDS: Formoterol/Mometasone 100-5 MCG 8.8 GM Inhaler IH SCH ×2 (06:05→20:09)
[2022-11-27] MEDS: Pantoprazole 20 MG Tab, Delayed Release PO SCH (06:05)
[2022-11-27] MEDS: Levothyroxine 75 MCG Tab PO SCH (06:05)
[2022-11-27] MEDS: Ezetimibe 10 MG Tab PO SCH (08:25)
[2022-11-27] MEDS: Metoprolol Succinate 50 MG Tab.ER PO SCH (08:26)
[2022-11-27] MEDS: Loratadine 10 MG Tab PO SCH (08:26)
[2022-11-27] MEDS: Acetaminophen 500 MG Tab PO SCH ×3 (08:26→20:08)
[2022-11-27] MEDS: Venlafaxine 150 MG Cap.ER PO SCH (08:26)
[2022-11-27] MEDS: amLODIPine 10 MG Tab PO SCH (08:27)
[2022-11-27] MEDS: Hydrochlorothiazide 12.5 MG Cap PO SCH (08:27)
[2022-11-27] MEDS: atorvaSTATin 10 MG Tab PO SCH (08:27)
[2022-11-27] MEDS: Losartan 100 MG Tab PO SCH (08:28)
[2022-11-27] MEDS: Menthol 10%/Methyl Salicylate 30% 85 GM Tube TOP SCH ×2 (08:29→20:09)
[2022-11-27] MEDS: Nicotine 7 MG/24 Hr Patch TRDERM SCH (08:38)
[2022-11-27] MEDS: Aluminum Hydroxide/Magnesium Hydroxide Susp 30 ML Cup PO PRN (18:30)
[2022-11-27] MEDS: Pregabalin 75 MG Cap PO SCH (20:08)
[2022-11-27] MEDS: traMADol 50 MG Tab PO PRN (20:08)
[2022-11-27] MEDS: Melatonin 3 MG Tab PO SCH (20:09)
[2022-11-27] MEDS: Prazosin 1 MG Cap PO SCH (20:09)
[2022-11-27] MEDS: QUEtiapine 100 MG Tab PO SCH (20:10)
[2022-11-28] MEDS: Pantoprazole 20 MG Tab, Delayed Release PO SCH (06:22)
[2022-11-28] MEDS: Levothyroxine 75 MCG Tab PO SCH (06:22)
[2022-11-28] MEDS: Formoterol/Mometasone 100-5 MCG 8.8 GM Inhaler IH SCH ×2 (06:22→21:46)
[2022-11-28] MEDS: amLODIPine 10 MG Tab PO SCH (08:05)
[2022-11-28] MEDS: Hydrochlorothiazide 12.5 MG Cap PO SCH (08:06)
[2022-11-28] MEDS: Acetaminophen 500 MG Tab PO SCH ×3 (08:06→21:45)
[2022-11-28] MEDS: Loratadine 10 MG Tab PO SCH (08:07)
[2022-11-28] MEDS: atorvaSTATin 10 MG Tab PO SCH (08:07)
[2022-11-28] MEDS: Metoprolol Succinate 50 MG Tab.ER PO SCH (08:07)
[2022-11-28] MEDS: Losartan 100 MG Tab PO SCH (08:08)
[2022-11-28] MEDS: Ezetimibe 10 MG Tab PO SCH (08:08)
[2022-11-28] MEDS: Venlafaxine 150 MG Cap.ER PO SCH (08:08)
[2022-11-28] MEDS: Menthol 10%/Methyl Salicylate 30% 85 GM Tube TOP SCH ×2 (08:09→21:44)
[2022-11-28] MEDS: Nicotine 7 MG/24 Hr Patch TRDERM SCH (11:04)
[2022-11-28] MEDS: Aluminum Hydroxide/Magnesium Hydroxide Susp 30 ML Cup PO PRN (12:58)
[2022-11-28] MEDS: Pregabalin 75 MG Cap PO SCH (21:44)
[2022-11-28] MEDS: Melatonin 3 MG Tab PO SCH (21:46)
[2022-11-28] MEDS: QUEtiapine 100 MG Tab PO SCH (21:47)
[2022-11-28] MEDS: Prazosin 1 MG Cap PO SCH (21:47)
[2022-11-29] MEDS: Levothyroxine 75 MCG Tab PO SCH (06:09)
[2022-11-29] MEDS: Pantoprazole 20 MG Tab, Delayed Release PO SCH (06:09)
[2022-11-29] MEDS: Formoterol/Mometasone 100-5 MCG 8.8 GM Inhaler IH SCH ×2 (06:09→21:47)
[2022-11-29] MEDS: traMADol 50 MG Tab PO PRN (08:03)
[2022-11-29] MEDS: Nicotine 7 MG/24 Hr Patch TRDERM SCH (08:04)
[2022-11-29] MEDS: Acetaminophen 500 MG Tab PO SCH ×3 (08:06→21:47)
[2022-11-29] MEDS: Venlafaxine 150 MG Cap.ER PO SCH (08:07)
[2022-11-29] MEDS: Metoprolol Succinate 50 MG Tab.ER PO SCH (08:08)
[2022-11-29] MEDS: Losartan 100 MG Tab PO SCH (08:08)
[2022-11-29] MEDS: Ezetimibe 10 MG Tab PO SCH (08:08)
[2022-11-29] MEDS: atorvaSTATin 10 MG Tab PO SCH (08:08)
[2022-11-29] MEDS: Loratadine 10 MG Tab PO SCH (08:09)
[2022-11-29] MEDS: Diclofenac Sodium 1% Gel 100 GM Tube TOP PRN (08:10)
[2022-11-29] MEDS: Hydrocortisone Acetate 1% Crm 30 GM Tube TOP PRN (08:10)
[2022-11-29] MEDS: Menthol 10%/Methyl Salicylate 30% 85 GM Tube TOP SCH ×2 (08:11→21:47)
[2022-11-29] MEDS: Hydrochlorothiazide 12.5 MG Cap PO SCH (08:12)
[2022-11-29] MEDS: amLODIPine 10 MG Tab PO SCH (10:58)
[2022-11-29] MEDS: Aluminum Hydroxide/Magnesium Hydroxide Susp 30 ML Cup PO PRN (14:02)
[2022-11-29] MEDS: QUEtiapine 100 MG Tab PO SCH (21:46)
[2022-11-29] MEDS: Melatonin 3 MG Tab PO SCH (21:46)
[2022-11-29] MEDS: Pregabalin 75 MG Cap PO SCH (21:46)
[2022-11-29] MEDS: Prazosin 1 MG Cap PO SCH (21:46)
[2022-11-29] MEDS: Oxybutynin 5 MG Tab PO SCH (21:47)
[2022-11-30] MEDS: Formoterol/Mometasone 100-5 MCG 8.8 GM Inhaler IH SCH ×2 (06:21→22:23)
[2022-11-30] MEDS: Pantoprazole 20 MG Tab, Delayed Release PO SCH (06:22)
[2022-11-30] MEDS: Levothyroxine 75 MCG Tab PO SCH (06:22)
[2022-11-30 06:54] LABS: BLOOD UREA NITROGEN,BUN 36 mg/dL (7-18); BUN/CREATININE RATIO 22.5 (9-20); CALCIUM 8.3 mg/dL (8.6-10.2); CARBON DIOXIDE,CO2 24 mmol/L (21-32); CHLORIDE,CL 107 mmol/L (100-110); CREATININE 1.6 mg/dL (0.55-1.02); EST CRCL DRUG DOSING (CG) 40.22 mL/min; ESTIMATED GFR 36 mL/min (>60); GLUCOSE RANDOM 106 mg/dL (80-116); POTASSIUM,K 4.6 mmol/L (3.5-5.3); SODIUM,NA 137 mmol/L (135-145)
[2022-11-30] MEDS: Venlafaxine 150 MG Cap.ER PO SCH (09:03)
[2022-11-30] MEDS: Loratadine 10 MG Tab PO SCH (09:03)
[2022-11-30] MEDS: Losartan 100 MG Tab PO SCH (09:03)
[2022-11-30] MEDS: Hydrochlorothiazide 12.5 MG Cap PO SCH (09:04)
[2022-11-30] MEDS: Menthol 10%/Methyl Salicylate 30% 85 GM Tube TOP SCH ×2 (09:04→22:24)
[2022-11-30] MEDS: Nicotine 7 MG/24 Hr Patch TRDERM SCH (09:04)
[2022-11-30] MEDS: Oxybutynin 5 MG Tab PO SCH ×2 (09:05→22:25)
[2022-11-30] MEDS: amLODIPine 10 MG Tab PO SCH (09:05)
[2022-11-30] MEDS: atorvaSTATin 10 MG Tab PO SCH (09:05)
[2022-11-30] MEDS: Acetaminophen 500 MG Tab PO SCH ×3 (09:06→22:26)
[2022-11-30] MEDS: Metoprolol Succinate 50 MG Tab.ER PO SCH (09:06)
[2022-11-30] MEDS: Ezetimibe 10 MG Tab PO SCH (09:07)
[2022-11-30] MEDS: Pregabalin 75 MG Cap PO SCH (22:25)
[2022-11-30] MEDS: QUEtiapine 100 MG Tab PO SCH (22:25)
[2022-11-30] MEDS: Melatonin 3 MG Tab PO SCH (22:25)
[2022-11-30] MEDS: Prazosin 1 MG Cap PO SCH (22:26)
[2022-12-01] MEDS: Formoterol/Mometasone 100-5 MCG 8.8 GM Inhaler IH SCH ×2 (06:11→20:17)
[2022-12-01] MEDS: Levothyroxine 75 MCG Tab PO SCH (06:12)
[2022-12-01] MEDS: Pantoprazole 20 MG Tab, Delayed Release PO SCH (06:12)
[2022-12-01] MEDS: Losartan 100 MG Tab PO SCH (08:52)
[2022-12-01] MEDS: Loratadine 10 MG Tab PO SCH (08:52)
[2022-12-01] MEDS: Nicotine 7 MG/24 Hr Patch TRDERM SCH (08:53)
[2022-12-01] MEDS: Venlafaxine 150 MG Cap.ER PO SCH (08:53)
[2022-12-01] MEDS: Menthol 10%/Methyl Salicylate 30% 85 GM Tube TOP SCH ×2 (08:54→20:17)
[2022-12-01] MEDS: Hydrochlorothiazide 12.5 MG Cap PO SCH (08:54)
[2022-12-01] MEDS: amLODIPine 10 MG Tab PO SCH (08:56)
[2022-12-01] MEDS: Oxybutynin 5 MG Tab PO SCH (08:56)
[2022-12-01] MEDS: atorvaSTATin 10 MG Tab PO SCH (08:56)
[2022-12-01] MEDS: Acetaminophen 500 MG Tab PO SCH ×3 (08:58→20:17)
[2022-12-01] MEDS: Metoprolol Succinate 50 MG Tab.ER PO SCH (08:58)
[2022-12-01] MEDS: Ezetimibe 10 MG Tab PO SCH (08:59)
[2022-12-01] MEDS ORDERED: Sennosides/Docusate Sodium 50-8.6 MG Tab PO PRN (10:56)
[2022-12-01] MEDS: Melatonin 3 MG Tab PO SCH (20:16)
[2022-12-01] MEDS: Prazosin 1 MG Cap PO SCH (20:16)
[2022-12-01] MEDS: QUEtiapine 100 MG Tab PO SCH (20:18)
[2022-12-01] MEDS: traMADol 50 MG Tab PO PRN (20:20)
[2022-12-01] MEDS: Pregabalin 75 MG Cap PO SCH (20:20)
[2022-12-02] MEDS: Formoterol/Mometasone 100-5 MCG 8.8 GM Inhaler IH SCH ×2 (06:34→20:20)
[2022-12-02] MEDS: Pantoprazole 20 MG Tab, Delayed Release PO SCH (06:34)
[2022-12-02] MEDS: Levothyroxine 75 MCG Tab PO SCH (06:34)
[2022-12-02] MEDS: Acetaminophen 500 MG Tab PO SCH ×3 (09:21→20:21)
[2022-12-02] MEDS: Ezetimibe 10 MG Tab PO SCH (09:21)
[2022-12-02] MEDS: Hydrochlorothiazide 12.5 MG Cap PO SCH (09:23)
[2022-12-02] MEDS: Menthol 10%/Methyl Salicylate 30% 85 GM Tube TOP SCH ×2 (09:23→20:20)
[2022-12-02] MEDS: Nicotine 7 MG/24 Hr Patch TRDERM SCH (09:23)
[2022-12-02] MEDS: atorvaSTATin 10 MG Tab PO SCH (09:24)
[2022-12-02] MEDS: Venlafaxine 150 MG Cap.ER PO SCH (09:24)
[2022-12-02] MEDS: Losartan 100 MG Tab PO SCH (09:25)
[2022-12-02] MEDS: Loratadine 10 MG Tab PO SCH (09:25)
[2022-12-02] MEDS: Aluminum Hydroxide/Magnesium Hydroxide Susp 30 ML Cup PO PRN (09:34)
[2022-12-02] MEDS: amLODIPine 10 MG Tab PO SCH ×2 (11:01→20:22)
[2022-12-02] MEDS: Metoprolol Succinate 50 MG Tab.ER PO SCH ×2 (11:01→20:22)
[2022-12-02] MEDS: Prazosin 1 MG Cap PO SCH (20:19)
[2022-12-02] MEDS: Pregabalin 75 MG Cap PO SCH (20:19)
[2022-12-02] MEDS: Melatonin 3 MG Tab PO SCH (20:20)
[2022-12-02] MEDS: QUEtiapine 100 MG Tab PO SCH (20:20)
[2022-12-02] MEDS: Mirtazapine 15 MG Tab PO SCH (20:23)
[2022-12-03] MEDS: Formoterol/Mometasone 100-5 MCG 8.8 GM Inhaler IH SCH ×2 (06:04→20:52)
[2022-12-03] MEDS: Levothyroxine 75 MCG Tab PO SCH (06:04)
[2022-12-03] MEDS: Pantoprazole 20 MG Tab, Delayed Release PO SCH (06:04)
[2022-12-03] MEDS: Nicotine 7 MG/24 Hr Patch TRDERM SCH (10:00)
[2022-12-03] MEDS: Loratadine 10 MG Tab PO SCH (10:00)
[2022-12-03] MEDS: Acetaminophen 500 MG Tab PO SCH ×3 (10:00→20:53)
[2022-12-03] MEDS: Venlafaxine 150 MG Cap.ER PO SCH (10:00)
[2022-12-03] MEDS: Hydrochlorothiazide 12.5 MG Cap PO SCH (10:02)
[2022-12-03] MEDS: Menthol 10%/Methyl Salicylate 30% 85 GM Tube TOP SCH ×2 (10:04→20:52)
[2022-12-03] MEDS: atorvaSTATin 10 MG Tab PO SCH (10:05)
[2022-12-03] MEDS: Ezetimibe 10 MG Tab PO SCH (10:08)
[2022-12-03] MEDS: Losartan 100 MG Tab PO SCH (10:59)
[2022-12-03] MEDS: Albuterol 90 MCG/6.7 GM Inhaler INH PRN (14:08)
[2022-12-03] MEDS: Pregabalin 75 MG Cap PO SCH (20:52)
[2022-12-03] MEDS: Prazosin 1 MG Cap PO SCH (20:53)
[2022-12-03] MEDS: QUEtiapine 100 MG Tab PO SCH (20:53)
[2022-12-03] MEDS: Melatonin 3 MG Tab PO SCH (20:55)
[2022-12-03] MEDS: amLODIPine 10 MG Tab PO SCH (20:56)
[2022-12-03] MEDS: Metoprolol Succinate 50 MG Tab.ER PO SCH (20:58)
[2022-12-03] MEDS: Mirtazapine 15 MG Tab PO SCH (20:59)
[2022-12-03] MEDS ORDERED: Melatonin 3 MG Tab PO ONE (22:26)
[2022-12-04] MEDS: Pantoprazole 20 MG Tab, Delayed Release PO SCH (06:55)
[2022-12-04] MEDS: Levothyroxine 75 MCG Tab PO SCH (06:56)
[2022-12-04] MEDS: Formoterol/Mometasone 100-5 MCG 8.8 GM Inhaler IH SCH ×2 (06:56→21:24)
[2022-12-04] MEDS: Menthol 10%/Methyl Salicylate 30% 85 GM Tube TOP SCH ×2 (09:34→21:24)
[2022-12-04] MEDS: Acetaminophen 500 MG Tab PO SCH ×3 (09:34→21:23)
[2022-12-04] MEDS: atorvaSTATin 10 MG Tab PO SCH (09:35)
[2022-12-04] MEDS: Venlafaxine 150 MG Cap.ER PO SCH (09:36)
[2022-12-04] MEDS: Loratadine 10 MG Tab PO SCH (09:36)
[2022-12-04] MEDS: Losartan 100 MG Tab PO SCH (09:36)
[2022-12-04] MEDS: Nicotine 7 MG/24 Hr Patch TRDERM SCH (09:37)
[2022-12-04] MEDS: Hydrochlorothiazide 12.5 MG Cap PO SCH (09:37)
[2022-12-04] MEDS: Ezetimibe 10 MG Tab PO SCH (09:38)
[2022-12-04] MEDS ORDERED: Melatonin 3 MG Tab PO SCH (21:00)
[2022-12-04] MEDS: Pregabalin 75 MG Cap PO SCH (21:19)
[2022-12-04] MEDS: Melatonin 3 MG Tab PO SCH (21:20)
[2022-12-04] MEDS: QUEtiapine 100 MG Tab PO SCH (21:20)
[2022-12-04] MEDS: Mirtazapine 15 MG Tab PO SCH (21:20)
[2022-12-04] MEDS: Prazosin 1 MG Cap PO SCH (21:24)
[2022-12-04] MEDS: Metoprolol Succinate 50 MG Tab.ER PO SCH (21:24)
[2022-12-04] MEDS: amLODIPine 10 MG Tab PO SCH (21:25)
[2022-12-05] MEDS: Levothyroxine 75 MCG Tab PO SCH (06:24)
[2022-12-05] MEDS: Formoterol/Mometasone 100-5 MCG 8.8 GM Inhaler IH SCH ×2 (06:24→20:48)
[2022-12-05] MEDS: Pantoprazole 20 MG Tab, Delayed Release PO SCH (06:24)
[2022-12-05] MEDS: Acetaminophen 500 MG Tab PO SCH ×3 (08:53→20:57)
[2022-12-05] MEDS: Nicotine 7 MG/24 Hr Patch TRDERM SCH (08:54)
[2022-12-05] MEDS: Loratadine 10 MG Tab PO SCH (08:54)
[2022-12-05] MEDS: Venlafaxine 150 MG Cap.ER PO SCH (08:54)
[2022-12-05] MEDS: Losartan 100 MG Tab PO SCH (08:54)
[2022-12-05] MEDS: atorvaSTATin 10 MG Tab PO SCH (08:54)
[2022-12-05] MEDS: Ezetimibe 10 MG Tab PO SCH (08:54)
[2022-12-05] MEDS: Menthol 10%/Methyl Salicylate 30% 85 GM Tube TOP SCH ×2 (08:55→20:49)
[2022-12-05] MEDS: Hydrochlorothiazide 12.5 MG Cap PO SCH (08:55)
[2022-12-05] MEDS: Pregabalin 75 MG Cap PO SCH (20:52)
[2022-12-05] MEDS: Melatonin 3 MG Tab PO SCH (20:53)
[2022-12-05] MEDS: Prazosin 1 MG Cap PO SCH (20:53)
[2022-12-05] MEDS: amLODIPine 10 MG Tab PO SCH (20:55)
[2022-12-05] MEDS: Mirtazapine 15 MG Tab PO SCH (20:56)
[2022-12-05] MEDS: QUEtiapine 100 MG Tab PO SCH (20:56)
[2022-12-05] MEDS: Metoprolol Succinate 50 MG Tab.ER PO SCH (20:57)
[2022-12-06] MEDS: Pantoprazole 20 MG Tab, Delayed Release PO SCH (06:20)
[2022-12-06] MEDS: Formoterol/Mometasone 100-5 MCG 8.8 GM Inhaler IH SCH ×2 (06:20→21:05)
[2022-12-06] MEDS: Levothyroxine 75 MCG Tab PO SCH (06:20)
[2022-12-06] MEDS: Acetaminophen 500 MG Tab PO SCH ×4 (06:21→21:12)
[2022-12-06] MEDS: Ezetimibe 10 MG Tab PO SCH (09:21)
[2022-12-06] MEDS: Hydrochlorothiazide 12.5 MG Cap PO SCH (09:21)
[2022-12-06] MEDS: Venlafaxine 150 MG Cap.ER PO SCH (09:22)
[2022-12-06] MEDS: Losartan 100 MG Tab PO SCH (09:22)
[2022-12-06] MEDS: atorvaSTATin 10 MG Tab PO SCH (09:23)
[2022-12-06] MEDS: Loratadine 10 MG Tab PO SCH (09:23)
[2022-12-06] MEDS: Nicotine 7 MG/24 Hr Patch TRDERM SCH (09:23)
[2022-12-06] MEDS: Menthol 10%/Methyl Salicylate 30% 85 GM Tube TOP SCH ×2 (09:24→21:06)
[2022-12-06] MEDS: Aluminum Hydroxide/Magnesium Hydroxide Susp 30 ML Cup PO PRN (09:24)
[2022-12-06] MEDS: Pregabalin 75 MG Cap PO SCH (21:07)
[2022-12-06] MEDS: Melatonin 3 MG Tab PO SCH (21:08)
[2022-12-06] MEDS: Prazosin 1 MG Cap PO SCH (21:08)
[2022-12-06] MEDS: amLODIPine 10 MG Tab PO SCH (21:09)
[2022-12-06] MEDS: Mirtazapine 15 MG Tab PO SCH (21:10)
[2022-12-06] MEDS: Metoprolol Succinate 50 MG Tab.ER PO SCH (21:10)
[2022-12-06] MEDS: QUEtiapine 100 MG Tab PO SCH (21:12)
[2022-12-07] MEDS: Pantoprazole 20 MG Tab, Delayed Release PO SCH (06:33)
[2022-12-07] MEDS: Formoterol/Mometasone 100-5 MCG 8.8 GM Inhaler IH SCH ×2 (06:33→21:29)
[2022-12-07] MEDS: Levothyroxine 75 MCG Tab PO SCH (06:33)
[2022-12-07] MEDS: traMADol 50 MG Tab PO PRN (07:59)
[2022-12-07] MEDS: Ezetimibe 10 MG Tab PO SCH (08:00)
[2022-12-07] MEDS: Menthol 10%/Methyl Salicylate 30% 85 GM Tube TOP SCH ×2 (08:00→21:30)
[2022-12-07] MEDS: Venlafaxine 150 MG Cap.ER PO SCH (08:00)
[2022-12-07] MEDS: Acetaminophen 500 MG Tab PO SCH ×3 (08:00→21:31)
[2022-12-07] MEDS: Hydrochlorothiazide 12.5 MG Cap PO SCH (08:01)
[2022-12-07] MEDS: Nicotine 7 MG/24 Hr Patch TRDERM SCH (08:01)
[2022-12-07] MEDS: Losartan 100 MG Tab PO SCH (08:01)
[2022-12-07] MEDS: Loratadine 10 MG Tab PO SCH (08:01)
[2022-12-07] MEDS: atorvaSTATin 10 MG Tab PO SCH (08:02)
[2022-12-07] MEDS: Pregabalin 75 MG Cap PO SCH (21:30)
[2022-12-07] MEDS: Melatonin 3 MG Tab PO SCH (21:30)
[2022-12-07] MEDS: amLODIPine 10 MG Tab PO SCH (21:31)
[2022-12-07] MEDS: QUEtiapine 100 MG Tab PO SCH (21:31)
[2022-12-07] MEDS: Prazosin 1 MG Cap PO SCH (21:31)
[2022-12-07] MEDS: Metoprolol Succinate 50 MG Tab.ER PO SCH (21:33)
[2022-12-08] MEDS: Levothyroxine 75 MCG Tab PO SCH (07:05)
[2022-12-08] MEDS: Formoterol/Mometasone 100-5 MCG 8.8 GM Inhaler IH SCH ×2 (07:06→21:43)
[2022-12-08] MEDS: Loratadine 10 MG Tab PO SCH (10:16)
[2022-12-08] MEDS: Nicotine 7 MG/24 Hr Patch TRDERM SCH (10:16)
[2022-12-08] MEDS: Venlafaxine 150 MG Cap.ER PO SCH (10:16)
[2022-12-08] MEDS: Hydrochlorothiazide 12.5 MG Cap PO SCH (10:17)
[2022-12-08] MEDS: Acetaminophen 500 MG Tab PO SCH ×3 (10:18→21:50)
[2022-12-08] MEDS: atorvaSTATin 10 MG Tab PO SCH (10:18)
[2022-12-08] MEDS: Losartan 100 MG Tab PO SCH (10:21)
[2022-12-08] MEDS: Menthol 10%/Methyl Salicylate 30% 85 GM Tube TOP SCH ×2 (10:22→21:44)
[2022-12-08] MEDS: Aluminum Hydroxide/Magnesium Hydroxide Susp 30 ML Cup PO PRN (14:00)
[2022-12-08] MEDS: Melatonin 3 MG Tab PO SCH (21:45)
[2022-12-08] MEDS: amLODIPine 10 MG Tab PO SCH (21:47)
[2022-12-08] MEDS: QUEtiapine 100 MG Tab PO SCH (21:49)
[2022-12-08] MEDS: Metoprolol Succinate 50 MG Tab.ER PO SCH (21:52)
[2022-12-08] MEDS: Sennosides/Docusate Sodium 50-8.6 MG Tab PO SCH (21:53)
[2022-12-08] MEDS: Prazosin 1 MG Cap PO SCH (21:54)
[2022-12-08] MEDS: Pregabalin 75 MG Cap PO SCH (22:02)
[2022-12-09] MEDS: Levothyroxine 75 MCG Tab PO SCH (05:12)
[2022-12-09] MEDS: Formoterol/Mometasone 100-5 MCG 8.8 GM Inhaler IH SCH ×3 (05:12→20:15)
[2022-12-09] MEDS: Menthol 10%/Methyl Salicylate 30% 85 GM Tube TOP SCH ×2 (09:56→20:16)
[2022-12-09] MEDS: Losartan 100 MG Tab PO SCH (09:58)
[2022-12-09] MEDS: Loratadine 10 MG Tab PO SCH (10:01)
[2022-12-09] MEDS: Hydrochlorothiazide 12.5 MG Cap PO SCH (10:01)
[2022-12-09] MEDS: Nicotine 7 MG/24 Hr Patch TRDERM SCH (10:02)
[2022-12-09] MEDS: atorvaSTATin 10 MG Tab PO SCH (10:02)
[2022-12-09] MEDS: Acetaminophen 500 MG Tab PO SCH ×3 (10:03→20:14)
[2022-12-09] MEDS: Venlafaxine 150 MG Cap.ER PO SCH (10:25)
[2022-12-09] MEDS: Pregabalin 75 MG Cap PO SCH (20:16)
[2022-12-09] MEDS: Prazosin 1 MG Cap PO SCH (20:17)
[2022-12-09] MEDS: Melatonin 3 MG Tab PO SCH (20:17)
[2022-12-09] MEDS: QUEtiapine 100 MG Tab PO SCH (20:18)
[2022-12-09] MEDS: amLODIPine 10 MG Tab PO SCH (20:18)
[2022-12-09] MEDS: Metoprolol Succinate 50 MG Tab.ER PO SCH (20:20)
[2022-12-09] MEDS: Sennosides/Docusate Sodium 50-8.6 MG Tab PO SCH (20:21)
[2022-12-10] MEDS: Levothyroxine 75 MCG Tab PO SCH (06:46)
[2022-12-10] MEDS: Formoterol/Mometasone 100-5 MCG 8.8 GM Inhaler IH SCH ×2 (06:46→20:41)
[2022-12-10] MEDS: Nicotine 7 MG/24 Hr Patch TRDERM SCH (09:53)
[2022-12-10] MEDS: Acetaminophen 500 MG Tab PO SCH ×3 (09:53→20:41)
[2022-12-10] MEDS: atorvaSTATin 10 MG Tab PO SCH (09:54)
[2022-12-10] MEDS: Venlafaxine 150 MG Cap.ER PO SCH (09:54)
[2022-12-10] MEDS: Hydrochlorothiazide 12.5 MG Cap PO SCH (09:54)
[2022-12-10] MEDS: Loratadine 10 MG Tab PO SCH (09:54)
[2022-12-10] MEDS: Menthol 10%/Methyl Salicylate 30% 85 GM Tube TOP SCH ×2 (09:55→20:44)
[2022-12-10] MEDS: Losartan 100 MG Tab PO SCH (09:56)
[2022-12-10] MEDS: Pregabalin 75 MG Cap PO SCH (20:41)
[2022-12-10] MEDS: Prazosin 1 MG Cap PO SCH (20:45)
[2022-12-10] MEDS: Melatonin 3 MG Tab PO SCH (20:45)
[2022-12-10] MEDS: Metoprolol Succinate 50 MG Tab.ER PO SCH (20:46)
[2022-12-10] MEDS: QUEtiapine 100 MG Tab PO SCH (20:47)
[2022-12-10] MEDS: Sennosides/Docusate Sodium 50-8.6 MG Tab PO SCH (20:47)
[2022-12-10] MEDS: amLODIPine 10 MG Tab PO SCH (20:48)
[2022-12-11] MEDS: Formoterol/Mometasone 100-5 MCG 8.8 GM Inhaler IH SCH ×2 (06:19→20:17)
[2022-12-11] MEDS: Levothyroxine 75 MCG Tab PO SCH (06:20)
[2022-12-11] MEDS: Nicotine 7 MG/24 Hr Patch TRDERM SCH (08:31)
[2022-12-11] MEDS: Hydrocortisone Acetate 1% Crm 30 GM Tube TOP PRN (08:34)
[2022-12-11] MEDS: Venlafaxine 150 MG Cap.ER PO SCH (08:35)
[2022-12-11] MEDS: Loratadine 10 MG Tab PO SCH (08:35)
[2022-12-11] MEDS: Hydrochlorothiazide 12.5 MG Cap PO SCH (08:36)
[2022-12-11] MEDS: atorvaSTATin 10 MG Tab PO SCH (08:37)
[2022-12-11] MEDS: Acetaminophen 500 MG Tab PO SCH ×3 (08:37→20:22)
[2022-12-11] MEDS: Losartan 100 MG Tab PO SCH (08:37)
[2022-12-11] MEDS: Menthol 10%/Methyl Salicylate 30% 85 GM Tube TOP SCH ×2 (08:39→20:18)
[2022-12-11] MEDS: Cyclobenzaprine 10 MG Tab PO PRN (14:33)
[2022-12-11] MEDS: Pregabalin 75 MG Cap PO SCH (20:18)
[2022-12-11] MEDS: Metoprolol Succinate 50 MG Tab.ER PO SCH (20:20)
[2022-12-11] MEDS: amLODIPine 10 MG Tab PO SCH (20:20)
[2022-12-11] MEDS: Prazosin 1 MG Cap PO SCH (20:21)
[2022-12-11] MEDS: Melatonin 3 MG Tab PO SCH (20:21)
[2022-12-11] MEDS: Sennosides/Docusate Sodium 50-8.6 MG Tab PO SCH (20:21)
[2022-12-11] MEDS: QUEtiapine 100 MG Tab PO SCH (20:22)
[2022-12-12] MEDS: Formoterol/Mometasone 100-5 MCG 8.8 GM Inhaler IH SCH ×2 (06:10→20:59)
[2022-12-12] MEDS: Levothyroxine 75 MCG Tab PO SCH (06:10)
[2022-12-12] MEDS: Acetaminophen 500 MG Tab PO SCH ×3 (10:18→21:02)
[2022-12-12] MEDS: Loratadine 10 MG Tab PO SCH (10:18)
[2022-12-12] MEDS: Venlafaxine 150 MG Cap.ER PO SCH (10:19)
[2022-12-12] MEDS: Hydrochlorothiazide 12.5 MG Cap PO SCH (10:19)
[2022-12-12] MEDS: Menthol 10%/Methyl Salicylate 30% 85 GM Tube TOP SCH ×2 (10:20→20:59)
[2022-12-12] MEDS: Losartan 100 MG Tab PO SCH (10:21)
[2022-12-12] MEDS: atorvaSTATin 10 MG Tab PO SCH (10:22)
[2022-12-12] MEDS: Nicotine 7 MG/24 Hr Patch TRDERM SCH (10:22)
[2022-12-12] MEDS: Cyclobenzaprine 10 MG Tab PO PRN (10:34)
[2022-12-12] MEDS: Pregabalin 75 MG Cap PO SCH (20:59)
[2022-12-12] MEDS: Prazosin 1 MG Cap PO SCH (21:00)
[2022-12-12] MEDS: Melatonin 3 MG Tab PO SCH (21:01)
[2022-12-12] MEDS: amLODIPine 10 MG Tab PO SCH (21:01)
[2022-12-12] MEDS: Sennosides/Docusate Sodium 50-8.6 MG Tab PO SCH (21:01)
[2022-12-12] MEDS: Metoprolol Succinate 50 MG Tab.ER PO SCH (21:02)
[2022-12-12] MEDS: QUEtiapine 100 MG Tab PO SCH (21:02)
[2022-12-13] MEDS: Levothyroxine 75 MCG Tab PO SCH (06:38)
[2022-12-13] MEDS: Formoterol/Mometasone 100-5 MCG 8.8 GM Inhaler IH SCH ×2 (06:38→21:01)
[2022-12-13] MEDS: Loratadine 10 MG Tab PO SCH (09:17)
[2022-12-13] MEDS: Acetaminophen 500 MG Tab PO SCH ×3 (09:17→21:04)
[2022-12-13] MEDS: Losartan 100 MG Tab PO SCH (09:17)
[2022-12-13] MEDS: Venlafaxine 150 MG Cap.ER PO SCH (09:18)
[2022-12-13] MEDS: atorvaSTATin 10 MG Tab PO SCH (09:18)
[2022-12-13] MEDS: Hydrochlorothiazide 12.5 MG Cap PO SCH (09:19)
[2022-12-13] MEDS: Menthol 10%/Methyl Salicylate 30% 85 GM Tube TOP SCH ×2 (09:19→21:02)
[2022-12-13] MEDS: Aluminum Hydroxide/Magnesium Hydroxide Susp 30 ML Cup PO PRN (09:21)
[2022-12-13] MEDS: Nicotine 7 MG/24 Hr Patch TRDERM SCH (09:22)
[2022-12-13] MEDS: Pantoprazole 40 MG Tab.CR PO SCH (09:48)
[2022-12-13] MEDS: Prazosin 1 MG Cap PO SCH (21:03)
[2022-12-13] MEDS: Melatonin 3 MG Tab PO SCH (21:03)
[2022-12-13] MEDS: Pregabalin 75 MG Cap PO SCH (21:03)
[2022-12-13] MEDS: QUEtiapine 100 MG Tab PO SCH (21:04)
[2022-12-13] MEDS: Sennosides/Docusate Sodium 50-8.6 MG Tab PO SCH (21:04)
[2022-12-13] MEDS: Metoprolol Succinate 50 MG Tab.ER PO SCH (21:04)
[2022-12-13] MEDS: amLODIPine 10 MG Tab PO SCH (21:04)
[2022-12-14] MEDS: Pantoprazole 40 MG Tab.CR PO SCH (06:55)
[2022-12-14] MEDS: Levothyroxine 75 MCG Tab PO SCH (06:55)
[2022-12-14] MEDS: Formoterol/Mometasone 100-5 MCG 8.8 GM Inhaler IH SCH ×2 (07:00→21:27)
[2022-12-14] MEDS: Hydrocortisone Acetate 1% Crm 30 GM Tube TOP PRN (08:15)
[2022-12-14] MEDS: Menthol 10%/Methyl Salicylate 30% 85 GM Tube TOP SCH ×2 (08:15→21:28)
[2022-12-14] MEDS: Nicotine 7 MG/24 Hr Patch TRDERM SCH (08:16)
[2022-12-14] MEDS: Loratadine 10 MG Tab PO SCH (08:16)
[2022-12-14] MEDS: Losartan 100 MG Tab PO SCH (08:19)
[2022-12-14] MEDS: atorvaSTATin 10 MG Tab PO SCH (08:19)
[2022-12-14] MEDS: Venlafaxine 150 MG Cap.ER PO SCH (08:19)
[2022-12-14] MEDS: Hydrochlorothiazide 12.5 MG Cap PO SCH (08:19)
[2022-12-14] MEDS: Acetaminophen 500 MG Tab PO SCH ×3 (08:19→21:29)
[2022-12-14] MEDS: Lidocaine 4% 1 each Patch TOP PRN (10:35)
[2022-12-14] MEDS: Prazosin 1 MG Cap PO SCH (21:29)
[2022-12-14] MEDS: Pregabalin 75 MG Cap PO SCH (21:29)
[2022-12-14] MEDS: Sennosides/Docusate Sodium 50-8.6 MG Tab PO SCH (21:30)
[2022-12-14] MEDS: amLODIPine 10 MG Tab PO SCH (21:30)
[2022-12-14] MEDS: QUEtiapine 100 MG Tab PO SCH (21:31)
[2022-12-14] MEDS: Melatonin 3 MG Tab PO SCH (21:31)
[2022-12-14] MEDS: Metoprolol Succinate 50 MG Tab.ER PO SCH (21:31)
[2022-12-15] MEDS: Pantoprazole 40 MG Tab.CR PO SCH (06:33)
[2022-12-15] MEDS: Levothyroxine 75 MCG Tab PO SCH (06:33)
[2022-12-15] MEDS: Formoterol/Mometasone 100-5 MCG 8.8 GM Inhaler IH SCH ×2 (06:33→21:04)
[2022-12-15] MEDS: Losartan 100 MG Tab PO SCH (08:25)
[2022-12-15] MEDS: atorvaSTATin 10 MG Tab PO SCH (08:25)
[2022-12-15] MEDS: Venlafaxine 150 MG Cap.ER PO SCH (08:25)
[2022-12-15] MEDS: Loratadine 10 MG Tab PO SCH (08:27)
[2022-12-15] MEDS: Acetaminophen 500 MG Tab PO SCH ×3 (08:28→21:03)
[2022-12-15] MEDS: Hydrochlorothiazide 12.5 MG Cap PO SCH (08:28)
[2022-12-15] MEDS: Nicotine 7 MG/24 Hr Patch TRDERM SCH (08:29)
[2022-12-15] MEDS: Hydrocortisone Acetate 1% Crm 30 GM Tube TOP PRN (08:30)
[2022-12-15] MEDS: Menthol 10%/Methyl Salicylate 30% 85 GM Tube TOP SCH ×2 (08:31→21:04)
[2022-12-15] MEDS: Cyclobenzaprine 10 MG Tab PO PRN (08:37)
[2022-12-15] MEDS: Lidocaine 4% 1 each Patch TOP PRN (10:18)
[2022-12-15] MEDS: QUEtiapine 100 MG Tab PO SCH (21:02)
[2022-12-15] MEDS: Pregabalin 75 MG Cap PO SCH (21:02)
[2022-12-15] MEDS: Prazosin 1 MG Cap PO SCH (21:03)
[2022-12-15] MEDS: Sennosides/Docusate Sodium 50-8.6 MG Tab PO SCH (21:04)
[2022-12-15] MEDS: Melatonin 3 MG Tab PO SCH (21:04)
[2022-12-15] MEDS: amLODIPine 10 MG Tab PO SCH (21:05)
[2022-12-15] MEDS: Metoprolol Succinate 50 MG Tab.ER PO SCH (21:05)
[2022-12-16] MEDS: Cyclobenzaprine 10 MG Tab PO PRN (00:26)
[2022-12-16] MEDS: Pantoprazole 40 MG Tab.CR PO SCH (06:20)
[2022-12-16] MEDS: Levothyroxine 75 MCG Tab PO SCH (06:20)
[2022-12-16] MEDS: Formoterol/Mometasone 100-5 MCG 8.8 GM Inhaler IH SCH ×2 (06:20→20:32)
[2022-12-16] MEDS: Lidocaine 4% 1 each Patch TOP PRN (07:53)
[2022-12-16] MEDS: Nicotine 7 MG/24 Hr Patch TRDERM SCH ×2 (07:57→08:04)
[2022-12-16] MEDS: Loratadine 10 MG Tab PO SCH (07:59)
[2022-12-16] MEDS: Hydrochlorothiazide 12.5 MG Cap PO SCH (07:59)
[2022-12-16] MEDS: Losartan 100 MG Tab PO SCH (07:59)
[2022-12-16] MEDS: Menthol 10%/Methyl Salicylate 30% 85 GM Tube TOP SCH ×2 (08:00→20:32)
[2022-12-16] MEDS: Venlafaxine 150 MG Cap.ER PO SCH (08:00)
[2022-12-16] MEDS: atorvaSTATin 10 MG Tab PO SCH (08:01)
[2022-12-16] MEDS: Acetaminophen 500 MG Tab PO SCH ×3 (08:02→20:40)
[2022-12-16] MEDS: Aluminum Hydroxide/Magnesium Hydroxide Susp 30 ML Cup PO PRN (10:49)
[2022-12-16] MEDS: Pregabalin 75 MG Cap PO SCH (20:33)
[2022-12-16] MEDS: Melatonin 3 MG Tab PO SCH (20:33)
[2022-12-16] MEDS: Prazosin 1 MG Cap PO SCH (20:34)
[2022-12-16] MEDS: QUEtiapine 100 MG Tab PO SCH (20:38)
[2022-12-16] MEDS: Metoprolol Succinate 50 MG Tab.ER PO SCH (20:39)
[2022-12-16] MEDS: amLODIPine 10 MG Tab PO SCH (20:39)
[2022-12-16] MEDS: Sennosides/Docusate Sodium 50-8.6 MG Tab PO SCH (20:39)
[2022-12-17] MEDS: Formoterol/Mometasone 100-5 MCG 8.8 GM Inhaler IH SCH ×2 (06:20→20:20)
[2022-12-17] MEDS: Levothyroxine 75 MCG Tab PO SCH (06:20)
[2022-12-17] MEDS: Pantoprazole 40 MG Tab.CR PO SCH (06:20)
[2022-12-17] MEDS: atorvaSTATin 10 MG Tab PO SCH (09:20)
[2022-12-17] MEDS: Hydrochlorothiazide 12.5 MG Cap PO SCH (09:20)
[2022-12-17] MEDS: Venlafaxine 150 MG Cap.ER PO SCH (09:21)
[2022-12-17] MEDS: Nicotine 7 MG/24 Hr Patch TRDERM SCH (09:22)
[2022-12-17] MEDS: Losartan 100 MG Tab PO SCH (09:22)
[2022-12-17] MEDS: Loratadine 10 MG Tab PO SCH (09:22)
[2022-12-17] MEDS: Menthol 10%/Methyl Salicylate 30% 85 GM Tube TOP SCH ×2 (09:23→20:20)
[2022-12-17] MEDS: Acetaminophen 500 MG Tab PO SCH ×3 (09:24→20:25)
[2022-12-17] MEDS: Lidocaine 4% 1 each Patch TOP PRN (09:33)
[2022-12-17] MEDS: Aluminum Hydroxide/Magnesium Hydroxide Susp 30 ML Cup PO PRN (10:39)
[2022-12-17] MEDS: Pregabalin 75 MG Cap PO SCH (20:21)
[2022-12-17] MEDS: QUEtiapine 100 MG Tab PO SCH (20:24)
[2022-12-17] MEDS: Prazosin 1 MG Cap PO SCH (20:24)
[2022-12-17] MEDS: Melatonin 3 MG Tab PO SCH (20:24)
[2022-12-17] MEDS: amLODIPine 10 MG Tab PO SCH (20:24)
[2022-12-17] MEDS: Metoprolol Succinate 50 MG Tab.ER PO SCH (20:25)
[2022-12-17] MEDS: Sennosides/Docusate Sodium 50-8.6 MG Tab PO SCH (20:26)
[2022-12-18] MEDS: Pantoprazole 40 MG Tab.CR PO SCH (06:48)
[2022-12-18] MEDS: Levothyroxine 75 MCG Tab PO SCH (06:48)
[2022-12-18] MEDS: Formoterol/Mometasone 100-5 MCG 8.8 GM Inhaler IH SCH ×2 (06:49→19:59)
[2022-12-18] MEDS: atorvaSTATin 10 MG Tab PO SCH (08:12)
[2022-12-18] MEDS: Loratadine 10 MG Tab PO SCH (08:12)
[2022-12-18] MEDS: Acetaminophen 500 MG Tab PO SCH ×3 (08:12→20:01)
[2022-12-18] MEDS: Losartan 100 MG Tab PO SCH (08:13)
[2022-12-18] MEDS: Hydrochlorothiazide 12.5 MG Cap PO SCH (08:13)
[2022-12-18] MEDS: Menthol 10%/Methyl Salicylate 30% 85 GM Tube TOP SCH ×2 (08:13→20:00)
[2022-12-18] MEDS: Venlafaxine 150 MG Cap.ER PO SCH (08:14)
[2022-12-18] MEDS: Nicotine 7 MG/24 Hr Patch TRDERM SCH (08:16)
[2022-12-18] MEDS: Lidocaine 4% 1 each Patch TOP PRN (09:36)
[2022-12-18] MEDS: Aluminum Hydroxide/Magnesium Hydroxide Susp 30 ML Cup PO PRN ×2 (13:05→20:27)
[2022-12-18] MEDS: Metoprolol Succinate 50 MG Tab.ER PO SCH (20:00)
[2022-12-18] MEDS: Pregabalin 75 MG Cap PO SCH (20:00)
[2022-12-18] MEDS: Melatonin 3 MG Tab PO SCH (20:00)
[2022-12-18] MEDS: QUEtiapine 100 MG Tab PO SCH (20:01)
[2022-12-18] MEDS: Sennosides/Docusate Sodium 50-8.6 MG Tab PO SCH (20:01)
[2022-12-18] MEDS: Prazosin 1 MG Cap PO SCH (20:02)
[2022-12-18] MEDS: amLODIPine 10 MG Tab PO SCH (20:03)
[2022-12-19] MEDS: Formoterol/Mometasone 100-5 MCG 8.8 GM Inhaler IH SCH ×2 (06:09→21:28)
[2022-12-19] MEDS: Levothyroxine 75 MCG Tab PO SCH (06:09)
[2022-12-19] MEDS: Pantoprazole 40 MG Tab.CR PO SCH (06:09)
[2022-12-19] MEDS: Cyclobenzaprine 10 MG Tab PO PRN ×3 (08:13→22:46)
[2022-12-19] MEDS: Venlafaxine 150 MG Cap.ER PO SCH (08:14)
[2022-12-19] MEDS: Hydrochlorothiazide 12.5 MG Cap PO SCH (08:14)
[2022-12-19] MEDS: Losartan 100 MG Tab PO SCH (08:15)
[2022-12-19] MEDS: atorvaSTATin 10 MG Tab PO SCH (08:15)
[2022-12-19] MEDS: Loratadine 10 MG Tab PO SCH (08:15)
[2022-12-19] MEDS: Nicotine 7 MG/24 Hr Patch TRDERM SCH (08:16)
[2022-12-19] MEDS: Acetaminophen 500 MG Tab PO SCH ×3 (08:16→21:34)
[2022-12-19] MEDS ORDERED: Lidocaine 4% 1 each Patch TOP SCH (09:00)
[2022-12-19] MEDS: Hydrocortisone Acetate 1% Crm 30 GM Tube TOP PRN ×2 (10:34→21:48)
[2022-12-19] MEDS: Menthol 10%/Methyl Salicylate 30% 85 GM Tube TOP SCH ×2 (10:36→21:36)
[2022-12-19] MEDS: Lidocaine 4% 1 each Patch TOP SCH (10:40)
[2022-12-19] MEDS: Aluminum Hydroxide/Magnesium Hydroxide Susp 30 ML Cup PO PRN (13:44)
[2022-12-19] MEDS: Prazosin 1 MG Cap PO SCH (21:30)
[2022-12-19] MEDS: Melatonin 3 MG Tab PO SCH (21:30)
[2022-12-19] MEDS: amLODIPine 10 MG Tab PO SCH (21:32)
[2022-12-19] MEDS: Sennosides/Docusate Sodium 50-8.6 MG Tab PO SCH (21:33)
[2022-12-19] MEDS: Metoprolol Succinate 50 MG Tab.ER PO SCH (21:33)
[2022-12-19] MEDS: QUEtiapine 100 MG Tab PO SCH (21:34)
[2022-12-19] MEDS: Pregabalin 75 MG Cap PO SCH (21:44)
[2022-12-20] MEDS: Formoterol/Mometasone 100-5 MCG 8.8 GM Inhaler IH SCH ×2 (06:43→20:21)
[2022-12-20] MEDS: Levothyroxine 75 MCG Tab PO SCH (06:43)
[2022-12-20] MEDS: Pantoprazole 40 MG Tab.CR PO SCH (06:43)
[2022-12-20] MEDS: Nicotine 7 MG/24 Hr Patch TRDERM SCH (08:30)
[2022-12-20] MEDS: Loratadine 10 MG Tab PO SCH (08:34)
[2022-12-20] MEDS: atorvaSTATin 10 MG Tab PO SCH (08:35)
[2022-12-20] MEDS: Hydrochlorothiazide 12.5 MG Cap PO SCH (08:35)
[2022-12-20] MEDS: Cyclobenzaprine 10 MG Tab PO PRN (08:35)
[2022-12-20] MEDS: Losartan 100 MG Tab PO SCH (08:36)
[2022-12-20] MEDS: Venlafaxine 150 MG Cap.ER PO SCH (08:37)
[2022-12-20] MEDS: Acetaminophen 500 MG Tab PO SCH ×3 (08:37→20:29)
[2022-12-20] MEDS: Hydrocortisone Acetate 1% Crm 30 GM Tube TOP PRN (08:38)
[2022-12-20] MEDS: Menthol 10%/Methyl Salicylate 30% 85 GM Tube TOP SCH ×2 (08:39→20:21)
[2022-12-20] MEDS: Lidocaine 4% 1 each Patch TOP SCH (08:39)
[2022-12-20] MEDS: Aluminum Hydroxide/Magnesium Hydroxide Susp 30 ML Cup PO PRN (08:42)
[2022-12-20 09:49] LABS: BASOPHILS ABSOLUTE AUTO 0.1 x10-3/uL (0.0-0.1); BASOPHILS PERCENT AUTO 1.1 % (0.2-1.5); EOSINOPHILS ABSOLUTE AUTO 0.3 x10-3/uL (0.0-0.8); EOSINOPHILS PERCENT AUTO 4.4 % (0.6-8.1); HEMATOCRIT 26.8 % (34.2-48.2); HEMOGLOBIN 8.9 g/dL (11.4-15.5); LYMPHOCYTES ABSOLUTE AUTO 1.8 x10-3/uL (1.0-4.4); LYMPHOCYTES PERCENT AUTO 24.9 % (18.4-52.1); MEAN CORPUSCULAR HEMOGLOBIN 29.4 pg (23.9-33.9); MEAN CORPUSCULAR HGB CONC 33.1 g/dL (31.9-34.8); MEAN CORPUSCULAR VOLUME 88.8 fL (76.7-100.5); MEAN PLATELET VOLUME 9.1 fL (7.1-12.4); MONOCYTES ABSOLUTE AUTO 0.4 x10-3/uL (0.3-1.0); MONOCYTES PERCENT AUTO 5.7 % (4.4-15.7); NEUTROPHILS ABSOLUTE AUTO 4.6 x10-3/uL (1.5-6.3); NEUTROPHILS PERCENT AUTO 63.9 % (30.8-76.2); PLATELET COUNT,PLT 182 x10(3)uL (151-488); RED BLOOD CELL COUNT 3.01 x10(6)uL (3.60-5.20); RED CELL DISTRIBUTION WIDTH 12.8 % (12.3-16.5); WHITE BLOOD CELL COUNT,WBC 7.2 x10-3/uL (3.0-10.3)
[2022-12-20 09:52] LABS: BLOOD UREA NITROGEN,BUN 32 mg/dL (7-18); BUN/CREATININE RATIO 17.8 (9-20); CALCIUM 8.3 mg/dL (8.6-10.2); CARBON DIOXIDE,CO2 25 mmol/L (21-32); CHLORIDE,CL 103 mmol/L (100-110); CREATININE 1.8 mg/dL (0.55-1.02); EST CRCL DRUG DOSING (CG) 35.75 mL/min; ESTIMATED GFR 31 mL/min (>60); GLUCOSE RANDOM 201 mg/dL (80-116); POTASSIUM,K 4.3 mmol/L (3.5-5.3); SODIUM,NA 133 mmol/L (135-145)
[2022-12-20] MEDS: Melatonin 3 MG Tab PO SCH (20:23)
[2022-12-20] MEDS: Pregabalin 75 MG Cap PO SCH (20:23)
[2022-12-20] MEDS: Prazosin 1 MG Cap PO SCH (20:25)
[2022-12-20] MEDS: amLODIPine 10 MG Tab PO SCH (20:28)
[2022-12-20] MEDS: QUEtiapine 100 MG Tab PO SCH (20:28)
[2022-12-20] MEDS: Sennosides/Docusate Sodium 50-8.6 MG Tab PO SCH (20:28)
[2022-12-20] MEDS: Metoprolol Succinate 50 MG Tab.ER PO SCH (20:29)
[2022-12-21] MEDS: Levothyroxine 75 MCG Tab PO SCH (06:14)
[2022-12-21] MEDS: Pantoprazole 40 MG Tab.CR PO SCH (06:14)
[2022-12-21] MEDS: Formoterol/Mometasone 100-5 MCG 8.8 GM Inhaler IH SCH ×2 (06:15→21:03)
[2022-12-21] MEDS: Acetaminophen 500 MG Tab PO SCH ×3 (09:03→21:07)
[2022-12-21] MEDS: atorvaSTATin 10 MG Tab PO SCH (09:04)
[2022-12-21] MEDS: Menthol 10%/Methyl Salicylate 30% 85 GM Tube TOP SCH ×2 (09:05→21:03)
[2022-12-21] MEDS: Hydrochlorothiazide 12.5 MG Cap PO SCH (09:06)
[2022-12-21] MEDS: Nicotine 7 MG/24 Hr Patch TRDERM SCH (09:06)
[2022-12-21] MEDS: Venlafaxine 150 MG Cap.ER PO SCH (09:06)
[2022-12-21] MEDS: Losartan 100 MG Tab PO SCH (09:07)
[2022-12-21] MEDS: Lidocaine 4% 1 each Patch TOP SCH (09:07)
[2022-12-21] MEDS: Loratadine 10 MG Tab PO SCH (09:07)
[2022-12-21] MEDS: Aluminum Hydroxide/Magnesium Hydroxide Susp 30 ML Cup PO PRN (09:19)
[2022-12-21] MEDS: Melatonin 3 MG Tab PO SCH (21:04)
[2022-12-21] MEDS: Prazosin 1 MG Cap PO SCH (21:04)
[2022-12-21] MEDS: Pregabalin 75 MG Cap PO SCH (21:04)
[2022-12-21] MEDS: amLODIPine 10 MG Tab PO SCH (21:05)
[2022-12-21] MEDS: QUEtiapine 100 MG Tab PO SCH (21:06)
[2022-12-21] MEDS: Sennosides/Docusate Sodium 50-8.6 MG Tab PO SCH (21:06)
[2022-12-21] MEDS: Metoprolol Succinate 50 MG Tab.ER PO SCH (21:07)
[2022-12-21] MEDS: Hydrocortisone Acetate 1% Crm 30 GM Tube TOP PRN (21:18)
[2022-12-22] MEDS: Cyclobenzaprine 10 MG Tab PO PRN ×2 (00:25→08:25)
[2022-12-22] MEDS: Levothyroxine 75 MCG Tab PO SCH (05:40)
[2022-12-22] MEDS: Pantoprazole 40 MG Tab.CR PO SCH (05:40)
[2022-12-22] MEDS: Formoterol/Mometasone 100-5 MCG 8.8 GM Inhaler IH SCH ×2 (06:17→20:16)
[2022-12-22] MEDS: Loratadine 10 MG Tab PO SCH (08:08)
[2022-12-22] MEDS: Lidocaine 4% 1 each Patch TOP SCH (08:08)
[2022-12-22] MEDS: Venlafaxine 150 MG Cap.ER PO SCH (08:09)
[2022-12-22] MEDS: Losartan 100 MG Tab PO SCH (08:09)
[2022-12-22] MEDS: Nicotine 7 MG/24 Hr Patch TRDERM SCH (08:09)
[2022-12-22] MEDS: Menthol 10%/Methyl Salicylate 30% 85 GM Tube TOP SCH ×2 (08:12→20:17)
[2022-12-22] MEDS: Hydrochlorothiazide 12.5 MG Cap PO SCH (08:12)
[2022-12-22] MEDS: atorvaSTATin 10 MG Tab PO SCH (08:12)
[2022-12-22] MEDS: Acetaminophen 500 MG Tab PO SCH (08:13)
[2022-12-22] MEDS ORDERED: Acetaminophen/HYDROcodone 325-5 MG Tab PO PRN (08:29)
[2022-12-22] MEDS: Acetaminophen 325 MG Tab PO SCH ×2 (14:30→20:17)
[2022-12-22] MEDS: Aluminum Hydroxide/Magnesium Hydroxide Susp 30 ML Cup PO PRN (18:10)
[2022-12-22] MEDS: Pregabalin 75 MG Cap PO SCH (20:17)
[2022-12-22] MEDS: Prazosin 1 MG Cap PO SCH (20:17)
[2022-12-22] MEDS: QUEtiapine 100 MG Tab PO SCH (20:18)
[2022-12-22] MEDS: amLODIPine 10 MG Tab PO SCH (20:18)
[2022-12-22] MEDS: Melatonin 3 MG Tab PO SCH (20:18)
[2022-12-22] MEDS: Sennosides/Docusate Sodium 50-8.6 MG Tab PO SCH (20:18)
[2022-12-22] MEDS: Metoprolol Succinate 50 MG Tab.ER PO SCH (20:18)
[2022-12-23] MEDS: Formoterol/Mometasone 100-5 MCG 8.8 GM Inhaler IH SCH ×2 (06:33→20:06)
[2022-12-23] MEDS: Pantoprazole 40 MG Tab.CR PO SCH (06:33)
[2022-12-23] MEDS: Levothyroxine 75 MCG Tab PO SCH (06:33)
[2022-12-23] MEDS: Acetaminophen 325 MG Tab PO SCH ×3 (09:48→20:07)
[2022-12-23] MEDS: atorvaSTATin 10 MG Tab PO SCH (09:50)
[2022-12-23] MEDS: Menthol 10%/Methyl Salicylate 30% 85 GM Tube TOP SCH ×2 (09:50→20:05)
[2022-12-23] MEDS: Hydrochlorothiazide 12.5 MG Cap PO SCH (09:51)
[2022-12-23] MEDS: Nicotine 7 MG/24 Hr Patch TRDERM SCH (09:51)
[2022-12-23] MEDS: Loratadine 10 MG Tab PO SCH (09:52)
[2022-12-23] MEDS: Venlafaxine 150 MG Cap.ER PO SCH (09:52)
[2022-12-23] MEDS: Losartan 100 MG Tab PO SCH (09:52)
[2022-12-23] MEDS: Lidocaine 4% 1 each Patch TOP SCH (09:53)
[2022-12-23] MEDS: Aluminum Hydroxide/Magnesium Hydroxide Susp 30 ML Cup PO PRN (14:17)
[2022-12-23] MEDS: amLODIPine 10 MG Tab PO SCH (20:06)
[2022-12-23] MEDS: Pregabalin 75 MG Cap PO SCH (20:06)
[2022-12-23] MEDS: Melatonin 3 MG Tab PO SCH (20:06)
[2022-12-23] MEDS: Sennosides/Docusate Sodium 50-8.6 MG Tab PO SCH (20:06)
[2022-12-23] MEDS: Prazosin 1 MG Cap PO SCH (20:07)
[2022-12-23] MEDS: QUEtiapine 100 MG Tab PO SCH (20:08)
[2022-12-23] MEDS: Metoprolol Succinate 50 MG Tab.ER PO SCH (20:08)
[2022-12-24] MEDS: Levothyroxine 75 MCG Tab PO SCH (06:10)
[2022-12-24] MEDS: Formoterol/Mometasone 100-5 MCG 8.8 GM Inhaler IH SCH ×2 (06:10→20:12)
[2022-12-24] MEDS: Pantoprazole 40 MG Tab.CR PO SCH (06:10)
[2022-12-24] MEDS: Acetaminophen 325 MG Tab PO SCH ×3 (08:26→20:12)
[2022-12-24] MEDS: atorvaSTATin 10 MG Tab PO SCH (08:28)
[2022-12-24] MEDS: Nicotine 7 MG/24 Hr Patch TRDERM SCH (08:29)
[2022-12-24] MEDS: Menthol 10%/Methyl Salicylate 30% 85 GM Tube TOP SCH ×2 (08:29→20:11)
[2022-12-24] MEDS: Hydrochlorothiazide 12.5 MG Cap PO SCH (08:29)
[2022-12-24] MEDS: Venlafaxine 150 MG Cap.ER PO SCH (08:30)
[2022-12-24] MEDS: Loratadine 10 MG Tab PO SCH (08:30)
[2022-12-24] MEDS: Lidocaine 4% 1 each Patch TOP SCH (08:30)
[2022-12-24] MEDS: Losartan 100 MG Tab PO SCH (08:30)
[2022-12-24] MEDS: Aluminum Hydroxide/Magnesium Hydroxide Susp 30 ML Cup PO PRN (13:31)
[2022-12-24] MEDS: amLODIPine 10 MG Tab PO SCH (20:12)
[2022-12-24] MEDS: Pregabalin 75 MG Cap PO SCH (20:12)
[2022-12-24] MEDS: QUEtiapine 100 MG Tab PO SCH (20:12)
[2022-12-24] MEDS: Sennosides/Docusate Sodium 50-8.6 MG Tab PO SCH (20:13)
[2022-12-24] MEDS: Melatonin 3 MG Tab PO SCH (20:13)
[2022-12-24] MEDS: Prazosin 1 MG Cap PO SCH (20:13)
[2022-12-24] MEDS: Metoprolol Succinate 50 MG Tab.ER PO SCH (20:14)
[2022-12-25] MEDS: Pantoprazole 40 MG Tab.CR PO SCH (06:13)
[2022-12-25] MEDS: Formoterol/Mometasone 100-5 MCG 8.8 GM Inhaler IH SCH ×2 (06:13→20:04)
[2022-12-25] MEDS: Levothyroxine 75 MCG Tab PO SCH (06:13)
[2022-12-25] MEDS: atorvaSTATin 10 MG Tab PO SCH (09:42)
[2022-12-25] MEDS: Acetaminophen 325 MG Tab PO SCH ×3 (09:42→20:07)
[2022-12-25] MEDS: Venlafaxine 150 MG Cap.ER PO SCH (09:43)
[2022-12-25] MEDS: Loratadine 10 MG Tab PO SCH (09:43)
[2022-12-25] MEDS: Menthol 10%/Methyl Salicylate 30% 85 GM Tube TOP SCH ×2 (09:43→20:06)
[2022-12-25] MEDS: Lidocaine 4% 1 each Patch TOP SCH (09:43)
[2022-12-25] MEDS: Losartan 100 MG Tab PO SCH (09:43)
[2022-12-25] MEDS: Hydrochlorothiazide 12.5 MG Cap PO SCH (09:43)
[2022-12-25 09:51] LABS: HEMOGLOBIN A1C 6.3 % (<5.7)
[2022-12-25 09:53] LABS: A/G RATIO 0.5; ALANINE AMINOTRANSFERASE,ALT 27 U/L (12-36); ALKALINE PHOSPHATASE 125 IU/L (56-112); ASPARTATE AMNIOTRANSFERASE,AST 23 IU/L (5-25); BILIRUBIN TOTAL 0.2 mg/dL (0.1-1.3); BLOOD UREA NITROGEN,BUN 30 mg/dL (7-18); BUN/CREATININE RATIO 17.6 (9-20); CALCIUM 8.1 mg/dL (8.6-10.2); CARBON DIOXIDE,CO2 27 mmol/L (21-32); CHLORIDE,CL 105 mmol/L (100-110); CREATININE 1.7 mg/dL (0.55-1.02); EST CRCL DRUG DOSING (CG) 37.86 mL/min; ESTIMATED GFR 33 mL/min (>60); GLUCOSE RANDOM 216 mg/dL (80-116); POTASSIUM,K 4.6 mmol/L (3.5-5.3); PROTEIN TOTAL,TP 5.9 g/dL (6.0-8.0); SODIUM,NA 136 mmol/L (135-145)
[2022-12-25] MEDS: Pregabalin 75 MG Cap PO SCH ×2 (10:00→20:05)
[2022-12-25] MEDS: Nicotine 7 MG/24 Hr Patch TRDERM SCH (10:00)
[2022-12-25] MEDS: Aluminum Hydroxide/Magnesium Hydroxide Susp 30 ML Cup PO PRN ×2 (13:55→20:26)
[2022-12-25] MEDS: Sennosides/Docusate Sodium 50-8.6 MG Tab PO SCH (20:06)
[2022-12-25] MEDS: Prazosin 1 MG Cap PO SCH (20:06)
[2022-12-25] MEDS: QUEtiapine 100 MG Tab PO SCH (20:06)
[2022-12-25] MEDS: amLODIPine 10 MG Tab PO SCH (20:07)
[2022-12-25] MEDS: Melatonin 3 MG Tab PO SCH (20:07)
[2022-12-25] MEDS: Metoprolol Succinate 50 MG Tab.ER PO SCH (20:08)
[2022-12-26] MEDS: Levothyroxine 75 MCG Tab PO SCH (06:07)
[2022-12-26] MEDS: Formoterol/Mometasone 100-5 MCG 8.8 GM Inhaler IH SCH ×2 (06:07→21:05)
[2022-12-26] MEDS: Pantoprazole 40 MG Tab.CR PO SCH (06:07)
[2022-12-26] MEDS: Loratadine 10 MG Tab PO SCH (08:32)
[2022-12-26] MEDS: Lidocaine 4% 1 each Patch TOP SCH (08:32)
[2022-12-26] MEDS: atorvaSTATin 10 MG Tab PO SCH (08:33)
[2022-12-26] MEDS: Pregabalin 75 MG Cap PO SCH ×2 (08:33→21:05)
[2022-12-26] MEDS: Hydrochlorothiazide 12.5 MG Cap PO SCH (08:33)
[2022-12-26] MEDS: Venlafaxine 150 MG Cap.ER PO SCH (08:33)
[2022-12-26] MEDS: Acetaminophen 325 MG Tab PO SCH ×3 (08:33→21:09)
[2022-12-26] MEDS: Nicotine 7 MG/24 Hr Patch TRDERM SCH (08:34)
[2022-12-26] MEDS: Menthol 10%/Methyl Salicylate 30% 85 GM Tube TOP SCH ×2 (08:34→21:05)
[2022-12-26] MEDS: Losartan 100 MG Tab PO SCH (08:35)
[2022-12-26] MEDS: Aluminum Hydroxide/Magnesium Hydroxide Susp 30 ML Cup PO PRN (13:03)
[2022-12-26] MEDS: Hydrocortisone Acetate 1% Crm 30 GM Tube TOP PRN (15:02)
[2022-12-26] MEDS: amLODIPine 10 MG Tab PO SCH (21:07)
[2022-12-26] MEDS: Prazosin 1 MG Cap PO SCH (21:07)
[2022-12-26] MEDS: Melatonin 3 MG Tab PO SCH (21:07)
[2022-12-26] MEDS: Sennosides/Docusate Sodium 50-8.6 MG Tab PO SCH (21:08)
[2022-12-26] MEDS: Metoprolol Succinate 50 MG Tab.ER PO SCH (21:08)
[2022-12-26] MEDS: QUEtiapine 100 MG Tab PO SCH (21:11)
[2022-12-27] MEDS: Levothyroxine 75 MCG Tab PO SCH (06:04)
[2022-12-27] MEDS: Pantoprazole 40 MG Tab.CR PO SCH (06:04)
[2022-12-27] MEDS: Formoterol/Mometasone 100-5 MCG 8.8 GM Inhaler IH SCH ×2 (06:04→21:22)
[2022-12-27] MEDS: Hydrochlorothiazide 12.5 MG Cap PO SCH (08:05)
[2022-12-27] MEDS: Pregabalin 75 MG Cap PO SCH ×2 (08:05→21:23)
[2022-12-27] MEDS: Venlafaxine 150 MG Cap.ER PO SCH (08:05)
[2022-12-27] MEDS: Loratadine 10 MG Tab PO SCH (08:06)
[2022-12-27] MEDS: Losartan 100 MG Tab PO SCH (08:06)
[2022-12-27] MEDS: Acetaminophen 325 MG Tab PO SCH ×3 (08:06→21:27)
[2022-12-27] MEDS: atorvaSTATin 10 MG Tab PO SCH (08:06)
[2022-12-27] MEDS: Menthol 10%/Methyl Salicylate 30% 85 GM Tube TOP SCH ×2 (08:10→21:23)
[2022-12-27] MEDS: Lidocaine 4% 1 each Patch TOP SCH (08:11)
[2022-12-27] MEDS: Nicotine 7 MG/24 Hr Patch TRDERM SCH (08:11)
[2022-12-27] MEDS: Hydrocortisone Acetate 1% Crm 30 GM Tube TOP PRN (08:18)
[2022-12-27] MEDS: Aluminum Hydroxide/Magnesium Hydroxide Susp 30 ML Cup PO PRN (15:03)
[2022-12-27] MEDS: Prazosin 1 MG Cap PO SCH (21:24)
[2022-12-27] MEDS: QUEtiapine 100 MG Tab PO SCH (21:25)
[2022-12-27] MEDS: Metoprolol Succinate 50 MG Tab.ER PO SCH (21:26)
[2022-12-27] MEDS: Melatonin 3 MG Tab PO SCH (21:26)
[2022-12-27] MEDS: amLODIPine 10 MG Tab PO SCH (21:26)
[2022-12-27] MEDS: Sennosides/Docusate Sodium 50-8.6 MG Tab PO SCH (21:26)
[2022-12-28] MEDS: Formoterol/Mometasone 100-5 MCG 8.8 GM Inhaler IH SCH ×2 (06:11→20:37)
[2022-12-28] MEDS: Pantoprazole 40 MG Tab.CR PO SCH (06:11)
[2022-12-28] MEDS: Levothyroxine 75 MCG Tab PO SCH (06:12)
[2022-12-28] MEDS: Lidocaine 4% 1 each Patch TOP SCH (09:39)
[2022-12-28] MEDS: Loratadine 10 MG Tab PO SCH (09:39)
[2022-12-28] MEDS: Venlafaxine 150 MG Cap.ER PO SCH (09:40)
[2022-12-28] MEDS: Hydrochlorothiazide 12.5 MG Cap PO SCH (09:40)
[2022-12-28] MEDS: Losartan 100 MG Tab PO SCH (09:40)
[2022-12-28] MEDS: Pregabalin 75 MG Cap PO SCH ×2 (09:41→20:37)
[2022-12-28] MEDS: Menthol 10%/Methyl Salicylate 30% 85 GM Tube TOP SCH ×2 (09:41→20:37)
[2022-12-28] MEDS: atorvaSTATin 10 MG Tab PO SCH (09:41)
[2022-12-28] MEDS: Acetaminophen 325 MG Tab PO SCH ×3 (09:41→20:40)
[2022-12-28] MEDS: Aluminum Hydroxide/Magnesium Hydroxide Susp 30 ML Cup PO PRN (10:03)
[2022-12-28] MEDS: Melatonin 3 MG Tab PO SCH (20:37)
[2022-12-28] MEDS: Sennosides/Docusate Sodium 50-8.6 MG Tab PO SCH (20:38)
[2022-12-28] MEDS: amLODIPine 10 MG Tab PO SCH (20:38)
[2022-12-28] MEDS: Prazosin 1 MG Cap PO SCH (20:38)
[2022-12-28] MEDS: QUEtiapine 100 MG Tab PO SCH (20:39)
[2022-12-28] MEDS: Metoprolol Succinate 50 MG Tab.ER PO SCH (20:39)
[2022-12-28] MEDS: Hydrocortisone Acetate 1% Crm 30 GM Tube TOP PRN (20:54)
[2022-12-29] MEDS: Levothyroxine 75 MCG Tab PO SCH (06:37)
[2022-12-29] MEDS: Formoterol/Mometasone 100-5 MCG 8.8 GM Inhaler IH SCH ×2 (06:37→20:12)
[2022-12-29] MEDS: Pantoprazole 40 MG Tab.CR PO SCH (06:37)
[2022-12-29] MEDS: Acetaminophen 325 MG Tab PO SCH ×3 (08:19→20:13)
[2022-12-29] MEDS: Venlafaxine 150 MG Cap.ER PO SCH (08:20)
[2022-12-29] MEDS: Hydrochlorothiazide 12.5 MG Cap PO SCH (08:20)
[2022-12-29] MEDS: Losartan 100 MG Tab PO SCH (08:20)
[2022-12-29] MEDS: atorvaSTATin 10 MG Tab PO SCH (08:20)
[2022-12-29] MEDS: Lidocaine 4% 1 each Patch TOP SCH (08:21)
[2022-12-29] MEDS: Loratadine 10 MG Tab PO SCH (08:21)
[2022-12-29] MEDS: Menthol 10%/Methyl Salicylate 30% 85 GM Tube TOP SCH ×2 (08:21→20:13)
[2022-12-29] MEDS: Pregabalin 75 MG Cap PO SCH ×2 (08:22→20:13)
[2022-12-29] MEDS: Aluminum Hydroxide/Magnesium Hydroxide Susp 30 ML Cup PO PRN (19:40)
[2022-12-29] MEDS: Melatonin 3 MG Tab PO SCH (20:13)
[2022-12-29] MEDS: Prazosin 1 MG Cap PO SCH (20:14)
[2022-12-29] MEDS: QUEtiapine 100 MG Tab PO SCH (20:14)
[2022-12-29] MEDS: Sennosides/Docusate Sodium 50-8.6 MG Tab PO SCH (20:14)
[2022-12-29] MEDS: Metoprolol Succinate 50 MG Tab.ER PO SCH (20:15)
[2022-12-29] MEDS: amLODIPine 10 MG Tab PO SCH (20:15)
[2022-12-30] MEDS: Formoterol/Mometasone 100-5 MCG 8.8 GM Inhaler IH SCH ×2 (06:05→20:51)
[2022-12-30] MEDS: Levothyroxine 75 MCG Tab PO SCH (06:05)
[2022-12-30] MEDS: Pantoprazole 40 MG Tab.CR PO SCH (06:05)
[2022-12-30] MEDS: Acetaminophen 325 MG Tab PO SCH ×3 (08:13→20:55)
[2022-12-30] MEDS: Loratadine 10 MG Tab PO SCH (08:13)
[2022-12-30] MEDS: Losartan 100 MG Tab PO SCH (08:14)
[2022-12-30] MEDS: atorvaSTATin 10 MG Tab PO SCH (08:14)
[2022-12-30] MEDS: Lidocaine 4% 1 each Patch TOP SCH (08:15)
[2022-12-30] MEDS: Hydrochlorothiazide 12.5 MG Cap PO SCH (08:15)
[2022-12-30] MEDS: Venlafaxine 150 MG Cap.ER PO SCH (08:15)
[2022-12-30] MEDS: Pregabalin 75 MG Cap PO SCH ×2 (08:29→20:53)
[2022-12-30] MEDS: Menthol 10%/Methyl Salicylate 30% 85 GM Tube TOP SCH ×2 (08:33→20:52)
[2022-12-30] MEDS: Aluminum Hydroxide/Magnesium Hydroxide Susp 30 ML Cup PO PRN (14:00)
[2022-12-30 18:04] LABS: APPEARANCE,URINE CLOUDY (CLEAR); BACTERIA,URINE MANY (NS); BILIRUBIN,URINE NEGATIVE (NEGATIVE); COLOR,URINE YELLOW (YELLOW); GLUCOSE,URINE NORMAL (NORMAL); KETONES,URINE NEGATIVE (NEGATIVE); LEUKOCYTE ESTERASE,URINE LARGE (NEGATIVE); NITRITE,URINE POSITIVE (NEGATIVE); OCCULT BLOOD,URINE MODERATE (NEGATIVE); PH,URINE 6.5 (5.0-6.5); PROTEIN,URINE 500 mg/dL (NEGATIVE); SQUAMOUS EPITHELIAL CELLS,UR FEW (NS,R,O); UROBILINOGEN,URINE NORMAL (NEGATIVE); WBC,URINE 75-100 (0-5)
[2022-12-30] MEDS: Melatonin 3 MG Tab PO SCH (20:54)
[2022-12-30] MEDS: amLODIPine 10 MG Tab PO SCH (20:54)
[2022-12-30] MEDS: Sennosides/Docusate Sodium 50-8.6 MG Tab PO SCH (20:55)
[2022-12-30] MEDS: Metoprolol Succinate 50 MG Tab.ER PO SCH (20:56)
[2022-12-30] MEDS: QUEtiapine 100 MG Tab PO SCH (20:56)
[2022-12-30] MEDS: Prazosin 1 MG Cap PO SCH (20:57)
[2022-12-31] MEDS: Formoterol/Mometasone 100-5 MCG 8.8 GM Inhaler IH SCH ×2 (06:01→20:37)
[2022-12-31] MEDS: Pantoprazole 40 MG Tab.CR PO SCH (06:01)
[2022-12-31] MEDS: Levothyroxine 75 MCG Tab PO SCH (06:01)
[2022-12-31] MEDS: Lidocaine 4% 1 each Patch TOP SCH (08:24)
[2022-12-31] MEDS: Loratadine 10 MG Tab PO SCH (08:25)
[2022-12-31] MEDS: Losartan 100 MG Tab PO SCH (08:25)
[2022-12-31] MEDS: Hydrochlorothiazide 12.5 MG Cap PO SCH (08:26)
[2022-12-31] MEDS: Venlafaxine 150 MG Cap.ER PO SCH (08:26)
[2022-12-31] MEDS: Menthol 10%/Methyl Salicylate 30% 85 GM Tube TOP SCH ×2 (08:27→20:38)
[2022-12-31] MEDS: atorvaSTATin 10 MG Tab PO SCH (08:32)
[2022-12-31] MEDS: Pregabalin 75 MG Cap PO SCH ×2 (08:32→20:37)
[2022-12-31] MEDS: Acetaminophen 325 MG Tab PO SCH ×3 (08:33→20:31)
[2022-12-31] MEDS: Nitrofurantoin Monohydrate/Macrocrystalline 100 MG Cap PO SCH ×2 (10:28→20:36)
[2022-12-31] MEDS: Sucralfate 1 GM Tab PO SCH ×3 (10:29→20:37)
[2022-12-31] MEDS: Aluminum Hydroxide/Magnesium Hydroxide Susp 30 ML Cup PO PRN (13:10)
[2022-12-31] MEDS: Prazosin 1 MG Cap PO SCH (20:32)
[2022-12-31] MEDS: Sennosides/Docusate Sodium 50-8.6 MG Tab PO SCH (20:36)
[2022-12-31] MEDS: QUEtiapine 100 MG Tab PO SCH (20:36)
[2022-12-31] MEDS: amLODIPine 10 MG Tab PO SCH (20:36)
[2022-12-31] MEDS: Metoprolol Succinate 50 MG Tab.ER PO SCH (20:36)
[2022-12-31] MEDS: Melatonin 3 MG Tab PO SCH (20:36)
[2023-01-01] MEDS: Formoterol/Mometasone 100-5 MCG 8.8 GM Inhaler IH SCH ×2 (06:13→21:10)
[2023-01-01] MEDS: Sucralfate 1 GM Tab PO SCH ×5 (06:14→21:09)
[2023-01-01] MEDS: Pantoprazole 40 MG Tab.CR PO SCH (06:14)
[2023-01-01] MEDS: Levothyroxine 75 MCG Tab PO SCH (06:14)
[2023-01-01] MEDS: Losartan 100 MG Tab PO SCH (08:26)
[2023-01-01] MEDS: Hydrochlorothiazide 12.5 MG Cap PO SCH (08:26)
[2023-01-01] MEDS: Venlafaxine 150 MG Cap.ER PO SCH (08:26)
[2023-01-01] MEDS: Acetaminophen 325 MG Tab PO SCH ×3 (08:27→21:14)
[2023-01-01] MEDS: Loratadine 10 MG Tab PO SCH (08:28)
[2023-01-01] MEDS: Pregabalin 75 MG Cap PO SCH ×2 (08:28→21:10)
[2023-01-01] MEDS: Menthol 10%/Methyl Salicylate 30% 85 GM Tube TOP SCH ×2 (08:28→21:10)
[2023-01-01] MEDS: atorvaSTATin 10 MG Tab PO SCH (08:28)
[2023-01-01] MEDS: Lidocaine 4% 1 each Patch TOP SCH (08:29)
[2023-01-01] MEDS: Nitrofurantoin Monohydrate/Macrocrystalline 100 MG Cap PO SCH ×2 (08:31→21:11)
[2023-01-01] MEDS: Hydrocortisone Acetate 1% Crm 30 GM Tube TOP PRN (14:41)
[2023-01-01] MEDS: Melatonin 3 MG Tab PO SCH (21:12)
[2023-01-01] MEDS: amLODIPine 10 MG Tab PO SCH (21:12)
[2023-01-01] MEDS: Prazosin 1 MG Cap PO SCH (21:12)
[2023-01-01] MEDS: QUEtiapine 100 MG Tab PO SCH (21:13)
[2023-01-01] MEDS: Metoprolol Succinate 50 MG Tab.ER PO SCH (21:13)
[2023-01-01] MEDS: Sennosides/Docusate Sodium 50-8.6 MG Tab PO SCH (21:13)
[2023-01-02] MEDS: Pantoprazole 40 MG Tab.CR PO SCH (05:58)
[2023-01-02] MEDS: Formoterol/Mometasone 100-5 MCG 8.8 GM Inhaler IH SCH ×2 (05:59→21:11)
[2023-01-02] MEDS: Levothyroxine 75 MCG Tab PO SCH (05:59)
[2023-01-02] MEDS: Sucralfate 1 GM Tab PO SCH ×6 (06:11→21:11)
[2023-01-02] MEDS: Lidocaine 4% 1 each Patch TOP SCH ×2 (06:17→09:21)
[2023-01-02] MEDS: Nitrofurantoin Monohydrate/Macrocrystalline 100 MG Cap PO SCH ×2 (09:13→21:12)
[2023-01-02] MEDS: Pregabalin 75 MG Cap PO SCH ×2 (09:13→21:12)
[2023-01-02] MEDS: Acetaminophen 325 MG Tab PO SCH ×3 (09:14→21:13)
[2023-01-02] MEDS: atorvaSTATin 10 MG Tab PO SCH (09:15)
[2023-01-02] MEDS: Hydrochlorothiazide 12.5 MG Cap PO SCH (09:16)
[2023-01-02] MEDS: Venlafaxine 150 MG Cap.ER PO SCH (09:16)
[2023-01-02] MEDS: Loratadine 10 MG Tab PO SCH (09:16)
[2023-01-02] MEDS: Losartan 100 MG Tab PO SCH (09:16)
[2023-01-02] MEDS: Menthol 10%/Methyl Salicylate 30% 85 GM Tube TOP SCH ×2 (09:21→21:11)
[2023-01-02] MEDS: Hydrocortisone Acetate 1% Crm 30 GM Tube TOP PRN (18:27)
[2023-01-02] MEDS: Prazosin 1 MG Cap PO SCH (21:12)
[2023-01-02] MEDS: Melatonin 3 MG Tab PO SCH (21:12)
[2023-01-02] MEDS: Sennosides/Docusate Sodium 50-8.6 MG Tab PO SCH (21:13)
[2023-01-02] MEDS: amLODIPine 10 MG Tab PO SCH (21:13)
[2023-01-02] MEDS: QUEtiapine 100 MG Tab PO SCH (21:15)
[2023-01-02] MEDS: Metoprolol Succinate 50 MG Tab.ER PO SCH (21:15)
[2023-01-03] MEDS: Levothyroxine 75 MCG Tab PO SCH (06:18)
[2023-01-03] MEDS: Pantoprazole 40 MG Tab.CR PO SCH (06:18)
[2023-01-03] MEDS: Formoterol/Mometasone 100-5 MCG 8.8 GM Inhaler IH SCH ×2 (06:18→20:54)
[2023-01-03] MEDS: Sucralfate 1 GM Tab PO SCH ×4 (06:49→20:53)
[2023-01-03] MEDS: Nitrofurantoin Monohydrate/Macrocrystalline 100 MG Cap PO SCH ×2 (08:20→20:52)
[2023-01-03] MEDS: Acetaminophen 325 MG Tab PO SCH ×3 (08:20→20:53)
[2023-01-03] MEDS: Pregabalin 75 MG Cap PO SCH ×2 (08:20→20:53)
[2023-01-03] MEDS: Losartan 100 MG Tab PO SCH (08:21)
[2023-01-03] MEDS: Lidocaine 4% 1 each Patch TOP SCH (08:22)
[2023-01-03] MEDS: atorvaSTATin 10 MG Tab PO SCH (08:22)
[2023-01-03] MEDS: Loratadine 10 MG Tab PO SCH (08:22)
[2023-01-03] MEDS: Hydrochlorothiazide 12.5 MG Cap PO SCH (08:23)
[2023-01-03] MEDS: Menthol 10%/Methyl Salicylate 30% 85 GM Tube TOP SCH ×2 (08:23→20:55)
[2023-01-03] MEDS: Venlafaxine 150 MG Cap.ER PO SCH (08:23)
[2023-01-03] MEDS: Prazosin 1 MG Cap PO SCH (20:52)
[2023-01-03] MEDS: Melatonin 3 MG Tab PO SCH (20:53)
[2023-01-03] MEDS: amLODIPine 10 MG Tab PO SCH (20:53)
[2023-01-03] MEDS: Sennosides/Docusate Sodium 50-8.6 MG Tab PO SCH (20:54)
[2023-01-03] MEDS: Metoprolol Succinate 50 MG Tab.ER PO SCH (20:54)
[2023-01-03] MEDS: QUEtiapine 100 MG Tab PO SCH (20:54)
[2023-01-03] MEDS: Hydrocortisone Acetate 1% Crm 30 GM Tube TOP PRN (21:01)
[2023-01-04] MEDS: Pantoprazole 40 MG Tab.CR PO SCH (06:10)
[2023-01-04] MEDS: Formoterol/Mometasone 100-5 MCG 8.8 GM Inhaler IH SCH ×2 (06:10→21:05)
[2023-01-04] MEDS: Levothyroxine 75 MCG Tab PO SCH (06:10)
[2023-01-04] MEDS: Sucralfate 1 GM Tab PO SCH ×4 (06:36→21:05)
[2023-01-04] MEDS: Menthol 10%/Methyl Salicylate 30% 85 GM Tube TOP SCH ×2 (08:40→21:05)
[2023-01-04] MEDS: Loratadine 10 MG Tab PO SCH (08:40)
[2023-01-04] MEDS: Losartan 100 MG Tab PO SCH (08:40)
[2023-01-04] MEDS: Venlafaxine 150 MG Cap.ER PO SCH (08:42)
[2023-01-04] MEDS: atorvaSTATin 10 MG Tab PO SCH (08:42)
[2023-01-04] MEDS: Acetaminophen 325 MG Tab PO SCH ×3 (08:42→21:12)
[2023-01-04] MEDS: Nitrofurantoin Monohydrate/Macrocrystalline 100 MG Cap PO SCH ×2 (08:43→21:07)
[2023-01-04] MEDS: Hydrochlorothiazide 12.5 MG Cap PO SCH (08:43)
[2023-01-04] MEDS: Lidocaine 4% 1 each Patch TOP SCH (08:47)
[2023-01-04] MEDS: Pregabalin 75 MG Cap PO SCH ×2 (08:52→21:18)
[2023-01-04] MEDS: Melatonin 3 MG Tab PO SCH (21:07)
[2023-01-04] MEDS: QUEtiapine 100 MG Tab PO SCH (21:10)
[2023-01-04] MEDS: Sennosides/Docusate Sodium 50-8.6 MG Tab PO SCH (21:10)
[2023-01-04] MEDS: amLODIPine 10 MG Tab PO SCH (21:10)
[2023-01-04] MEDS: Metoprolol Succinate 50 MG Tab.ER PO SCH (21:11)
[2023-01-04] MEDS: Prazosin 1 MG Cap PO SCH (21:12)
[2023-01-05] MEDS: Levothyroxine 75 MCG Tab PO SCH (06:30)
[2023-01-05] MEDS: Sucralfate 1 GM Tab PO SCH ×4 (06:31→20:53)
[2023-01-05] MEDS: Pantoprazole 40 MG Tab.CR PO SCH (06:31)
[2023-01-05] MEDS: Formoterol/Mometasone 100-5 MCG 8.8 GM Inhaler IH SCH ×2 (06:31→20:51)
[2023-01-05] MEDS: Losartan 100 MG Tab PO SCH (08:43)
[2023-01-05] MEDS: Hydrochlorothiazide 12.5 MG Cap PO SCH (08:43)
[2023-01-05] MEDS: Loratadine 10 MG Tab PO SCH (08:43)
[2023-01-05] MEDS: Acetaminophen 325 MG Tab PO SCH ×3 (08:43→20:56)
[2023-01-05] MEDS: Venlafaxine 150 MG Cap.ER PO SCH (08:44)
[2023-01-05] MEDS: atorvaSTATin 10 MG Tab PO SCH (08:45)
[2023-01-05] MEDS: Lidocaine 4% 1 each Patch TOP SCH (08:46)
[2023-01-05] MEDS: Menthol 10%/Methyl Salicylate 30% 85 GM Tube TOP SCH ×2 (08:47→20:53)
[2023-01-05] MEDS: Pregabalin 75 MG Cap PO SCH ×2 (08:51→20:51)
[2023-01-05] MEDS: metFORMIN 500 MG Tab.ER PO SCH ×2 (08:51→17:00)
[2023-01-05] MEDS: QUEtiapine 100 MG Tab PO SCH (20:53)
[2023-01-05] MEDS: Melatonin 3 MG Tab PO SCH (20:54)
[2023-01-05] MEDS: Sennosides/Docusate Sodium 50-8.6 MG Tab PO SCH (20:55)
[2023-01-05] MEDS: Prazosin 1 MG Cap PO SCH (20:55)
[2023-01-05] MEDS: amLODIPine 10 MG Tab PO SCH (20:55)
[2023-01-05] MEDS: Metoprolol Succinate 50 MG Tab.ER PO SCH (20:56)
[2023-01-06] MEDS: Sucralfate 1 GM Tab PO SCH ×4 (06:38→20:51)
[2023-01-06] MEDS: Pantoprazole 40 MG Tab.CR PO SCH (06:38)
[2023-01-06] MEDS: Levothyroxine 75 MCG Tab PO SCH (06:38)
[2023-01-06] MEDS: Formoterol/Mometasone 100-5 MCG 8.8 GM Inhaler IH SCH ×2 (06:38→20:50)
[2023-01-06] MEDS: metFORMIN 500 MG Tab.ER PO SCH ×2 (08:03→17:35)
[2023-01-06] MEDS: Loratadine 10 MG Tab PO SCH (08:04)
[2023-01-06] MEDS: Menthol 10%/Methyl Salicylate 30% 85 GM Tube TOP SCH ×2 (08:04→20:51)
[2023-01-06] MEDS: Losartan 100 MG Tab PO SCH (08:04)
[2023-01-06] MEDS: Venlafaxine 150 MG Cap.ER PO SCH (08:05)
[2023-01-06] MEDS: atorvaSTATin 10 MG Tab PO SCH (08:05)
[2023-01-06] MEDS: Hydrochlorothiazide 12.5 MG Cap PO SCH (08:05)
[2023-01-06] MEDS: Acetaminophen 325 MG Tab PO SCH ×3 (08:06→20:54)
[2023-01-06] MEDS: Lidocaine 4% 1 each Patch TOP SCH (08:07)
[2023-01-06] MEDS: Pregabalin 75 MG Cap PO SCH ×2 (08:10→20:52)
[2023-01-06] MEDS: amLODIPine 10 MG Tab PO SCH (20:52)
[2023-01-06] MEDS: Prazosin 1 MG Cap PO SCH (20:52)
[2023-01-06] MEDS: QUEtiapine 100 MG Tab PO SCH (20:53)
[2023-01-06] MEDS: Metoprolol Succinate 50 MG Tab.ER PO SCH (20:53)
[2023-01-06] MEDS: Sennosides/Docusate Sodium 50-8.6 MG Tab PO SCH (20:53)
[2023-01-06] MEDS: Melatonin 3 MG Tab PO SCH (20:54)
[2023-01-07] MEDS: Pantoprazole 40 MG Tab.CR PO SCH (06:17)
[2023-01-07] MEDS: Formoterol/Mometasone 100-5 MCG 8.8 GM Inhaler IH SCH ×2 (06:17→20:17)
[2023-01-07] MEDS: Levothyroxine 75 MCG Tab PO SCH (06:18)
[2023-01-07] MEDS: Sucralfate 1 GM Tab PO SCH ×4 (06:54→20:17)
[2023-01-07] MEDS: metFORMIN 500 MG Tab.ER PO SCH ×2 (08:00→18:06)
[2023-01-07] MEDS: Losartan 100 MG Tab PO SCH (08:32)
[2023-01-07] MEDS: Loratadine 10 MG Tab PO SCH (08:32)
[2023-01-07] MEDS: Hydrochlorothiazide 12.5 MG Cap PO SCH (08:34)
[2023-01-07] MEDS: Venlafaxine 150 MG Cap.ER PO SCH (08:34)
[2023-01-07] MEDS: Acetaminophen 325 MG Tab PO SCH ×3 (08:34→20:17)
[2023-01-07] MEDS: atorvaSTATin 10 MG Tab PO SCH (08:34)
[2023-01-07] MEDS: Menthol 10%/Methyl Salicylate 30% 85 GM Tube TOP SCH ×2 (08:37→20:19)
[2023-01-07] MEDS: Pregabalin 75 MG Cap PO SCH ×2 (08:40→20:20)
[2023-01-07] MEDS: QUEtiapine 100 MG Tab PO SCH (20:17)
[2023-01-07] MEDS: Melatonin 3 MG Tab PO SCH (20:17)
[2023-01-07] MEDS: Prazosin 1 MG Cap PO SCH (20:18)
[2023-01-07] MEDS: amLODIPine 10 MG Tab PO SCH (20:18)
[2023-01-07] MEDS: Sennosides/Docusate Sodium 50-8.6 MG Tab PO SCH (20:19)
[2023-01-07] MEDS: Metoprolol Succinate 50 MG Tab.ER PO SCH (20:19)
[2023-01-08] MEDS: Levothyroxine 75 MCG Tab PO SCH (06:34)
[2023-01-08] MEDS: Pantoprazole 40 MG Tab.CR PO SCH (06:34)
[2023-01-08] MEDS: Formoterol/Mometasone 100-5 MCG 8.8 GM Inhaler IH SCH ×2 (06:34→20:15)
[2023-01-08] MEDS: Sucralfate 1 GM Tab PO SCH ×4 (06:35→20:18)
[2023-01-08 06:37] LABS: A/G RATIO 0.5; ALANINE AMINOTRANSFERASE,ALT 25 U/L (12-36); ALKALINE PHOSPHATASE 143 IU/L (56-112); ASPARTATE AMNIOTRANSFERASE,AST 20 IU/L (5-25); BILIRUBIN TOTAL 0.2 mg/dL (0.1-1.3); BLOOD UREA NITROGEN,BUN 33 mg/dL (7-18); BUN/CREATININE RATIO 19.4 (9-20); CALCIUM 8.2 mg/dL (8.6-10.2); CARBON DIOXIDE,CO2 27 mmol/L (21-32); CHLORIDE,CL 106 mmol/L (100-110); CREATININE 1.7 mg/dL (0.55-1.02); EST CRCL DRUG DOSING (CG) 37.86 mL/min; ESTIMATED GFR 33 mL/min (>60); GLUCOSE RANDOM 102 mg/dL (80-116); POTASSIUM,K 4.6 mmol/L (3.5-5.3); PROTEIN TOTAL,TP 6.3 g/dL (6.0-8.0); SODIUM,NA 138 mmol/L (135-145)
[2023-01-08] MEDS: metFORMIN 500 MG Tab.ER PO SCH ×2 (08:05→17:46)
[2023-01-08] MEDS: Menthol 10%/Methyl Salicylate 30% 85 GM Tube TOP SCH ×2 (08:39→20:15)
[2023-01-08] MEDS: Hydrochlorothiazide 12.5 MG Cap PO SCH (08:40)
[2023-01-08] MEDS: Venlafaxine 150 MG Cap.ER PO SCH (08:40)
[2023-01-08] MEDS: Losartan 100 MG Tab PO SCH (08:42)
[2023-01-08] MEDS: Loratadine 10 MG Tab PO SCH (08:42)
[2023-01-08] MEDS: atorvaSTATin 10 MG Tab PO SCH (08:43)
[2023-01-08] MEDS: Acetaminophen 325 MG Tab PO SCH ×3 (08:44→20:18)
[2023-01-08] MEDS: Pregabalin 75 MG Cap PO SCH ×2 (08:51→20:17)
[2023-01-08] MEDS: Prazosin 1 MG Cap PO SCH (20:16)
[2023-01-08] MEDS: Melatonin 3 MG Tab PO SCH (20:17)
[2023-01-08] MEDS: Metoprolol Succinate 50 MG Tab.ER PO SCH (20:17)
[2023-01-08] MEDS: amLODIPine 10 MG Tab PO SCH (20:18)
[2023-01-08] MEDS: QUEtiapine 100 MG Tab PO SCH (20:18)
[2023-01-08] MEDS: Sennosides/Docusate Sodium 50-8.6 MG Tab PO SCH (20:18)
[2023-01-09] MEDS: Pantoprazole 40 MG Tab.CR PO SCH (06:16)
[2023-01-09] MEDS: Levothyroxine 75 MCG Tab PO SCH (06:16)
[2023-01-09] MEDS: Formoterol/Mometasone 100-5 MCG 8.8 GM Inhaler IH SCH ×2 (06:17→20:49)
[2023-01-09] MEDS: Sucralfate 1 GM Tab PO SCH ×4 (06:58→20:49)
[2023-01-09] MEDS: Menthol 10%/Methyl Salicylate 30% 85 GM Tube TOP SCH ×2 (08:01→20:49)
[2023-01-09] MEDS: Venlafaxine 150 MG Cap.ER PO SCH (08:01)
[2023-01-09] MEDS: Pregabalin 75 MG Cap PO SCH ×2 (08:01→20:50)
[2023-01-09] MEDS: Loratadine 10 MG Tab PO SCH (08:02)
[2023-01-09] MEDS: Acetaminophen 325 MG Tab PO SCH ×3 (08:02→20:52)
[2023-01-09] MEDS: Losartan 100 MG Tab PO SCH (08:02)
[2023-01-09] MEDS: metFORMIN 500 MG Tab.ER PO SCH ×2 (08:02→17:03)
[2023-01-09] MEDS: atorvaSTATin 10 MG Tab PO SCH (08:03)
[2023-01-09] MEDS: Hydrochlorothiazide 25 MG Tab PO SCH (09:01)
[2023-01-09 11:10] LABS: BASOPHILS PERCENT AUTO 0.5 % (0.2-1.5); EOSINOPHILS ABSOLUTE AUTO 0.2 x10-3/uL (0.0-0.8); EOSINOPHILS PERCENT AUTO 3.1 % (0.6-8.1); HEMATOCRIT 26.2 % (34.2-48.2); HEMOGLOBIN 8.8 g/dL (11.4-15.5); LYMPHOCYTES ABSOLUTE AUTO 1.7 x10-3/uL (1.0-4.4); LYMPHOCYTES PERCENT AUTO 21.1 % (18.4-52.1); MEAN CORPUSCULAR HEMOGLOBIN 30.8 pg (23.9-33.9); MEAN CORPUSCULAR HGB CONC 33.5 g/dL (31.9-34.8); MEAN PLATELET VOLUME 9.2 fL (7.1-12.4); MONOCYTES ABSOLUTE AUTO 0.4 x10-3/uL (0.3-1.0); MONOCYTES PERCENT AUTO 5.6 % (4.4-15.7); NEUTROPHILS ABSOLUTE AUTO 5.5 x10-3/uL (1.5-6.3); NEUTROPHILS PERCENT AUTO 69.8 % (30.8-76.2); PLATELET COUNT,PLT 163 x10(3)uL (151-488); RED BLOOD CELL COUNT 2.85 x10(6)uL (3.60-5.20); RED CELL DISTRIBUTION WIDTH 13.1 % (12.3-16.5); WHITE BLOOD CELL COUNT,WBC 7.9 x10-3/uL (3.0-10.3)
[2023-01-09] MEDS: Prazosin 1 MG Cap PO SCH (20:50)
[2023-01-09] MEDS: Melatonin 3 MG Tab PO SCH (20:50)
[2023-01-09] MEDS: Sennosides/Docusate Sodium 50-8.6 MG Tab PO SCH (20:51)
[2023-01-09] MEDS: amLODIPine 10 MG Tab PO SCH (20:51)
[2023-01-09] MEDS: QUEtiapine 100 MG Tab PO SCH (20:51)
[2023-01-09] MEDS: Metoprolol Succinate 50 MG Tab.ER PO SCH (20:52)
[2023-01-10] MEDS: Pantoprazole 40 MG Tab.CR PO SCH (06:23)
[2023-01-10] MEDS: Levothyroxine 75 MCG Tab PO SCH (06:23)
[2023-01-10] MEDS: Formoterol/Mometasone 100-5 MCG 8.8 GM Inhaler IH SCH (06:24)
[2023-01-10] MEDS: Sucralfate 1 GM Tab PO SCH (06:49)
[2023-01-10] MEDS: atorvaSTATin 10 MG Tab PO SCH (07:59)
[2023-01-10] MEDS: Acetaminophen 325 MG Tab PO SCH (07:59)
[2023-01-10] MEDS: Loratadine 10 MG Tab PO SCH (07:59)
[2023-01-10] MEDS: Cyclobenzaprine 10 MG Tab PO PRN (07:59)
[2023-01-10] MEDS: Losartan 100 MG Tab PO SCH (07:59)
[2023-01-10] MEDS: Pregabalin 75 MG Cap PO SCH (08:00)
[2023-01-10] MEDS: metFORMIN 500 MG Tab.ER PO SCH (08:00)
[2023-01-10] MEDS: Hydrochlorothiazide 25 MG Tab PO SCH (08:00)
[2023-01-10] MEDS: Menthol 10%/Methyl Salicylate 30% 85 GM Tube TOP SCH (08:00)
[2023-01-10] MEDS: Venlafaxine 150 MG Cap.ER PO SCH (08:00)
== END 2023-01-10 09:05 | DRG 565 ==
LOC: FB.ED 17:55 → FB.MS 20:32
PROVIDERS: ADMIT Family Medicine; ATTEND Family Medicine
DX: S00.03XA Contusion of scalp, initial encounter (principal); M54.2 Cervicalgia; M25.511 Pain in right shoulder; M25.551 Pain in right hip; M25.552 Pain in left hip; T79.6XXA Traumatic ischemia of muscle, initial encounter; M25.562 Pain in left knee; M25.571 Pain in right ankle and joints of right foot; M25.572 Pain in left ankle and joints of left foot; F32.3 Major depressive disorder, single episode, severe with psychotic features; N17.9 Acute kidney failure, unspecified; F43.10 Post-traumatic stress disorder, unspecified; F43.20 Adjustment disorder, unspecified; I12.9 Hypertensive chronic kidney disease with stage 1 through stage 4 chronic kidney disease, or unspecified chronic kidney disease; N18.32 Chronic kidney disease, stage 3b; E11.9 Type 2 diabetes mellitus without complications; E03.9 Hypothyroidism, unspecified; Z51.5 Encounter for palliative care; W01.10XA Fall on same level from slipping, tripping and stumbling with subsequent striking against unspecified object, initial encounter; Z66 Do not resuscitate; R29.6 Repeated falls; K29.50 Unspecified chronic gastritis without bleeding; E11.40 Type 2 diabetes mellitus with diabetic neuropathy, unspecified; E11.22 Type 2 diabetes mellitus with diabetic chronic kidney disease; E86.0 Dehydration; E83.42 Hypomagnesemia; N30.90 Cystitis, unspecified without hematuria; E66.9 Obesity, unspecified; F17.210 Nicotine dependence, cigarettes, uncomplicated; M17.0 Bilateral primary osteoarthritis of knee; S49.91XA Unspecified injury of right shoulder and upper arm, initial encounter; N95.1 Menopausal and female climacteric states; S46.011A Strain of muscle(s) and tendon(s) of the rotator cuff of right shoulder, initial encounter; W01.0XXA Fall on same level from slipping, tripping and stumbling without subsequent striking against object, initial encounter; E78.00 Pure hypercholesterolemia, unspecified; M25.561 Pain in right knee; F10.20 Alcohol dependence, uncomplicated; G47.62 Sleep related leg cramps; F12.20 Cannabis dependence, uncomplicated; G47.00 Insomnia, unspecified; F51.5 Nightmare disorder; R04.0 Epistaxis; F63.2 Kleptomania; S40.011A Contusion of right shoulder, initial encounter; M54.50 Low back pain, unspecified; K59.00 Constipation, unspecified; J45.20 Mild intermittent asthma, uncomplicated; G89.29 Other chronic pain; K21.9 Gastro-esophageal reflux disease without esophagitis; D63.1 Anemia in chronic kidney disease; Z79.890 Hormone replacement therapy; Y92.89 Other specified places as the place of occurrence of the external cause; Z79.4 Long term (current) use of insulin; Z86.73 Personal history of transient ischemic attack (TIA), and cerebral infarction without residual deficits; Z79.899 Other long term (current) drug therapy; Z79.84 Long term (current) use of oral hypoglycemic drugs; Z88.8 Allergy status to other drugs, medicaments and biological substances; Z88.2 Allergy status to sulfonamides; Z87.440 Personal history of urinary (tract) infections; Z90.49 Acquired absence of other specified parts of digestive tract; Z90.710 Acquired absence of both cervix and uterus; Z90.5 Acquired absence of kidney; Z56.0 Unemployment, unspecified; Z88.0 Allergy status to penicillin; Z68.37 Body mass index [BMI] 37.0-37.9, adult
CPT/HCPCS: 36415; 70450; 72072; 72100; 72125; 72170; 73030; 73560; 73610; 80053; 82550; 84484; 85025; 85610; 85730; 99285 ×2; A9270 ×2; Q0162; 71101-RT; 73080-RT; 73110-RT; 73221-RT; 73502-RT; 73562-RT; 80048; 80061; 81001; 82947; 83036; 83735; 83880; 84443; 85379; 87086; 87088; 87186; 90686; 93970; 97110-GO; 97110-GP; 97161-GP; 97165-GO; 99223; 99231; 99232; 99233; 99239; G0008; G0283-GO; J1650; J1815; J3490; J7030; J7120; Q3014